=== PATIENT | female | born 1940 | race Caucasian/White ===

== ENCOUNTER 2021-09-12 10:53 | Outpatient (CLI) | payer MEDICARE, SELFPAY ==
[2021-09-12 16:25] LABS: Basophils Absolute Auto 0.01 K/uL (0.00-0.30); Basophils Percent Auto 0.1 % (0.0-3.0); Eosinophils Absolute Auto 0.01 K/uL (0.00-0.50); Eosinophils Percent Auto 0.1 % (0.0-7.0); Hematocrit 37.1 % (33.0-51.0); Hemoglobin* 12.1 gm/dL (12.0-16.0); Immature Granulocytes Abs Auto 0.09 K/uL (0.00-0.30); Lymphocytes Absolute Auto 3.06 K/uL (0.90-2.90); Lymphocytes Percent Auto 29.1 % (20-44); Mean Corpuscular HGB Conc 33 gm/dL (32-36); Mean Corpuscular Hemoglobin 30 pg (26-34); Mean Corpuscular Volume 93 fL (80-100); Monocytes Percent Auto 4.6 % (0.0-11.0); Neutrophils Absolute Auto 6.87 K/uL (1.7-7.0); Neutrophils Percent Auto 65.2 % (42.0-72.0); Platelet Count* 377 K/uL (140-440); Red Blood Count 3.98 m/uL (4.00-5.20); White Blood Count* 10.52 K/uL (4.50-11.00)
[2021-09-12 16:28] LABS: Albumin* 3.9 g/dL (3.3-5.0); Chloride* 103 mmol/L (96-114)
[2021-09-12 16:29] LABS: Potassium* 3.9 mmol/L (3.6-5.1); Sodium* 137 mmol/L (135-149)
[2021-09-12 16:31] LABS: Alkaline Phosphatase* 77 U/L (40-150); Aspartate Amino Transferase* 31 U/L (12-35); Bilirubin Total* 0.6 mg/dL (0.1-1.5); Blood Urea Nitrogen* 13 mg/dL (7-30); Carbon Dioxide* 25 mmol/L (20-32); Cholesterol* 131 mg/dL (90-199); Creatinine* 0.6 mg/dL (0.5-1.5); Estimated Glomerular Filt Rate 90.12; Glucose* 117 mg/dL (60-115); Total Protein* 7.4 g/dL (6.0-8.3); Triglycerides* 76 mg/dL (40-149)
[2021-09-12 16:32] LABS: Alanine Aminotransferase* 39 U/L (4-35); Calcium* 9.7 mg/dL (8.4-10.6); HDL Cholesterol* 47 mg/dL (>=50); LDL Cholesterol Calculated 69 mg/dL (<100)
[2021-09-12 17:02] LABS: TSH With Reflex to FT4* 0.122 uIU/mL (0.270-4.200)
[2021-09-12 21:45] LABS: Free T4 Free Thyroxine* 1.78 ng/dL (0.70-1.85)
[2021-09-16 11:41] LABS: Slide Review Reflex No
== END 2021-09-12 10:54 | disposition home or self-care (01) ==
PROVIDERS: PCP Nurse Practitioner Family; Visit Provider Nurse Practitioner Family
DX: I10 Essential (primary) hypertension (principal); E78.5 Hyperlipidemia, unspecified; E03.9 Hypothyroidism, unspecified; R05.9 Cough, unspecified; Z51.81 Encounter for therapeutic drug level monitoring; Z13.0 Encounter for screening for diseases of the blood and blood-forming organs and certain disorders involving the immune mechanism; Z13.820 Encounter for screening for osteoporosis
CPT/HCPCS: 36415; 80053; 80061; 84439; 84443; 85025

== ENCOUNTER 2021-10-07 14:32 | Outpatient (CLI) | payer MEDICARE, SELFPAY ==
--- NOTE | 2021-10-07 14:40 | MM_ITS ---
Patient: ALYSON GREGORY Facility:?[facility] Patient ID:?[id number] Site Patient ID:?[id number]. Site :?1940 Study:?XRay-Breast Bilateral 2D W/CAD-10/07/2021 11:28:59 PM Ordering Physician:Kathi Galvez Final Report: BILATERAL SCREENING MAMMOGRAM WITH COMPUTER-AIDED DETECTION TECHNIQUE: CC and MLO views were obtained. These mammographic images have been obtained using full-field digital technique. These mammographic images were interpreted with the benefit of computer-aided detection. COMPARISON FILM: 11/10/2019, 11/08/2018, 11/05/2017. FINDINGS: The breasts are heterogeneously dense, which may obscure small masses IMPRESSION: There is no radiographic evidence for malignancy. ASSESSMENT: BI-RADS Category 1: Negative RECOMMENDATION: Routine screening mammogram in 1 year. A lay language report of this examination will be provided to the patient. Andre Galeas M.D. Diagnostic Radiologist [email or web address] BAILEY/elba D& Transcribed: 6:44 p.mAnant arreola/Dictated by: Andre Galeas MD @ 10/08/2021 10:05:00 AM Signed by:?Andre Galeas MD @10/09/2021 8:14:07 AM (Electronic Signature)
--- OUTSIDE RECORDS SUMMARY | 2021-10-14 23:37 | XMS_ITS | Encounter Summary ---
:1940 Author Organization [facility] Address [address] [place] [address] Care Team Providers Name Role Phone Elsewhere, Pcp Primary Care Provider Unavailable Encounter Details Date Type Department Care Team Description 07/08/2021 Orders Only Division of Gastroenterology Tino Peck, in [facility] [address] [facility] [address] [place] [address] [place], [place] [phone] Social History Tobacco Use Types Packs/Day Years Used Date Smoking Tobacco: Never Smokeless Tobacco: Never Alcohol Habits Answer Date Recorded How often do you have a drink containing alcohol? Never 07/05/2021 How many drinks containing alcohol do you have on a typical Not asked day when you are drinking? How often do you have six or more drinks on one occasion? No t asked Comment: Not asked Social Isolation Answer Date Recorded In a typical week, how many times do you More than three paresh es a week 07/05/2021 talk on the phone with family, friends, or neighbors? How often do you get together with friends Three times a wee k 07/05/2021 or relatives? How often do you attend caodaism or Patient refused 2021 hindu services? Do you belong to any clubs or Patient refused 07/05/2021 organizations such as caodaism groups, unions, fraternal or athletic groups, or school groups? How often do you attend meetings of the Patient refused 07/05/2021 clubs or organizations you belong to? Are you now , , , 07/05/2021 , never or living with a partner? Physical Activity Answer Date Recorded On average, how many days per week do you engage in moderate to 1 day 07/05/2021 strenuous exercise (like walking fast, running, jogging, dancing, swimming, biking, or other activities that cause a light or heavy sweat)? On average, how many minutes do you engage in exercise at th is 30 min 07/05/2021 level? Stress Answer Date Recorded Do you feel stress - tense, restless, nervous, or Only a lit tle 07/05/2021 anxious, or unable to sleep at night because your mind is troubled all the time - these days? Financial Resource Strain Answer Date Recorded How hard is it for you to pay for the very basics like Not h shar at all 07/05/2021 food, housing, medical care, and heating? Intimate Partner Violence Answer Date Recorded Within the last year, have you been afraid of your partner o r No 07/05/2021 ex-partner? Within the last year, have you been humiliated or emotionall y No 07/05/2021 abused in other ways by your partner or ex-partner? Within the last year, have you been kicked, hit, slapped, or No 07/05/2021 otherwise physically hurt by your partner or ex-partner? Within the last year, have you been raped or forced to have any No 07/05/2021 kind of sexual activity by your partner or ex-partner? Food Insecurity Answer Date Recorded Within the past 12 months, you worried that your food would Never true 07/05/2021 run out before you got money to buy more. Within the past 12 months, the food you bought just didn't N ever true 07/05/2021 last and you didn't have money to get more. Transportation Needs Answer Date Recorded In the past 12 months, has lack of transportation kept you f rom No 07/05/2021 medical appointments or from getting medications? In the past 12 months, has lack of transportation kept you f rom No 07/05/2021 meetings, work, or getting things needed for daily living? Housing Stability Answer Date Recorded In the last 12 months, was there a time when you were not ab le No 07/05/2021 to pay the mortgage or rent on time? In the last 12 months, how many places have you lived? 1 07/05/2021 In the last 12 months, was there a time when you did not hav e a No 07/05/[address] to sleep or slept in a penitentiary (including now)? Education Answer Date Recorded What is the highest level of school you have completed or 12 th grade 07/05/2021 the highest degree you have received? Sex Assigned at Date Recorded Female 07/05/2021 8:19 AM CDT documented as of this encounter Plan of Treatment Not on filedocumented as of this encounter Visit Diagnoses Not on filedocumented in this encounter Additional Health Concerns Assessment Noted Time PHQ-9 Depression Total Score: 1 10/05/2013 1:43 PM CDT documented as of this encounter Care Teams Animal Surgeon Relationship Specialty Start Date End Date Elsewhere, Pcp PCP - General Internal Medicine 08/24/19 documented as of this encounter
--- OUTSIDE RECORDS SUMMARY | 2021-10-14 23:37 | XMS_ITS | Encounter Summary ---
:1940 Author Organization [facility] Address [address] [place] [address] Care Team Providers Name Role Phone Elsewhere, Pcp Primary Care Provider Unavailable Reason for Referral Outpatient (Routine) - Closed Specialty Diagnoses / Procedures Referred By Contact Refer red To Contact Diagnoses Diarrhea Persistent Unexplained Bo Marie M.D. [facility] Procedures Colonoscopy [address] [place] [address] Referral ID Status Reason Start Date Expiration Date Visits Requ ested Visits Authorized [id number] Closed 07/08/2021 07/08/2022 1 1 Reason for Visit Outpatient (Routine) - Closed Specialty Diagnoses / Procedures Referred By Contact Refer red To Contact Diagnoses Diarrhea Persistent Unexplained Bo Marie M.D. [facility] Procedures Colonoscopy [address] [place] [address] Referral ID Status Reason Start Date Expiration Date Visits Requ ested Visits Authorized [id number] Closed 07/08/2021 07/08/2022 1 1 Encounter Details Date Type Department Care Team Description 07/10/2021 Hospital Division of Bo Marie Diarrhea Encounter Gastroenterology in [place], [place] [address] Unexplained [address] [place] [phone] Social History Tobacco Use Types Packs/Day Years Used Date Smoking Tobacco: Never Smokeless Tobacco: Never Alcohol Use Standard Drinks/Week Comments Not Currently 0 (1 standard drink = 0.6 oz pure alcoho l) Alcohol Habits Answer Date Recorded How often [...] or relatives? How often do you attend confucianist or Patient refused 2021 jainism services? Do you belong to any clubs or Patient refused 07/05/2021 organizations such as confucianist groups, unions, fraternal or athletic groups, or [...] AM CDT documented as of this encounter Last Filed Vital Signs Vital Sign Reading Time Taken Comments Blood Pressure 136/100 07/10/2021 4:17 PM CDT Pulse 69 07/10/2021 4:17 PM CDT Temperature 36.6 ??C (97.9 ??F) 07/10/2021 4:03 PM CDT Respiratory Rate 14 07/10/2021 4:17 PM CDT Oxygen Saturation 97% 07/10/2021 4:17 PM CDT Inhaled Oxygen Concentration - - Weight 74.8 kg (165 lb) 07/10/2021 2:42 PM CDT Height - - Body Mass Index 24.03 10/08/2016 1:07 PM CDT documented in this encounter Medications at Time of Discharge Medication Sig Dispensed Refills Start Date End Date acetaminophen (TYLENOL) 500 Take 1,000 mg by 0 mg tablet mouth 3 (three) times a day. ascorbic acid, vitamin C, Take 1 tablet by 0 01/07 (VITAMIN C) 500 mg tablet mouth daily. aspirin [address] tablet Take 1 tablet by 0 2015 mouth daily. B complex-vitamins Take 1 tablet by 0 09/11/2011 (for_BALANCE B-50) tablet mouth daily. calcium carbonate-vitamin Take 1 tablet by 0 01/07 D3 1,500 mg (600 mg mouth 2 (two) times calcium)-400 unit per a day. tablet fish oil-dha-epa Take 2 capsules by 0 12/15/2010 1,200-144-216 mg capsule mouth 2 (two) times a day. hydroCHLOROthiazide Take 1 tablet by 0 06/10/2016 (for_HYDRODIURIL) 25 mg mouth daily. tablet Hypertension levothyroxine (SYNTHROID, Take 137 mcg by 0 10/29 LEVOTHROID) 137 mcg tablet mouth. losartan (COZAAR) 50 mg Take 75 mg by mouth. 0 tablet multivitamin tablet Take 1 tablet by 0 01/31/2008 mouth daily. omeprazole (PriLOSEC) 20 mg 0 06/07/[address] capsule potassium chloride Take 1 tablet by 0 06/10/2016 (for_KLOR-CON M/KDUR) 20 mouth daily. mEq ER tablet Hypokalemia rOPINIRole (REQUIP) 1 mg Take 1 mg every 6 0 10/06 tablet hours or up to 4 times daily. simvastatin (for_ZOCOR) 20 Take 1 tablet by 0 07/2016 mg tablet mouth at bedtime. Dysplipidemia SYNTHROID 137 mcg tablet TAKE 1 TABLET BY 90 tablet 3 08/30 MOUTH DAILY traMADoL (ULTRAM) 50 mg Take 50 mg by mouth. 0 tablet vancomycin (VANCOCIN) 125 TAKE ONE CAPSULE BY 0 0 06/19/2021 mg capsule MOUTH FOUR TIMES A DAY vitamin E 400 unit capsule Take 1 capsule by 0 mouth daily. documented as of this encounter Plan of Treatment Not on filedocumented as of this encounter Procedures Procedure Name Priority Date/Time Associated Diagnosis Comme nts SURGICAL PATHOLOGY Routine 07/10/2021 3:52 PM Res ults for this CDT procedure are i n the results section. COLONOSCOPY Routine 07/10/2021 3:36 PM Diarrhea Persistent Re sults for this CDT Unexplained procedure are i n the results section. COLONOSCOPY Routine 07/10/2021 3:36 PM Diarrhea Persistent CDT Unexplained documented in this encounter Results Surgical Pathology (07/10/2021 3:52 PM CDT) Component Value Ref Test Analysis Performed Pathologis t Range Method Time At Signature 07/14/2021 DTL 1:19 PM CDT Report Meg Merino M.D. 07/14/2021 DTL electronically 1:19 PM CDT signed by I verify that I have examined all relevant slides/materials for the specimen(s) and rendered or confirmed the diagnosis. Seen in consultation with: ??Shahriar King M.D. Gross Description Received in formalin labeled with the patient's n daniel, 07/14/2021 DTL medical record number, and colon, random sites (colon) 1:19 PM CDT are eight pale yousif-pink irregular soft tissues, admixed with minute tissue fragments that may not survive processing, the tissues ranging from 0.1-0.4 cm in greatest dimension. Specimens are submitted en toto in cassette A1. Grossed by KALPANAW. Interpretation FINAL DIAGNOSIS 07/14/2021 DTL A. ??Colon, random sites, endoscopic biopsy: ??Collagenous 1:19 PM CDT colitis. ??Trichrome stain highlights thickened and irregular subepithelial collagen and supports the diagnosis. Specimen (Source) Anatomical Collection Method Collection Time Re ceived Time Location / / Volume Laterality Biopsy (Colon) 07/10/2021 3:52 PM CDT Narrative This result has an attachment that is no t available. Caroline Wayne LAB SURG PATH ORDERAB LES Performing Organization Address City/State/ZIP Code Phon e Number [facility] - [address] [place], [place] [address] [facility] [place] [address] [facility] [address] Colonoscopy (07/10/2021 3:36 PM CDT) Specimen (Source) Anatomical Collection Method Collection Time Re ceived Time Location / / Volume Laterality 07/10/2021 3:36 PM CDT Impressions [facility] - 07/10/2021 4:00 PM CDT Post-op Diagnoses: ? - Biopsies were obtained in the e ntire colon. Narrative [facility] [place] - 07/10/2021 4:00 PM CDT Gonda 9 GI GI Patient Name: Radha Mcmullen Date of : 1940 Age: 81 Gender: Female Procedure Date: 07/10/2021 Procedure: ? Colonosc opy Providers: ? Mohit Morris MD Referring Provider: ?Bo valenzuela MD Pre-op Diagnoses: ?Clinically significant diarrhea of unexplained origin Recommendation: ? - Return to referring physician shani s previously scheduled. ? - PATHOLOGY/MICROBIOLOGY FOLLOW-U P: The ordering provider is responsible ? for reviewing results from specim ens obtained during this endoscopic ? procedure and communicating the f indings to the patient. If guidance is ? needed for interpreting endoscopi c findings or pathology results, please ? consider a gastroenterology e-con sult. Findings: ? Biopsies were obtained in the ent bharat colon with cold forceps for ? histology. ? Extensive amounts of stool was fo und in the entire colon, precluding ? visualization. Procedural Details: ? The patient was seen, evaluated, history reviewed, airway and heart-lung ? exams were performed by licensed provider and were satisfactory for ? planned level of sedation care. ? The risks, benefits and alternati ves for the procedure and sedation were ? discussed and informed consent wa s obtained. A procedural pause was ? conducted in the presence of assi sting personnel to verify the correct ? patient identity and procedure to be performed. Throughout the ? procedure, the patient's blood pr essure, pulse, and oxygen saturations ? were monitored continuously. The Pediatric Colonoscope was introduced ? under direct vision through the a nus and advanced to the cecum, ? identified by appendiceal orifice and ileocecal valve. The ileocecal ? valve, the appendiceal orifice an d the rectum were photographed. The ? colonoscopy was performed without difficulty. The patient tolerated the ? procedure well. The quality of th e bowel preparation was good. The ? quality of the bowel preparation was evaluated using the BBPS (Floral ? Bowel Preparation Scale) with sco res of: Right Colon = 0 (unprepared, ? mucosa not seen due to solid stoo l that cannot be cleared or unseen ? proximal colon segment in a colon oscopy aborted due to inadequate bowel ? prep), Transverse Colon = 0 (unpr epared, mucosa not seen due to solid ? stool that cannot be cleared or u nseen proximal colon segment in a ? colonoscopy aborted due to inadeq uate bowel prep) and Left Colon = 1 ? (portion of mucosa seen, but othe r areas not well seen due to staining, ? residual stool and/or opaque liqu id). The total BBPS score equals 1. The ? quality of the bowel preparation was inadequate. Estimated Blood Loss: ?Estimated blo od loss: none. Complications: ? No immedia te complications. Sedation: ? Moderate (conscious) sedation was administered by the endoscopy nurse ? and supervised by the endoscopist . The patient's oxygen saturation, ? heart rate, blood pressure and re sponse to care were monitored. Total ? physician intraservice time was 2 7 minutes. Attending Participation: I was present a nd participated during the entire ? pro cedure, including non-elizabeth portions. Caroline Morris MD 07/10/2021 4:00:14 PM This report has been signed electronical ly. Number of Addenda: 0 Bo Marie M.D. GI PROCEDURE ORDERABLES Performing Organization Address City/State/ZIP Code Phon e Number [employer] documented in this encounter Visit Diagnoses Diagnosis Diarrhea Persistent Unexplained documented in this encounter Administered Medications Inactive Administered Medications - up to 3 most recent administrations Medication Order MAR Action Action Date Dose Rate Site fentaNYL injection (SUBLIMAZE) Given 07/10/2021 3:34 PM CDT 50 mcg intravenous, Code/trauma/sedation medication, Starting on Corinne 07/10/21 at 1534 fentaNYL injection (SUBLIMAZE) Given 07/10/2021 3:37 PM CDT 25 mcg intravenous, Code/trauma/sedation medication, Starting on Corinne 07/10/21 at 1537 lactated ringers New Bag 07/10/2021 3:34 PM CDT 20 mL/hr 20 mL/hr intravenous, Code/trauma/sedation continuous med, Starting on Corinne 07/10/21 at 1534 midazolam (PF) injection (VERSED) Given 07/10/2021 3:34 PM CDT 2 mg Code/trauma/sedation medication, Starting on Corinne 07/10/21 at 1534 midazolam (PF) injection (VERSED) Given 07/10/2021 3:37 PM CDT 2 mg Code/trauma/sedation medication, Starting on Corinne 07/10/21 at 1537 sodium chloride 0.9 % injection Given 07/10/2021 3:34 PM CDT 5 mL intravenous, Code/trauma/sedation medication, Starting on Corinne 07/10/21 at 1534 sodium chloride 0.9 % injection Given 07/10/2021 3:37 PM CDT 5 mL intravenous, Code/trauma/sedation medication, Starting on Corinne 07/10/21 at 1537 documented in this encounter Additional Health Concerns Assessment Noted Time PHQ-9 Depression Total Score: 1 10/05/2013 1:43 PM CDT documented as of this encounter Care Teams Carroting Machine Offbearer Relationship Specialty Start Date End Date Elsewhere, Pcp PCP - General Internal Medicine 08/24/19 documented as of this encounter
--- OUTSIDE RECORDS SUMMARY | 2021-10-14 23:37 | XMS_ITS | Encounter Summary ---
:1940 Author Organization [facility] Address [address] [place] [address] Care Team Providers Name Role Phone Elsewhere, Pcp Primary Care Provider Unavailable Encounter Details Date Type Department Care Team Description 07/17/2021 Office Visit Division of Bo Marie Constipation (Primary Dx); Gastroenterology in S, M.D. [place], [place] [address] [facility] [address] [place] [phone] Social History Tobacco Use Types Packs/Day Years [...] or relatives? How often do you attend anabaptism or Patient refused 2021 pentecostalism services? Do you belong to any clubs or Patient refused 07/05/2021 organizations such as anabaptism groups, unions, fraternal or athletic groups, or [...] place to sleep or slept in a halfway (including now)? Education Answer Date Recorded What is the highest level of school you have completed or 12 th grade 07/05/2021 the highest degree you have received? Sex Assigned at Date Recorded Female 07/05/2021 8:19 AM CDT documented as of this encounter Progress Notes Bo Marie M.D. - 07/17/2021 3:00 PM CDT Mrs. Mcmullen returns for a follow-up visit. Assessment/plan: #1 Diarrhea, resolved? #2 Constipation #3 History of C difficile infection #4 Histologic evidence of collagenous colitis without diarrhea currently Colonoscopy was grossly normal but biopsy showed collagenous colitis. Unfortunately, despite another attempt to understand her symptoms, I still do not have a firm grasp of what her complaints are. When asked her what her chief complaint was she said diarrhea but then she said she is taking laxatives for small hard stools that are difficult to pass. As best I can tell, she has longstanding constipation but last summer developed severe diarrhea. In November she was C difficile positive and apparently got better on vancomycin. Now, although as noted above the history is unreliable, it appears that she is back to having primarily issues with constipation that she manages with laxative use as needed. Therefore, despite histologic finding of collagenous colitis, it does not sound as though she is having significant diarrhea currently and I therefore do not think this needs to be treated. I recommended that she continue to use her laxative and prune juice which has been effective. If she develops significant diarrhea she will need to be tested again for C difficile. If that is positive I would treat with either vancomycin or fidaxomicin and I would then like to be contacted to consider fecal transplant. If however she does not have C difficile, then we will need to consider whether collagenous colitis is active and whether she should be treated with bismuth or budesonide. 35 minute spent on today's follow-up visit documented in this encounter Plan of Treatment Not on filedocumented as of this encounter Visit Diagnoses Diagnosis Constipation - Primary Diarrhea documented in this encounter Additional Health Concerns Assessment Noted Time PHQ-9 Depression Total Score: 1 10/05/2013 1:43 PM CDT documented as of this encounter Care Teams Embalmer/Funeral Director Relationship Specialty Start Date End Date Elsewhere, Pcp PCP - General Internal Medicine 08/24/19 documented as of this encounter
--- OUTSIDE RECORDS SUMMARY | 2021-10-14 23:37 | XMS_ITS | Encounter Summary ---
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 [facility] Procedures Enema Prep [address] [place] [phone] Referral ID Status Reason Start Date Expiration Date Visits Requ ested Visits Authorized [id number] Closed 07/10/2021 07/10/2022 1 1 Encounter Details Date Type Department Care Team Description 07/10/2021 Orders Only Division of Bo Marie Enterocolitis Due To Clostridium Difficile Not Specified As Recurrent (Primary Dx); Gastroenterology in [place] Enterocolitis Due To Clostridium Diffici le Recurrent [place], [place] [address] [facility] [address] [place] [phone] Social History Tobacco Use Types Packs/Day Years [...] or relatives? How often do you attend uatsdin or Patient refused 2021 voodoo services? Do you belong to any clubs or Patient refused 07/05/2021 organizations such as uatsdin groups, unions, fraNeocleus or athletic groups, or school groups? How [...] place to sleep or slept in a fpc (including now)? Education Answer Date Recorded What is the highest level of school you have completed or 12 th grade 07/05/2021 the highest degree you have received? Sex Assigned at Date Recorded Female 07/05/2021 8:19 AM CDT documented as of this encounter Plan of Treatment Scheduled Orders Name Type Priority Associated Diagnoses Order S chedule Enema Prep Procedures Routine Enterocolitis Due To Expecte d: 07/10/2021, Clostridium Difficile s: 10/10/2022 Recurrent documented as of this encounter Visit Diagnoses Diagnosis Enterocolitis Due To Clostridium Diffici le Not Specified As Recurrent - Primary Enterocolitis Due To Clostridium Diffici le Recurrent documented in this encounter Additional Health Concerns Assessment Noted Time PHQ-9 Depression Total Score: 1 10/05/2013 1:43 PM CDT documented as of this encounter Care Teams Sheriffs Relationship Specialty Start Date End Date Elsewhere, Pcp PCP - General Internal Medicine 08/24/19 documented as of this encounter
--- OUTSIDE RECORDS SUMMARY | 2021-10-14 23:37 | XMS_ITS | Encounter Summary ---
:1940 Author Organization [facility] Address [address] [place] [id number] Care Team Providers Name Role Phone Elsewhere, Pcp Primary Care Provider Unavailable Reason for Visit Reason Comments Pre-visit Intake Encounter Details Date Type Department Care Team Description 07/04/2021 Clinical Communication Visit Review in Pr e-visit Intake [address] [id number] Social History Tobacco Use Types Packs/Day Years [...] or relatives? How often do you attend scientology or Patient refused 2021 shinto services? Do you belong to any clubs or Patient refused 07/05/2021 organizations such as scientology groups, unions, fraternal or athletic groups, or [...] place to sleep or slept in a retirement (including now)? Sex Assigned at Date Recorded Female 07/05/2021 8:19 AM CDT documented as of this encounter Plan of Treatment Not on filedocumented as of this encounter Visit Diagnoses Not on filedocumented in this encounter Additional Health Concerns Assessment Noted Time PHQ-9 Depression Total Score: 1 10/05/2013 1:43 PM CDT documented as of this encounter Care Teams Military Communications Specialist Relationship Specialty Start Date End Date Elsewhere, Pcp PCP - General Internal Medicine 08/24/19 documented as of this encounter
--- OUTSIDE RECORDS SUMMARY | 2021-10-14 23:37 | XMS_ITS | Encounter Summary ---
:1940 Author Organization [facility] Address [address] [place] [address] Care Team Providers Name Role Phone Elsewhere, Pcp Primary Care Provider Unavailable Reason for Visit Reason Comments Follow-up HTN/Blood pressure Encounter Details Date Type Department Care Team Description 08/24/2019 Clinical Communication Department of Britney Hernandez ow-aman Family Medicine, Garcia Wise R.N. (HTN/Blood [facility] [address] [facility] pressure) jose [place] [facility] [phone] [address] [phone] [place], [place] (Work) [phone] Social History Tobacco Use Types Packs/Day Years [...] or relatives? How often do you attend yazdanism or Patient refused 2021 yarsanism services? Do you belong to any clubs or Patient refused 07/05/2021 organizations such as yazdanism groups, unions, fraternal or athletic groups, or [...] minutes do you engage in exercise at is 30 min 07/05/2021 level? Stress Answer [...] place to sleep or slept in a half-way (including now)? Sex Assigned at Date Recorded Female 07/05/2021 8:19 AM CDT documented as of this encounter Miscellaneous Notes Telephone Encounter - Garcia Hernandez RAnantN. - 08/24/2019 2:38 PM CDT SUBJECTIVE CHIEF COMPLAINT / REASON FOR CALL Follow-up (HTN/Blood pressure) Information Discussed Patient was contacted as they are due for hypertension/blood pressure check. However, after review of chart it appears that the patient has moved their primary care to [facility]. She was contacted to be able to confirm this. She stated that she had to come to [facility] for a back surgery as has since stayedwith [facility] for all of her healthcare. She was asked if she wanted us removed as her primary care provider and she stated that yes we should be removed as her primary care provider. PLAN Disposition/Recommendation: Will send information to the appropriate contact to have [facility] removed as primary care provider. Information/Education: patient/caller able to teach back Caller agreeable to plan of care: yes The following references were used: nursing clinical judgement documented in this encounter Plan of Treatment Not on filedocumented as of this encounter Visit Diagnoses Not on filedocumented in this encounter Additional Health Concerns Assessment Noted Time PHQ-9 Depression Total Score: 1 10/05/2013 1:43 PM CDT documented as of this encounter Care Teams Baseball Sewer Hand Relationship Specialty Start Date End Date Elsewhere, Pcp PCP - General Internal Medicine 08/24/19 documented as of this encounter
--- OUTSIDE RECORDS SUMMARY | 2021-10-14 23:37 | XMS_ITS | Encounter Summary ---
:1940 Author Organization [facility] Address [address] [place] [id number] Care Team Providers Name Role Phone Elsewhere, Pcp Primary Care Provider Unavailable Encounter Details Date Type Department Care Team Description 07/10/2021 Ancillary Procedure Department of Gastroenterology Social History Tobacco Use Types Packs/Day Years [...] or relatives? How often do you attend shinto or Patient refused 2021 presybeterian services? Do you belong to any clubs or Patient refused 07/05/2021 organizations such as shinto groups, unions, fraternal or athletic groups, or [...] place to sleep or slept in a correction (including now)? Education Answer Date Recorded What is the highest level of school you have completed or 12 th grade 07/05/2021 the highest degree you have received? Sex Assigned at Date Recorded Female 07/05/2021 8:19 AM CDT documented as of this encounter Plan of Treatment Not on filedocumented as of this encounter Procedures Procedure Name Priority Date/Time Associated Comments Diagnosis GASTROENTEROLOGY IMAGE Routine 07/10/2021 3:40 Re sults for this EXAM PM CDT procedure are i n the results section. documented in this encounter Results Colonoscopy-Gastroenterology Image Exam (07/10/2021 3:40 PM CDT) Specimen (Source) Anatomical Collection Method Collection Time Re ceived Time Location / / Volume Laterality 07/10/2021 3:36 PM CDT Narrative [facility] - 07/10/2021 4:07 PM CDT This order has been created and auto-finalized to support the import of images acquired without order. The clini lala documentation to support these images can be found on the encounter nadine t produced images. Provider Not In System IMG NON RAD IMAGING PROCEDUR ES Performing Organization Address City/State/ZIP Code Phon e Number [facility] NA documented in this encounter Visit Diagnoses Not on filedocumented in this encounter Additional Health Concerns Assessment Noted Time PHQ-9 Depression Total Score: 1 10/05/2013 1:43 PM CDT documented as of this encounter Care Teams Dyer Helper Relationship Specialty Start Date End Date Elsewhere, Pcp PCP - General Internal Medicine 08/24/19 documented as of this encounter
--- OUTSIDE RECORDS SUMMARY | 2021-10-14 23:37 | XMS_ITS | Encounter Summary ---
:1940 Author Organization [facility] Address [address] [place] [address] Care Team Providers Name Role Phone Elsewhere, Pcp Primary Care Provider Unavailable Reason for Referral Outpatient (Routine) - Authorized Specialty Diagnoses / Procedures Referred By Contact Refer red To Contact Diagnoses Diarrhea Persistent Unexplained Bo Marie M.D. [facility] Procedures Breath test, Hydrogen, Lactulose - Bacterial overgrowth in diabetics [address] [place] [address] Referral ID Status Reason Start Date Expiration Date Visits V isits Requested Authorized [id number] Authorized 07/08/2021 07/08/2022 1 1 Outpatient (Routine) - Closed Specialty Diagnoses / Procedures Referred By Contact Refer red To Contact Diagnoses Diarrhea Persistent Unexplained Bo Marie M.D. 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 [address] [place] [address] Referral ID Status Reason Start Date Expiration Date Visits Requ ested Visits Authorized [id number] Closed 06/11/2021 06/11/2022 1 1 Encounter Details Date Type Department Care Team Description 07/08/2021 Comprehensive Visit Division of [place], Diarrhea Persistent Unexplained (Primary Dx); Gastroenterology in [place], Enteroco litis Due To Clostridium Difficile Not Specified As Recurrent; [place], [place] M.DAnant Malnutrition Moderate Protein-Calorie (H CC) [address] [place] [phone] Social History Tobacco Use Types Packs/Day Years [...] or relatives? How often do you attend voodoo or Patient refused 2021 voodoo services? Do you belong to any clubs or Patient refused 07/05/2021 organizations such as voodoo groups, unions, fraternal or athletic groups, or [...] Sign Reading Time Taken Comments Blood Pressure 154/77 07/08/2021 8:44 AM CDT Pulse 73 07/08/2021 8:44 AM CDT Temperature 36.5 ??C (97.7 ??F) 07/08/2021 8:44 AM CDT Respiratory Rate - - Oxygen Saturation - - Inhaled Oxygen Concentration - - Weight 75.7 kg (166 lb 14.2 oz) 07/08/2021 8:44 AM CDT Height - - Body Mass Index 24.3 10/08/2016 1:07 PM CDT documented in this encounter H&P Notes Bo Marie M.D. - 07/08/2021 9:00 AM CDT SUBJECTIVE REASON FOR VISIT diarrhea HISTORY OF PRESENT ILLNESS Ms. Mcmullen is a 81 y.o. female who presents for evaluation of diarrhea. History is somewhat difficult to obtain, but it sounds as though her baseline bowel function has been constipation requiring intermittent use of laxatives. Apparently beginning last summer she started having trouble with diarrhea. She was tried empirically on several antibiotics and it is difficult for me to tell for sure whether she responded to those antibiotics or did not. In November she was positive for C difficile by GDH toxin and PCR and it looks like she was treated with metronidazole. She again does not recall whether that helped very much or not. Around that time she also had an abdominal CT scan which showed significant amount of fluid in the small bowel and colon with no evidence for inflammation mass or any other significant finding. She then we wintered in [place] and saw PA there who diagnosed irritable bowel syndrome and gave her a trial of Bentyl. She thought that may have made her better. When she came back h ere she was tried empirically on Lomotil without much benefit. In June she had extensive testing including normal or negative CBC, tTG, CRP, ESR, chemistry profile, hemoglobin A1c, stool pathogen panel, ova and parasite, TSH. Repeat C difficile testing was positive for GDH but negative for toxin. Despite this finding she was put on vancomycin and thought that that helped improve her consistency of stool from frequent watery bowel movements 2 formed/soft stool but she still has significant urgency and fecal incontinence. More recently, her symptoms have gone back to alternating diarrhea and constipation. She thinks she has diarrhea more often than constipation but takes prunes once or twice per week. She has no evidence for GI bleeding or greasy/or oily stools. Her LLQ abdominal pain is better after a bowel movement but does not resolve completely. She has lost 35 lb over this time frame but thinks perhaps maybe that is starting to stabilize. Past Medical History: ??? Hypercholesterolemia ??? 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 BACK SURGERY 1989 ??? HYSTERECTOMY ??? SPINAL FUSION 07/2017 ??? TUBAL LIGATION Family History ??? Lung cancer Father ??? Cancer Brother Lymph nodes REVIEW OF SYSTEMS Constitutional: Positive for weight loss of more than 10 pounds. Gastrointestinal: Positive for abdominal (belly) pain or cramping, constipation and diarrhea. Genitourinary: Positive for frequent urination. Musculoskeletal: Positive for arthralgias, back pain and pain or stiffness in the joints. Neurological: Positive for excessive daytime sleepiness and headaches. Psychiatric/Behavioral: Positive for excessive daytime sleepiness/tiredness. The following systems were negative: Skin, Eyes, ENT, CV, Respiratory, Hematologic OBJECTIVE BP 154/77 Pulse 73 Temp 36.5 ??C Wt 75.7 kg BMI 24.30 kg/m?? PHYSICAL EXAMINATION General: Resting comfortably in NAD Eyes: No icterus or inflammation Mouth: Normal oropharynx without aphthous ulcers Neck: No cervical or supraclavicular lymphadenopathy. No thyroid masses or tenderness. Abdomen: Soft nontender nondistended without masses or hepatosplenomegaly Rectal: No masses or blood Extremities: no edema cords or calf tenderness Skin: Anicteric without rash Psych: alert, oriented, appropriate ASSESSMENT / PLAN #1 Diarrhea alternating with constipation Persistent Unexplained #2 Severe weight loss #3 C difficile positivity Unfortunately, it is difficult to get a clear history here. The alternating diarrhea and constipation would suggest the possibility of irritable bowel syndrome, or worsening constipation with overflow diarrhea. However, on examination I did not detect any stool in the rectal vault. I also think her sig nificant weight loss makes irritable bowel syndrome alone unlikely. 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 She recently completed a course of vancomycin and severe diarrhea has not recurred but if it does we will repeata GI pathogen panel. As noted in my HPI above, she has had extensive testing for routine blood work and celiac serologies so I am not repeating those now.I am going to perform a colonoscopy including random mucosal biopsies for microscopic colitis. Given previous response to non C difficile antibiotics I am also going to perform a hydrogen breath test for bacterial overgrowth. If those tests are negative we will consider repeating a CT but this time with enterography protocol, primarily because of her severe weight loss. If diarrhea persists without an answer we will perform 48 hour stool study forfat and bile acid malabsorption. We may also need to consider an EGD with small- bowel biopsies although her tTG was negative. She is on some medications that have been associated with diarrhea, but based on her recollection ofwhen these medicines started in relation to in her diarrhea started, we could not identify an obvious culprit. To help us determine exactly what her bowel habit is, I am going to ask her to keep a stool diary and bring that back with her when I see her for follow-up. 60 minutes spent on today's consultation Bo Marie M.D. documented in this encounter Plan of Treatment Scheduled Orders Name Type Priority Associated Diagnoses Order S chedule Breath test, Hydrogen, GI Routine Diarrhea Persisten t Expected: Lactulose - Bacterial Unexplained 2021 overgrowth in (Approximate), diabetics Expires: 2022 GI Pathogen Panel, Microbiology Routine Diarrhea Persistent Ex pected: PCR, Feces Unexplained 07/08/2021 (Approximate), Expires: 2022 documented as of this encounter Results Zinc (07/08/2021 10:57 AM CDT) athologist Signature Zinc, S 0.80 0.66 - 1.10 07/09/2021 9:53 SDSC mcg/mL AM CDT Comment: ----ADDITIONAL INFORMATION---- This test was developed and its performa nce characteristics determined by [facility] in a manner consistent with CLIA requirements. This test has not been cleared or approved by the U.S. Rula d and Drug Administration. Specimen Anatomical Collection Method Collection Time Receive d Time (Source) Location / / Volume Laterality Blood (Blood, 07/08/2021 10:57 07/08/2021 3:28 Venous) AM CDT PM CDT Bo Marie M.D. LAB BLOOD NON ADD-ON Performing Organization Address [facility] Phon e Number [facility] [address] [place] [address] Dr [place] [address] [address] [facility] [place] [address] Laboratory Medicine and Pathology [address] [place] [address] Dr. FORBES Vitamin E Level (07/08/2021 10:57 AM CDT) athologist Signature A-Tocopherol, 15.1 5.5 - 17.0 07/09/2021 [facility] Vitamin E mg/L 11:42 AM CDT Comment: ----ADDITIONAL INFORMATION---- This test was developed and its performa nce characteristics determined by [facility] in a manner consistent with CLIA requirements. This test has not been cleared or approved by the U.S. Rula d and Drug Administration. Specimen Anatomical Collection Method Collection Time Receive d Time (Source) Location / / Volume Laterality Blood (Blood, 07/08/2021 10:57 07/08/2021 3:27 Venous) AM CDT PM CDT Bo Marie M.D. LAB BLOOD NON ADD-ON Performing Organization Address [facility] Phon e Number [address] [place] [address] [address] [facility] [place] [address] Laboratory Medicine and Pathology [address] [place] [address] Dr. FORBES Vitamin B12 Assay (07/08/2021 10:57 AM CDT) athologist Signature Vitamin B12 [phone] 07/08/2021 DTL Assay, S ng/L 2:23 PM CDT Comment: ----ADDITIONAL INFORMATION---- In patients being evaluated for vitamin B12 deficiency who have intrinsic factor blocking antibodie s (IFBA), false elevations of B12 may occur due to IFBA interference thus potentially obscuring a physiological de ficiency of B12. If observed B12 concentrations are disco rdant with clinical presentation, measurement of methylmalon ic acid (MMA) should be considered. Specimen Anatomical Collection Method Collection Time Receive d Time (Source) Location / / Volume Laterality Blood (Blood, 07/08/2021 10:57 07/08/2021 Venous) AM CDT 12:38 PM CDT Bo Marie M.D. LAB BLOOD ADD-ON Performing Organization Address [place]/[facility] Phon e Number [facility] - [address] [place], [place] [address] [place] [address] [facility] [address] [facility] Vitamin A Level (07/08/2021 10:57 AM CDT) athologist Signature Vitamin A 39.5 32.5 - 78.0 07/10/2021 9:12 SDSC mcg/dL AM CDT Comment: ----ADDITIONAL INFORMATION---- This test was developed and its performa nce characteristics determined by [facility] in a manner consistent with CLIA requirements. This test has not been cleared or approved by the U.S. Rula d and Drug Administration. Specimen Anatomical Collection Method Collection Time Receive d Time (Source) Location / / Volume Laterality Blood (Blood, 07/08/2021 10:57 07/08/2021 3:27 Venous) AM CDT PM CDT Bo Marie M.D. LAB BLOOD NON ADD-ON Performing Organization Address City/[facility] Phon e Number [facility] [address] [place], [place] [address] [facility] [place] [address] Laboratory Medicine and Pathology [address] FORBES Copper (07/08/2021 10:57 AM CDT) athologist Signature Copper, S 1.40 0.75 - 1.45 07/09/2021 9:53 SDSC mcg/mL AM CDT Comment: ----ADDITIONAL INFORMATION---- This test was developed and its performa nce characteristics determined by [facility] in a manner consistent with CLIA requirements. This test has not been cleared or approved by the U.S. Rula d and Drug Administration. Specimen Anatomical Collection Method Collection Time Receive d Time (Source) Location / / Volume Laterality Blood (Blood, 07/08/2021 10:57 07/08/2021 3:28 Venous) AM CDT PM CDT Bo Marie M.D. LAB BLOOD NON ADD-ON Performing Organization Address [facility] Phon e Number [address] [place] [phone] [facility] [place] [address] Laboratory Medicine and Pathology [address] [place] [address] Dr. FORBES Selenium (07/08/2021 10:57 AM CDT) P athologist Signature Selenium, S 118 70 - 150 07/09/2021 [facility] ng/mL 9:53 AM CDT Comment: ----ADDITIONAL INFORMATION---- This test was developed and its performa nce characteristics determined by [facility] in a manner consistent with CLIA requirements. This test has not been cleared or approved by the U.S. Rula d and Drug Administration. Specimen Anatomical Collection Method Collection Time Receive d Time (Source) Location / / Volume Laterality Blood (Blood, 07/08/2021 10:57 07/08/2021 3:28 Venous) AM CDT PM CDT Bo Marie M.D. LAB BLOOD NON ADD-ON Performing Organization Address [facility] Phon e Number [address] [place] [phone] [facility] [place] [address] Laboratory Medicine and Pathology [address] [place] [address] Dr. FORBES Prothrombin Time (PT) (07/08/2021 10:57 AM CDT) P athologist Signature Prothrombin 10.5 9.4 - 12.5 07/08/2021 DTL Time, P sec 11:55 AM CDT INR 1.0 0.9 - 1.1 07/08/2021 DTL 11:55 AM CDT Comment: ----ADDITIONAL INFORMATION---- Standard intensity warfarin therapeutic range: 2.0 to 3.0 ?? High intensity warfarin therapeutic rang e: 2.5 to 3.5 Specimen Anatomical Collection Method Collection Time Receive d Time (Source) Location / / Volume Laterality Blood (Blood, 07/08/2021 10:57 07/08/2021 Venous) AM CDT 11:26 AM CDT Bo Marie M.D. LAB BLOOD ADD-ON Performing Organization Address City/State/ZIP Code Phon e Number [facility] - [address] [place], [place] [address] [place] [address] [facility] [address] [facility] Folate (07/08/2021 10:57 AM CDT) athologist Signature Folate, S >20.0 >=4.0 mcg/L 07/08/2021 2:20 DTL PM CDT Specimen Anatomical Collection Method Collection Time Receive d Time (Source) Location / / Volume Laterality Blood (Blood, 07/08/2021 10:57 07/08/2021 Venous) AM CDT 12:38 PM CDT Bo Marie M.D. LAB BLOOD ADD-ON Performing Organization Address City/[facility]/ZIP Code Phon e Number [facility] - [address] [place], [place] [address] [place] [address] [facility] [address] [facility] Ferritin (07/08/2021 10:57 AM CDT) athologist Signature Ferritin, S 103 11 - 307 07/08/2021 DTL mcg/L 2:15 PM CDT Specimen Anatomical Collection Method Collection Time Receive d Time (Source) Location / / Volume Laterality Blood (Blood, 07/08/2021 10:57 07/08/2021 Venous) AM CDT 12:38 PM CDT Bo Marie M.D. LAB BLOOD ADD-ON Performing Organization Address City/State/ZIP Code Phon e Number [facility] - [address] [place], [place] [address] [place] [address] 25-Hydroxyvitamin D2 and D3 (07/08/2021 10:57 AM CDT) athologist Signature 25-Hydroxy D2 <4.0 ng/mL 07/09/2021 SDSC 10:54 PM CDT 25-Hydroxy D3 46 ng/mL 07/09/2021 SDSC 10:54 PM CDT 25-Hydroxy D 46 ng/mL 07/09/2021 [facility] Total 10:54 PM CDT Comment: ----REFERENCE VALUE---- 25-HYDROXY D TOTAL (D2+D3) Optimum level s in the healthy population are 20-50, patients with bone disease may benefit from higher levels within this r ihsan. ----ADDITIONAL INFORMATION---- This test was developed and its performa nce characteristics determined by [facility] in a manner consistent with CLIA requirements. This test has not been cleared or approved by the U.S. Rula d and Drug Administration. Specimen Anatomical Collection Method Collection Time Receive d Time (Source) Location / / Volume Laterality Blood (Blood, 07/08/2021 10:57 07/09/2021 7:54 Venous) AM CDT AM CDT Bo Marie M.D. LAB BLOOD ADD-ON Performing Organization Address City/State/ZIP Code Phon e Number [facility] [address] [place] [address] [facility] [place] [address] Laboratory Medicine and Pathology [address] FORBES documented in this encounter Visit Diagnoses Diagnosis Diarrhea Persistent Unexplained - Primar y Enterocolitis Due To Clostridium Diffici le Not Specified As Recurrent Malnutrition Moderate Protein-Calorie (H CC) documented in this encounter Additional Health Concerns Assessment Noted Time PHQ-9 Depression Total Score: 1 10/05/2013 1:43 PM CDT documented as of this encounter Care Teams Stage Electrician Helper Relationship Specialty Start Date End Date Elsewhere, Pcp PCP - General Internal Medicine 08/24/19 documented as of this encounter
--- OUTSIDE RECORDS SUMMARY | 2021-10-14 23:37 | XMS_ITS | Encounter Summary ---
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 [facility] Procedures Enema Prep [address] [place] [address] Referral ID Status Reason Start Date Expiration Date Visits Requ ested Visits Authorized [id number] Closed 07/10/2021 07/10/2022 1 1 Encounter Details Date Type Department Care Team Description 07/10/2021 Clinical Support Enema Prep Facility Abram Marie M.D. [address] [place] [phone] Enterocolitis Due To in [place], Teodora Mallory, R.N. Clostridium Difficile [place] Recurrent [address] [place] [phone] Social History Tobacco Use Types Packs/Day Years [...] or relatives? How often do you attend restorationist or Patient refused 2021 judaism services? Do you belong to any clubs or Patient refused 07/05/2021 organizations such as restorationist groups, [employer], [employer] or athletic groups, or school groups? How [...] Diagnosis Enterocolitis Due To Clostridium Diffici le Recurrent documented in this encounter Additional Health Concerns Assessment Noted Time PHQ-9 Depression Total Score: 1 10/05/2013 1:43 PM CDT documented as of this encounter Care Teams Poultry Husbandry Worker Relationship Specialty Start Date End Date Elsewhere, Pcp PCP - General Internal Medicine 08/24/19 documented as of this encounter
--- OUTSIDE RECORDS SUMMARY | 2021-10-14 23:37 | XMS_ITS | Encounter Summary ---
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 [address] Not Specified As [place], [place] Recurrent (Primary [id number] Dx) [phone] Social History Tobacco Use Types Packs/Day Years [...] or relatives? How often do you attend mosque or Patient refused 2021 alevism services? Do you belong to any clubs or Patient refused 07/05/2021 organizations such as mosque groups, unions, [employer] or athletic groups, or school groups? How [...] place to sleep or slept in a residential (including now)? Sex Assigned at Date Recorded Female 07/05/2021 8:19 AM CDT documented as of this encounter Plan of Treatment Scheduled Referrals Name Type Priority Associated Diagnoses Order S chedule Gastroenterology & Outpatient Routine Enterocolitis Due To E xpected: Hepatology Referral Referral Clostridium 06/12/19 22 Difficile Not (Approximate), Specified As Expires: Recurrent 09/10/2022 documented as of this encounter Visit Diagnoses Diagnosis Enterocolitis Due To Clostridium Diffici le Not Specified As Recurrent - Primary documented in this encounter Additional Health Concerns Assessment Noted Time PHQ-9 Depression Total Score: 1 10/05/2013 1:43 PM CDT documented as of this encounter Care Teams Psychiatrist Relationship Specialty Start Date End Date Elsewhere, Pcp PCP - General Internal Medicine 08/24/19 documented as of this encounter
--- OUTSIDE RECORDS SUMMARY | 2021-10-14 23:37 | XMS_ITS | Encounter Summary ---
:1940 Author Organization [facility] Address [address] [place] [address] Care Team Providers Name Role Phone Elsewhere, Pcp Primary Care Provider Unavailable Encounter Details Date Type Department Care Team Description 07/08/2021 Orders Only Division of Coretta Peck Encounter F or Gastroenterology in P, CCRP Preprocedural [place], [place] [address] [facility] Laboratory [address] [place], [place] [phone] (COVID-19) (Primary [phone] Dx) (Work) Social History Tobacco Use Types Packs/Day Years [...] or relatives? How often do you attend yazidi or Patient refused 2021 episcopal services? Do you belong to any clubs or Patient refused 07/05/2021 organizations such as yazidi groups, unions, fraternal or athletic groups, or [...] place to sleep or slept in a mcc (including now)? Education Answer Date Recorded What is the highest level of school you have completed or 12 th grade 07/05/2021 the highest degree you have received? Sex Assigned at Date Recorded Female 07/05/2021 8:19 AM CDT documented as of this encounter Plan of Treatment Scheduled Orders Name Type Priority Associated Diagnoses Order S chedule SARS CoV-2 RNA, PCR, Microbiology Routine Encounter For Expect ed: Varies Asymptomatic Preprocedural 022 Laboratory Examination (Appr oximate), (COVID-19) Expires: 10/08/2022 documented as of this encounter Visit Diagnoses Diagnosis Encounter For Preprocedural Laboratory E xamination (COVID-19) - Primary documented in this encounter Additional Health Concerns Assessment Noted Time PHQ-9 Depression Total Score: 1 10/05/2013 1:43 PM CDT documented as of this encounter Care Teams Automotive Glazier Relationship Specialty Start Date End Date Elsewhere, Pcp PCP - General Internal Medicine 08/24/19 documented as of this encounter
--- OUTSIDE RECORDS SUMMARY | 2021-10-14 23:37 | XMS_ITS | Encounter Summary ---
:1940 Author Organization [facility] Address [address] [place] [address] Care Team Providers Name Role Phone Elsewhere, Pcp Primary Care Provider Unavailable Encounter Details Date Type Department Care Team Description 04/30/2020 Orders Only RST PCP [facility] KARENT Lemuel Bennett Jr., M.D. [address] [facility] [place] [place] [phone] (Wo rk) Social History Tobacco Use Types Packs/Day Years [...] you attend yazdanism or Patient refused 2021 anglican services? Do you belong to any clubs [...] place to sleep or slept in a chcf (including now)? Sex Assigned at Date Recorded Female 07/05/2021 8:19 AM CDT documented as of this encounter Plan of Treatment Not on filedocumented as of this encounter Visit Diagnoses Not on filedocumented in this encounter Additional Health Concerns Assessment Noted Time PHQ-9 Depression Total Score: 1 10/05/2013 1:43 PM CDT documented as of this encounter Care Teams Gluing Machine Operator Relationship Specialty Start Date End Date Elsewhere, Pcp PCP - General Internal Medicine 08/24/19 documented as of this encounter
--- OUTSIDE RECORDS SUMMARY | 2021-10-14 23:37 | XMS_ITS | Clinical Summary ---
:[address] [facility] Address [address] [place] [address] Care Team Providers Name Role Phone Elsewhere, Pcp Primary Care Provider Unavailable Source Comments Patient records contain information from all sites at [facility]. For routine questions regarding patient records, call [phone] during business hours, M-F 8:00 AM - 5:00 PM Central Time. Record requests for emergency care only can be directed to [phone] at any time.[facility] Allergies Active Allergy Reactions Severity Noted Date Comments Lisinopril Cough 06/26/2014 Metoprolol Other (see comments) 10/28/2011 Insomni a Olmesartan Other (see comments) 11/30/2006 Other r eaction(s): Dizziness Medications Medication Sig Dispensed Refills Start Date End Date Status aspirin [address] tablet Take 1 tablet by 0 6 Active mouth daily. B complex-vitamins Take 1 tablet by 0 09/11/2011 Active (for_BALANCE B-50) mouth daily. tablet calcium Take 1 tablet by 0 01/30/2008 Ac tive carbonate-vitamin D3 mouth 2 (two) 1,500 mg (600 mg times a day. calcium)-400 unit per tablet fish oil-dha-epa Take 2 capsules by 0 12/15/2010 Active 1,200-144-216 mg capsule mouth 2 (two) times a day. hydroCHLOROthiazide Take 1 tablet by 0 06/10/2016 Active (for_HYDRODIURIL) 25 mg mouth daily. tablet Hypertension multivitamin tablet Take 1 tablet by 0 01/31/2008 Active mouth daily. potassium chloride Take 1 tablet by 0 06/10/2016 Active (for_KLOR-CON M/KDUR) 20 mouth daily. mEq ER tablet Hypokalemia simvastatin (for_ZOCOR) Take 1 tablet by 0 7 Active 20 mg tablet mouth at bedtime. Dysplipidemia ascorbic acid, vitamin Take 1 tablet by 0 01/31/2008 Active C, (VITAMIN C) 500 mg mouth daily. tablet vitamin E 400 unit Take 1 capsule by 0 01/31/2008 Active capsule mouth daily. SYNTHROID 137 mcg tablet TAKE 1 TABLET BY 90 tablet 3 08/31/19 18 Active MOUTH DAILY Additional Information Patient not taking. Reported on 07/10/2021 traMADoL (ULTRAM) 50 mg tablet Take 50 mg by mouth. 0 06/06/2021 Active acetaminophen (TYLENOL) 500 mg Take 1,000 mg by mouth 3 0 Active tablet (three) times a day. losartan (COZAAR) 50 mg tablet Take 75 mg by mouth. 0 06/06/2021 Active omeprazole (PriLOSEC) [address] 0 2 Active capsule rOPINIRole (REQUIP) 1 mg tablet Take 1 mg every 6 hours or 0 10/20/2017 Active up to 4 times daily. vancomycin (VANCOCIN) 125 mg TAKE ONE CAPSULE BY MOUTH 0 06/19/2021 Active capsule FOUR TIMES A DAY levothyroxine (SYNTHROID, Take 137 mcg by mouth. 0 0 10/29/2017 Active LEVOTHROID) 137 mcg tablet Active Problems Problem Noted Date Age Related Nuclear Cataract Bilateral 09/12/2018 Hypertension 12/07/2002 Encounters Date Type Specialty Care Team Description 10/03/2021 Clinical Gastroenterology and Liv, Communication Hepatology SHARATH Ram 07/17/2021 Office Visit Gastroenterology and Bo Marie Const ipation (Primary Dx); Hepatology S, M.D. Diarrhea from Last 3 Months Immunizations Name Administration Dates Next Due HZV (ZOSTAVAX) 09/24/2008 Influenza Split 01/07/2016 PCV13 11/06/2014 PPSV23 12/24/2005 Td, (Adult) Unspecified 09/24/2008, 03/08/1999 Tdap 10/06/2011 influenza high dose (65 years or older) (PF) 12/19/2014, Family History Medical History Relation Name Comments Glaucoma Neg Hx Macular degeneration Neg Hx Social History Tobacco Use Types Packs/Day Years [...] or relatives? How often do you attend zoroastrian or Patient refused 2021 jew services? Do you belong to any clubs or Patient refused 07/05/2021 organizations such as zoroastrian groups, unions, fraternal or athletic groups, or [...] place to sleep or slept in a intermediate (including now)? Education Answer Date Recorded What is the highest level of school you have completed or 12 th grade 07/05/2021 the highest degree you have received? Sex Assigned at Date Recorded Female 07/05/2021 8:19 AM CDT Last Filed Vital Signs Vital Sign Reading Time Taken Comments Blood Pressure 136/100 07/10/2021 4:17 PM CDT Pulse 69 07/10/2021 4:17 PM CDT Temperature 36.6 ??C (97.9 ??F) 07/10/2021 4:03 PM CDT Respiratory Rate 14 07/10/2021 4:17 PM CDT Oxygen Saturation 97% 07/10/2021 4:17 PM CDT Inhaled Oxygen Concentration - - Weight 74.8 kg (165 lb) 07/10/2021 2:42 PM CDT Height 176.5 cm (5' 9.49) 10/08/2016 1:07 PM CDT Body Mass Index 24.03 10/08/2016 1:07 PM CDT Plan of Treatment Health Maintenance Due Date Last Done Comments Depression Screening (Annual 03/08/2021 PHQ-2) COVID-19 Vaccine (4 - Booster for 05/01/2021 12/29/2020, , Pfizer series) 06/06/2020 DTaP,Tdap,and Td Vaccines (2 - Td 10/05/2021 10/06/2011, , or Tdap) 09/24/2008, Additional history exists Office Visit for Blood Pressure 10/08/2021 07/08/2021 Check / Re-check Creatinine Level 11/07/2021 11/07/2020, 09/24/2020, 06/27/2020, Additional history exists Potassium Level 11/07/2021 11/07/2020, 09/24/2020, 06/27/2020, Additional history exists Sodium Level 11/07/2021 11/07/2020, 09/24/2020, 06/27/2020, Additional history exists Influenza Vaccine (#1) 2022 11/12/2020, 10/26/2019, 12/21/2018, Additional history exists Thyroid Stimulating Hormone (TSH) 06/06/2022 06/06/2021, , test for thyroid function 09/25/2019, Additional history exists Pneumococcal vaccine (65+ years) Completed 11/06/2014, Zoster Vaccines Completed 03/27/2019, 01/03/2019, 09/24/2008 Fall Risk Screen (Annual) Completed 07/10/2021 Medical Devices Implanted Type Area Program Development Manager Device Shelf Model / Identifier Expiration Serial / Date Lot Conversions - Default Historical Implant Device Hardware Back Implanted: 06/10/2016 (Quantity not on file) e.g. pins/screws/ rods Description: Body Location - Back. wires from back surgery. Device Status Text - Hardware. Insurance Payer Benefit Plan / Subscriber ID Effective Dates Phone Addre ss Type Group AARP AARP MEDICARE [id number] 2020-Present [phone] [address] [address] [place] [address] Advance Directives For more information, please contact: [phone] Documents on File Type Date Recorded Patient Administrative Assistant Data Entry Explanati on Advance Directives 10/25/2015 12:00 AM Legacy doc ument. See document viewer. Care Teams Research Management Associate Relationship Specialty Start Date End Date Elsewhere, Pcp PCP - General Internal Medicine 08/24/19
--- OUTSIDE RECORDS SUMMARY | 2021-10-14 23:37 | XMS_ITS | Encounter Summary ---
:1940 Author Organization [facility] Address [address] [place] [address] Care Team Providers Name Role Phone Elsewhere, Pcp Primary Care Provider Unavailable Encounter Details Date Type Department Care Team Description 07/08/2021 Hospital Encounter Department of Bo Marie [facility] Laboratory Medicine S, MAnantDAnant Protein-Calorie (HCC) and Pathology, [address] [place], [place] [address] [place] [phone] [place] [address] (Work) [place], [place] [phone] (Fax) [phone] Social History Tobacco Use Types Packs/Day Years [...] or relatives? How often do you attend yarsanism or Patient refused 2021 judaism services? Do you belong to any clubs or Patient refused 07/05/2021 organizations such as yarsanism groups, unions, fraternal or athletic groups, or [...] place to sleep or slept in a long-term (including now)? Education Answer Date Recorded What is the highest level of school you have completed or 12 th grade 07/05/2021 the highest degree you have received? Sex Assigned at Date Recorded Female 07/05/2021 8:19 AM CDT documented as of this encounter Medications at Time of Discharge [...] Name Priority Date/Time Associated Diagnosis Comme nts COPPER, S Routine 07/08/2021 10:57 Malnutrition Moderate Re sults for this AM CDT Protein-Calorie (HCC) proced ure are in the results section. ZINC, S Routine 07/08/2021 10:57 Malnutrition Moderate Re sults for this AM CDT Protein-Calorie (HCC) proced ure are in the results section. VITAMIN A, S Routine 07/08/2021 10:57 Malnutrition Moderate Re sults for this AM CDT Protein-Calorie (HCC) proced ure are in the results section. SELENIUM, S Routine 07/08/2021 10:57 Malnutrition Moderate Re sults for this AM CDT Protein-Calorie (HCC) proced ure are in the results section. 25-HYDROXYVITAMIN D2 Routine 07/08/2021 10:57 Malnutrition Mod erate Results for this AND D3, S AM CDT Protein-Calorie (HCC) proced ure are in the results section. PROTHROMBIN TIME Routine 07/08/2021 10:57 Malnutrition Moderat e Results for this (PT), P AM CDT Protein-Calorie (HCC) proced ure are in the results section. VITAMIN E, S Routine 07/08/2021 10:57 Malnutrition Moderate Re sults for this AM CDT Protein-Calorie (HCC) proced ure are in the results section. FOLATE, S Routine 07/08/2021 10:57 Malnutrition Moderate Re sults for this AM CDT Protein-Calorie (HCC) proced ure are in the results section. FERRITIN, S Routine 07/08/2021 10:57 Malnutrition Moderate Re sults for this AM CDT Protein-Calorie (HCC) proced ure are in the results section. VITAMIN B12 ASSAY, S Routine 07/08/2021 10:57 Malnutrition Mod erate Results for this AM CDT Protein-Calorie (HCC) proced ure are in the results section. documented in this encounter Results Zinc (07/08/2021 10:57 AM CDT) athologist Signature Zinc, S 0.80 0.66 - 1.10 07/09/2021 9:53 SDSC mcg/mL AM CDT Comment: ----ADDITIONAL INFORMATION---- This test was developed and its performa nce characteristics determined by [facility] in a manner consistent with CLIA requirements. This test has not been cleared or approved by the U.S. Rula d and Drug Administration. Specimen Anatomical Collection Method Collection Time Receive d Time (Source) Location / / Volume Laterality Blood (Blood, 07/08/2021 10:57 07/08/2021 3:28 Venous) AM CDT PM CDT Bo Marie M.D. LAB BLOOD NON ADD-ON Performing Organization Address City/[facility] Phon e Number [facility] [address] [place] [address] [address] [facility] [facility] [place] [address] Laboratory Medicine and Pathology [address] [place] [address] Dr. FORBES Vitamin E Level (07/08/2021 10:57 AM CDT) athologist [facility] A-Tocopherol, 15.1 5.5 - 17.0 07/09/2021 [facility] Vitamin E mg/L 11:42 AM CDT Comment: ----ADDITIONAL INFORMATION---- This test was developed and its performa nce characteristics determined by [facility] in a manner consistent with CLIA requirements. This test has not been cleared or approved by the U.S. Rula d and Drug Administration. Specimen Anatomical Collection Method Collection Time Receive d Time (Source) Location / / Volume Laterality Blood (Blood, 07/08/2021 10:57 07/08/2021 3:27 Venous) AM CDT PM CDT Bo Marie M.D. LAB BLOOD NON ADD-ON Performing Organization Address City/[facility] Phon e Number [facility] [address] [place], [place] [address] [facility] [place] [address] Laboratory Medicine and Pathology [address] [place] Vitamin B12 Assay (07/08/2021 10:57 AM CDT) athologist Signature Vitamin B12 794 180 - 914 07/08/2021 [facility] Assay, S ng/L 2:23 PM CDT Comment: [...] M.D. LAB BLOOD ADD-ON Performing Organization Address City/[facility]/ZIP Code Phon e Number [facility] - [address] [place], [place] [address] [place] [address] [facility] [address] Vitamin A Level (07/08/2021 10:57 AM CDT) [facility] Vitamin A 39.5 32.5 - 78.0 07/10/2021 9:12 [facility] mcg/dL AM CDT Comment: ----ADDITIONAL INFORMATION---- This test was developed and its performa nce characteristics determined by [facility] in a manner consistent with CLIA requirements. This test has not been cleared or approved by the U.S. Rula d and Drug Administration. Specimen Anatomical Collection Method Collection Time Receive d Time (Source) Location / / Volume Laterality Blood (Blood, 07/08/2021 10:57 07/08/2021 3:27 Venous) AM CDT PM CDT Bo Marie M.D. LAB BLOOD NON ADD-ON Performing Organization Address City/[facility]/ZIP [facility] Phon e Number [facility] [address] [place] [address] [facility] [place] [address] Laboratory Medicine and Pathology [address] [place] Copper (07/08/2021 10:57 AM CDT) P athologist Signature Copper, S 1.40 0.75 - 1.45 07/09/2021 9:53 SDSC mcg/mL AM CDT Comment: ----ADDITIONAL INFORMATION---- This test was developed and its performa nce characteristics determined by [facility] in a manner consistent with CLIA requirements. This test has not been cleared or approved by the U.S. Rula d and Drug Administration. Specimen Anatomical Collection Method Collection Time Receive d Time (Source) Location / / Volume Laterality Blood (Blood, 07/08/2021 10:57 07/08/2021 3:28 Venous) AM CDT PM CDT Bo Marie M.D. LAB BLOOD NON ADD-ON Performing Organization Address [facility] Phon e Number [address] [place] [address] [address] [facility] [place] [address] Laboratory Medicine and Pathology [address] [place] [address] Dr. FORBES Selenium (07/08/2021 10:57 AM CDT) athologist Signature Selenium, S 118 70 - 150 07/09/2021 SDSC ng/mL 9:53 AM CDT Comment: ----ADDITIONAL INFORMATION---- This test was developed and its performa nce characteristics determined by [facility] in a manner consistent with CLIA requirements. This test has not been cleared or approved by the U.S. Rula d and Drug Administration. Specimen Anatomical Collection Method Collection Time Receive d Time (Source) Location / / Volume Laterality Blood (Blood, 07/08/2021 10:57 07/08/2021 3:28 Venous) AM CDT PM CDT Bo Marie M.D. LAB BLOOD NON ADD-ON Performing Organization Address City/[facility] Phon e Number [address] [place] [address] [address] [facility] [place] [address] Laboratory Medicine and Pathology [address] [place] [address] Dr. FORB[place] Prothrombin Time (PT) (07/08/2021 10:57 AM CDT) athologist Signature Prothrombin 10.5 9.4 - 12.5 [...] M.D. LAB BLOOD ADD-ON Performing Organization Address City/[facility] Phon e Number [facility] - 200 [place], [place] [address] [place] [address] Folate (07/08/2021 10:57 AM CDT) athologist Signature Folate, S >20.0 >=4.0 mcg/L 07/08/2021 2:20 DTL PM CDT Specimen Anatomical Collection Method Collection Time Receive d Time (Source) Location / / Volume Laterality Blood (Blood, 07/08/2021 10:57 07/08/2021 Venous) AM CDT 12:38 PM CDT Bo Marie M.D. LAB BLOOD ADD-ON Performing Organization Address City/[facility] Phon e Number [facility] - 200 [place], [place] [address] [place] [address] Ferritin (07/08/2021 10:57 AM CDT) athologist Signature Ferritin, S 103 11 - 307 07/08/2021 DTL mcg/L 2:15 PM CDT Specimen Anatomical Collection Method Collection Time Receive d Time (Source) Location / / Volume Laterality Blood (Blood, 07/08/2021 10:57 07/08/2021 Venous) AM CDT 12:38 PM CDT Bo Marie M.D. LAB BLOOD ADD-ON Performing Organization Address City/[facility]/ZIP Code Phon e Number [facility] - [address] [place], [place] [address] [facility] [place] [address] [facility] [address] [facility] 25-Hydroxyvitamin D2 and D3 (07/08/2021 10:57 AM CDT) P athologist Signature 25-Hydroxy D2 <4.0 ng/mL 07/09/2021 SDSC 10:54 PM CDT 25-Hydroxy D3 46 ng/mL 07/09/2021 SDSC 10:54 PM CDT 25-Hydroxy D 46 ng/mL 07/09/2021 SDSC Total 10:54 PM CDT Comment: ----REFERENCE VALUE---- 25-HYDROXY D TOTAL (D2+D3) Optimum level s in the healthy population are 20-50, patients with bone disease may benefit from higher levels within this r ihsan. ----ADDITIONAL INFORMATION---- This test was developed and its performa nce characteristics determined by [facility] in a manner consistent with CLIA requirements. This test has not been cleared or approved by the U.S. Rula d and Drug Administration. Specimen Anatomical Collection Method Collection Time Receive d Time (Source) Location / / Volume Laterality Blood (Blood, 07/08/2021 10:57 07/09/2021 7:54 Venous) AM CDT AM CDT Bo Marie M.D. LAB BLOOD ADD-ON Performing Organization Address City/[facility] Phon e Number [facility] [address] [place], [place] [address] [facility] [address] Laboratory Medicine and Pathology [address] [place] documented in this encounter Visit Diagnoses Diagnosis Malnutrition Moderate Protein-Calorie (H CC) documented in this encounter Additional Health Concerns Assessment Noted Time PHQ-9 Depression Total Score: 1 10/05/2013 1:43 PM CDT documented as of this encounter Care Teams Nurse Practitioner Physician Assistant Relationship Specialty Start Date End Date Elsewhere, Pcp PCP - General Internal Medicine 08/24/19 documented as of this encounter
--- OUTSIDE RECORDS SUMMARY | 2021-10-14 23:37 | XMS_ITS | Encounter Summary ---
:1940 Author Organization [facility] Address [address] [place] [address] Care Team Providers Name Role Phone Elsewhere, Pcp Primary Care Provider Unavailable Encounter Details Date Type Department Care Team Description 06/17/2021 Clinical Communication Division of Bo Marie Gastroenterology in S, M.D. [place], [place] [address] [facility] [address] [place] [phone] Social History Tobacco Use Types Packs/Day Years [...] or relatives? How often do you attend mu-ism or Patient refused 2021 synagogue services? Do you belong to any clubs or Patient refused 07/05/2021 organizations such as mu-ism groups, unions, fraternal or athletic groups, or [...] or slept in a correction (including now)? Sex Assigned at Date Recorded Female 07/05/2021 8:19 AM CDT documented as of this encounter Plan of Treatment Not on filedocumented as of this encounter Visit Diagnoses Not on filedocumented in this encounter Additional Health Concerns Assessment Noted Time PHQ-9 Depression Total Score: 1 10/05/2013 1:43 PM CDT documented as of this encounter Care Teams Patent Law Specialist Relationship Specialty Start Date End Date Elsewhere, Pcp PCP - General Internal Medicine 08/24/19 documented as of this encounter
--- OUTSIDE RECORDS SUMMARY | 2021-10-14 23:37 | XMS_ITS | Encounter Summary ---
:1940 Author Organization [facility] Address [address] [place] [address] Care Team Providers Name Role Phone Elsewhere, Pcp Primary Care Provider Unavailable Encounter Details Date Type Department Care Team Description 10/03/2021 Clinical Communication Division of Coretta Peck Gastroenterology in , [place], [place] [address] [facility] [address] [place] [phone] Social History Tobacco Use Types Packs/Day Years [...] or relatives? How often do you attend episcopalian or Patient refused 2021 sikh services? Do you belong to any clubs or Patient refused 07/05/2021 organizations such as episcopalian groups, unions, fraternal or athletic groups, or [...] this encounter Miscellaneous Notes Telephone Encounter - Coretta Peck CCRP - 10/03/2021 1:18 PM CDT Patient called to report she is having loose stool again and wondered what to do. I recommend that she contact her primary physician with a report of ther symptoms. Has Dr. Marie saw her for a consultrealted to C difficile.. With a report of diarrhea we would recommend a stool test for C.difficile and treatment as needed. If it is positive we can see the patient back to discuss a FMT or study options. Please see Dr. Marie note from Jul 17 2021 for his recommendations documented in this encounter Plan of Treatment Not on filedocumented as of this encounter Visit Diagnoses Not on filedocumented in this encounter Additional Health Concerns Assessment Noted Time PHQ-9 Depression Total Score: 1 10/05/2013 1:43 PM CDT documented as of this encounter Care Teams Local Intermodal Truck Driver Relationship Specialty Start Date End Date Elsewhere, Pcp PCP - General Internal Medicine 08/24/19 documented as of this encounter
--- OUTSIDE RECORDS SUMMARY | 2021-10-14 23:37 | XMS_ITS | Encounter Summary ---
:1940 Author Organization [facility] Address [address] [place] [address] Care Team Providers Name Role Phone Elsewhere, Pcp Primary Care Provider Unavailable Encounter Details Date Type Department Care Team Description 05/01/2020 Orders Only [facility] - Donald powell Elsewhere, Pcp [address] , [facility] [address] [place] [address] Social History Tobacco Use Types Packs/Day Years [...] or relatives? How often do you attend restorationism or Patient refused 2021 anabaptist services? Do you belong to any clubs or Patient refused 07/05/2021 organizations such as restorationism groups, unions, fraternal or athletic groups, or [...] place to sleep or slept in a fdc (including now)? Sex Assigned at Date Recorded Female 07/05/2021 8:19 AM CDT documented as of this encounter Plan of Treatment Not on filedocumented as of this encounter Visit Diagnoses Not on filedocumented in this encounter Additional Health Concerns Assessment Noted Time PHQ-9 Depression Total Score: 1 10/05/2013 1:43 PM CDT documented as of this encounter Care Teams Category Manager Relationship Specialty Start Date End Date Elsewhere, Pcp PCP - General Internal Medicine 08/24/19 documented as of this encounter
--- OUTSIDE RECORDS SUMMARY | 2021-10-14 23:37 | XMS_ITS | Encounter Summary ---
:1940 Author Organization [facility] Address [address] [place] [address] Care Team Providers Name Role Phone Eduardo Muse D.O. Primary Care Provider [phone] Reason for Visit Reason Comments Eye Exam Appointment Request (Routine) - Closed Specialty Diagnoses / Procedures Referred By Contact Refer red To Contact Ophthalmology Referral ID Status Reason Start Date Expiration Date Visits Requ ested Visits Authorized [id number] Closed 05/09/2018 05/09/2019 1 1 Encounter Details Date Type Department Care Team Description 09/12/2018 Comprehensive Visit Department of Tabitha Lloyd Nuclear Ophthalmology in Torsten Ponce O.D. Cataract Bilateral [place], [place] [address] [facility] (Primary Dx) [address] [place] [phone] Social History Tobacco Use Types Packs/Day Years [...] or relatives? How often do you attend sikhism or Patient refused 2021 taoist services? Do you belong to any clubs or Patient refused 07/05/2021 organizations such as sikhism groups, unions, fraternal or athletic groups, or [...] place to sleep or slept in a detention (including now)? Sex Assigned at Date Recorded Female 07/05/2021 8:19 AM CDT documented as of this encounter Progress Notes Torsten Lloyd O.D. 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 Plan: monitor periodically, spectacle prescription (Refraction 1) given. 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 PCP - General Family Medicine 09/04/17 08/23/19 [address] [place] [address] documented as of this encounter
--- OUTSIDE RECORDS SUMMARY | 2021-10-14 23:38 | XMS_ITS | Encounter Summary ---
:1940 Author Organization [facility] Address [address] [place] [address] Care Team Providers Name Role Phone Unavailable Primary Care Provider Unavailable Encounter Details Date Type Department Care Team Description 09/05/2012 Hospital Encounter HX NO MAPPING Social History Tobacco Use Types Packs/Day Years Used Date Smoking Tobacco: Never Assessed Alcohol Habits Answer Date Recorded How often [...] or relatives? How often do you attend anglican or Patient refused 2021 mosque services? Do you belong to any clubs or Patient refused 07/05/2021 organizations such as anglican groups, unions, fraternal or athletic groups, or [...] place to sleep or slept in a usp (including now)? Sex Assigned at Date Recorded Female 07/05/2021 8:19 AM CDT documented as of this encounter Medications at Time of Discharge Medication Sig Dispensed Refills Start Date End Date ascorbic acid, vitamin C, Take 1 tablet by 0 01/07 (VITAMIN C) 500 mg tablet mouth daily. B complex-vitamins Take 1 tablet by 0 09/11/2011 (for_BALANCE B-50) tablet mouth daily. calcium carbonate-vitamin Take 1 tablet by 0 01/07 D3 1,500 mg (600 mg mouth 2 (two) times a calcium)-400 unit per day. tablet fish oil-dha-epa Take 2 capsules by 0 12/15/2010 1,200-144-216 mg capsule mouth 2 (two) times a day. multivitamin tablet Take 1 tablet by 0 01/31/2008 mouth daily. vitamin E 400 unit capsule Take 1 capsule by 0 mouth daily. documented as of this encounter Plan of Treatment Not on filedocumented as of this encounter Visit Diagnoses Not on filedocumented in this encounter Additional Health Concerns Assessment Noted Time PHQ-9 Depression Total Score: 8 10/06/2011 9:02 AM CDT documented as of this encounter
--- OUTSIDE RECORDS SUMMARY | 2021-10-14 23:38 | XMS_ITS | Encounter Summary ---
:1940 Author Organization [facility] Address [address] [place] [address] Care Team Providers Name Role Phone Amrik Calix Primary Care Provider Unavailable Encounter Details Date Type Department Care Team Description 05/24/2017 Abstract DATA ABSTRACTION Provider, Historical Social History Tobacco Use Types Packs/Day Years Used Date Smoking Tobacco: Never Alcohol Habits Answer Date Recorded [...] or relatives? How often do you attend rastafari or Patient refused 2021 baptism services? Do you belong to any clubs or Patient refused 07/05/2021 organizations such as rastafari groups, unions, fraternal or athletic groups, or [...] documented as of this encounter Care Teams Heating And Air Conditioning Mechanic Relationship Specialty Start Date End Date Amrik Calix B.M.B.S. PCP - General Family Medicine 09/10/14 09/03/17 documented as of this encounter
--- OUTSIDE RECORDS SUMMARY | 2021-10-14 23:38 | XMS_ITS | Encounter Summary ---
:1940 Author Organization [facility] Address [address] [place] [address] Care Team Providers Name Role Phone Amrik Calix Primary Care Provider Unavailable Encounter Details Date Type Department Care Team Description 05/24/2017 Abstract [facility] Leeanna Roy [facility] [address] [place] [phone] Social History Tobacco Use Types Packs/Day Years [...] or relatives? How often do you attend christianity or Patient refused 2021 rastafarian services? Do you belong to any clubs or Patient refused 07/05/2021 organizations such as christianity groups, unions, fraternal or athletic groups, or [...] documented as of this encounter Care Teams Manager Of Medical Relationship Specialty Start Date End Date Amrik Calix B.M.BAnantS. PCP - General Family Medicine 09/10/14 09/03/17 documented as of this encounter
--- OUTSIDE RECORDS SUMMARY | 2021-10-14 23:38 | XMS_ITS | Encounter Summary ---
:1940 Author Organization [facility] Address [address] [place] [address] Care Team Providers Name Role Phone Unavailable Primary Care Provider Unavailable Encounter Details Date Type Department Care Team Description 12/31/2010 Hospital Encounter HX NO MAPPING Social History [...] or relatives? How often do you attend hinduism or Patient refused 2021 taoist services? Do you belong to any clubs or Patient refused 07/05/2021 organizations such as hinduism groups, unions, fraternal or athletic groups, or [...] place to sleep or slept in a prison (including now)? Sex Assigned at Date Recorded Female 07/05/2021 8:19 AM CDT documented as of this encounter Medications at Time of Discharge Medication Sig Dispensed Refills Start Date End Date ascorbic acid, vitamin C, Take 1 tablet by 0 01/07 (VITAMIN C) 500 mg tablet mouth daily. calcium carbonate-vitamin Take 1 [...] Assessment Noted Time PHQ-9 Depression Total Score: 5 09/26/2009 8:27 AM CDT documented as of this encounter
--- OUTSIDE RECORDS SUMMARY | 2021-10-14 23:38 | XMS_ITS | Encounter Summary ---
:1940 Author Organization [facility] Address [address] [place] [address] Care Team Providers Name Role Phone Elsewhere, Pcp Primary Care Provider Unavailable Encounter Details Date Type Department Care Team Description 09/04/2015 Historical Ophthalmology [facility] Tobin Bartlett O.D. [address] [place], [place] [address] (Wo rk) Social History Tobacco Use Types [...] or relatives? How often do you attend yarsani or Patient refused 2021 shinto services? Do you belong to any clubs or Patient refused 07/05/2021 organizations such as yarsani groups, unions, fraternal or athletic groups, or [...] documented as of this encounter Progress Notes Tobin Bartlett O.D. - 09/04/2015 8:07 AM CDT Eye General CHIEF COMPLAINT general eye exam HISTORY OF PRESENT ILLNESS Patient reports vision is good at distance and near. Denies pain, flashes, floaters and diplopia. IMPRESSION / REPORT / PLAN #1 Cataract, both eyes, not visually significant. Plan: monitor periodically, spectacle prescription (Refraction 1) given. RTC 2 years or PRN. DIAGNOSIS #1 Cataract, both eyes, not visually significant. CDM Reports - EYEGEN Id: [id number] Status: Fnl documented in this encounter Plan of Treatment Not on filedocumented as of this encounter Visit Diagnoses Not on filedocumented in this encounter Additional Health Concerns Assessment Noted Time PHQ-9 Depression Total Score: 1 10/05/2013 1:43 PM CDT documented as of this encounter Care Teams Move Coordinator Relationship Specialty Start Date End Date Elsewhere, Pcp PCP - General Internal Medicine 08/24/19 documented as of this encounter
--- OUTSIDE RECORDS SUMMARY | 2021-10-14 23:38 | XMS_ITS | Encounter Summary ---
:1940 Author Organization [facility] Address [address] [place] [address] Care Team Providers Name Role Phone Elsewhere, Pcp Primary Care Provider Unavailable Encounter Details Date Type Department Care Team Description 07/24/2009 Historical Ophthalmology RST [facility] Torsten Lloyd ORobert [address] [place], [place] [phone] (Wo rk) Social History Tobacco Use Types [...] you attend caodaism or Patient refused 2021 caodaism services? Do you belong to any clubs [...] place to sleep or slept in a senior living (including now)? Sex Assigned at Date Recorded Female 07/05/2021 8:19 AM CDT documented as of this encounter Progress Notes Torsten Lloyd O.D. - 07/24/2009 12:33 PM CDT Eye General CHIEF COMPLAINT eye exam HISTORY OF PRESENT ILLNESS 69 year old patient presents for eye exam. she reports no changes in vision. No trouble seeing road signs, or reading books. Patient denies ocular pain. Occasional floaters. Right eye montiel. No doublevision IMPRESSION / REPORT / PLAN #1 Cataract, both eyes, not visually significant, incipient. Plan: monitor periodically. #2 Refractive error (hyperopia, presbyopia). Plan: spectacle prescription (Refraction 1) given. #3 Meibomian gland dysfunction both eyes. Plan: use artificial tears , hot compresses. 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 DIAGNOSIS #1 Cataract, both eyes, not visually significant, incipient. 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
--- OUTSIDE RECORDS SUMMARY | 2021-10-14 23:38 | XMS_ITS | Encounter Summary ---
:1940 Author Organization [facility] Address [address] [place] [address] Care Team Providers Name Role Phone Unavailable Primary Care Provider Unavailable Encounter Details Date Type Department Care Team Description 11/23/2012 Hospital Encounter HX NO MAPPING Social History [...] you attend zoroastrian or Patient refused 2021 orthodox services? Do you belong to any clubs [...]
--- OUTSIDE RECORDS SUMMARY | 2021-10-14 23:38 | XMS_ITS | Encounter Summary ---
:1940 Author Organization [facility] Address [address] [place] [address] Care Team Providers Name Role Phone Unavailable Primary Care Provider Unavailable Encounter Details Date Type Department Care Team Description 11/24/2013 Hospital Encounter HX NO MAPPING Social History [...] or relatives? How often do you attend sabianism or Patient refused 2021 nondenominational services? Do you belong to any clubs or Patient refused 07/05/2021 organizations such as sabianism groups, unions, fraternal or athletic groups, or [...] place to sleep or slept in a alf (including now)? Sex Assigned at Date Recorded [...]
--- OUTSIDE RECORDS SUMMARY | 2021-10-14 23:38 | XMS_ITS | Encounter Summary ---
:1940 Author Organization [facility] Address [address] [place] [address] Care Team Providers Name Role Phone Elsewhere, Pcp Primary Care Provider Unavailable Encounter Details Date Type Department Care Team Description 01/19/2007 Historical Ophthalmology RST O[facility] Tobin Bartlett O.D. [address] [place], [place] [address] (Wo rk) Social History [...] or relatives? How often do you attend orthodox or Patient refused 2021 alevism services? Do you belong to any clubs or Patient refused 07/05/2021 organizations such as orthodox groups, unions, fraternal or athletic groups, or [...] place to sleep or slept in a assisted (including now)? Sex Assigned at Date Recorded Female 07/05/2021 8:19 AM CDT documented as of this encounter Progress Notes Tobin Bartlett O.D. - 01/19/2007 10:32 AM CST Eye General CHIEF COMPLAINT routine eye exam HISTORY OF PRESENT ILLNESS This is a 66 year old female here for routine eye exam. Patient states that she has the starting of cataracts but states that she has not experienced any change of vision but does have some dust specs that she has seen for many years. Denies pain, flashes or double vision. IMPRESSION / REPORT / PLAN #1 Cataract, both eyes, not visually significant, incipient. Plan: monitor periodically. #2 Refractive error (hyperopia, presbyopia). Plan: spectacle prescription (Refraction 1) given. #3 Meibomian gland dysfunction both eyes. Plan: use artificial tears , hot compresses. Return every 1-2 years for vision, tonometry, and dilation. DIAGNOSIS #1 Cataract, both eyes, not visually significant, incipient. 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 CDM Reports - EYEVanu Id: [id number] Status: Fnl documented in this encounter Plan of Treatment Not on filedocumented as of this encounter Visit Diagnoses Not on filedocumented in this encounter Care Teams Cartography Teacher Relationship Specialty Start Date End Date Elsewhere, Pcp PCP - General Internal Medicine 08/24/19 documented as of this encounter
--- OUTSIDE RECORDS SUMMARY | 2021-10-14 23:38 | XMS_ITS | Encounter Summary ---
:1940 Author Organization [facility] Address [address] [place] [address] Care Team Providers Name Role Phone Unavailable Primary Care Provider Unavailable Encounter Details Date Type Department Care Team Description 12/06/2012 Hospital Encounter HX NO MAPPING Social History [...] or relatives? How often do you attend jain or Patient refused 2021 judaism services? Do you belong to any clubs or Patient refused 07/05/2021 organizations such as jain groups, unions, fraternal or athletic groups, or [...] place to sleep or slept in a longterm (including now)? Sex Assigned at Date Recorded [...]
--- OUTSIDE RECORDS SUMMARY | 2021-10-14 23:38 | XMS_ITS | Encounter Summary ---
:1940 Author Organization [facility] Address [address] [place] [address] Care Team Providers Name Role Phone Elsewhere, Pcp Primary Care Provider Unavailable Encounter Details Date Type Department Care Team Description 10/09/2016 Historical Ophthalmology RST OPH Cris Gonzalez O.D. [address] [place], [place] [phone] (Wo rk) Social History [...] you attend scientology or Patient refused 2021 rastafarian services? Do [...] documented as of this encounter Progress Notes Cris Gonzalez O.D. - 10/09/2016 12:33 PM CDT Eye General CHIEF COMPLAINT General eye exam HISTORY OF PRESENT ILLNESS Patient here for general exam Patient feels that she has something in or behind her right eye, off and on for about a year, nothing makes it better or worse. She does use Systane eye drops ([employer] version) on occasion. Floaters alone; probably in both eyes although patient is uncertain; started 10 years ago, but feelsthey are gone now. IMPRESSION / REPORT / PLAN #1 Cataract, both eyes, not visually significant. Plan: monitor periodically, spectacle prescription (Refraction 1) given. #2 dry eyes rec refresh plus prn discussed DIAGNOSIS #1 Cataract, both eyes, not visually significant. #2 dry eyes CDM Reports - EYEGEN Id: [id number] Status: Fnl documented in this encounter Plan of Treatment Not on filedocumented as of this encounter Visit Diagnoses Not on filedocumented in this encounter Additional Health Concerns Assessment Noted Time PHQ-9 Depression Total Score: 1 10/05/2013 1:43 PM CDT documented as of this encounter Care Teams Percussion Teacher Relationship Specialty Start Date End Date Elsewhere, Pcp PCP - General Internal Medicine 08/24/19 documented as of this encounter
--- OUTSIDE RECORDS SUMMARY | 2021-10-14 23:38 | XMS_ITS | Encounter Summary ---
:1940 Author Organization [facility] Address [address] [place] [address] Care Team Providers Name Role Phone Elsewhere, Pcp Primary Care Provider Unavailable Encounter Details Date Type Department Care Team Description 10/14/2010 Historical Ophthalmology RST O[facility] Cris Gonzalez O.D. [address] [place], [place] [phone] (Wo rk) Social History [...] or relatives? How often do you attend quaker or Patient refused 2021 oriental orthodox services? Do you belong to any clubs or Patient refused 07/05/2021 organizations such as quaker groups, unions, fraternal or athletic groups, or [...] place to sleep or slept in a group home (including now)? Sex Assigned at Date Recorded Female 07/05/2021 8:19 AM CDT documented as of this encounter Progress Notes Cris Gonzalez O.D. - 10/14/2010 2:54 PM CDT Eye General CHIEF COMPLAINT Gritty sensation left eye HISTORY OF PRESENT ILLNESS Patient comes for an evaluation on the left eye. Patient reports having a gritty sensation in the temporal corner of the left eye; off and on; for the past 3 months. Patient reports her vision has been stable and denies blurred vision; flashes, floaters, diplopia. IMPRESSION / REPORT / PLAN #1 Cataract, both eyes, not visually significant, incipient. Plan: monitor periodically. #2 Refractive error (hyperopia, presbyopia). Plan: spectacle prescription (Refraction 1) given. 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 DIAGNOSIS #1 Cataract, both eyes, not visually significant, incipient. #2 Refractive error (hyperopia, presbyopia). 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
--- OUTSIDE RECORDS SUMMARY | 2021-10-14 23:38 | XMS_ITS | Encounter Summary ---
:1940 Author Organization [facility] Address [address] [place] [address] Care Team Providers Name Role Phone Amrik Calix B.M.B.S. Primary Care Provider Unavailable Reason for Visit Reason Comments Med Refill Encounter Details Date Type Department Care Team Description 08/28/2017 Refill Department of Family Medicine, Stacy Calix, B.M.B.S. Med Refill [place], [place] [address] [place] [address] Social History Tobacco Use Types Packs/Day Years [...] or relatives? How often do you attend worship or Patient refused 2021 pentecostal services? Do you belong to any clubs or Patient refused 07/05/2021 organizations such as worship groups, unions, fraternal or athletic groups, or [...] documented as of this encounter Care Teams Financial Services Agent Relationship Specialty Start Date End Date Amrik Calix B.M.BAnantS. PCP - General Family Medicine 09/10/14 09/03/17 documented as of this encounter
--- OUTSIDE RECORDS SUMMARY | 2021-10-14 23:38 | XMS_ITS | Encounter Summary ---
:1940 Author Organization [facility] Address [address] [place] [address] Care Team Providers Name Role Phone Unavailable Primary Care Provider Unavailable Encounter Details Date Type Department Care Team Description 12/13/2002 Hospital Encounter HX NO MAPPING Social History [...] or relatives? How often do you attend latter-day or Patient refused 2021 uatsdin services? Do you belong to any clubs or Patient refused 07/05/2021 organizations such as latter-day groups, unions, fraternal or athletic groups, or [...] Name Priority Date/Time Associated Diagnosis Comme nts ECHOCARDIOGRAM Routine 12/13/2002 12:52 PM CDT documented in this encounter Results Echocardiogram (12/13/2002 12:52 PM CDT) Anatomical Region Laterality Modality Echocardiography Specimen (Source) Anatomical Collection Method Collection Time Re ceived Time Location / / Volume Laterality 12/13/2002 12:52 PM CDT Historical Provider CV ECHO PROCEDURES documented in this encounter Visit Diagnoses Not on filedocumented in this encounter
--- OUTSIDE RECORDS SUMMARY | 2021-10-14 23:38 | XMS_ITS | Encounter Summary ---
:1940 Author Organization [facility] Address [address] [place] [address] Care Team Providers Name Role Phone Elsewhere, Pcp Primary Care Provider Unavailable Encounter Details Date Type Department Care Team Description 12/13/2002 Historical Ophthalmology RST OPH Hammad Lo M.D. [address] [place], [place] [address] (Wo rk) Social History Tobacco Use Types [...] or relatives? How often do you attend hoahaoism or Patient refused 2021 church services? Do you belong to any clubs or Patient refused 07/05/2021 organizations such as hoahaoism groups, unions, fraternal or athletic groups, or [...] documented as of this encounter Progress Notes Hammad العراقي M.D. - 12/13/2002 12:00 AM CDT Eye General CHIEF COMPLAINT Lump or growth on right eyelid HISTORY OF PRESENT ILLNESS Patient reports growth in RUL for past ~ 2 years with some increase in size. Reports Va stable. Denies pain, flashes, and diplopia. No bleeding or erythema. Occasional floaters OD. IMPRESSION / REPORT / PLAN #1 RUL lesion -Discussed possibilities of DDX indcluding: probable cyst vs malignancy. Discussed management including observation vs excision. Discussed R/B/A to excision. Pt wishes to proceed. Examined with RAYRAY CDM Reports - EYEGEN Id: [id number] Status: Fnl documented in this encounter Plan of Treatment Not on filedocumented as of this encounter Visit Diagnoses Not on filedocumented in this encounter Care Teams Gas Substation Operator Relationship Specialty Start Date End Date Elsewhere, Pcp PCP - General Internal Medicine 08/24/19 documented as of this encounter
--- OUTSIDE RECORDS SUMMARY | 2021-10-14 23:38 | XMS_ITS | Encounter Summary ---
:1940 Author Organization [facility] Address [address] [place] [address] Care Team Providers Name Role Phone Elsewhere, Pcp Primary Care Provider Unavailable Encounter Details Date Type Department Care Team Description 01/05/2008 Historical Ophthalmology RST OPH Travis Ibrahim O.D., Ph.D. Social History Tobacco Use Types Packs/Day Years [...] or relatives? How often do you attend taoism or Patient refused 2021 restorationist services? Do you belong to any clubs or Patient refused 07/05/2021 organizations such as taoism groups, unions, fraternal or athletic groups, or [...] or slept in a penitentiary (including now)? Sex Assigned at Date Recorded Female 07/05/2021 8:19 AM CDT documented as of this encounter Progress Notes Travis Ibrahim O.D., Ph.D. - 01/05/2008 7:28 AM CDT Eye General CHIEF COMPLAINT routine check up HISTORY OF PRESENT ILLNESS The patient describes floaters in both eyes for the past several years, which is occasional, mild. Doesn't seem to notice them anymore. Current prescription is about 2 years old and she feels they are working fine for her. Denies blurred vision and double vision. Denies any eye irritations, ocular pressure and or pain. No flashes of light. IMPRESSION / REPORT / PLAN #1 Cataract, [...] pigment epithelium CDM Reports - EYEGEN Id: [id number] Status: Fnl documented in this encounter Plan of Treatment Not on filedocumented as of this encounter Visit Diagnoses Not on filedocumented in this encounter Care Teams Groover Runner Relationship Specialty Start Date End Date Elsewhere, Pcp PCP - General Internal Medicine 08/24/19 documented as of this encounter
--- OUTSIDE RECORDS SUMMARY | 2021-10-14 23:38 | XMS_ITS | Encounter Summary ---
:1940 Author Organization [facility] Address [address] [place] [address] Care Team Providers Name Role Phone Elsewhere, Pcp Primary Care Provider Unavailable Encounter Details Date Type Department Care Team Description 09/26/2012 Historical Ophthalmology RST OPH Torsten Lloyd ORobert [address] [place], [place] [phone] (Wo rk) Social History [...] you attend voodoo or Patient refused 2021 pentecostalism services? Do [...] place to sleep or slept in a care home (including now)? Sex Assigned at Date Recorded Female 07/05/2021 8:19 AM CDT documented as of this encounter Progress Notes Torsten Lloyd O.D. - 09/26/2012 12:24 PM CDT Eye General CHIEF COMPLAINT General eye exam HISTORY OF PRESENT ILLNESS Patient is here today for an updated eye exam. Patient reports visual acuity stable in both eyes. 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 Denies flashes, new floaters, and diplopia. Denies ocular pain. IMPRESSION / REPORT / PLAN #1 Cataract, both eyes, not visually significant. Plan: monitor periodically, spectacle prescription (Refraction 1) given. DIAGNOSIS #1 Cataract, both eyes, not visually significant. CD Reports - EYEGEN Id: [id number] Status: Fnl documented in this encounter Plan of Treatment Not on filedocumented as of this encounter Visit Diagnoses Not on filedocumented in this encounter Additional Health Concerns Assessment Noted Time PHQ-9 Depression Total Score: 8 10/06/2011 9:02 AM CDT documented as of this encounter Care Teams Associate Account Manager Relationship Specialty Start Date End Date Elsewhere, Pcp PCP - General Internal Medicine 08/24/19 documented as of this encounter
--- OUTSIDE RECORDS SUMMARY | 2021-10-14 23:38 | XMS_ITS | Encounter Summary ---
:1940 Author Organization [facility] Address [address] [place] [address] Care Team Providers Name Role Phone Unavailable Primary Care Provider Unavailable Encounter Details Date Type Department Care Team Description 01/11/2013 Hospital Encounter HX NO MAPPING Social History [...] or relatives? How often do you attend gnosticist or Patient refused 2021 restorationism services? Do you belong to any clubs or Patient refused 07/05/2021 organizations such as gnosticist groups, unions, fraternal or athletic groups, or [...] or slept in a intermediate (including now)? Sex Assigned at Date Recorded [...]
--- OUTSIDE RECORDS SUMMARY | 2021-10-14 23:38 | XMS_ITS | Encounter Summary ---
:1940 Author Organization [facility] Address [address] [place] [address] Care Team Providers Name Role Phone Amrik Calix Primary Care Provider Unavailable Encounter Details Date Type Department Care Team Description 10/03/2015 Hospital Encounter HX NO MAPPING Provider, Historical Social History Tobacco Use Types [...] or relatives? How often do you attend mormon or Patient refused 2021 sikh services? Do you belong to any clubs or Patient refused 07/05/2021 organizations such as mormon groups, unions, fraternal or athletic groups, or [...] place to sleep or slept in a jail (including now)? Sex Assigned at Date Recorded [...] 01/31/2008 mouth daily. vitamin E 400 unit Take 1 capsule by 0 01/31/2008 capsule mouth daily. docusate sodium (COLACE) Take 1 capsule by 0 09/0507/04/2021 100 mg capsule mouth daily. ibuprofen Take 1 tablet by 0 06/26/2014 07/05/19 22 (for_ADVIL,MOTRIN) 600 mg mouth 2 (two) times tablet a day as needed. pain documented as of this encounter Plan of Treatment Not on filedocumented as of this encounter Visit Diagnoses Not on filedocumented in this encounter Additional Health Concerns Assessment Noted Time PHQ-9 Depression Total Score: 1 10/05/2013 1:43 PM CDT documented as of this encounter Care Teams Newspaper Editor Managing Relationship Specialty Start Date End Date Amrik Calix B.M.B.S. PCP - General Family Medicine 09/10/14 09/03/17 documented as of this encounter
--- OUTSIDE RECORDS SUMMARY | 2021-10-14 23:38 | XMS_ITS | Encounter Summary ---
:1940 Author Organization [facility] Address [address] [place] [address] Care Team Providers Name Role Phone Unavailable Primary Care Provider Unavailable Encounter Details Date Type Department Care Team Description 10/02/2005 Hospital Encounter HX NO MAPPING Social History [...] you attend hoahaoism or Patient refused 2021 amish services? Do you belong to any clubs [...]
--- OUTSIDE RECORDS SUMMARY | 2021-10-14 23:38 | XMS_ITS | Encounter Summary ---
:1940 Author Organization [facility] Address [address] [place] [address] Care Team Providers Name Role Phone Elsewhere, Pcp Primary Care Provider Unavailable Encounter Details Date Type Department Care Team Description 12/21/2005 Historical Ophthalmology RST OPH Alison Costello M.D. [address], [place] [address] (Wo rk) Social History Tobacco Use Types [...] or relatives? How often do you attend temple or Patient refused 2021 jainism services? Do you belong to any clubs or Patient refused 07/05/2021 organizations such as temple groups, unions, fraternal or athletic groups, or [...] place to sleep or slept in a [facility] (including now)? Sex Assigned at Date Recorded Female 07/05/2021 8:19 AM CDT documented as of this encounter Progress Notes Alison Mae M.D. - 12/21/2005 12:00 AM CDT Eye General HISTORY OF PRESENT ILLNESS Uses Visine as needed with relief from dryness. States growth R.L.L. fell off prior to last eye examw/ Dr. Nagel. Denies flashes (both eyes); occasional madhuri sensation in vision (right eye). Has glasses tinted due to long standing slight photophobia indoors/ outdoors. ASK: Here for a routine exam. Wanted to have glasses checked as she thought her distance vision was slightly blurry. Growth on right inner eye corner has resolved. Denies any return of that lesion. Uses Visine eye drops about 1 x per month. IMPRESSION / REPORT / PLAN #1 Cataracts, both eyes Mild. Observe. #2 Hyperopia and presbyopia Gave patient Rx#1. #3 Dry eye syndrome Recommended artifical tears prn and gave patient handout on dry eyes. Recommended an annual dilated eye exam. DIAGNOSIS #1 Cataracts, both eyes #2 Hyperopia and presbyopia #3 Dry eye syndrome CD Reports - EYEGEN Id: [id number] Status: Fnl documented in this encounter Plan of Treatment Not on filedocumented as of this encounter Visit Diagnoses Not on filedocumented in this encounter Care Teams Pre Press Proofer Relationship Specialty Start Date End Date Elsewhere, Pcp PCP - General Internal Medicine 08/24/19 documented as of this encounter
--- OUTSIDE RECORDS SUMMARY | 2021-10-14 23:38 | XMS_ITS | Encounter Summary ---
:1940 Author Organization [facility] Address [address] [place] [address] Care Team Providers Name Role Phone Elsewhere, Pcp Primary Care Provider Unavailable Encounter Details Date Type Department Care Team Description 11/09/2013 Historical Ophthalmology RST OPH Heather ck, Celia Hathaway, O.D. [address] [place], [place] [phone] (Wo rk) Social History Tobacco Use Types [...] you attend christianity or Patient refused 2021 protestant services? Do you belong to any clubs [...] documented as of this encounter Progress Notes Celia Grace O.D. - 11/09/2013 12:31 PM CDT Eye General CHIEF COMPLAINT Light sensitive HISTORY OF PRESENT ILLNESS Patient reports vision has been stable. She did note that she is very light sensitive. Denies flashes of lights, floaters, double vision or ocular pain. IMPRESSION / REPORT / PLAN #1 Cataract, both eyes, not visually significant. Plan: monitor periodically, surgical intervention not indicated at this time. #2 Refractive error (hyperopic astigmatism, presbyopia). Plan: no change in spectacle prescription recommended, spectacle prescription (Refraction 2) given. Recommended examination q 2-3 years or PRN. DIAGNOSIS #1 Cataract, both eyes, not visually significant. #2 Refractive error (hyperopic astigmatism, presbyopia). CDM Reports - EYEGEN Id: [id number] Status: Fnl documented in this encounter Plan of Treatment Not on filedocumented as of this encounter Visit Diagnoses Not on filedocumented in this encounter Additional Health Concerns Assessment Noted Time PHQ-9 Depression Total Score: 1 10/05/2013 1:43 PM CDT documented as of this encounter Care Teams Buckle Frame Shaper Relationship Specialty Start Date End Date Elsewhere, Pcp PCP - General Internal Medicine 08/24/19 documented as of this encounter
== END 2021-10-07 14:33 | disposition home or self-care (01) ==
LOC: MAMMO 14:33
PROVIDERS: PCP Nurse Practitioner Family; Visit Provider Nurse Practitioner Family
DX: Z12.31 Encounter for screening mammogram for malignant neoplasm of breast (principal)
CPT/HCPCS: 77063; 77067

== ENCOUNTER 2021-10-14 13:33 | Outpatient (CLI) | payer MEDICARE, SELFPAY ==
[2021-10-14 13:44] LABS: Albumin* 3.9 g/dL (3.3-5.0)
[2021-10-14 13:47] LABS: Alanine Aminotransferase* 37 U/L (4-35); Alkaline Phosphatase* 57 U/L (40-150); Aspartate Amino Transferase* 46 U/L (12-35); Bilirubin Direct* 0.2 mg/dL (0.0-0.5); Bilirubin Total* 0.8 mg/dL (0.1-1.5); Total Protein* 7.5 g/dL (6.0-8.3)
--- OUTSIDE RECORDS SUMMARY | 2021-10-15 05:24 | XMS_ITS | Encounter Summary ---
:1940 Author Organization [facility] Address [address] [place] [address] Care Team Providers Name Role Phone Elsewhere, Pcp Primary Care Provider Unavailable Encounter Details Date Type Department Care Team Description 06/17/2021 Clinical Communication Division of [facility] in S, M.D. [place], [place] [address] [facility] [address] [place] [phone] Social History Tobacco Use Types Packs/Day Years [...] you attend shinto or Patient refused 2021 islam services? Do you belong to any clubs [...] place to sleep or slept in a long term (including now)? Sex Assigned at Date Recorded Female 07/05/2021 8:19 AM CDT documented as of this encounter Plan of Treatment Not on filedocumented as of this encounter Visit Diagnoses Not on filedocumented in this encounter Additional Health Concerns Assessment Noted Time PHQ-9 Depression Total Score: 1 10/05/2013 1:43 PM CDT documented as of this encounter Care Teams Radiologic Technologist Relationship Specialty Start Date End Date Elsewhere, Pcp PCP - General Internal Medicine 08/24/19 documented as of this encounter
--- OUTSIDE RECORDS SUMMARY | 2021-10-15 05:24 | XMS_ITS | Encounter Summary ---
:1940 Author Organization [facility] Address [address] [place] [address] Care Team Providers Name Role Phone Elsewhere, Pcp Primary Care Provider Unavailable Reason for Referral Outpatient (Routine) - Authorized Specialty Diagnoses / Procedures Referred By Contact Refer red To Contact Diagnoses Diarrhea Persistent Unexplained Bo Marie M.D. 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 [address] [place] [address] Referral ID Status Reason Start Date Expiration Date Visits Requ ested Visits Authorized [id number] Closed 06/11/2021 06/11/2022 1 1 Encounter Details Date Type Department Care Team Description 07/08/2021 Comprehensive Visit Division of [place], Diarrhea Persistent Unexplained (Primary Dx); Gastroenterology in [place], Enteroco litis Due To Clostridium Difficile Not Specified As Recurrent; [place], [place] M.DAnant Malnutrition Moderate Protein-Calorie (H CC) [address] [place] [phone] Social History Tobacco Use Types Packs/Day Years [...] or relatives? How often do you attend sikh or Patient refused 2021 uatsdin services? Do you belong to any clubs or Patient refused 07/05/2021 organizations such as sikh groups, unions, fraternal or athletic groups, or [...] or slept in a fdc (including now)? Education Answer Date Recorded What [...] significant finding. She then we wintered in [place] and saw PA there who diagnosed irritable [...] and its performa nce characteristics determined by [facility] in a manner consistent with CLIA requirements. This test has not been cleared or approved by the U.S. Rula d and Drug Administration. Specimen Anatomical Collection Method Collection Time Receive d Time (Source) Location / / Volume Laterality Blood (Blood, 07/08/2021 10:57 07/08/2021 3:28 Venous) AM CDT PM CDT Bo Marie M.D. LAB BLOOD NON ADD-ON Performing Organization Address [facility] Phon e Number [facility] [address] [place] [address] Dr [place] [address] [address] [facility] [place] [address] Laboratory Medicine and Pathology [address] [place] [address] Dr. FORBES Vitamin E Level (07/08/2021 10:57 AM CDT) athologist Signature A-Tocopherol, 15.1 5.5 - 17.0 07/09/2021 [facility] Vitamin E mg/L 11:42 AM CDT Comment: ----ADDITIONAL INFORMATION---- This test was developed and its performa nce characteristics determined by [facility] in a manner consistent with CLIA requirements. This test has not been cleared or approved by the U.S. Rula d and Drug Administration. Specimen Anatomical Collection Method Collection Time Receive d Time (Source) Location / / Volume Laterality Blood (Blood, 07/08/2021 10:57 07/08/2021 3:27 Venous) AM CDT PM CDT Bo Marie M.D. LAB BLOOD NON ADD-ON Performing Organization Address [facility] Phon e Number [address] [place] [address] [address] [facility] [place] [place] [address] Laboratory Medicine and Pathology [address] [place] [address] Dr. FORBES Vitamin B12 Assay (07/08/2021 10:57 [...] M.D. LAB BLOOD ADD-ON Performing Organization Address City/[facility] Phon e Number [facility] - [address] [place], [place] [address] [facility] [place] [address] [facility] 200 [facility] Vitamin A Level (07/08/2021 10:57 AM CDT) athologist Signature Vitamin A 39.5 32.5 - 78.0 07/10/2021 9:12 [facility] mcg/dL AM CDT Comment: ----ADDITIONAL INFORMATION---- This test was developed and its performa nce characteristics determined by [facility] in a manner consistent with CLIA requirements. This test has not been cleared or approved by the U.S. Rula d and Drug Administration. Specimen Anatomical Collection Method Collection Time Receive d Time (Source) Location / / Volume Laterality Blood (Blood, 07/08/2021 10:57 07/08/2021 3:27 Venous) AM CDT PM CDT Bo Marie M.D. LAB BLOOD NON ADD-ON Performing Organization Address City/[facility] Phon e Number [facility] [address] [place], [place] [address] [facility] [place] [address] Laboratory Medicine and Pathology [address] FORBES Copper (07/08/2021 10:57 AM CDT) athologist Signature Copper, S 1.40 0.75 - 1.45 07/09/2021 9:53 [facility] mcg/mL AM CDT Comment: ----ADDITIONAL INFORMATION---- This test was developed and its performa nce characteristics determined by [facility] in a manner consistent with CLIA requirements. This test has not been cleared or approved by the U.S. Rula d and Drug Administration. Specimen Anatomical Collection Method Collection Time Receive d Time (Source) Location / / Volume Laterality Blood (Blood, 07/08/2021 10:57 07/08/2021 3:28 Venous) AM CDT PM CDT Bo Marie M.D. LAB BLOOD NON ADD-ON Performing Organization Address [facility] Phon e Number [address] [place] [address] [facility] [address] Laboratory Medicine and Pathology [address] [place] [address] Dr. FORBES Selenium (07/08/2021 10:57 AM CDT) P athologist Signature Selenium, S 118 70 - 150 07/09/2021 [facility] ng/mL 9:53 AM CDT Comment: ----ADDITIONAL INFORMATION---- This test was developed and its performa nce characteristics determined by [facility] in a manner consistent with CLIA requirements. This test has not been cleared or approved by the U.S. Rula d and Drug Administration. Specimen Anatomical Collection Method Collection Time Receive d Time (Source) Location / / Volume Laterality Blood (Blood, 07/08/2021 10:57 07/08/2021 3:28 Venous) AM CDT PM CDT Bo Marie M.D. LAB BLOOD NON ADD-ON Performing Organization Address City/[facility] Phon e Number [address] [place] [address] [facility] [address] Laboratory Medicine and Pathology [address] [place] [address] Dr. FORBES Prothrombin Time (PT) (07/08/2021 10:57 [...] Organization Address City/State/ZIP Code Phon e Number [facility] - [address] [place], [place] [address] [facility] [place] [address] [facility] [address] [facility] Folate (07/08/2021 10:57 AM CDT) athologist Signature Folate, S >20.0 >=4.0 mcg/L 07/08/2021 2:20 DTL PM CDT Specimen Anatomical Collection Method Collection Time Receive d Time (Source) Location / / Volume Laterality Blood (Blood, 07/08/2021 10:57 07/08/2021 Venous) AM CDT 12:38 PM CDT Bo Marie M.D. LAB BLOOD ADD-ON Performing Organization Address City/[facility]/ZIP Code Phon e Number [facility] - [address] [place], [place] [address] [facility] [place] [address] [facility] [address] [facility] Ferritin (07/08/2021 10:57 AM CDT) athologist Signature Ferritin, S 103 11 - 307 07/08/2021 DTL mcg/L 2:15 PM CDT Specimen Anatomical Collection Method Collection Time Receive d Time (Source) Location / / Volume Laterality Blood (Blood, 07/08/2021 10:57 07/08/2021 Venous) AM CDT 12:38 PM CDT Bo Marie M.D. LAB BLOOD ADD-ON Performing Organization Address City/State/ZIP Code Phon e Number [facility] - [address] [place], [place] [address] [facility] [place] [address] 25-Hydroxyvitamin D2 and D3 (07/08/2021 10:57 AM CDT) athologist Signature 25-Hydroxy D2 <4.0 ng/mL 07/09/2021 [facility] 10:54 PM CDT 25-Hydroxy D3 46 ng/mL 07/09/2021 [facility] 10:54 PM CDT 25-Hydroxy D 46 ng/mL 07/09/2021 [facility] Total 10:54 PM CDT Comment: ----REFERENCE VALUE---- 25-HYDROXY D TOTAL (D2+D3) Optimum level s in the healthy population are 20-50, patients with bone disease may benefit from higher levels within this r ihsan. ----ADDITIONAL INFORMATION---- This test was developed and its performa nce characteristics determined by [facility] in a manner consistent with CLIA requirements. This test has not been cleared or approved by the U.S. Rula d and Drug Administration. Specimen Anatomical Collection Method Collection Time Receive d Time (Source) Location / / Volume Laterality Blood (Blood, 07/08/2021 10:57 07/09/2021 7:54 Venous) AM CDT AM CDT Bo Marie M.D. LAB BLOOD ADD-ON Performing Organization Address City/State/ZIP Code Phon e Number [facility] [address] [place] [address] [facility] [place] [address] Laboratory Medicine and Pathology [address] FORBES documented in this encounter Visit Diagnoses Diagnosis Diarrhea Persistent Unexplained - Primar y Enterocolitis Due To Clostridium Diffici le Not Specified As Recurrent Malnutrition Moderate Protein-Calorie (H CC) documented in this encounter Additional Health Concerns Assessment Noted Time PHQ-9 Depression Total Score: 1 10/05/2013 1:43 PM CDT documented as of this encounter Care Teams Molder Wax Ball Relationship Specialty Start Date End Date Elsewhere, Pcp PCP - General Internal Medicine 08/24/19 documented as of this encounter
--- OUTSIDE RECORDS SUMMARY | 2021-10-15 05:24 | XMS_ITS | Encounter Summary ---
:1940 Author Organization [facility] Address [address] [place] [address] Care Team Providers Name Role Phone Elsewhere, Pcp Primary Care Provider Unavailable Encounter Details Date Type Department Care Team Description 05/01/2020 Orders Only [facility] - Donald powell Elsewhere, Pcp [address] , [facility] [address] [place] [address] Social History Tobacco Use [...] you attend mosque or Patient refused 2021 mu-ism services? Do you belong to any clubs or Patient refused 07/05/2021 organizations such as mosque groups, unions, fraternal or athletic groups, or [...] place to sleep or slept in a skilled nursing (including now)? Sex Assigned at Date Recorded Female 07/05/2021 8:19 AM CDT documented as of this encounter Plan of Treatment Not on filedocumented as of this encounter Visit Diagnoses Not on filedocumented in this encounter Additional Health Concerns Assessment Noted Time PHQ-9 Depression Total Score: 1 10/05/2013 1:43 PM CDT documented as of this encounter Care Teams Climbing Guide Relationship Specialty Start Date End Date Elsewhere, Pcp PCP - General Internal Medicine 08/24/19 documented as of this encounter
--- OUTSIDE RECORDS SUMMARY | 2021-10-15 05:24 | XMS_ITS | Encounter Summary ---
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 [facility] Procedures Enema Prep [address] [place] [id number] Referral ID Status Reason Start Date Expiration Date Visits Requ ested Visits Authorized [id number] Closed 07/10/2021 07/10/2022 1 1 Encounter Details Date Type Department Care Team Description 07/10/2021 Orders Only Division of Bo Marie Enterocolitis Due To Clostridium Difficile Not Specified As Recurrent (Primary Dx); Gastroenterology in [place] Enterocolitis Due To Clostridium Diffici le Recurrent [place], [place] [address] [facility] [address] [place] [phone] Social History Tobacco Use Types Packs/Day Years [...] or relatives? How often do you attend moravian or Patient refused 2021 taoist services? Do you belong to any clubs or Patient refused 07/05/2021 organizations such as moravian groups, unions, fraKoinify or athletic groups, or school groups? How [...] for the very basics like Not h shra at all 07/05/2021 food, housing, medical care, [...] documented as of this encounter Care Teams Cloud Security Architect Relationship Specialty Start Date End Date Elsewhere, Pcp PCP - General Internal Medicine 08/24/19 documented as of this encounter
--- OUTSIDE RECORDS SUMMARY | 2021-10-15 05:24 | XMS_ITS | Encounter Summary ---
:1940 Author Organization [facility] Address [address] [place] [address] Care Team Providers Name Role Phone Elsewhere, Pcp Primary Care Provider Unavailable Encounter Details Date Type Department Care Team Description 07/08/2021 Orders Only Division of Coretta Peck Encounter F or Gastroenterology in P, CCRP Preprocedural [place], [place] [address] [facility] [address] [place], [place] [phone] (COVID-19) (Primary [phone] Dx) (Work) Social History Tobacco Use Types [...] you attend taoism or Patient refused 2021 orthodox services? Do [...] place to sleep or slept in a nursing home (including now)? Education Answer Date Recorded What [...] documented as of this encounter Care Teams Crown Ceramist Relationship Specialty Start Date End Date Elsewhere, Pcp PCP - General Internal Medicine 08/24/19 documented as of this encounter
--- OUTSIDE RECORDS SUMMARY | 2021-10-15 05:24 | XMS_ITS | Encounter Summary ---
:1940 Author Organization 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 [facility] Procedures Enema Prep [address] [place] [address] Referral ID Status Reason Start Date Expiration Date Visits Requ ested Visits Authorized [id number] Closed 07/10/2021 07/10/2022 1 1 Encounter Details Date Type Department Care Team Description 07/10/2021 Clinical Support Enema Prep Facility Abram Marie M.D. [address] [place] [phone] Enterocolitis Due To in [place], Teodora Mallory, R.N. Clostridium Difficile [place] Recurrent [address] [place] [phone] Social History Tobacco Use Types Packs/Day Years [...] or relatives? How often do you attend methodist or Patient refused 2021 zoroastrianism services? Do you belong to any clubs or Patient refused 07/05/2021 organizations such as methodist groups, [employer], [employer] or athletic groups, or school groups? How [...] or slept in a assisted (including now)? Education Answer Date Recorded What [...] documented as of this encounter Care Teams Cardio Clinician Relationship Specialty Start Date End Date Elsewhere, Pcp PCP - General Internal Medicine 08/24/19 documented as of this encounter
--- OUTSIDE RECORDS SUMMARY | 2021-10-15 05:24 | XMS_ITS | Encounter Summary ---
:1940 Author Organization [facility] Address [address] [place] [address] Care Team Providers Name Role Phone Elsewhere, Pcp Primary Care Provider Unavailable Encounter Details Date Type Department Care Team Description 07/17/2021 Office Visit Division of Bo Marie Constipation (Primary Dx); Gastroenterology in S, M.D. [place], [place] [address] [facility] [address] [place] [phone] Social History Tobacco Use Types Packs/Day Years [...] you attend temple or Patient refused 2021 orthodox services? Do [...] place to sleep or slept in a snf (including now)? Education Answer Date Recorded What [...] documented as of this encounter Care Teams Vp Software Engineering Relationship Specialty Start Date End Date Elsewhere, Pcp PCP - General Internal Medicine 08/24/19 documented as of this encounter
--- OUTSIDE RECORDS SUMMARY | 2021-10-15 05:24 | XMS_ITS | Encounter Summary ---
:1940 Author Organization [facility] Address [address] [place] [address] Care Team Providers Name Role Phone Amrik Calix Primary Care Provider Unavailable Encounter Details Date Type Department Care Team Description 05/24/2017 Abstract [facility] MPUS [address] [place] [phone] Social History Tobacco Use Types Packs/Day [...] or relatives? How often do you attend amish or Patient refused 2021 samaritan services? Do you belong to any clubs or Patient refused 07/05/2021 organizations such as amish groups, unions, fraternal or athletic groups, or [...] place to sleep or slept in a [place] health [place] facility (including now)? Sex Assigned at Date Recorded Female 07/05/2021 8:19 AM CDT documented as of this encounter Plan of Treatment Not on filedocumented as of this encounter Visit Diagnoses Not on filedocumented in this encounter Additional Health Concerns Assessment Noted Time PHQ-9 Depression Total Score: 1 10/05/2013 1:43 PM CDT documented as of this encounter Care Teams Technical Producer Relationship Specialty Start Date End Date Amrik Calix B.M.BAnantS. PCP - General Family Medicine 09/10/14 09/03/17 documented as of this encounter
--- OUTSIDE RECORDS SUMMARY | 2021-10-15 05:24 | XMS_ITS | Encounter Summary ---
:1940 Author Organization [facility] Address [address] [place] [address] Care Team Providers Name Role Phone Elsewhere, Pcp Primary Care Provider Unavailable Encounter Details Date Type Department Care Team Description 07/08/2021 Orders Only Division of Gastroenterology Tino Peck, in [facility] CCRP [address] [facility] [address] [place] [address] [place], [place] [phone] Social History Tobacco Use Types Packs/Day Years [...] you attend yazdanism or Patient refused 2021 hoahaoism services? Do you belong to any clubs [...] documented as of this encounter Care Teams Dialysis Nurse Relationship Specialty Start Date End Date Elsewhere, Pcp PCP - General Internal Medicine 08/24/19 documented as of this encounter
--- OUTSIDE RECORDS SUMMARY | 2021-10-15 05:24 | XMS_ITS | Encounter Summary ---
:1940 Author Organization [facility] Address [address] [place] [address] Care Team Providers Name Role Phone Elsewhere, Pcp Primary Care Provider Unavailable Encounter Details Date Type Department Care Team Description 07/08/2021 Hospital Encounter Department of Bo Marie [facility] Laboratory Medicine S, MAnantDAnant Protein-Calorie (HCC) and Pathology, [address] [place], [place] [phone] [place] [phone] [place] [address] (Work) [place], [place] [phone] (Fax) [phone] Social History Tobacco Use Types Packs/Day Years [...] or relatives? How often do you attend baptist or Patient refused 2021 sabianism services? Do you belong to any clubs or Patient refused 07/05/2021 organizations such as baptist groups, unions, fraternal or athletic groups, or [...] performa nce characteristics determined by [facility] in a manner consistent with CLIA requirements. This test has not been cleared or approved by the U.S. Rula d and Drug Administration. Specimen Anatomical Collection Method Collection Time Receive d Time (Source) Location / / Volume Laterality Blood (Blood, 07/08/2021 10:57 07/08/2021 3:28 Venous) AM CDT PM CDT Bo Marie M.D. LAB BLOOD NON ADD-ON Performing Organization Address City/[facility] Phon e Number [facility] [address] [place] [phone] 05 [facility] [place] [address] Laboratory Medicine and Pathology [address] [place] [address] Dr. [place] Vitamin E Level (07/08/2021 10:57 AM CDT) athologist [facility] A-Tocopherol, 15.1 5.5 - 17.0 07/09/2021 [facility] Vitamin E mg/L 11:42 AM CDT Comment: ----ADDITIONAL INFORMATION---- This test was developed and its performa nce characteristics determined by [facility] in a manner consistent with CLIA requirements. This test has not been cleared or approved by the U.S. Rula d and Drug Administration. Specimen Anatomical Collection Method Collection Time Receive d Time (Source) Location / / Volume Laterality Blood (Blood, 07/08/2021 10:57 07/08/2021 3:27 Venous) AM CDT PM CDT Bo Marie M.D. LAB BLOOD NON ADD-ON Performing Organization Address City/[facility] Phon e Number [facility] [address] [place], [place] [address] SU[facility] CENTER [facility] [place] [address] Laboratory Medicine and Pathology [address] [place] Vitamin B12 Assay (07/08/2021 10:57 AM CDT) athologist Signature Vitamin B12 794 180 - 914 07/08/2021 [facility] Assay, S ng/L 2:23 PM CDT Comment: [...] M.D. LAB BLOOD ADD-ON Performing Organization Address City/[facility]/ZIP Code Phon e Number [facility] - [address] [place], [place] [address] [place] [address] Laboratories-[facility] [address] Vitamin A Level (07/08/2021 10:57 AM CDT) [facility] Vitamin A 39.5 32.5 - 78.0 07/10/2021 9:12 [facility] mcg/dL AM CDT Comment: ----ADDITIONAL INFORMATION---- This test was developed and its performa nce characteristics determined by [facility] in a manner consistent with CLIA requirements. This test has not been cleared or approved by the U.S. Rula d and Drug Administration. Specimen Anatomical Collection Method Collection Time Receive d Time (Source) Location / / Volume Laterality Blood (Blood, 07/08/2021 10:57 07/08/2021 3:27 Venous) AM CDT PM CDT Bo Marie M.D. LAB BLOOD NON ADD-ON Performing Organization Address City/[facility]/ZIP [facility] Phon e Number [facility] [address] [place] [address] [facility] [place] [address] Laboratory Medicine and Pathology [address] [place] Copper (07/08/2021 10:57 AM CDT) P athologist Signature Copper, S 1.40 0.75 - 1.45 07/09/2021 9:53 [facility] mcg/mL AM CDT Comment: ----ADDITIONAL INFORMATION---- This test was developed and its performa nce characteristics determined by [facility] in a manner consistent with CLIA requirements. This test has not been cleared or approved by the U.S. Rula d and Drug Administration. Specimen Anatomical Collection Method Collection Time Receive d Time (Source) Location / / Volume Laterality Blood (Blood, 07/08/2021 10:57 07/08/2021 3:28 Venous) AM CDT PM CDT Bo Marie M.D. LAB BLOOD NON ADD-ON Performing Organization Address [facility] Phon e Number [address] [place] [address] 05 SU[facility] CENTER [facility] [place] [address] Laboratory Medicine and Pathology [address] [place] [address] Dr. FORB[place] Selenium (07/08/2021 10:57 AM CDT) athologist Signature Selenium, S 118 70 - 150 07/09/2021 [facility] ng/mL 9:53 AM CDT Comment: ----ADDITIONAL INFORMATION---- This test was developed and its performa nce characteristics determined by [facility] in a manner consistent with CLIA requirements. This test has not been cleared or approved by the U.S. Rula d and Drug Administration. Specimen Anatomical Collection Method Collection Time Receive d Time (Source) Location / / Volume Laterality Blood (Blood, 07/08/2021 10:57 07/08/2021 3:28 Venous) AM CDT PM CDT Bo Marie M.D. LAB BLOOD NON ADD-ON Performing Organization Address City/[facility] Phon e Number [address] [place] [phone] 05 SU[facility]ENTER [facility] [place] [address] Laboratory Medicine and Pathology [address] [place] [address] Dr. [place] Prothrombin Time (PT) (07/08/2021 10:57 [...] M.D. LAB BLOOD ADD-ON Performing Organization Address City/[facility] Phon e Number [facility] - 200 [place], [place] [address] [place] [address] Folate (07/08/2021 10:57 AM CDT) athologist Signature Folate, S >20.0 >=4.0 mcg/L 07/08/2021 2:20 DTL PM CDT Specimen Anatomical Collection Method Collection Time Receive d Time (Source) Location / / Volume Laterality Blood (Blood, 07/08/2021 10:57 07/08/2021 Venous) AM CDT 12:38 PM CDT Bo Marie M.D. LAB BLOOD ADD-ON Performing Organization Address City/[facility] Phon e Number [facility] - 200 [place], [place] [address] [place] [address] Ferritin (07/08/2021 10:57 AM CDT) athologist Signature Ferritin, S 103 11 - 307 07/08/2021 DTL mcg/L 2:15 PM CDT Specimen Anatomical Collection Method Collection Time Receive d Time (Source) Location / / Volume Laterality Blood (Blood, 07/08/2021 10:57 07/08/2021 Venous) AM CDT 12:38 PM CDT Bo Marie M.D. LAB BLOOD ADD-ON Performing Organization Address City/[facility]/ZIP Code Phon e Number [facility] - [address] [place], [place] [address] [facility] [place] [address] Laboratories-[facility] [address] [facility] 25-Hydroxyvitamin D2 and D3 (07/08/2021 10:57 AM [...] performa nce characteristics determined by [facility] in a manner consistent with CLIA requirements. This test has not been cleared or approved by the U.S. Rula d and Drug Administration. Specimen Anatomical Collection Method Collection Time Receive d Time (Source) Location / / Volume Laterality Blood (Blood, 07/08/2021 10:57 07/09/2021 7:54 Venous) AM CDT AM CDT Bo Marie M.D. LAB BLOOD ADD-ON Performing Organization Address City/[facility] Phon e Number [facility] [address] [place], [place] [address] [facility] [place] [address] Laboratory Medicine and Pathology [address] [place] documented in this encounter Visit Diagnoses Diagnosis Malnutrition Moderate Protein-Calorie (H CC) documented in this encounter Additional Health Concerns Assessment Noted Time PHQ-9 Depression Total Score: 1 10/05/2013 1:43 PM CDT documented as of this encounter Care Teams Library Clerical Assistant Relationship Specialty Start Date End Date Elsewhere, Pcp PCP - General Internal Medicine 08/24/19 documented as of this encounter
--- OUTSIDE RECORDS SUMMARY | 2021-10-15 05:24 | XMS_ITS | Encounter Summary ---
:1940 Author Organization [facility] Address [address] [place] [address] Care Team Providers Name Role Phone Elsewhere, Pcp Primary Care Provider Unavailable Reason for Referral Outpatient (Routine) - Closed Specialty Diagnoses / Procedures Referred By Contact Refer red To Contact Diagnoses Diarrhea Persistent Unexplained Bo Marie M.D. [facility] Procedures Colonoscopy [address] [place] [address] Referral ID Status Reason Start Date Expiration Date Visits Requ ested Visits Authorized [id number] Closed 07/08/2021 07/08/2022 1 1 Reason for Visit Outpatient (Routine) - Closed Specialty Diagnoses / Procedures Referred By Contact Refer red To Contact Diagnoses Diarrhea Persistent Unexplained Bo Marie M.D. [facility] Procedures Colonoscopy [address] [place] [address] Referral ID Status Reason Start Date Expiration Date Visits Requ ested Visits Authorized [id number] Closed 07/08/2021 07/08/2022 1 1 Encounter Details Date Type Department Care Team Description 07/10/2021 Hospital Division of Bo Marie Diarrhea Encounter Gastroenterology in [place], [place] [address] Unexplained [address] [place] [phone] Social History Tobacco Use Types Packs/Day Years [...] or relatives? How often do you attend synagogue or Patient refused 2021 congregation services? Do you belong to any clubs or Patient refused 07/05/2021 organizations such as synagogue groups, unions, fraternal or athletic groups, or [...] City/State/ZIP Code Phon e Number [facility] - [address] [place], [place] [address] [facility] [place] [address] Laboratories-[facility] [address] Colonoscopy (07/10/2021 3:36 PM CDT) Specimen (Source) Anatomical Collection Method Collection Time Re ceived Time Location / / Volume Laterality 07/10/2021 3:[address] [facility] 07/10/20[facility] 4:00 PM CDT Post-op Diagnoses: ? - Biopsies were obtained in the e ntire colon. Narrative [facility] - 07/10/2021 4:00 PM CDT Gonda 9 [...] bowel preparation was evaluated using the BBPS ([place] ? Bowel Preparation Scale) with sco res [...] documented as of this encounter Care Teams Operations Representative Relationship Specialty Start Date End Date Elsewhere, Pcp PCP - General Internal Medicine 08/24/19 documented as of this encounter
--- OUTSIDE RECORDS SUMMARY | 2021-10-15 05:24 | XMS_ITS | Encounter Summary ---
:1940 Author Organization [facility] Address [address] [place] [address] Care Team Providers Name Role Phone Elsewhere, Pcp Primary Care Provider Unavailable Encounter Details Date Type Department Care Team Description 10/03/2021 Clinical Communication Division of Coretta Peck Gastroenterology in , [place], [place] [address] [facility] [address] [place] [phone] Social History Tobacco Use Types Packs/Day Years [...] or relatives? How often do you attend mandaeism or Patient refused 2021 mandaeism services? Do you belong to any clubs or Patient refused 07/05/2021 organizations such as mandaeism groups, unions, fraternal or athletic groups, or [...] place to sleep or slept in a fci (including now)? Education Answer Date Recorded What [...] documented as of this encounter Care Teams Industrial Analyst Relationship Specialty Start Date End Date Elsewhere, Pcp PCP - General Internal Medicine 08/24/19 documented as of this encounter
--- OUTSIDE RECORDS SUMMARY | 2021-10-15 05:24 | XMS_ITS | Encounter Summary ---
:1940 Author Organization [facility] Address [address] [place] [address] Care Team Providers Name Role Phone Elsewhere, Pcp Primary Care Provider Unavailable Reason for Referral Outpatient (Routine) - Closed Specialty Diagnoses / Referred By Contact Referred To Contact Procedures Gastroenterology and Diagnoses Enterocolitis Due To Clostridium Difficile Not Specified As Recurrent Barbara Vincent [facility] Hepatology Mag C.N.PAnant [address] [place] [address] Referral ID Status Reason Start Date Expiration Date Visits Requ ested Visits Authorized [id number] Closed 06/11/2021 06/11/2022 1 1 Encounter Details Date Type Department Care Team Description 06/11/2021 [facility] Barbara Vincent Enterocolitis Due To AND CLINICS Mag, C.N.PAnant Clostridium Difficile 1999 [facility] [address] Not Specified As [place], [place] Recurrent (Primary [id number] Dx) [phone] Social History Tobacco Use Types Packs/Day Years [...] you attend gnosticist or Patient refused 2021 nondenominational services? Do you belong to any clubs or Patient refused 07/05/2021 organizations such as gnosticist groups, unions, fraIdentec Solutions or athletic groups, or school groups? How [...] documented as of this encounter Care Teams Handyperson Relationship Specialty Start Date End Date Elsewhere, Pcp PCP - General Internal Medicine 08/24/19 documented as of this encounter
--- OUTSIDE RECORDS SUMMARY | 2021-10-15 05:24 | XMS_ITS | Clinical Summary ---
:1940 Author Organization [facility] Address [address] [place] [address] Care Team Providers Name Role Phone Elsewhere, Pcp Primary Care Provider Unavailable Source Comments Patient records contain information from all sites at [facility]. For routine questions regarding patient records, call [phone] during business hours, M-F 8:00 AM - 5:00 PM Central Time. Record requests for emergency care only can be directed to [phone] at any time.[facility] Allergies Active Allergy Reactions Severity Noted Date [...] you attend mu-ism or Patient refused 2021 druze services? Do you belong to any clubs [...] Completed 07/10/2021 Medical Devices Implanted Type Area Coating Engineer Device Shelf Model / Identifier Expiration Serial / Date Lot Conversions - Default Historical Implant Device Hardware Back Implanted: 06/10/2016 (Quantity not on file) e.g. pins/screws/ rods Description: Body Location - Back. wires from back surgery. Device Status Text - Hardware. Insurance Payer Benefit Plan / Subscriber ID Effective Dates Phone Addre ss Type Group AARP AARP MEDICARE [id number] 2020-Present [phone] [address] [address] [place] [address] Advance Directives For more information, please contact: [phone] Documents on File Type Date Recorded Patient Rivet Catcher Explanati on Advance Directives 10/25/2015 12:00 AM Legacy doc ument. See document viewer. Care Teams Store Clerk Checker Relationship Specialty Start Date End Date Elsewhere, Pcp PCP - General Internal Medicine 08/24/19
--- OUTSIDE RECORDS SUMMARY | 2021-10-15 05:24 | XMS_ITS | Encounter Summary ---
:1940 Author Organization [facility] Address [address] [place] [address] Care Team Providers Name Role Phone Elsewhere, [...] you attend rastafari or Patient refused 2021 quaker services? Do you belong to any clubs [...] documented as of this encounter Care Teams Shroud Line Tier Relationship Specialty Start Date End Date Elsewhere, Pcp PCP - General Internal Medicine 08/24/19 documented as of this encounter
--- OUTSIDE RECORDS SUMMARY | 2021-10-15 05:24 | XMS_ITS | Encounter Summary ---
:1940 Author Organization [facility] Address [address] [place] [address] Care Team Providers Name Role Phone Elsewhere, Pcp Primary Care Provider Unavailable Encounter Details Date Type Department Care Team Description 04/30/2020 Orders Only RST PCP [facility] KARENT Lemuel Bennett Jr., M.D. [address] [facility] [place] [phone] (Wo rk) Social History [...] you attend scientology or Patient refused 2021 samaritan services? Do [...] documented as of this encounter Care Teams Fireboat Operator Relationship Specialty Start Date End Date Elsewhere, Pcp PCP - General Internal Medicine 08/24/19 documented as of this encounter
--- OUTSIDE RECORDS SUMMARY | 2021-10-15 05:24 | XMS_ITS | Encounter Summary ---
:1940 Author Organization [facility] Address [address] [place] [address] Care Team Providers Name Role Phone Amrik [...] or relatives? How often do you attend islam or Patient refused 2021 jain services? Do you belong to any clubs or Patient refused 07/05/2021 organizations such as islam groups, unions, fraternal or athletic groups, or [...] documented as of this encounter Care Teams Blade Groover Relationship Specialty Start Date End Date Amrik Calix B.M.B.S. PCP - General Family Medicine 09/10/14 09/03/17 documented as of this encounter
--- OUTSIDE RECORDS SUMMARY | 2021-10-15 05:24 | XMS_ITS | Encounter Summary ---
:1940 Author Organization [facility] Address [address] [place] [address] Care Team Providers Name Role Phone Eduardo Muse D.O. Primary Care Provider [phone] Reason for Visit Reason Comments Eye Exam Appointment Request (Routine) - Closed Specialty Diagnoses / Procedures Referred By Contact Refer red To Contact Ophthalmology Referral ID Status Reason Start Date Expiration Date Visits Requ ested Visits Authorized [id number] Closed 05/09/2018 05/09/2019 1 1 Encounter Details Date Type Department Care Team Description 09/12/2018 Comprehensive Visit Department of Tabitha Lloyd Nuclear Ophthalmology in Torsten Ponce O.D. Cataract Bilateral [place], [place] [address] [facility] (Primary Dx) [address] [place] [phone] Social History Tobacco Use Types Packs/Day Years [...] or relatives? How often do you attend restoration or Patient refused 2021 restorationist services? Do you belong to any clubs or Patient refused 07/05/2021 organizations such as restoration groups, unions, fraternal or athletic groups, or [...] documented as of this encounter Care Teams Bead Picker Relationship Specialty Start Date End Date Eduardo Muse D.O. PCP - General Family Medicine 09/04/17 08/23/19 [address] [place] [address] documented as of this encounter
--- OUTSIDE RECORDS SUMMARY | 2021-10-15 05:24 | XMS_ITS | Encounter Summary ---
:1940 Author Organization [facility] Address [address] [place] [address] Care Team Providers Name Role Phone Elsewhere, Pcp Primary Care Provider Unavailable Reason for Visit Reason Comments Follow-up HTN/Blood pressure Encounter Details Date Type Department Care Team Description 08/24/2019 Clinical Communication Department of Britney Hernandez ow-aman Family Medicine, Garcia Wise R.N. (HTN/Blood [facility] [address] [facility] pressure) jose [place] [facility] [phone] [address] [facility] [phone] [place], [place] (Work) [phone] Social History Tobacco Use Types Packs/Day Years [...] or relatives? How often do you attend congregational or Patient refused 2021 orthodoxy services? Do you belong to any clubs or Patient refused 07/05/2021 organizations such as congregational groups, unions, fraternal or athletic groups, or [...] to sleep or slept in a senior care (including now)? Sex Assigned at Date Recorded [...] patient has moved their primary care to [facility]. She was contacted to be able to confirm this. She stated that she had to come to [facility] for a back surgery as [facility]. She was asked if she wanted us removed as her primary care provider and she stated that yes we should be removed as her primary care provider. PLAN Disposition/Recommendation: Will send information to the appropriate contact to have [facility] removed as primary care provider. [...] documented as of this encounter Care Teams Alarm Signaler Relationship Specialty Start Date End Date Elsewhere, Pcp PCP - General Internal Medicine 08/24/19 documented as of this encounter
--- OUTSIDE RECORDS SUMMARY | 2021-10-15 05:24 | XMS_ITS | Encounter Summary ---
:1940 Author Organization [facility] Address [address] [place] [address] Care Team Providers Name Role Phone Elsewhere, Pcp Primary Care Provider Unavailable Encounter Details Date Type Department Care Team Description 10/09/2016 Historical Ophthalmology RST OPH Cris Gonzalez O.D. [address] [place], [place] [phone] (Wo rk) Social History [...] or relatives? How often do you attend rastafarian or Patient refused 2021 scientology services? Do you belong to any clubs or Patient refused 07/05/2021 organizations such as rastafarian groups, unions, fraternal or athletic groups, or [...] dry eyes CDM Reports - EYEGEN Id: [id number] Status: Fnl documented in this encounter Plan of Treatment Not on filedocumented as of this encounter Visit Diagnoses Not on filedocumented in this encounter Additional Health Concerns Assessment Noted Time PHQ-9 Depression Total Score: 1 10/05/2013 1:43 PM CDT documented as of this encounter Care Teams Simulation Technician Relationship Specialty Start Date End Date Elsewhere, Pcp PCP - General Internal Medicine 08/24/19 documented as of this encounter
--- OUTSIDE RECORDS SUMMARY | 2021-10-15 05:24 | XMS_ITS | Encounter Summary ---
:1940 Author Organization [facility] Address [address] [place] [address] Care Team Providers Name Role Phone Elsewhere, Pcp Primary Care Provider Unavailable Reason for Visit Reason Comments Pre-visit Intake Encounter Details Date Type Department Care Team Description 07/04/2021 Clinical Communication Visit Review in Pr e-visit Intake [address] [phone] Social History Tobacco Use Types Packs/Day Years [...] you attend christianity or Patient refused 2021 nondenominational services? Do [...] documented as of this encounter Care Teams Instructional Design Technologist Relationship Specialty Start Date End Date Elsewhere, Pcp PCP - General Internal Medicine 08/24/19 documented as of this encounter
--- OUTSIDE RECORDS SUMMARY | 2021-10-15 05:25 | XMS_ITS | Encounter Summary ---
:1940 Author Organization [facility] Address [address] [place] [address] Care Team Providers Name Role Phone Elsewhere, Pcp Primary Care Provider Unavailable Encounter Details Date Type Department Care Team Description 09/26/2012 Historical Ophthalmology RST OPH Torsten Lloyd ORobert [address] [place], [place] [phone] (Wo rk) Social History [...] you attend voodoo or Patient refused 2021 judaism services? Do [...] typically wears progressive lenses in her glasses lifeline representatives. Denies flashes, new floaters, and diplopia. Denies ocular pain. IMPRESSION / REPORT / PLAN #1 Cataract, both eyes, not visually significant. Plan: monitor periodically, spectacle prescription (Refraction 1) given. DIAGNOSIS #1 Cataract, both eyes, not visually significant. CD Reports - EYEGEN Id: [id number] Status: Fnl documented in this encounter Plan of Treatment Not on filedocumented as of this encounter Visit Diagnoses Not on filedocumented in this encounter Additional Health Concerns Assessment Noted Time PHQ-9 Depression Total Score: 8 10/06/2011 9:02 AM CDT documented as of this encounter Care Teams Dry Cell Assembly Machine Tender Relationship Specialty Start Date End Date Elsewhere, Pcp PCP - General Internal Medicine 08/24/19 documented as of this encounter
--- OUTSIDE RECORDS SUMMARY | 2021-10-15 05:25 | XMS_ITS | Encounter Summary ---
:1940 Author Organization [facility] Address [address] [place] [address] Care Team Providers Name Role Phone Elsewhere, Pcp Primary Care Provider Unavailable Encounter Details Date Type Department Care Team Description 10/14/2010 Historical Ophthalmology RST OPH Cris Gonzalez O.D. [address] [place], [place] [phone] (Wo rk) Social History [...] you attend rastafarian or Patient refused 2021 jew services? Do [...] pigment epithelium CDM Reports - EYEGEN Id: [id number] Status: Fnl documented in this encounter Plan of Treatment Not on filedocumented as of this encounter Visit Diagnoses Not on filedocumented in this encounter Additional Health Concerns Assessment Noted Time PHQ-9 Depression Total Score: 5 09/26/2009 8:27 AM CDT documented as of this encounter Care Teams Rotary Driller Relationship Specialty Start Date End Date Elsewhere, Pcp PCP - General Internal Medicine 08/24/19 documented as of this encounter
--- OUTSIDE RECORDS SUMMARY | 2021-10-15 05:25 | XMS_ITS | Encounter Summary ---
:1940 Author Organization [facility] Address [address] [place] [address] Care Team Providers Name Role Phone Unavailable [...] or relatives? How often do you attend hindu or Patient refused 2021 sabianist services? Do you belong to any clubs or Patient refused 07/05/2021 organizations such as hindu groups, unions, fraternal or athletic groups, or [...]
--- OUTSIDE RECORDS SUMMARY | 2021-10-15 05:25 | XMS_ITS | Encounter Summary ---
:[address] [facility] Address [address] [place] [address] Care Team Providers Name Role Phone Unavailable [...] you attend yazdanism or Patient refused 2021 nondenominational services? Do [...]
--- OUTSIDE RECORDS SUMMARY | 2021-10-15 05:25 | XMS_ITS | Encounter Summary ---
:1940 Author Organization [facility] Address [address] [place] [address] Care Team Providers Name Role Phone Unavailable [...] you attend restorationist or Patient refused 2021 latter-day services? Do you belong to any clubs or Patient refused 07/05/2021 organizations such as restorationist groups, unions, fraternal or athletic groups, or [...]
--- OUTSIDE RECORDS SUMMARY | 2021-10-15 05:25 | XMS_ITS | Encounter Summary ---
:1940 Author Organization [facility] Address [address] [place] [address] Care Team Providers Name Role Phone Elsewhere, Pcp Primary Care Provider Unavailable Encounter Details Date Type Department Care Team Description 09/04/2015 Historical Ophthalmology RST OPH Tobin Bartlett O.D. [address] [place], [place] [address] (Wo rk) Social History [...] you attend christianity or Patient refused 2021 islam services? Do [...] visually significant. CDM Reports - EYEGEN Id: [id number] Status: Fnl documented in this encounter Plan of Treatment Not on filedocumented as of this encounter Visit Diagnoses Not on filedocumented in this encounter Additional Health Concerns Assessment Noted Time PHQ-9 Depression Total Score: 1 10/05/2013 1:43 PM CDT documented as of this encounter Care Teams Car Shunter Relationship Specialty Start Date End Date Elsewhere, Pcp PCP - General Internal Medicine 08/24/19 documented as of this encounter
--- OUTSIDE RECORDS SUMMARY | 2021-10-15 05:25 | XMS_ITS | Encounter Summary ---
:1940 Author Organization [facility] Address [address] [place] [address] Care Team Providers Name Role Phone Unavailable [...] you attend quaker or Patient refused 2021 restoration services? Do you belong to any clubs [...]
--- OUTSIDE RECORDS SUMMARY | 2021-10-15 05:25 | XMS_ITS | Encounter Summary ---
:1940 Author Organization [facility] Address [address] [place] [address] Care Team Providers Name Role Phone Unavailable [...] you attend jain or Patient refused 2021 spiritism services? Do you belong to any clubs [...]
--- OUTSIDE RECORDS SUMMARY | 2021-10-15 05:25 | XMS_ITS | Encounter Summary ---
:1940 Author Organization [facility] Address [address] [place] [address] Care Team Providers Name Role Phone Unavailable [...] or relatives? How often do you attend jehovah's witness or Patient refused 2021 church services? Do you belong to any clubs or Patient refused 07/05/2021 organizations such as jehovah's witness groups, unions, fraternal or athletic groups, or [...]
--- OUTSIDE RECORDS SUMMARY | 2021-10-15 05:25 | XMS_ITS | Encounter Summary ---
:1940 Author Organization [facility] Address [address] [place] [address] Care Team Providers Name Role Phone Elsewhere, Pcp Primary Care Provider Unavailable Encounter Details Date Type Department Care Team Description 12/21/2005 Historical Ophthalmology RST OPH Alison Costello M.D. [address], [place] [address] (Wo rk) Social History Tobacco Use Types [...] or relatives? How often do you attend episcopal or Patient refused 2021 christian services? Do you belong to any clubs or Patient refused 07/05/2021 organizations such as episcopal groups, unions, fraternal or athletic groups, or [...] or slept in a fpc (including now)? Sex Assigned at Date Recorded [...] eye syndrome CD Reports - EYEGEN Id: [id number] Status: Fnl documented in this encounter Plan of Treatment Not on filedocumented as of this encounter Visit Diagnoses Not on filedocumented in this encounter Care Teams Clearance Center Manager Relationship Specialty Start Date End Date Elsewhere, Pcp PCP - General Internal Medicine 08/24/19 documented as of this encounter
--- OUTSIDE RECORDS SUMMARY | 2021-10-15 05:25 | XMS_ITS | Encounter Summary ---
:1940 Author Organization [facility] Address [address] [place] [address] Care Team Providers Name Role Phone Unavailable [...] or relatives? How often do you attend yazidism or Patient refused 2021 pentecostal services? Do you belong to any clubs or Patient refused 07/05/2021 organizations such as yazidism groups, unions, fraternal or athletic groups, or [...]
--- OUTSIDE RECORDS SUMMARY | 2021-10-15 05:25 | XMS_ITS | Encounter Summary ---
:1940 Author Organization [facility] Address [address] [place] [address] Care Team Providers Name Role Phone Amrik [...] you attend yarsani or Patient refused 2021 restorationist services? Do [...] documented as of this encounter Care Teams Motor And Generator Assembler Relationship Specialty Start Date End Date Amrki Calix B.M.B.S. PCP - General Family Medicine 09/10/14 09/03/17 documented as of this encounter
--- OUTSIDE RECORDS SUMMARY | 2021-10-15 05:25 | XMS_ITS | Encounter Summary ---
:1940 Author Organization [facility] Address [address] [place] [address] Care Team Providers Name Role Phone Unavailable [...] you attend latter-day or Patient refused 2021 islam services? Do [...]
--- OUTSIDE RECORDS SUMMARY | 2021-10-15 05:25 | XMS_ITS | Encounter Summary ---
:1940 Author Organization [facility] Address [address] [place] [address] Care Team Providers Name Role Phone Elsewhere, Pcp Primary Care Provider Unavailable Encounter Details Date Type Department Care Team Description 01/19/2007 Historical Ophthalmology RST OPH Tobin Bartlett O.D. [address] [place], [place] [address] (Wo rk) Social History [...] or relatives? How often do you attend lutheran or Patient refused 2021 buddhist services? Do you belong to any clubs or Patient refused 07/05/2021 organizations such as lutheran groups, unions, fraternal or athletic groups, or [...] gland dysfunction both eyes. CDM Reports - EYENextInput Id: [id number] Status: Fnl documented in this encounter Plan of Treatment Not on filedocumented as of this encounter Visit Diagnoses Not on filedocumented in this encounter Care Teams Behavioral Health Specialist Relationship Specialty Start Date End Date Elsewhere, Pcp PCP - General Internal Medicine 08/24/19 documented as of this encounter
--- OUTSIDE RECORDS SUMMARY | 2021-10-15 05:25 | XMS_ITS | Encounter Summary ---
:1940 Author Organization [facility] Address [address] [place] [address] Care Team Providers Name Role Phone Elsewhere, Pcp Primary Care Provider Unavailable Encounter Details Date Type Department Care Team Description 07/24/2009 Historical Ophthalmology RST OPH Torsten Lloyd ORobert [address] [place], [place] [phone] (Wo rk) Social History [...] or relatives? How often do you attend holiness or Patient refused 2021 judaism services? Do you belong to any clubs or Patient refused 07/05/2021 organizations such as holiness groups, unions, fraternal or athletic groups, or [...] slept in a nursing home (including now)? Sex Assigned at Date [...] pigment epithelium CDM Reports - EYEGEN Id: [id number] Status: Fnl documented in this encounter Plan of Treatment Not on filedocumented as of this encounter Visit Diagnoses Not on filedocumented in this encounter Care Teams Vp Security Relationship Specialty Start Date End Date Elsewhere, Pcp PCP - General Internal Medicine 08/24/19 documented as of this encounter
--- OUTSIDE RECORDS SUMMARY | 2021-10-15 05:25 | XMS_ITS | Encounter Summary ---
:1940 Author Organization [facility] Address [address] [place] [address] Care Team Providers Name Role Phone Elsewhere, Pcp Primary Care Provider Unavailable Encounter Details Date Type Department Care Team Description 11/09/2013 Historical Ophthalmology RST OPH Heather ck, Celia Hathaway, O.D. [address] [place], [place] [phone] (Wo rk) Social History Tobacco Use Types [...] you attend yazidism or Patient refused 2021 mandaen services? Do you belong to any clubs [...] or slept in a fci (including now)? Sex Assigned at Date Recorded [...] astigmatism, presbyopia). CDM Reports - EYEGEN Id: [id number] Status: Fnl documented in this encounter Plan of Treatment Not on filedocumented as of this encounter Visit Diagnoses Not on filedocumented in this encounter Additional Health Concerns Assessment Noted Time PHQ-9 Depression Total Score: 1 10/05/2013 1:43 PM CDT documented as of this encounter Care Teams Presto Log Operator Relationship Specialty Start Date End Date Elsewhere, Pcp PCP - General Internal Medicine 08/24/19 documented as of this encounter
--- OUTSIDE RECORDS SUMMARY | 2021-10-15 05:25 | XMS_ITS | Encounter Summary ---
:1940 Author Organization [facility] Address [address] [place] [address] Care Team Providers Name Role Phone Elsewhere, [...] you attend restorationism or Patient refused 2021 restorationist services? Do [...] pigment epithelium CDM Reports - EYEGEN Id: [id number] Status: Fnl documented in this encounter Plan of Treatment Not on filedocumented as of this encounter Visit Diagnoses Not on filedocumented in this encounter Care Teams Corporate Recruiter Relationship Specialty Start Date End Date Elsewhere, Pcp PCP - General Internal Medicine 08/24/19 documented as of this encounter
== END 2021-10-14 13:34 | disposition home or self-care (01) ==
PROVIDERS: PCP Nurse Practitioner Family; Visit Provider Nurse Practitioner Family
DX: E03.9 Hypothyroidism, unspecified (principal); Z51.81 Encounter for therapeutic drug level monitoring; Z79.899 Other long term (current) drug therapy
CPT/HCPCS: 36415; 80076; 84443

== ENCOUNTER 2021-10-15 13:47 | Outpatient (CLI) | payer MEDICARE, SELFPAY ==
--- OUTSIDE RECORDS SUMMARY | 2021-10-15 13:50 | XMS_ITS | Encounter Summary ---
:1940 Author Organization [facility] Address [address] [place] [address] Care Team Providers Name Role Phone Elsewhere, [...] you attend rastafarian or Patient refused 2021 cheondoism services? Do you belong to any clubs [...] documented as of this encounter Care Teams Advanced Practice Nurse Relationship Specialty Start Date End Date Elsewhere, Pcp PCP - General Internal Medicine 08/24/19 documented as of this encounter
--- OUTSIDE RECORDS SUMMARY | 2021-10-15 13:50 | XMS_ITS | Encounter Summary ---
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 [facility] Procedures Enema Prep [address] [place] [phone] Referral ID Status Reason Start Date Expiration Date Visits Requ ested Visits Authorized [id number] Closed 07/10/2021 07/10/2022 1 1 Encounter Details Date Type Department Care Team Description 07/10/2021 Orders Only Division of Bo Marie Enterocolitis Due To Clostridium Difficile Not Specified As Recurrent (Primary Dx); Gastroenterology in [place] Enterocolitis Due To Clostridium Diffici le Recurrent [place], [place] [address] [facility] [address] [place] [phone] Social History Tobacco Use Types Packs/Day Years [...] or relatives? How often do you attend cheondoism or Patient refused 2021 gnosticism services? Do you belong to any clubs or Patient refused 07/05/2021 organizations such as cheondoism groups, unions, fraINCHRON or athletic groups, or school groups? How [...] slept in a care home (including now)? Education Answer Date Recorded [...] documented as of this encounter Care Teams Applied Technologist Relationship Specialty Start Date End Date Elsewhere, Pcp PCP - General Internal Medicine 08/24/19 documented as of this encounter
--- OUTSIDE RECORDS SUMMARY | 2021-10-15 13:50 | XMS_ITS | Encounter Summary ---
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 [facility] Procedures Enema Prep [address] [place] [address] Referral ID Status Reason Start Date Expiration Date Visits Requ ested Visits Authorized [id number] Closed 07/10/2021 07/10/2022 1 1 Encounter Details Date Type Department Care Team Description 07/10/2021 Clinical Support Enema Prep Facility Abram Marie M.D. [address] [place] [phone] Enterocolitis Due To in [place], Teodora Mallory, R.N. Clostridium Difficile [place] Recurrent [address] [place] [phone] Social History Tobacco Use Types Packs/Day Years [...] you attend yazidism or Patient refused 2021 zoroastrian services? Do you belong to any clubs or Patient refused 07/05/2021 organizations such as yazidism groups, [employer], [employer] or athletic groups, or school groups? How [...] documented as of this encounter Care Teams Tire Debeader Relationship Specialty Start Date End Date Elsewhere, Pcp PCP - General Internal Medicine 08/24/19 documented as of this encounter
--- OUTSIDE RECORDS SUMMARY | 2021-10-15 13:50 | XMS_ITS | Clinical Summary ---
:1940 Author Organization [facility] Address [address] [place] [address] Care Team Providers Name Role Phone Elsewhere, Pcp Primary Care Provider Unavailable Source Comments Patient records contain information from all sites at [facility]. For routine questions regarding patient records, call [phone] during business hours, M-F 8:00 AM - 5:00 PM Central Time. Record requests for emergency care only can be directed to [phone] at any time.[facility] Allergies Active Allergy Reactions Severity Noted Date [...] you attend cheondoism or Patient refused 2021 oriental orthodox services? Do you belong to any clubs or Patient refused 07/05/2021 organizations such as cheondoism groups, unions, fraternal or athletic groups, or [...] Completed 07/10/2021 Medical Devices Implanted Type Area Surgical Processor Device Shelf Model / Identifier Expiration Serial / Date Lot Conversions - Default Historical Implant Device Hardware Back Implanted: 06/10/2016 (Quantity not on file) e.g. pins/screws/ rods Description: Body Location - Back. wires from back surgery. Device Status Text - Hardware. Insurance Payer Benefit Plan / Subscriber ID Effective Dates Phone Addre ss Type Group AARP AARP MEDICARE [id number] 2020-Present [phone] [address] [address] [place] [address] Advance Directives For more information, please contact: [phone] Documents on File Type Date Recorded Patient Steel Pan Form Placing Supervisor Explanati on Advance Directives 10/25/2015 12:00 AM Legacy doc ument. See document viewer. Care Teams Mechanic Driver Relationship Specialty Start Date End Date Elsewhere, Pcp PCP - General Internal Medicine 08/24/19
--- OUTSIDE RECORDS SUMMARY | 2021-10-15 13:50 | XMS_ITS | Encounter Summary ---
:1940 Author Organization [facility] Address [address] [place] [address] Care Team Providers Name Role Phone Elsewhere, Pcp Primary Care Provider Unavailable Reason for Referral Outpatient (Routine) - Closed Specialty Diagnoses / Procedures Referred By Contact Refer red To Contact Diagnoses Diarrhea Persistent Unexplained Bo Marie M.D. [facility] Procedures Colonoscopy [address] [place] [address] Referral ID Status Reason Start Date Expiration Date Visits Requ ested Visits Authorized [id number] Closed 07/08/2021 07/08/2022 1 1 Reason for Visit Outpatient (Routine) - Closed Specialty Diagnoses / Procedures Referred By Contact Refer red To Contact Diagnoses Diarrhea Persistent Unexplained Bo Marie M.D. [facility] Procedures Colonoscopy [address] [place] [address] Referral ID Status Reason Start Date Expiration Date Visits Requ ested Visits Authorized [id number] Closed 07/08/2021 07/08/2022 1 1 Encounter Details Date Type Department Care Team Description 07/10/2021 Hospital Division of Bo Marie Diarrhea Encounter Gastroenterology in [place], [place] [address] Unexplained [address] [place] [phone] Social History Tobacco Use Types Packs/Day Years [...] you attend yazidi or Patient refused 2021 yarsanism services? Do [...] Organization Address City/State/ZIP Code Phon e Number [facility] - [address] [place], [place] [address] [facility] [place] [address] Laboratories-[facility] [address] Colonoscopy (07/10/2021 3:36 PM CDT) Specimen (Source) Anatomical Collection Method Collection Time Re ceived Time Location / / Volume Laterality 07/10/2021 3:[address] [facility] 07/10/20[facility] 4:00 PM CDT Post-op Diagnoses: ? - Biopsies were obtained in the e ntire colon. Narrative [facility] - 07/10/2021 4:00 PM CDT Gonda 9 [...] bowel preparation was evaluated using the BBPS ([place] ? Bowel Preparation Scale) with sco res [...] City/State/ZIP Code Phon e Number [employer] NA documented in this encounter Visit [...] as of this encounter Care Teams Automotive Machinist Relationship Specialty Start Date End Date Elsewhere, Pcp PCP - General Internal Medicine 08/24/19 documented as of this encounter
--- OUTSIDE RECORDS SUMMARY | 2021-10-15 13:50 | XMS_ITS | Encounter Summary ---
:1940 Author Organization [facility] Address [address] [place] [address] Care Team Providers Name Role Phone Elsewhere, Pcp Primary Care Provider Unavailable Encounter Details Date Type Department Care Team Description 07/17/2021 Office Visit Division of Bo Marie Constipation (Primary Dx); Gastroenterology in S, M.D. [place], [place] [address] [facility] [address] [place] [phone] [phone] Social History Tobacco Use Types Packs/Day Years [...] you attend sikhism or Patient refused 2021 rastafarian services? Do [...] or slept in a residential (including now)? Education Answer Date Recorded What [...] documented as of this encounter Care Teams Sorority Mother Relationship Specialty Start Date End Date Elsewhere, Pcp PCP - General Internal Medicine 08/24/19 documented as of this encounter
--- OUTSIDE RECORDS SUMMARY | 2021-10-15 13:50 | XMS_ITS | Encounter Summary ---
:1940 Author Organization [facility] Address [address] [place] [address] Care Team Providers Name Role Phone Elsewhere, Pcp Primary Care Provider Unavailable Encounter Details Date Type Department Care Team Description 10/03/2021 Clinical Communication Division of Coretta Peck Gastroenterology in , [place], [place] [address] [facility] [address] [place] [phone] Social History Tobacco Use Types Packs/Day Years [...] you attend sikh or Patient refused 2021 orthodox services? Do [...] or slept in a detention (including now)? Education Answer Date Recorded What [...] documented as of this encounter Care Teams Waste Management Recycling Technician Relationship Specialty Start Date End Date Elsewhere, Pcp PCP - General Internal Medicine 08/24/19 documented as of this encounter
--- OUTSIDE RECORDS SUMMARY | 2021-10-15 13:50 | XMS_ITS | Encounter Summary ---
:1940 Author Organization [facility] Address [address] [place] [address] Care Team Providers Name Role Phone Elsewhere, Pcp Primary Care Provider Unavailable Encounter Details Date Type Department Care Team Description 07/08/2021 Hospital Encounter Department of Bo Marie [facility] Laboratory Medicine S, MAnantDAnant Protein-Calorie (HCC) and Pathology, [address] [place], [place] [phone] [place] [phone] [place] [address] (Work) [place], [place] [phone] (Fax) [phone] Social History Tobacco Use Types Packs/Day Years [...] or relatives? How often do you attend presybeterian or Patient refused 2021 catholic services? Do you belong to any clubs or Patient refused 07/05/2021 organizations such as presybeterian groups, unions, fraternal or athletic groups, or [...] performa nce characteristics determined by [facility] in a manner consistent with CLIA requirements. This test has not been cleared or approved by the U.S. Rula d and Drug Administration. Specimen Anatomical Collection Method Collection Time Receive d Time (Source) Location / / Volume Laterality Blood (Blood, 07/08/2021 10:57 07/08/2021 3:28 Venous) AM CDT PM CDT Bo Marie M.D. LAB BLOOD NON ADD-ON Performing Organization Address City/[facility] Phon e Number [facility] [address] [place] [address] [address] [facility] [place] [address] Laboratory Medicine and Pathology [address] [place] [address] Dr. [place] Vitamin E Level (07/08/2021 10:57 AM CDT) athologist [facility] A-Tocopherol, 15.1 5.5 - 17.0 07/09/2021 [facility] Vitamin E mg/L 11:42 AM CDT Comment: ----ADDITIONAL INFORMATION---- This test was developed and its performa nce characteristics determined by [facility] in a manner consistent with CLIA requirements. This test has not been cleared or approved by the U.S. Rula d and Drug Administration. Specimen Anatomical Collection Method Collection Time Receive d Time (Source) Location / / Volume Laterality Blood (Blood, 07/08/2021 10:57 07/08/2021 3:27 Venous) AM CDT PM CDT Bo Marie M.D. LAB BLOOD NON ADD-ON Performing Organization Address City/[facility] Phon e Number [facility] [address] [place], [place] [address] [facility] [place] [address] Laboratory Medicine and Pathology [address] [place] Vitamin B12 Assay (07/08/2021 10:57 AM CDT) athologist Signature Vitamin B12 794 180 - 914 07/08/2021 [facility] Assay, S ng/L 2:23 PM CDT [...] BLOOD ADD-ON Performing Organization Address City/[facility]/ZIP Code Phon e Number [facility] - [address] [place], [place] [address] [place] [address] Laboratories-[facility] [address] Vitamin A Level (07/08/2021 10:57 AM CDT) [facility] Vitamin A 39.5 32.5 - 78.0 07/10/2021 9:12 [facility] mcg/dL AM CDT Comment: ----ADDITIONAL INFORMATION---- This test was developed and its performa nce characteristics determined by [facility] in a manner consistent with CLIA requirements. This test has not been cleared or approved by the U.S. Rula d and Drug Administration. Specimen Anatomical Collection Method Collection Time Receive d Time (Source) Location / / Volume Laterality Blood (Blood, 07/08/2021 10:57 07/08/2021 3:27 Venous) AM CDT PM CDT Bo Marie M.D. LAB BLOOD NON ADD-ON Performing Organization Address City/[facility]/ZIP [facility] Phon e Number [facility] [address] [place] [address] [facility] [address] [facility] [place] [address] Laboratory Medicine and Pathology [address] [place] Copper (07/08/2021 10:57 AM CDT) P athologist Signature Copper, S 1.40 0.75 - 1.45 07/09/2021 9:53 [facility] mcg/mL AM CDT Comment: ----ADDITIONAL INFORMATION---- This test was developed and its performa nce characteristics determined by [facility] in a manner consistent with CLIA requirements. This test has not been cleared or approved by the U.S. Rula d and Drug Administration. Specimen Anatomical Collection Method Collection Time Receive d Time (Source) Location / / Volume Laterality Blood (Blood, 07/08/2021 10:57 07/08/2021 3:28 Venous) AM CDT PM CDT Bo Marie M.D. LAB BLOOD NON ADD-ON Performing Organization Address [facility] Phon e Number [address] [place] [address] [facility] [facility] [place] [address] Laboratory Medicine and Pathology [address] [place] [address] Dr. FORBES Selenium (07/08/2021 10:57 AM CDT) athologist Signature Selenium, S 118 70 - 150 07/09/2021 [facility] ng/mL 9:53 AM CDT Comment: ----ADDITIONAL INFORMATION---- This test was developed and its performa nce characteristics determined by [facility] in a manner consistent with CLIA requirements. This test has not been cleared or approved by the U.S. Rula d and Drug Administration. Specimen Anatomical Collection Method Collection Time Receive d Time (Source) Location / / Volume Laterality Blood (Blood, 07/08/2021 10:57 07/08/2021 3:28 Venous) AM CDT PM CDT Bo Marie M.D. LAB BLOOD NON ADD-ON Performing Organization Address City/[facility] Phon e Number [address] [place] [address] [facility] [facility] [place] [address] Laboratory Medicine and Pathology [address] [place] [address] Dr. [place] Prothrombin Time (PT) (07/08/2021 10:57 [...] BLOOD ADD-ON Performing Organization Address City/[facility] Phon e Number [facility] - 200 [place], [place] [address] [place] [address] Folate (07/08/2021 10:57 AM CDT) athologist Signature Folate, S >20.0 >=4.0 mcg/L 07/08/2021 2:20 DTL PM CDT Specimen Anatomical Collection Method Collection Time Receive d Time (Source) Location / / Volume Laterality Blood (Blood, 07/08/2021 10:57 07/08/2021 Venous) AM CDT 12:38 PM CDT Bo Marie M.D. LAB BLOOD ADD-ON Performing Organization Address City/[facility] Phon e Number [facility] - 200 [place], [place] [address] [place] [address] Ferritin (07/08/2021 10:57 AM CDT) athologist Signature Ferritin, S 103 11 - 307 07/08/2021 DTL mcg/L 2:15 PM CDT Specimen Anatomical Collection Method Collection Time Receive d Time (Source) Location / / Volume Laterality Blood (Blood, 07/08/2021 10:57 07/08/2021 Venous) AM CDT 12:38 PM CDT Bo Marie M.D. LAB BLOOD ADD-ON Performing Organization Address City/[facility]/ZIP Code Phon e Number [facility] - [address] [place], [place] [address] [facility] [place] [address] Laboratories-[facility] [address] [facility] 25-Hydroxyvitamin D2 and D3 (07/08/2021 10:57 [...] performa nce characteristics determined by [facility] in a manner consistent with CLIA requirements. This test has not been cleared or approved by the U.S. Rula d and Drug Administration. Specimen Anatomical Collection Method Collection Time Receive d Time (Source) Location / / Volume Laterality Blood (Blood, 07/08/2021 10:57 07/09/2021 7:54 Venous) AM CDT AM CDT Bo Marie M.D. LAB BLOOD ADD-ON Performing Organization Address City/[facility] Phon e Number [facility] [address] [place], [place] [address] [facility] [place] [address] Laboratory Medicine and Pathology [address] [place] documented in this encounter Visit Diagnoses Diagnosis Malnutrition Moderate Protein-Calorie (H CC) documented in this encounter Additional Health Concerns Assessment Noted Time PHQ-9 Depression Total Score: 1 10/05/2013 1:43 PM CDT documented as of this encounter Care Teams Computer Peripheral Equipment Operator Relationship Specialty Start Date End Date Elsewhere, Pcp PCP - General Internal Medicine 08/24/19 documented as of this encounter
--- OUTSIDE RECORDS SUMMARY | 2021-10-15 13:51 | XMS_ITS | Encounter Summary ---
:1940 Author Organization [facility] Address [address] [place] [address] Care Team Providers Name Role Phone Elsewhere, Pcp Primary Care Provider Unavailable Encounter Details Date Type Department Care Team Description 09/04/2015 Historical Ophthalmology RST OPH Tobin Bartlett O.D. [address] [place], [place] [address] (Wo rk) Social History [...] you attend yarsanism or Patient refused 2021 cheondoism services? Do [...] visually significant. CDM Reports - EYEGEN Id: [id number] Status: Fnl documented in this encounter Plan of Treatment Not on filedocumented as of this encounter Visit Diagnoses Not on filedocumented in this encounter Additional Health Concerns Assessment Noted Time PHQ-9 Depression Total Score: 1 10/05/2013 1:43 PM CDT documented as of this encounter Care Teams High School Art Teacher Relationship Specialty Start Date End Date Elsewhere, Pcp PCP - General Internal Medicine 08/24/19 documented as of this encounter
--- OUTSIDE RECORDS SUMMARY | 2021-10-15 13:51 | XMS_ITS | Encounter Summary ---
:1940 Author Organization [facility] Address [address] [place] [address] Care Team Providers Name Role Phone Elsewhere, Pcp Primary Care Provider Unavailable Encounter Details Date Type Department Care Team Description 07/08/2021 Orders Only Division of Gastroenterology Tino Peck, in [facility] [address] [facility] [address] [place] [address] [place], [place] [phone] Social History Tobacco Use Types Packs/Day Years [...] or slept in a alf (including now)? Education Answer Date Recorded What [...] documented as of this encounter Care Teams Bucket Hooker Relationship Specialty Start Date End Date Elsewhere, Pcp PCP - General Internal Medicine 08/24/19 documented as of this encounter
--- OUTSIDE RECORDS SUMMARY | 2021-10-15 13:51 | XMS_ITS | Encounter Summary ---
:1940 Author Organization [facility] Address [address] [place] [address] Care Team Providers Name Role Phone Elsewhere, Pcp Primary Care Provider Unavailable Encounter Details Date Type Department Care Team Description 06/17/2021 Clinical Communication Division of Bo Marie Gastroenterology in S, M.D. [place], [place] [address] [facility] [address] [place] [phone] Social History Tobacco Use Types Packs/Day Years [...] or relatives? How often do you attend denominational or Patient refused 2021 protestant services? Do you belong to any clubs or Patient refused 07/05/2021 organizations such as denominational groups, unions, fraternal or athletic groups, or [...] documented as of this encounter Care Teams Distillery Miller Relationship Specialty Start Date End Date Elsewhere, Pcp PCP - General Internal Medicine 08/24/19 documented as of this encounter
--- OUTSIDE RECORDS SUMMARY | 2021-10-15 13:51 | XMS_ITS | Encounter Summary ---
:1940 Author Organization [facility] Address [address] [place] [address] Care Team Providers Name Role Phone Elsewhere, Pcp Primary Care Provider Unavailable Encounter Details Date Type Department Care Team Description 10/09/2016 Historical Ophthalmology RST OPH Cris Goznalez O.D. [address] [place], [place] [phone] (Wo rk) Social History [...] or relatives? How often do you attend pentecostal or Patient refused 2021 jain services? Do you belong to any clubs or Patient refused 07/05/2021 organizations such as pentecostal groups, unions, fraternal or athletic groups, or [...] dry eyes CDM Reports - EYEGEN Id: [id number] Status: Fnl documented in this encounter Plan of Treatment Not on filedocumented as of this encounter Visit Diagnoses Not on filedocumented in this encounter Additional Health Concerns Assessment Noted Time PHQ-9 Depression Total Score: 1 10/05/2013 1:43 PM CDT documented as of this encounter Care Teams Caramel Candy Maker Relationship Specialty Start Date End Date Elsewhere, Pcp PCP - General Internal Medicine 08/24/19 documented as of this encounter
--- OUTSIDE RECORDS SUMMARY | 2021-10-15 13:51 | XMS_ITS | Encounter Summary ---
:1940 Author Organization [facility] Address [address] [place] [address] Care Team Providers Name Role Phone Amrik [...] or relatives? How often do you attend jainism or Patient refused 2021 restorationist services? Do you belong to any clubs or Patient refused 07/05/2021 organizations such as jainism groups, unions, fraternal or athletic groups, or [...] documented as of this encounter Care Teams Station Worker Relationship Specialty Start Date End Date Amrik Calix B.M.B.S. PCP - General Family Medicine 09/10/14 09/03/17 documented as of this encounter
--- OUTSIDE RECORDS SUMMARY | 2021-10-15 13:51 | XMS_ITS | Encounter Summary ---
:1940 Author Organization [facility] Address [address] [place] [address] Care Team Providers Name Role Phone Elsewhere, Pcp Primary Care Provider Unavailable Encounter Details Date Type Department Care Team Description 05/01/2020 Orders Only [facility] - Donald powell Elsewhere, Pcp [address] , [facility] [address] [place] [address] Social History Tobacco Use [...] or relatives? How often do you attend adventist or Patient refused 2021 holiness services? Do you belong to any clubs or Patient refused 07/05/2021 organizations such as adventist groups, unions, fraternal or athletic groups, or [...] documented as of this encounter Care Teams Lawn Maintenance Worker Relationship Specialty Start Date End Date Elsewhere, Pcp PCP - General Internal Medicine 08/24/19 documented as of this encounter
--- OUTSIDE RECORDS SUMMARY | 2021-10-15 13:51 | XMS_ITS | Encounter Summary ---
:1940 Author Organization [facility] Address [address] [place] [address] Care Team Providers Name Role Phone Amrik [...] you attend amish or Patient refused 2021 anabaptism services? Do you belong to any clubs [...] place to sleep or slept in a custodial (including now)? Sex Assigned at Date Recorded Female 07/05/2021 8:19 AM CDT documented as of this encounter Plan of Treatment Not on filedocumented as of this encounter Visit Diagnoses Not on filedocumented in this encounter Additional Health Concerns Assessment Noted Time PHQ-9 Depression Total Score: 1 10/05/2013 1:43 PM CDT documented as of this encounter Care Teams Steel Box Toe Inserter Relationship Specialty Start Date End Date Amrik Calix B.M.B.S. PCP - General Family Medicine 09/10/14 09/03/17 documented as of this encounter
--- OUTSIDE RECORDS SUMMARY | 2021-10-15 13:51 | XMS_ITS | Encounter Summary ---
:1940 Author Organization [facility] Address [address] [place] [address] Care Team Providers Name Role Phone Elsewhere, Pcp Primary Care Provider Unavailable Reason for Visit Reason Comments Follow-up HTN/Blood pressure Encounter Details Date Type Department Care Team Description 08/24/2019 Clinical Communication Department of Britney Hernandez ow-aman Family Medicine, Garcia Wise R.N. (HTN/Blood [facility] [address] [facility] pressure) jose [facility] [phone] [address] [facility] [phone] [place], [place] (Work) [phone] Social History Tobacco Use Types Packs/Day Years [...] or relatives? How often do you attend adventism or Patient refused 2021 pentecostalism services? Do you belong to any clubs or Patient refused 07/05/2021 organizations such as adventism groups, unions, fraternal or athletic groups, or [...] patient has moved their primary care to [facility]. She was contacted to be able to confirm this. She stated that she had to come to [facility] for a back surgery as has since [facility] all [facility]. She was asked if she wanted us removed as her primary care provider and she stated that yes we should be removed as her primary care provider. PLAN Disposition/Recommendation: Will send information to the appropriate contact to have [facility] removed as primary care provider. Information/Education: patient/caller [...] documented as of this encounter Care Teams Senior Peoplesoft Developer Relationship Specialty Start Date End Date Elsewhere, Pcp PCP - General Internal Medicine 08/24/19 documented as of this encounter
--- OUTSIDE RECORDS SUMMARY | 2021-10-15 13:51 | XMS_ITS | Encounter Summary ---
:1940 Author Organization [facility] Address [address] [place] [address] Care Team Providers Name Role Phone Amrik Calix Primary Care Provider Unavailable Encounter Details Date Type Department Care Team Description 05/24/2017 Abstract [facility] Leeanna Roy [facility] MPUS [address] [place] [phone] Social History Tobacco Use Types Packs/Day [...] you attend hoahaoism or Patient refused 2021 yazidism services? Do you belong to any clubs [...] documented as of this encounter Care Teams Executive Candidate Developer Relationship Specialty Start Date End Date Amrik Calix B.M.BAnantS. PCP - General Family Medicine 09/10/14 09/03/17 documented as of this encounter
--- OUTSIDE RECORDS SUMMARY | 2021-10-15 13:51 | XMS_ITS | Encounter Summary ---
:1940 Author Organization [facility] Address [address] [place] [address] Care Team Providers Name Role Phone Elsewhere, Pcp Primary Care Provider Unavailable Encounter Details Date Type Department Care Team Description 04/30/2020 Orders Only RST PCP HLTH KARENT Lemuel Bennett Jr., M.D. [address] [facility] [place] [place] [phone] (Wo rk) Social History [...] you attend jain or Patient refused 2021 yarsani services? Do you belong to any clubs [...] documented as of this encounter Care Teams Color Straining Bag Washer Relationship Specialty Start Date End Date Elsewhere, Pcp PCP - General Internal Medicine 08/24/19 documented as of this encounter
--- OUTSIDE RECORDS SUMMARY | 2021-10-15 13:51 | XMS_ITS | Encounter Summary ---
:1940 Author Organization [facility] Address [address] [place] [address] Care Team Providers Name Role Phone Elsewhere, Pcp Primary Care Provider Unavailable Encounter Details Date Type Department Care Team Description 07/08/2021 Orders Only Division of Coretta Peck Encounter F or Gastroenterology in P, CCRP Preprocedural [place], [place] [address] [facility] [address] [place], [place] [phone] (COVID-19) (Primary [phone] Dx) (Work) Social History Tobacco Use Types [...] you attend anabaptism or Patient refused 2021 zoroastrianism services? Do [...] slept in a senior living (including now)? Education Answer Date Recorded What [...] documented as of this encounter Care Teams Cnmt Relationship Specialty Start Date End Date Elsewhere, Pcp PCP - General Internal Medicine 08/24/19 documented as of this encounter
--- OUTSIDE RECORDS SUMMARY | 2021-10-15 13:51 | XMS_ITS | Encounter Summary ---
:1940 Author Organization [facility] Address [address] [place] [address] Care Team Providers Name Role Phone Eduardo Muse D.O. Primary Care Provider [phone] Reason for Visit Reason Comments Eye Exam Appointment Request (Routine) - Closed Specialty Diagnoses / Procedures Referred By Contact Refer red To Contact Ophthalmology Referral ID Status Reason Start Date Expiration Date Visits Requ ested Visits Authorized [id number] Closed 05/09/2018 05/09/2019 1 1 Encounter Details Date Type Department Care Team Description 09/12/2018 Comprehensive Visit Department of Tabitha Lloyd Nuclear Ophthalmology in Torsten Ponce O.D. Cataract Bilateral [place], [place] [address] [facility] (Primary Dx) [address] [place] [phone] Social History Tobacco Use Types Packs/Day Years [...] you attend yazidism or Patient refused 2021 mosque services? Do [...] documented as of this encounter Care Teams Transplanter Relationship Specialty Start Date End Date Eduardo Muse D.O. PCP - General Family Medicine 09/04/17 08/23/19 [address] [place] [address] documented as of this encounter
--- OUTSIDE RECORDS SUMMARY | 2021-10-15 13:51 | XMS_ITS | Encounter Summary ---
:1940 Author Organization [facility] Address [address] [place] [address] Care Team Providers Name Role Phone Elsewhere, Pcp Primary Care Provider Unavailable Reason for Visit Reason Comments Pre-visit Intake Encounter Details Date Type Department Care Team Description 07/04/2021 Clinical Communication Visit Review in Pr e-visit Intake [address] [phone] Social History Tobacco Use Types Packs/Day Years [...] you attend scientology or Patient refused 2021 quaker services? Do [...] documented as of this encounter Care Teams Concert Manager Relationship Specialty Start Date End Date Elsewhere, Pcp PCP - General Internal Medicine 08/24/19 documented as of this encounter
--- OUTSIDE RECORDS SUMMARY | 2021-10-15 13:51 | XMS_ITS | Encounter Summary ---
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 Hepatology Mag C.N.PAnant [address] [place] [address] Referral ID Status Reason Start Date Expiration Date Visits Requ ested Visits Authorized [id number] Closed 06/11/2021 06/11/2022 1 1 Encounter Details Date Type Department Care Team Description 06/11/2021 [facility] Barbara Vincent Enterocolitis Due To AND CLINICS Mag, C.N.PAnant Clostridium Difficile 1999 [facility] [address] Not Specified As [place], [place] Recurrent (Primary [id number] Dx) [phone] Social History Tobacco Use Types Packs/Day Years [...] or relatives? How often do you attend gnosticism or Patient refused 2021 synagogue services? Do you belong to any clubs or Patient refused 07/05/2021 organizations such as gnosticism groups, unions, fraAcesis or athletic groups, or school groups? How [...] documented as of this encounter Care Teams Mechanist Relationship Specialty Start Date End Date Elsewhere, Pcp PCP - General Internal Medicine 08/24/19 documented as of this encounter
--- OUTSIDE RECORDS SUMMARY | 2021-10-15 13:51 | XMS_ITS | Encounter Summary ---
:[address] [facility] Address [address] [place] [address] Care Team Providers Name Role Phone Elsewhere, Pcp Primary Care Provider Unavailable Reason for Referral Outpatient (Routine) - Authorized Specialty Diagnoses / Procedures Referred By Contact Refer red To Contact Diagnoses Diarrhea Persistent Unexplained Bo Marie M.D. 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 [address] [place] [address] Referral ID Status Reason Start Date Expiration Date Visits Requ ested Visits Authorized [id number] Closed 06/11/2021 06/11/2022 1 1 Encounter Details Date Type Department Care Team Description 07/08/2021 Comprehensive Visit Division of [place], Diarrhea Persistent Unexplained (Primary Dx); Gastroenterology in [place], Enteroco litis Due To Clostridium Difficile Not Specified As Recurrent; [place], [place] M.DAnant Malnutrition Moderate Protein-Calorie (H CC) [address] [place] [phone] Social History Tobacco Use Types Packs/Day Years [...] or relatives? How often do you attend congregation or Patient refused 2021 sikhism services? Do you belong to any clubs or Patient refused 07/05/2021 organizations such as congregation groups, unions, fraternal or athletic groups, or [...] significant finding. She then we wintered in [place] and saw PA there who diagnosed irritable [...] and its performa nce characteristics determined by [facility] in a manner consistent with CLIA requirements. This test has not been cleared or approved by the U.S. Rula d and Drug Administration. Specimen Anatomical Collection Method Collection Time Receive d Time (Source) Location / / Volume Laterality Blood (Blood, 07/08/2021 10:57 07/08/2021 3:28 Venous) AM CDT PM CDT Bo Marie M.D. LAB BLOOD NON ADD-ON Performing Organization Address [facility] Phon e Number [facility] [address] [place] [address] Dr [place] [address] 05 [facility] [place] [address] Laboratory Medicine and Pathology [address] [place] [address] Dr. FORBES Vitamin E Level (07/08/2021 10:57 AM CDT) athologist Signature A-Tocopherol, 15.1 5.5 - 17.0 07/09/2021 [facility] Vitamin E mg/L 11:42 AM CDT Comment: ----ADDITIONAL INFORMATION---- This test was developed and its performa nce characteristics determined by [facility] in a manner consistent with CLIA requirements. This test has not been cleared or approved by the U.S. Rula d and Drug Administration. Specimen Anatomical Collection Method Collection Time Receive d Time (Source) Location / / Volume Laterality Blood (Blood, 07/08/2021 10:57 07/08/2021 3:27 Venous) AM CDT PM CDT Bo Marie M.D. LAB BLOOD NON ADD-ON Performing Organization Address [facility] Phon e Number [address] [place] [address] 05 [facility] [place] [address] Laboratory Medicine and Pathology [address] [place] [address] Dr. FORBES Vitamin B12 Assay (07/08/2021 10:57 [...] M.D. LAB BLOOD ADD-ON Performing Organization Address City/[facility] Phon e Number [facility] - 200 [place], [place] [address] [place] [address] [facility] 200 [facility] Vitamin A Level (07/08/2021 10:57 AM CDT) athologist Signature Vitamin A 39.5 32.5 - 78.0 07/10/2021 9:12 [facility]SC mcg/dL AM CDT Comment: ----ADDITIONAL INFORMATION---- This test was developed and its performa nce characteristics determined by [facility] in a manner consistent with CLIA requirements. This test has not been cleared or approved by the U.S. Rula d and Drug Administration. Specimen Anatomical Collection Method Collection Time Receive d Time (Source) Location / / Volume Laterality Blood (Blood, 07/08/2021 10:57 07/08/2021 3:27 Venous) AM CDT PM CDT Bo Marie M.D. LAB BLOOD NON ADD-ON Performing Organization Address City/[facility] Phon e Number [facility] [address] [place], [place] [address] [facility] [place] [address] Laboratory Medicine and Pathology [address] FORBES Copper (07/08/2021 10:57 AM CDT) athologist Signature Copper, S 1.40 0.75 - 1.45 07/09/2021 9:53 [facility]SC mcg/mL AM CDT Comment: ----ADDITIONAL INFORMATION---- This test was developed and its performa nce characteristics determined by [facility] in a manner consistent with CLIA requirements. This test has not been cleared or approved by the U.S. Rula d and Drug Administration. Specimen Anatomical Collection Method Collection Time Receive d Time (Source) Location / / Volume Laterality Blood (Blood, 07/08/2021 10:57 07/08/2021 3:28 Venous) AM CDT PM CDT Bo Marie M.D. LAB BLOOD NON ADD-ON Performing Organization Address [facility] Phon e Number [address] [place] [address] [facility] [place] [address] Laboratory Medicine and Pathology [address] [place] [address] Dr. FORBES Selenium (07/08/2021 10:57 AM CDT) P athologist Signature Selenium, S 118 70 - 150 07/09/2021 [facility] ng/mL 9:53 AM CDT Comment: ----ADDITIONAL INFORMATION---- This test was developed and its performa nce characteristics determined by [facility] in a manner consistent with CLIA requirements. This test has not been cleared or approved by the U.S. Rula d and Drug Administration. Specimen Anatomical Collection Method Collection Time Receive d Time (Source) Location / / Volume Laterality Blood (Blood, 07/08/2021 10:57 07/08/2021 3:28 Venous) AM CDT PM CDT Bo Marie M.D. LAB BLOOD NON ADD-ON Performing Organization Address City/[facility] Phon e Number [address] [place] [address] 05 [facility] [place] [address] Laboratory Medicine and Pathology [address] [place] [address] Dr. FORBES Prothrombin Time (PT) (07/08/2021 10:57 [...] Organization Address City/State/ZIP Code Phon e Number [facility] - [address] [place], [place] [address] [place] [address] [facility] [address] [facility] Folate (07/08/2021 10:57 AM CDT) athologist Signature Folate, S >20.0 >=4.0 mcg/L 07/08/2021 2:20 DTL PM CDT Specimen Anatomical Collection Method Collection Time Receive d Time (Source) Location / / Volume Laterality Blood (Blood, 07/08/2021 10:57 07/08/2021 Venous) AM CDT 12:38 PM CDT Bo Marie M.D. LAB BLOOD ADD-ON Performing Organization Address City/[facility]/ZIP Code Phon e Number [facility] - [address] [place], [place] [address] [place] [address] [facility] [address] [facility] Ferritin (07/08/2021 10:57 AM CDT) athologist Signature Ferritin, S 103 11 - 307 07/08/2021 DTL mcg/L 2:15 PM CDT Specimen Anatomical Collection Method Collection Time Receive d Time (Source) Location / / Volume Laterality Blood (Blood, 07/08/2021 10:57 07/08/2021 Venous) AM CDT 12:38 PM CDT Bo Marie M.D. LAB BLOOD ADD-ON Performing Organization Address City/State/ZIP Code Phon e Number [facility] - [address] [place], [place] [address] [place] [address] 25-Hydroxyvitamin D2 and D3 (07/08/2021 10:57 AM CDT) athologist Signature 25-Hydroxy D2 <4.0 ng/mL 07/09/2021 [facility] 10:54 PM CDT 25-Hydroxy D3 46 ng/mL 07/09/2021 [facility] 10:54 PM CDT 25-Hydroxy D 46 ng/mL 07/09/2021 [facility] Total 10:54 PM CDT Comment: ----REFERENCE VALUE---- 25-HYDROXY D TOTAL (D2+D3) Optimum level s in the healthy population are 20-50, patients with bone disease may benefit from higher levels within this r ihsan. ----ADDITIONAL INFORMATION---- This test was developed and its performa nce characteristics determined by [facility] in a manner consistent with CLIA requirements. This test has not been cleared or approved by the U.S. Rula d and Drug Administration. Specimen Anatomical Collection Method Collection Time Receive d Time (Source) Location / / Volume Laterality Blood (Blood, 07/08/2021 10:57 07/09/2021 7:54 Venous) AM CDT AM CDT Bo Marie M.D. LAB BLOOD ADD-ON Performing Organization Address City/State/ZIP Code Phon e Number [facility] [address] [place] [address] SUPPORT [facility] [place] [address] Laboratory Medicine and Pathology [address] FORBES documented in this encounter Visit Diagnoses Diagnosis Diarrhea Persistent Unexplained - Primar y Enterocolitis Due To Clostridium Diffici le Not Specified As Recurrent Malnutrition Moderate Protein-Calorie (H CC) documented in this encounter Additional Health Concerns Assessment Noted Time PHQ-9 Depression Total Score: 1 10/05/2013 1:43 PM CDT documented as of this encounter Care Teams Order Processing Clerk Relationship Specialty Start Date End Date Elsewhere, Pcp PCP - General Internal Medicine 08/24/19 documented as of this encounter
--- OUTSIDE RECORDS SUMMARY | 2021-10-15 13:52 | XMS_ITS | Encounter Summary ---
:1940 Author Organization [facility] Address [address] [place] [address] Care Team Providers Name Role Phone Unavailable [...] you attend lutheran or Patient refused 2021 jainism services? Do [...]
--- OUTSIDE RECORDS SUMMARY | 2021-10-15 13:52 | XMS_ITS | Encounter Summary ---
:1940 Author Organization [facility] Address [address] [place] [address] Care Team Providers Name Role Phone Unavailable [...] or relatives? How often do you attend jewish or Patient refused 2021 muslim services? Do you belong to any clubs or Patient refused 07/05/2021 organizations such as jewish groups, unions, fraternal or athletic groups, or [...]
--- OUTSIDE RECORDS SUMMARY | 2021-10-15 13:52 | XMS_ITS | Encounter Summary ---
:1940 Author Organization [facility] Address [address] [place] [address] Care Team Providers Name Role Phone Elsewhere, Pcp Primary Care Provider Unavailable Encounter Details Date Type Department Care Team Description 12/13/2002 Historical Ophthalmology RST OPH Hammad Lo M.D. [address] [place], [place] [address] (Wo rk) Social History Tobacco [...] or relatives? How often do you attend roman catholic or Patient refused 2021 church services? Do you belong to any clubs or Patient refused 07/05/2021 organizations such as roman catholic groups, unions, fraternal or athletic groups, or [...] with RAYRAY CDM Reports - EYEGEN Id: [id number] Status: Fnl documented in this encounter Plan of Treatment Not on filedocumented as of this encounter Visit Diagnoses Not on filedocumented in this encounter Care Teams Plant Security Guard Relationship Specialty Start Date End Date Elsewhere, Pcp PCP - General Internal Medicine 08/24/19 documented as of this encounter
--- OUTSIDE RECORDS SUMMARY | 2021-10-15 13:52 | XMS_ITS | Encounter Summary ---
:1940 Author Organization [facility] Address [address] [place] [address] Care Team Providers Name Role Phone Unavailable [...] or relatives? How often do you attend pentecostalism or Patient refused 2021 shinto services? Do you belong to any clubs or Patient refused 07/05/2021 organizations such as pentecostalism groups, unions, fraternal or athletic groups, or [...]
--- OUTSIDE RECORDS SUMMARY | 2021-10-15 13:52 | XMS_ITS | Encounter Summary ---
:1940 Author Organization [facility] Address [address] [place] [address] Care Team Providers Name Role Phone Elsewhere, Pcp Primary Care Provider Unavailable Encounter Details Date Type Department Care Team Description 07/24/2009 Historical Ophthalmology RST OPH Torsten Lloyd ORobert [address] [place], [place] [phone] (Wo rk) Social History [...] or relatives? How often do you attend zoroastrianism or Patient refused 2021 samaritan services? Do you belong to any clubs or Patient refused 07/05/2021 organizations such as zoroastrianism groups, unions, fraternal or athletic groups, or [...] pigment epithelium CDM Reports - EYEGEN Id: [id number] Status: Fnl documented in this encounter Plan of Treatment Not on filedocumented as of this encounter Visit Diagnoses Not on filedocumented in this encounter Care Teams Clinical Dental Technician Relationship Specialty Start Date End Date Elsewhere, Pcp PCP - General Internal Medicine 08/24/19 documented as of this encounter
--- OUTSIDE RECORDS SUMMARY | 2021-10-15 13:52 | XMS_ITS | Encounter Summary ---
:1940 Author Organization [facility] Address [address] [place] [address] Care Team Providers Name Role Phone Unavailable [...] you attend pentecostalism or Patient refused 2021 taoist services? Do [...]
--- OUTSIDE RECORDS SUMMARY | 2021-10-15 13:52 | XMS_ITS | Encounter Summary ---
:1940 Author Organization [facility] Address [address] [place] [address] Care Team Providers Name Role Phone Elsewhere, [...] you attend hindu or Patient refused 2021 presybeterian services? Do [...] or slept in a long-term (including now)? Sex Assigned at Date Recorded [...] pigment epithelium CDM Reports - EYEGEN Id: [id number] Status: Fnl documented in this encounter Plan of Treatment Not on filedocumented as of this encounter Visit Diagnoses Not on filedocumented in this encounter Care Teams Waste Disposal Leakage Tester Relationship Specialty Start Date End Date Elsewhere, Pcp PCP - General Internal Medicine 08/24/19 documented as of this encounter
--- OUTSIDE RECORDS SUMMARY | 2021-10-15 13:52 | XMS_ITS | Encounter Summary ---
:1940 Author Organization [facility] Address [address] [place] [address] Care Team Providers Name Role Phone Unavailable [...] you attend jewish or Patient refused 2021 hinduism services? Do you belong to any clubs [...]
--- OUTSIDE RECORDS SUMMARY | 2021-10-15 13:52 | XMS_ITS | Encounter Summary ---
:1940 Author Organization [facility] Address [address] [place] [address] Care Team Providers Name Role Phone Elsewhere, Pcp Primary Care Provider Unavailable Encounter Details Date Type Department Care Team Description 12/21/2005 Historical Ophthalmology RST OPH Alison Costello M.D. [address], [place] [address] (Wo rk) Social History Tobacco Use Types [...] you attend yazidi or Patient refused 2021 congregation services? Do [...] eye syndrome CD Reports - EYEGEN Id: [id number] Status: Fnl documented in this encounter Plan of Treatment Not on filedocumented as of this encounter Visit Diagnoses Not on filedocumented in this encounter Care Teams Tile Edger Relationship Specialty Start Date End Date Elsewhere, Pcp PCP - General Internal Medicine 08/24/19 documented as of this encounter
--- OUTSIDE RECORDS SUMMARY | 2021-10-15 13:52 | XMS_ITS | Encounter Summary ---
:1940 Author Organization [facility] Address [address] [place] [address] Care Team Providers Name Role Phone Elsewhere, Pcp Primary Care Provider Unavailable Encounter Details Date Type Department Care Team Description 11/09/2013 Historical Ophthalmology RST OPH Heather ck, Celia Hathaway, O.D. [address] [place], [place] [phone] (Wo rk) Social History Tobacco Use Types [...] or relatives? How often do you attend faith or Patient refused 2021 episcopal services? Do you belong to any clubs or Patient refused 07/05/2021 organizations such as faith groups, unions, fraternal or athletic groups, or [...] astigmatism, presbyopia). CDM Reports - EYEGEN Id: [id number] Status: Fnl documented in this encounter Plan of Treatment Not on filedocumented as of this encounter Visit Diagnoses Not on filedocumented in this encounter Additional Health Concerns Assessment Noted Time PHQ-9 Depression Total Score: 1 10/05/2013 1:43 PM CDT documented as of this encounter Care Teams Vp Respiratory Relationship Specialty Start Date End Date Elsewhere, Pcp PCP - General Internal Medicine 08/24/19 documented as of this encounter
--- OUTSIDE RECORDS SUMMARY | 2021-10-15 13:52 | XMS_ITS | Encounter Summary ---
:1940 Author Organization [facility] Address [address] [place] [address] Care Team Providers Name Role Phone Elsewhere, Pcp Primary Care Provider Unavailable Encounter Details Date Type Department Care Team Description 10/14/2010 Historical Ophthalmology RST OPH Cris Gonzalez O.D. [address] [place], [place] [phone] (Wo rk) Social History [...] you attend baptist or Patient refused 2021 jew services? Do [...] pigment epithelium CDM Reports - EYEGEN Id: [id number] Status: Fnl documented in this encounter Plan of Treatment Not on filedocumented as of this encounter Visit Diagnoses Not on filedocumented in this encounter Additional Health Concerns Assessment Noted Time PHQ-9 Depression Total Score: 5 09/26/2009 8:27 AM CDT documented as of this encounter Care Teams Galvanizer Zinc Relationship Specialty Start Date End Date Elsewhere, Pcp PCP - General Internal Medicine 08/24/19 documented as of this encounter
--- OUTSIDE RECORDS SUMMARY | 2021-10-15 13:52 | XMS_ITS | Encounter Summary ---
:1940 Author Organization [facility] Address [address] [place] [address] Care Team Providers Name Role Phone Unavailable [...] you attend zoroastrianism or Patient refused 2021 zoroastrian services? Do [...]
--- OUTSIDE RECORDS SUMMARY | 2021-10-15 13:52 | XMS_ITS | Encounter Summary ---
:1940 Author Organization [facility] Address [address] [place] [address] Care Team Providers Name Role Phone Elsewhere, Pcp Primary Care Provider Unavailable Encounter Details Date Type Department Care Team Description 09/26/2012 Historical Ophthalmology RST OPH Torsten Lloyd ORobert [address] [place], [place] [phone] (Wo rk) Social History [...] you attend adventism or Patient refused 2021 druze services? 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 Denies flashes, new floaters, and diplopia. Denies ocular pain. IMPRESSION / REPORT / PLAN #1 Cataract, both eyes, not visually significant. Plan: monitor periodically, spectacle prescription (Refraction 1) given. DIAGNOSIS #1 Cataract, both eyes, not visually significant. CD Reports - EYEGEN Id: [id number] Status: Fnl documented in this encounter Plan of Treatment Not on filedocumented as of this encounter Visit Diagnoses Not on filedocumented in this encounter Additional Health Concerns Assessment Noted Time PHQ-9 Depression Total Score: 8 10/06/2011 9:02 AM CDT documented as of this encounter Care Teams Coppersmith Apprentice Relationship Specialty Start Date End Date Elsewhere, Pcp PCP - General Internal Medicine 08/24/19 documented as of this encounter
--- OUTSIDE RECORDS SUMMARY | 2021-10-15 13:52 | XMS_ITS | Encounter Summary ---
:1940 Author Organization [facility] Address [address] [place] [address] Care Team Providers Name Role Phone Unavailable [...] you attend yarsani or Patient refused 2021 presybeterian services? Do [...]
--- NOTE | 2021-10-15 14:00 | CRLHL7_ITS ---
For Patients: As a result of the Century Cures Act, medical imaging exams and procedure reports are released immediately into your electronic medical record. You may view this report before your referring provider. If you have questions, please contact your health care provider. DXA BONE MINERAL DENSITY STUDY Current height (in): 70.0. Weight (lb): 163.0. Menopause age: 43. Ethnicity: White. 1. Have you had a previous hip or vertebral fracture? No. 2. Have you had any fractures during your adult life which did not result from significant trauma (e.g., auto accident)? No. 3. Did either of your parents have a hip fracture? No. 4. Do you smoke? No. 5. Have you ever taken Glucocorticoids? No. 6. Do you have rheumatoid arthritis? No. 7. Do you have secondary osteoporosis? No. 8. Do you drink 3 or more alcoholic drinks per day? No. 9. Are you being treated for osteoporosis? No. 10. Have you ever taken any of the following medications: Actonel, Evista, Fosamax, Miacalcin, Reclast, Boniva, Forteo, HRT (i.e. estrogen/hormone therapy), Protelos, Prolia, Vitamin D, Calcium, other ??? please specify. ANSWER: Yes, HRT, vitamin D, calcium. 11. Do you have any of the following medical conditions: Anorexia or bulimia, asthma or emphysema, end stage renal disease, hyperparathyroidism, any seizure disorders, cancer, inflammatory bowel diseases, hysterectomy, other ??? please specify. ANSWER: Yes, hysterectomy. 12. What was your maximum height (inches)? 71. 13. Do you perform weight bearing exercise regularly? No. 14. Do you regularly consume dairy products? Yes. 15. Do you drink caffeinated beverages? Yes. If female: 16. At what age did your period start? 13. 17. Are you premenopausal? No. 18. How many full term pregnancies have you had? 3. 19. Have you ever missed your period for more than 6 months in a row (not including or menopause)? No. TECHNIQUE: Bone mineral density study was performed using the [employer]. FINDINGS: The results of the study expressed as bone mineral density (BMD) are as follows: Neck Left: BMD: 0.829 g/cm2. T-score: -0.2. Z-score: 2.2. Right: BMD: 0.846 g/cm2. T-score: -0.0. Z-score: 2.3. Total Left: BMD: 0.904 g/cm2. T-score: -0.3. Z-score: 1.8. Right: BMD: 0.992 g/cm2. T-score: 0.4. Z-score: 2.5. Left Radius Left 33%: BMD: 0.729 g/cm2. T-score: 0.6. Z-score: 3.9. IMPRESSION: Normal bone density. Andre Galeas M.D. Diagnostic Radiologist [email or web address] Transcribed: 11:02 am DW/Dictated by: Andre Galeas MD @ 10/16/2021 9:16:00 AM (Electronically Signed)
== END 2021-10-15 13:48 | disposition home or self-care (01) ==
LOC: RAD 13:48
PROVIDERS: PCP Nurse Practitioner Family; Visit Provider Nurse Practitioner Family
DX: Z78.0 Asymptomatic menopausal state (principal); Z90.79 Acquired absence of other genital organ(s); Z13.820 Encounter for screening for osteoporosis; Z92.23 Personal history of estrogen therapy
CPT/HCPCS: 77080

== ENCOUNTER 2021-11-13 08:37 | Outpatient (CLI) | payer MEDICARE, SELFPAY ==
--- OUTSIDE RECORDS SUMMARY | 2021-11-13 08:53 | XMS_ITS | Encounter Summary ---
:1940 Author Organization [facility] Address [address] [place] [address] Care Team Providers Name Role Phone Elsewhere, [...] or relatives? How often do you attend catholic or Patient refused 2021 moravian services? Do you belong to any clubs or Patient refused 07/05/2021 organizations such as catholic groups, unions, fraternal or athletic groups, [...] documented as of this encounter Care Teams Plastic Cablemaking Machine Operator Relationship Specialty Start Date End Date Elsewhere, Pcp PCP - General Internal Medicine 08/24/19 documented as of this encounter
--- OUTSIDE RECORDS SUMMARY | 2021-11-13 08:53 | XMS_ITS | Encounter Summary ---
:1940 Author Organization [facility] Address [address] [place] [address] Care Team Providers Name Role Phone Elsewhere, Pcp Primary Care Provider Unavailable Encounter Details Date Type Department Care Team Description 10/03/2021 Clinical Communication Division of [facility] in , [place], [place] [address] [facility] [address] [place] [phone] Social History Tobacco Use Types Packs/Day Years [...] you attend yarsani or Patient refused 2021 denominational services? Do you belong to any clubs [...] documented as of this encounter Care Teams Bobbin Cleaner Relationship Specialty Start Date End Date Elsewhere, Pcp PCP - General Internal Medicine 08/24/19 documented as of this encounter
--- OUTSIDE RECORDS SUMMARY | 2021-11-13 08:53 | XMS_ITS | Clinical Summary ---
:1940 Author Organization [facility] Address [address] [place] [address] Care Team Providers Name Role Phone Elsewhere, Pcp Primary Care Provider Unavailable Source Comments Patient records contain information from all sites at [facility]. For routine questions regarding patient records, call [phone] during business hours, M-F 8:00 AM - 5:00 PM Central Time. Record requests for emergency care only can be directed to [phone] at any time.[facility] Allergies Active Allergy Reactions Severity Noted Date [...] Type Specialty Care Team Description 10/03/2021 Clinical Communication Gastroenterology and [facility] P, CCR[facility] from Last 3 Months Immunizations Name Administration [...] you attend anabaptism or Patient refused 2021 advent services? Do you belong to any clubs or Patient refused 07/05/2021 organizations such as anabaptism groups, unions, fraRentJiffy or athletic groups, or school groups? How [...] Completed 07/10/2021 Medical Devices Implanted Type Area Stud Driver Device Shelf Model / Identifier Expiration Serial / Date Lot Conversions - Default Historical Implant Device Hardware Back Implanted: 06/10/2016 (Quantity not on file) e.g. pins/screws/ rods Description: Body Location - Back. wires from back surgery. Device Status Text - Hardware. Insurance Payer Benefit Plan / Subscriber ID Effective Dates Phone Addre ss Type Group AARP AAR MEDICARE [id number] 2020-Present [phone] [address] [address] [place] [address] Advance Directives For more information, please contact: [phone] Documents on File Type Date Recorded Patient Hands Parter Explanati on Advance Directives 10/25/2015 12:00 AM Legacy doc ument. See document viewer. Care Teams Video Rental Clerk Relationship Specialty Start Date End Date Elsewhere, Pcp PCP - General Internal Medicine 08/24/19
--- OUTSIDE RECORDS SUMMARY | 2021-11-13 08:53 | XMS_ITS | Encounter Summary ---
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 [facility] Procedures Enema Prep [address] [place] [address] Referral ID Status Reason Start Date Expiration Date Visits Requ ested Visits Authorized [id number] Closed 07/10/2021 07/10/2022 1 1 Encounter Details Date Type Department Care Team Description 07/10/2021 Clinical Support Enema Prep Facility Abram Marie M.D. [address] [place] [phone] Enterocolitis Due To in [place], Teodora Mallory, R.N. Clostridium Difficile [place] Recurrent [address] [place] [phone] Social History Tobacco Use Types Packs/Day Years [...] you attend worship or Patient refused 2021 advent services? Do you belong to any clubs or Patient refused 07/05/2021 organizations such as worship groups, [employer], [employer] or athletic groups, or school groups? How [...] or slept in a retirement (including now)? Education Answer Date Recorded What [...] documented as of this encounter Care Teams Dietetic Technician Registered Relationship Specialty Start Date End Date Elsewhere, Pcp PCP - General Internal Medicine 08/24/19 documented as of this encounter
--- OUTSIDE RECORDS SUMMARY | 2021-11-13 08:53 | XMS_ITS | Clinical Summary ---
:1940 Author Organization [facility] [place] [address] Care Team Providers Name Role Phone Paula Carrillo Primary Care Provider Allergies Active Allergy Reactions Severity Noted Date Comments Olmesartan Dizziness 11/30/2006 Lisinopril Cough 10/11/2006 Metoprolol Sleep Disturbances 06/28/2017 Medications Medication Sig Dispensed Refills Start End Date Status Date Fish Oil-DHA-EPA Take 2 capsules by 0 Active 1,200-144-216 mg cap mouth 2 times 8 daily. hcmfawqlwqzvt-zysqmngx-c Take 1 tablet by 0 06/29/19 1 Active utein (MULTIVITAMIN 50 mouth once daily. 8 PLUS) tab tablet b complex vitamins Take 1 capsule by 0 Active (VITAMIN B COMPLEX) mouth once daily. 8 capsule aspirin (ECOTRIN LOW Take 81 mg by 0 Active STRENGTH) 81 mg enteric mouth once daily 8 coated tablet with a meal. ascorbic acid, vitamin Take 1 tablet by 0 Active C, (VITAMIN C) 500 mg mouth once daily. 8 tablet vitamin e 400 unit Take 1 capsule by 0 Active capsule mouth once daily. 8 calcium Take 1 tablet by 0 Act cathleen carbonate-vitamin D3, mouth 2 times 600 mg-400 unit, daily with meals. (CALCIUM WITH VITAMIN D) 600 mg(1,500mg) -400 unit tablet acetaminophen (TYLENOL Take 1,000 mg by 0 Active EXTRA STRGTH) 500 mg mouth every 6 tablet hours if needed. Max acetaminophen dose: 4000mg in 24 hrs. medical supply, For personal use. 2 Packet 0 Active miscellaneous (GRADUATED Length: calf 8 COMPRESSION Strength: 20-30 STOCKINGS)Indications: mmHg Thrombophlebitis of superficial veins of left lower extremity losartan (COZAAR) 50 mg Take 1.5 Tablets 135 Tablet 3 06/07/19 2 Active tabletIndications: HTN (75 mg) by mouth 2 (hypertension) once daily. Klor-Con M20 20 mEq Take 1 Tablet (20 90 tablet. 3 Active Extended-Release mEq) by mouth once 2 tabletIndications: daily with a meal. Hypertension, unspecified type simvastatin (ZOCOR) 20 Take 1 Tablet (20 90 tablet. 3 06/07/19 2 Active mg tabletIndications: mg) by mouth at 2 Mixed hyperlipidemia bedtime. rOPINIRole (REQUIP) 1 mg Take 1 mg every 6 360 Tablet 1 Active tabletIndications: RLS hours or up to 4 2 (restless legs syndrome) times daily. levothyroxine Take 1 Tablet (137 90 Tablet 3 Active (SYNTHROID) 137 mcg mcg) by mouth 2 tabletIndications: before breakfast. 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 3 Active (HCTZ) 25 mg mg) by mouth once 2 tabletIndications: daily. Hypertension, unspecified type omeprazole (PRILOSEC) 20 Take 1 Capsule (20 90 Capsule 3 06/06 Active mg Delayed-Release mg) by mouth once 2 capsuleIndications: GERD daily before a without esophagitis meal. traMADoL (ULTRAM) 50 mg Take 1 Tablet (50 270 Tablet 1 02 Active tabletIndications: mg) by mouth 3 2 Spinal stenosis of times daily. thoracolumbar region, S/P lumbar spinal fusion Sodium,Potassium,&Mag Take as per the 1 Kit 0 Active Sulfates (Suprep Bowel instructions 2 Prep Kit) 17.5-3.13-1.6 included in the gramIndications: Colon kit. cancer screening Active Problems Problem Noted Date C. difficile diarrhea 06/10/2021 Medical cannabis use 09/28/2020 Dysuria 09/24/2020 Osteoarthritis of spine with radiculopathy, cervical r egion 11/02/2018 Mitral valve prolapse 11/01/2017 Restless leg syndrome 11/01/2017 S/P lumbar spinal fusion 08/04/2017 Herpes zoster without complication 08/04/2017 Postoperative delirium 07/21/2017 Degenerative scoliosis 07/18/2017 Spinal stenosis T10-L5 07/18/2017 Symptomatic menopausal or female climacteric states Overview: She takes premarin 0.3 mg ( 1/2 tablets) - hot flashes. Hyperlipidemia Hypothyroidism Essential hypertension Toxic metabolic encephalopathy Resolved Problems Problem Noted Date Resolved Date Acute non-recurrent maxillary sinusitis 09/24/2020 06/06/2021 Immunizations Name Administration Dates Next Due COVID-19 vaccine (BeneChill 06/27/2020, 06/06/2020 30mcg/0.3mL) PF, MDV Influenza, High-dose Inactivated 12/14/2016, 01/07/2016, 09/2015, 12/19/2014, 12/18/2013 Influenza, IIV3 (Age 6-35 mos) 01/08/2012 Influenza, IIV3 (Age >=3 years) 01/14/2011 Pneumococcal Poly,23-Valent 12/24/2005 (Pneumovax) Pneumococcal conj 13-Valent (Prevnar 11/06/2014 13) Td (Age >=7 Years) 03/08/1999 Td, Preservative Free (age >= 7 09/24/2008 Years) Tdap 10/06/2011 Zoster (Shingrix-RZV, recombinant) 03/27/2019, 01/03/2019 Zoster (Zostavax-ZVL, live) 09/24/2008 Family History Medical History Relation Name Comments Heart Disease Brother 1 Wing Heart Disease Brother 2 [place] Lung cancer Father Heart attack Mother Cancer-breast No Family History Relation Name Status Comments Brother 1 Wing Brother 2 [place] Father of lung can cer Mother Alzheimers Social History Tobacco Use Types Packs/Day Years Used Date Never Smoker Smokeless Tobacco: Never Used Comments: never Alcohol Use Standard Drinks/Week Comments Yes 0 (1 standard drink = 0.6 oz pure alcoho l) rarely Alcohol Habits Answer Date Recorded How often do you have a drink containing alcohol? Not asked How many drinks containing alcohol do you have on a typical Not asked day when you are drinking? How often do you have six or more drinks on one occasion? No t asked Comment: rarely 06/28/2017 Sex Assigned at Date Recorded Not on file Obstetrics History Para Term AB IAB SAB Ectopic Multiple Living Live Births 3 3 3 Date Outcome GA Total Labor/2nd/3rd Weight Sex Delivery Anes PTL Simin A 1 A5 Name Clin Labor Para Para Para Last Filed Vital Signs Vital Sign Reading Time Taken Comments Blood Pressure 122/60 06/06/2021 8:11 AM CDT Pulse 72 06/06/2021 8:11 AM CDT Temperature 36.4 ??C (97.6 ??F) 11/02/2020 10:18 AM CDT Respiratory Rate 16 11/02/2020 10:18 AM CDT Oxygen Saturation 96% 11/02/2020 10:18 AM CDT Inhaled Oxygen Concentration - - Weight 75.3 kg (165 lb 14.4 oz) 06/06/2021 8:11 AM CDT Height 177.8 cm (5' 10) 06/06/2021 8:11 AM CDT Body Mass Index 23.8 06/06/2021 8:11 AM CDT Plan of Treatment Health Maintenance Due Date Last Done Comments COVID-19 vaccine series (4 - 05/01/2021 12/29/2020, 021, Booster for Pfizer series) 06/06/2020 Tetanus booster 10/05/2021 10/06/2011, 09/24/2008, 03/08/1999 Influenza for age 65+ 11/06/2021 12/14/2016, 01/07/2016, 12/13/2015, Additional history exists BMI (ht and wt on same day) for 06/06/2022 06/06/2021, 09/0 03/2019, age 18+ 10/31/2018, Additional history exists Medicare Wellness for age 65+ 06/06/2022 06/06/2021, 2019, 10/31/2018, Additional history exists Depression screening for age 12+ 06/09/2022 06/09/2021, 06/2021, 06/07/2021, Additional history exists Tdap Completed 10/06/2011 Pneumococcal series for age 65+ Completed 11/06/2014, 12/06 DEXA/DXA scan for age 65+ Completed 11/01/2018 Zoster (shingles) series for age Completed 03/27/2019, , 50+ 09/24/2008 Medical Devices Implanted Type Area Psych Nurse Device Shelf Model / Identifier Expiration Serial / Date Lot Screw 40x5.5 N/A: Spine 01/08/2025 [id number] / Implanted: Qty: 1 on 07/19/2017 by Tobin Vo MD at [facility] / [id number] Description: SCREW 40X5.5 Results Not on filefrom Last 3 Months Additional Health Concerns Infection Onset Date Last Indicated CLOSTRIDIUM DIFFICILE 11/20/2020 11/20/2020 Insurance Payer Benefit Plan / Subscriber ID Effective Dates Phone Addre ss Type Group MEDICARE PART B - MEDICARE PART B [id number] 2005-Presen ATTN: CLAIMS HB USE ONLY HB ONLY t [id number] MEDICARE PART A - MEDICARE PART A [id number] 2005-Presen ATTN: CLAIMS HB USE ONLY HB ONLY t [id number] [place] [address] MR [id number] 2021-Presen [address] [address] [place] [address] Advance Directives Documents on File Type Date Recorded Patient Plastic Manager Explanati on Healthcare Directive 06/28/2017 4:21 PM [facility]ALTH [facility] RE POWER OF DIRECTOR OF DEVELOPMENT AND MARKETING, 2003 Latest Code Status on File Code Status Date Activated Date Inactivated Comments Full Code 07/19/2017 5:26 AM 07/26/2017 1:20 PM Care Teams Food Editor Relationship Specialty Start Date End Date Paula Carrillo PA PCP - General Physician Tank Truck Milk Receiver 09/10/20 100 [facility] [place] [id number]
--- OUTSIDE RECORDS SUMMARY | 2021-11-13 08:53 | XMS_ITS | Encounter Summary ---
:1940 Author Organization [facility] Address [address] [place] [address] Care Team Providers Name Role Phone Elsewhere, Pcp Primary Care Provider Unavailable Encounter Details Date Type Department Care Team Description 07/17/2021 Office Visit Division of Bo Marie Constipation (Primary Dx); Gastroenterology in S, M.D. [place], [place] [address] [facility] [address] [place] [phone] Social History Tobacco Use Types Packs/Day Years [...] you attend restorationist or Patient refused 2021 cheondoism services? Do [...] a [place] [facility] [place] (including now)? Education Answer Date Recorded What [...] documented as of this encounter Care Teams Textile Stylist Relationship Specialty Start Date End Date Elsewhere, Pcp PCP - General Internal Medicine 08/24/19 documented as of this encounter
--- OUTSIDE RECORDS SUMMARY | 2021-11-13 08:53 | XMS_ITS | Encounter Summary ---
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 [facility] Procedures Enema Prep [address] [place] [phone] Referral ID Status Reason Start Date Expiration Date Visits Requ ested Visits Authorized [id number] Closed 07/10/2021 07/10/2022 1 1 Encounter Details Date Type Department Care Team Description 07/10/2021 Orders Only Division of Bo Marie Enterocolitis Due To Clostridium Difficile Not Specified As Recurrent (Primary Dx); Gastroenterology in [place] Enterocolitis Due To Clostridium Diffici le Recurrent [place], [place] [address] [facility] [address] [place] [phone] Social History Tobacco Use Types Packs/Day Years [...] you attend hoahaoism or Patient refused 2021 sikh services? Do you belong to any clubs or Patient refused 07/05/2021 organizations such as hoahaoism groups, unions, fraGreenlight Planet or athletic groups, or school groups? How [...] documented as of this encounter Care Teams Neck Pinner Relationship Specialty Start Date End Date Elsewhere, Pcp PCP - General Internal Medicine 08/24/19 documented as of this encounter
--- OUTSIDE RECORDS SUMMARY | 2021-11-13 08:54 | XMS_ITS | Encounter Summary ---
:[address] [facility] Address [address] [place] [address] Care Team Providers Name Role Phone Elsewhere, Pcp Primary Care Provider Unavailable Reason for Visit Reason Comments Follow-up HTN/Blood pressure Encounter Details Date Type Department Care Team Description 08/24/2019 Clinical Communication Department of Britney Hernandez ow-aman Family Medicine, Garcia Wise R.N. (HTN/Blood [facility] [address] [facility] pressure) jose [place] [facility] [phone] [address] [facility] [phone] [place], [place] (Work) [phone] Social History Tobacco Use Types Packs/Day Years [...] you attend jewish or Patient refused 2021 adventism services? Do you belong to any clubs [...] patient has moved their primary care to [facility]. She was contacted to be able to confirm this. She stated that she had to come to [facility] for a back surgery as [facility]. She was asked if she wanted us removed as her primary care provider and she stated that yes we should be removed as her primary care provider. PLAN Disposition/Recommendation: Will send information to the appropriate contact to have [facility] removed as primary care provider. Information/Education: patient/caller [...] documented as of this encounter Care Teams Public Housing Interviewer Relationship Specialty Start Date End Date Elsewhere, Pcp PCP - General Internal Medicine 08/24/19 documented as of this encounter
--- OUTSIDE RECORDS SUMMARY | 2021-11-13 08:54 | XMS_ITS | Encounter Summary ---
:1940 Author Organization [facility] Address [address] [place] [address] Care Team Providers Name Role Phone Eduardo Muse D.O. Primary Care Provider [phone] Reason for Visit Reason Comments Eye Exam Appointment Request (Routine) - Closed Specialty Diagnoses / Procedures Referred By Contact Refer red To Contact Ophthalmology Referral ID Status Reason Start Date Expiration Date Visits Requ ested Visits Authorized [id number] Closed 05/09/2018 05/09/2019 1 1 Encounter Details Date Type Department Care Team Description 09/12/2018 Comprehensive Visit Department of Tabitha Lloyd Nuclear Ophthalmology in [place] Ponce O.D. Cataract Bilateral [place], [place] [address] [facility] (Primary Dx) [address] [place] [phone] Social History Tobacco Use Types Packs/Day Years [...] or relatives? How often do you attend spiritism or Patient refused 2021 judaism services? Do you belong to any clubs or Patient refused 07/05/2021 organizations such as spiritism groups, unions, fraternal or athletic groups, or [...] documented as of this encounter Care Teams Network Operations Center Engineer Relationship Specialty Start Date End Date Eduardo Muse D.O. PCP - General Family Medicine 09/04/17 08/23/19 [address] [place] [address] documented as of this encounter
--- OUTSIDE RECORDS SUMMARY | 2021-11-13 08:54 | XMS_ITS | Encounter Summary ---
:1940 Author Organization [facility] Address [address] [place] [address] Care Team Providers Name Role Phone Unavailable [...] you attend taoism or Patient refused 2021 gnosticist services? Do you belong to any clubs [...]
--- OUTSIDE RECORDS SUMMARY | 2021-11-13 08:54 | XMS_ITS | Encounter Summary ---
:1940 Author Organization [facility] Address [address] [place] [address] Care Team Providers Name Role Phone Elsewhere, Pcp Primary Care Provider Unavailable Reason for Referral Outpatient (Routine) - Authorized Specialty Diagnoses / Procedures Referred By Contact Refer red To Contact Diagnoses Diarrhea Persistent Unexplained Bo Marie M.D. 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 [address] [place] [address] Referral ID Status Reason Start Date Expiration Date Visits Requ ested Visits Authorized [id number] Closed 06/11/2021 06/11/2022 1 1 Encounter Details Date Type Department Care Team Description 07/08/2021 Comprehensive Visit Division of [place], Diarrhea Persistent Unexplained (Primary Dx); Gastroenterology in [place], Enteroco litis Due To Clostridium Difficile Not Specified As Recurrent; [place], [place] M.DAnant Malnutrition Moderate Protein-Calorie (H CC) [address] [place] [phone] Social History Tobacco Use Types Packs/Day Years [...] or relatives? How often do you attend religious or Patient refused 2021 religion services? Do you belong to any clubs or Patient refused 07/05/2021 organizations such as religious groups, unions, fraternal or athletic groups, or [...] significant finding. She then we wintered in [place] and saw PA there who diagnosed irritable [...] and its performa nce characteristics determined by [facility] in a manner consistent with CLIA requirements. This test has not been cleared or approved by the U.S. Rula d and Drug Administration. Specimen Anatomical Collection Method Collection Time Receive d Time (Source) Location / / Volume Laterality Blood (Blood, 07/08/2021 10:57 07/08/2021 3:28 Venous) AM CDT PM CDT Bo Marie M.D. LAB BLOOD NON ADD-ON Performing Organization Address [facility] Phon e Number [facility] [address] [place] [address] Dr [place] [phone] [address] [place] [address] Laboratory Medicine and Pathology [address] [place] [address] Dr. FORBES Vitamin E Level (07/08/2021 10:57 AM CDT) athologist Signature A-Tocopherol, 15.1 5.5 - 17.0 07/09/2021 [place] Vitamin E mg/L 11:42 AM CDT Comment: ----ADDITIONAL INFORMATION---- This test was developed and its performa nce characteristics determined by [facility] in a manner consistent with CLIA requirements. This test has not been cleared or approved by the U.S. Rula d and Drug Administration. Specimen Anatomical Collection Method Collection Time Receive d Time (Source) Location / / Volume Laterality Blood (Blood, 07/08/2021 10:57 07/08/2021 3:27 Venous) AM CDT PM CDT Bo Marie M.D. LAB BLOOD NON ADD-ON Performing Organization Address [facility] Phon e Number [address] [place]I [place] [address] [address] [place] [address] Laboratory Medicine and Pathology [address] [place] [address] Dr. FORBES Vitamin B12 Assay (07/08/2021 10:57 [...] M.D. LAB BLOOD ADD-ON Performing Organization Address City/[facility] Phon e Number [facility] - [address] [place], [place] [address] [facility] [place] [address] Laboratories-[facility] 200 [facility] Vitamin A Level (07/08/2021 10:57 AM CDT) athologist Signature Vitamin A 39.5 32.5 - 78.0 07/10/2021 9:12 [facility] mcg/dL AM CDT Comment: ----ADDITIONAL INFORMATION---- This test was developed and its performa nce characteristics determined by [facility] in a manner consistent with CLIA requirements. This test has not been cleared or approved by the U.S. Rula d and Drug Administration. Specimen Anatomical Collection Method Collection Time Receive d Time (Source) Location / / Volume Laterality Blood (Blood, 07/08/2021 10:57 07/08/2021 3:27 Venous) AM CDT PM CDT Bo Marie M.D. LAB BLOOD NON ADD-ON Performing Organization Address City/[facility] Phon e Number [facility] [address] [place], [place] [address] [facility] [place] [address] Laboratory Medicine and Pathology [address] FORBES Copper (07/08/2021 10:57 AM CDT) athologist Signature Copper, S 1.40 0.75 - 1.45 07/09/2021 9:53 [facility] mcg/mL AM CDT Comment: ----ADDITIONAL INFORMATION---- This test was developed and its performa nce characteristics determined by [facility] in a manner consistent with CLIA requirements. This test has not been cleared or approved by the U.S. Rula d and Drug Administration. Specimen Anatomical Collection Method Collection Time Receive d Time (Source) Location / / Volume Laterality Blood (Blood, 07/08/2021 10:57 07/08/2021 3:28 Venous) AM CDT PM CDT Bo Marie M.D. LAB BLOOD NON ADD-ON Performing Organization Address [facility] Phon e Number [address] [place] [phone] [address] [place] [address] Laboratory Medicine and Pathology [address] [place] [address] Dr. FORBES Selenium (07/08/2021 10:57 AM CDT) P athologist Signature Selenium, S 118 70 - 150 07/09/2021 [place] ng/mL 9:53 AM CDT Comment: ----ADDITIONAL INFORMATION---- This test was developed and its performa nce characteristics determined by [facility] in a manner consistent with CLIA requirements. This test has not been cleared or approved by the U.S. Rula d and Drug Administration. Specimen Anatomical Collection Method Collection Time Receive d Time (Source) Location / / Volume Laterality Blood (Blood, 07/08/2021 10:57 07/08/2021 3:28 Venous) AM CDT PM CDT Bo Marie M.D. LAB BLOOD NON ADD-ON Performing Organization Address City/[facility] Phon e Number [address] [place] [phone] [address] [place] [address] Laboratory Medicine and Pathology [address] [place] [address] Dr. FORBES Prothrombin Time (PT) (07/08/2021 10:57 [...] Organization Address City/State/ZIP Code Phon e Number [facility] - [address] [place], [place] [address] [facility] [place] [address] [facility] [address] [facility] Folate (07/08/2021 10:57 AM CDT) athologist Signature Folate, S >20.0 >=4.0 mcg/L 07/08/2021 2:20 [facility] PM CDT Specimen Anatomical Collection Method Collection Time Receive d Time (Source) Location / / Volume Laterality Blood (Blood, 07/08/2021 10:57 07/08/2021 Venous) AM CDT 12:38 PM CDT Bo Marie M.D. LAB BLOOD ADD-ON Performing Organization Address City/[facility]/ZIP Code Phon e Number [facility] - [address] [place], [place] [address] [facility] [place] [address] [facility] [address] [facility] Ferritin (07/08/2021 10:57 AM CDT) athologist Signature Ferritin, S 103 11 - 307 07/08/2021 [facility] mcg/L 2:15 PM CDT Specimen Anatomical Collection Method Collection Time Receive d Time (Source) Location / / Volume Laterality Blood (Blood, 07/08/2021 10:57 07/08/2021 Venous) AM CDT 12:38 PM CDT Bo Marie M.D. LAB BLOOD ADD-ON Performing Organization Address City/State/ZIP Code Phon e Number [facility] - [address] [place], [place] [address] [facility] [place] [address] 25-Hydroxyvitamin D2 and D3 (07/08/2021 10:57 AM CDT) athologist Signature 25-Hydroxy D2 <4.0 ng/mL 07/09/2021 [facility] 10:54 PM CDT 25-Hydroxy D3 46 ng/mL 07/09/2021 [facility] 10:54 PM CDT 25-Hydroxy D 46 ng/mL 07/09/2021 [place] Total 10:54 PM CDT Comment: ----REFERENCE VALUE---- 25-HYDROXY D TOTAL (D2+D3) Optimum level s in the healthy population are 20-50, patients with bone disease may benefit from higher levels within this r ihsan. ----ADDITIONAL INFORMATION---- This test was developed and its performa nce characteristics determined by [facility] in a manner consistent with CLIA requirements. This test has not been cleared or approved by the U.S. Rula d and Drug Administration. Specimen Anatomical Collection Method Collection Time Receive d Time (Source) Location / / Volume Laterality Blood (Blood, 07/08/2021 10:57 07/09/2021 7:54 Venous) AM CDT AM CDT Bo Marie M.D. LAB BLOOD ADD-ON Performing Organization Address City/State/ZIP Code Phon e Number [facility] [address] [place] [address] [facility] [facility] [place] [address] Laboratory Medicine and Pathology [address] 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
--- OUTSIDE RECORDS SUMMARY | 2021-11-13 08:54 | XMS_ITS | Encounter Summary ---
:1940 Author Organization [facility] Address [address] [place] [address] Care Team Providers Name Role Phone Amrik [...] many times do you More than three parehs es a week 07/05/2021 talk on the phone with family, friends, or neighbors? How often do you get together with friends Three times a wee k 07/05/2021 or relatives? How often do you attend yazidism or Patient refused 2021 orthodoxy services? Do [...] documented as of this encounter Care Teams Sales And Marketing Engineer Relationship Specialty Start Date End Date Amrik Calix B.M.B.S. PCP - General Family Medicine 09/10/14 09/03/17 documented as of this encounter
--- OUTSIDE RECORDS SUMMARY | 2021-11-13 08:54 | XMS_ITS | Encounter Summary ---
:1940 Author Organization [facility] Address [address] [place] [address] Care Team Providers Name Role Phone Elsewhere, Pcp Primary Care Provider Unavailable Encounter Details Date Type Department Care Team Description 09/26/2012 Historical Ophthalmology [facility] Torsten Lloyd ORobert [address] [place], [place] [phone] (Wo rk) Social History [...] you attend yazidism or Patient refused 2021 moravian services? 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 Denies flashes, new floaters, and diplopia. Denies ocular pain. IMPRESSION / REPORT / PLAN #1 Cataract, both eyes, not visually significant. Plan: monitor periodically, spectacle prescription (Refraction 1) given. DIAGNOSIS #1 Cataract, both eyes, not visually significant. CD Reports - EYEGEN Id: [id number] Status: Fnl documented in this encounter Plan of Treatment Not on filedocumented as of this encounter Visit Diagnoses Not on filedocumented in this encounter Additional Health Concerns Assessment Noted Time PHQ-9 Depression Total Score: 8 10/06/2011 9:02 AM CDT documented as of this encounter Care Teams Director Of Kids Relationship Specialty Start Date End Date Elsewhere, Pcp PCP - General Internal Medicine 08/24/19 documented as of this encounter
--- OUTSIDE RECORDS SUMMARY | 2021-11-13 08:54 | XMS_ITS | Encounter Summary ---
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 Barbara Vincent [facility] Hepatology Mag C.N.PAnant [address] [place] [address] Referral ID Status Reason Start Date Expiration Date Visits Requ ested Visits Authorized [id number] Closed 06/11/2021 06/11/2022 1 1 Encounter Details Date Type Department Care Team Description 06/11/2021 [facility] Barbara Vincent Enterocolitis Due To AND CLINICS Mag, C.N.PAnant Clostridium Difficile 1999 [facility] [address] Not Specified As [place], [place] Recurrent (Primary [id number] Dx) [phone] Social History Tobacco Use Types Packs/Day Years [...] you attend hinduism or Patient refused 2021 yarsani services? Do you belong to any clubs or Patient refused 07/05/2021 organizations such as hinduism groups, unions, fraCD Diagnostics or athletic groups, or school groups? How [...] documented as of this encounter Care Teams Marketer Relationship Specialty Start Date End Date Elsewhere, Pcp PCP - General Internal Medicine 08/24/19 documented as of this encounter
--- OUTSIDE RECORDS SUMMARY | 2021-11-13 08:54 | XMS_ITS | Encounter Summary ---
:1940 Author Organization [facility] Address [address] [place] [address] Care Team Providers Name Role Phone Amrik [...] you attend adventist or Patient refused 2021 jewish services? Do you belong to any clubs [...] documented as of this encounter Care Teams Veterinary Radiologist Relationship Specialty Start Date End Date Amrik Calix B.M.B.S. PCP - General Family Medicine 09/10/14 09/03/17 documented as of this encounter
--- OUTSIDE RECORDS SUMMARY | 2021-11-13 08:54 | XMS_ITS | Encounter Summary ---
:1940 Author Organization [facility] Address [address] [place] [address] Care Team Providers Name Role Phone Elsewhere, Pcp Primary Care Provider Unavailable Encounter Details Date Type Department Care Team Description 07/08/2021 Hospital Encounter Department of [facility] Laboratory Medicine S, MAnantDAnant Protein-Calorie (HCC) and Pathology, [address] [place], [place] [address] [place] [phone] [place] [address] (Work) [place], [place] [phone] (Fax) [phone] Social History Tobacco Use Types Packs/Day Years [...] you attend religious or Patient refused 2021 restorationist services? Do [...] and its performa nce characteristics determined by [facility] in a manner consistent with CLIA requirements. This test has not been cleared or approved by the U.S. Rula d and Drug Administration. Specimen Anatomical Collection Method Collection Time Receive d Time (Source) Location / / Volume Laterality Blood (Blood, 07/08/2021 10:57 07/08/2021 3:28 Venous) AM CDT PM CDT Bo Marie M.D. LAB BLOOD NON ADD-ON Performing Organization Address City/[facility] Phon e Number [facility] [address] [place] [address] 05 [facility] [place] [address] Laboratory Medicine and Pathology [address] [place] [address] Dr. FORBES Vitamin E Level (07/08/2021 10:57 AM CDT) athologist [facility] A-Tocopherol, 15.1 5.5 - 17.0 07/09/2021 [facility] Vitamin E mg/L 11:42 AM CDT Comment: ----ADDITIONAL INFORMATION---- This test was developed and its performa nce characteristics determined by [facility] in a manner consistent with CLIA requirements. This test has not been cleared or approved by the U.S. Rula d and Drug Administration. Specimen Anatomical Collection Method Collection Time Receive d Time (Source) Location / / Volume Laterality Blood (Blood, 07/08/2021 10:57 07/08/2021 3:27 Venous) AM CDT PM CDT Bo Marie M.D. LAB BLOOD NON ADD-ON Performing Organization Address City/[facility] Phon e Number [facility] [address] [place] [address] [facility] [place] [address] Laboratory Medicine and Pathology [address] [place] Vitamin B12 Assay (07/08/2021 10:57 AM CDT) athologist Signature Vitamin B12 794 180 - 914 07/08/2021 [facility] Assay, S ng/L 2:23 PM CDT Comment: [...] M.D. LAB BLOOD ADD-ON Performing Organization Address City/[facility]/ZIP Code Phon e Number [facility] - [address] [place], [place] [address] [place] [address] Laboratories-[facility] [address] Vitamin A Level (07/08/2021 10:57 AM CDT) [facility] Vitamin A 39.5 32.5 - 78.0 07/10/2021 9:12 [facility] mcg/dL AM CDT Comment: ----ADDITIONAL INFORMATION---- This test was developed and its performa nce characteristics determined by [facility] in a manner consistent with CLIA requirements. This test has not been cleared or approved by the U.S. Rula d and Drug Administration. Specimen Anatomical Collection Method Collection Time Receive d Time (Source) Location / / Volume Laterality Blood (Blood, 07/08/2021 10:57 07/08/2021 3:27 Venous) AM CDT PM CDT Bo Marie M.D. LAB BLOOD NON ADD-ON Performing Organization Address City/[facility]/ZIP [facility] Phon e Number [facility] [address] [place] [address] [facility] [place] [address] Laboratory Medicine and Pathology [address] [place] Copper (07/08/2021 10:57 AM CDT) P athologist Signature Copper, S 1.40 0.75 - 1.45 07/09/2021 9:53 [facility] mcg/mL AM CDT Comment: ----ADDITIONAL INFORMATION---- This test was developed and its performa nce characteristics determined by [facility] in a manner consistent with CLIA requirements. This test has not been cleared or approved by the U.S. Rula d and Drug Administration. Specimen Anatomical Collection Method Collection Time Receive d Time (Source) Location / / Volume Laterality Blood (Blood, 07/08/2021 10:57 07/08/2021 3:28 Venous) AM CDT PM CDT Bo Marie M.D. LAB BLOOD NON ADD-ON Performing Organization Address [facility] Phon e Number [address] [place] [address] 05 [facility] [facility] [place] [address] Laboratory Medicine and Pathology [address] [place] [address] Dr. FORBES Selenium (07/08/2021 10:57 AM CDT) athologist Signature Selenium, S 118 70 - 150 07/09/2021 [facility] ng/mL 9:53 AM CDT Comment: ----ADDITIONAL INFORMATION---- This test was developed and its performa nce characteristics determined by [facility] in a manner consistent with CLIA requirements. This test has not been cleared or approved by the U.S. Rula d and Drug Administration. Specimen Anatomical Collection Method Collection Time Receive d Time (Source) Location / / Volume Laterality Blood (Blood, 07/08/2021 10:57 07/08/2021 3:28 Venous) AM CDT PM CDT Bo Marie M.D. LAB BLOOD NON ADD-ON Performing Organization Address City/[facility] Phon e Number [address] [place] [address] 05 [facility] [place] [address] Laboratory Medicine and Pathology [address] [place] [address] Dr. FORB[place] Prothrombin Time (PT) (07/08/2021 10:57 [...] M.D. LAB BLOOD ADD-ON Performing Organization Address City/[facility] Phon e Number [facility] - 200 [place], [place] [address] [place] [address] Folate (07/08/2021 10:57 AM CDT) athologist Signature Folate, S >20.0 >=4.0 mcg/L 07/08/2021 2:20 DTL PM CDT Specimen Anatomical Collection Method Collection Time Receive d Time (Source) Location / / Volume Laterality Blood (Blood, 07/08/2021 10:57 07/08/2021 Venous) AM CDT 12:38 PM CDT Bo Marie M.D. LAB BLOOD ADD-ON Performing Organization Address City/[facility] Phon e Number [facility] - 200 [place], [place] [address] [place] [address] Ferritin (07/08/2021 10:57 AM CDT) athologist Signature Ferritin, S 103 11 - 307 07/08/2021 DTL mcg/L 2:15 PM CDT Specimen Anatomical Collection Method Collection Time Receive d Time (Source) Location / / Volume Laterality Blood (Blood, 07/08/2021 10:57 07/08/2021 Venous) AM CDT 12:38 PM CDT Bo Marie M.D. LAB BLOOD ADD-ON Performing Organization Address City/[facility]/ZIP Code Phon e Number [facility] - [address] [place], [place] [address] [facility] [place] [address] [facility] [address] [facility] 25-Hydroxyvitamin D2 and D3 (07/08/2021 [...] and its performa nce characteristics determined by [facility] in a manner consistent with CLIA requirements. This test has not been cleared or approved by the U.S. Rula d and Drug Administration. Specimen Anatomical Collection Method Collection Time Receive d Time (Source) Location / / Volume Laterality Blood (Blood, 07/08/2021 10:57 07/09/2021 7:54 Venous) AM CDT AM CDT Bo Marie M.D. LAB BLOOD ADD-ON Performing Organization Address City/[facility] Phon e Number [facility] [address] [place], [place] [address] [facility] [place] [address] Laboratory Medicine and Pathology [address] [place] documented in this encounter Visit Diagnoses Diagnosis Malnutrition Moderate Protein-Calorie (H CC) documented in this encounter Additional Health Concerns Assessment Noted Time PHQ-9 Depression Total Score: 1 10/05/2013 1:43 PM CDT documented as of this encounter Care Teams Stacker And Sorter Operator Relationship Specialty Start Date End Date Elsewhere, Pcp PCP - General Internal Medicine 08/24/19 documented as of this encounter
--- OUTSIDE RECORDS SUMMARY | 2021-11-13 08:54 | XMS_ITS | Encounter Summary ---
:1940 Author Organization [facility] Address [address] [place] [address] Care Team Providers Name Role Phone Amrik Calix B.M.B.S. Primary Care Provider Unavailable Reason for Visit Reason Comments Med Refill Encounter Details Date Type Department Care Team Description 08/28/2017 Refill Department of Family Medicine, Stacy Calix, B.M.B.S. Med Refill [place], [place] [address] [place] [address] Social History Tobacco Use Types Packs/Day Years [...] you attend uatsdin or Patient refused 2021 faith services? Do you belong to any clubs or Patient refused 07/05/2021 organizations such as uatsdin groups, unions, fraternal or athletic groups, or [...] documented as of this encounter Care Teams Political Director Relationship Specialty Start Date End Date Amrik Calix B.M.BAnantS. PCP - General Family Medicine 09/10/14 09/03/17 documented as of this encounter
--- OUTSIDE RECORDS SUMMARY | 2021-11-13 08:54 | XMS_ITS | Encounter Summary ---
:1940 Author Organization [facility] Address [address] [place] [address] Care Team Providers Name Role Phone Elsewhere, Pcp Primary Care Provider Unavailable Encounter Details Date Type Department Care Team Description 06/17/2021 Clinical Communication Division of [facility] G[facility]enterology in S, M.D. [place], [place] [address] [facility] [address] [place] [phone] Social History Tobacco Use Types Packs/Day Years [...] or relatives? How often do you attend evangelical or Patient refused 2021 worship services? Do you belong to any clubs or Patient refused 07/05/2021 organizations such as evangelical groups, unions, fraternal or athletic groups, or [...] documented as of this encounter Care Teams Respite Care Provider Relationship Specialty Start Date End Date Elsewhere, Pcp PCP - General Internal Medicine 08/24/19 documented as of this encounter
--- OUTSIDE RECORDS SUMMARY | 2021-11-13 08:54 | XMS_ITS | Encounter Summary ---
:1940 Author Organization [facility] Address [address] [place] [address] Care Team Providers Name Role Phone Elsewhere, Pcp Primary Care Provider Unavailable Encounter Details Date Type Department Care Team Description 09/04/2015 Historical Ophthalmology RST OPH Tobin Bartlett O.D. [address] [place], [place] [address] (Wo rk) Social History [...] or relatives? How often do you attend alevism or Patient refused 2021 yazidi services? Do you belong to any clubs or Patient refused 07/05/2021 organizations such as alevism groups, unions, fraternal or athletic groups, or [...] visually significant. CDM Reports - EYEGEN Id: [id number] Status: Fnl documented in this encounter Plan of Treatment Not on filedocumented as of this encounter Visit Diagnoses Not on filedocumented in this encounter Additional Health Concerns Assessment Noted Time PHQ-9 Depression Total Score: 1 10/05/2013 1:43 PM CDT documented as of this encounter Care Teams Cost Manager Relationship Specialty Start Date End Date Elsewhere, Pcp PCP - General Internal Medicine 08/24/19 documented as of this encounter
--- OUTSIDE RECORDS SUMMARY | 2021-11-13 08:54 | XMS_ITS | Encounter Summary ---
:1940 Author Organization [facility] Address [address] [place] [address] Care Team Providers Name Role Phone Elsewhere, Pcp Primary Care Provider Unavailable Encounter Details Date Type Department Care Team Description 07/08/2021 Orders Only Division of Gastroenterology Tino Peck, in [facility] [address] [facility] [address] [place] [address] [place], [place] [phone] Social History Tobacco Use Types Packs/Day Years [...] you attend sikh or Patient refused 2021 religion services? Do [...] documented as of this encounter Care Teams Fermentation Engineer Relationship Specialty Start Date End Date Elsewhere, Pcp PCP - General Internal Medicine 08/24/19 documented as of this encounter
--- OUTSIDE RECORDS SUMMARY | 2021-11-13 08:54 | XMS_ITS | Encounter Summary ---
:1940 Author Organization [facility] Address [address] [place] [address] Care Team Providers Name Role Phone Amrik Calix Primary Care Provider Unavailable Encounter Details Date Type Department Care Team Description 05/24/2017 Abstract [facility] Leeanna Roy [facility] MPUS [address] [place] [phone] Social History Tobacco Use Types Packs/Day [...] you attend temple or Patient refused 2021 adventist services? Do you belong to any clubs [...] documented as of this encounter Care Teams Track And Field Coach Relationship Specialty Start Date End Date Amrik Calix B.M.BAnantS. PCP - General Family Medicine 09/10/14 09/03/17 documented as of this encounter
--- OUTSIDE RECORDS SUMMARY | 2021-11-13 08:54 | XMS_ITS | Encounter Summary ---
:1940 Author Organization [facility] Address [address] [place] [address] Care Team Providers Name Role Phone Elsewhere, Pcp Primary Care Provider Unavailable Reason for Referral Outpatient (Routine) - Closed Specialty Diagnoses / Procedures Referred By Contact Refer red To Contact Diagnoses Diarrhea Persistent Unexplained Bo Marie M.D. [facility] Procedures Colonoscopy [address] [place] [address] Referral ID Status Reason Start Date Expiration Date Visits Requ ested Visits Authorized [id number] Closed 07/08/2021 07/08/2022 1 1 Reason for Visit Outpatient (Routine) - Closed Specialty Diagnoses / Procedures Referred By Contact Refer red To Contact Diagnoses Diarrhea Persistent Unexplained Bo Mraie M.D. [facility] Procedures Colonoscopy [address] [place] [address] Referral ID Status Reason Start Date Expiration Date Visits Requ ested Visits Authorized [id number] Closed 07/08/2021 07/08/2022 1 1 Encounter Details Date Type Department Care Team Description 07/10/2021 Hospital Division of Bo Marie Diarrhea Encounter Gastroenterology in [place], [place] [address] Unexplained [address] [place] [address] [phone] Social History Tobacco Use Types Packs/Day Years [...] you attend restorationist or Patient refused 2021 presybeterian services? Do [...] City/State/ZIP Code Phon e Number [facility] - [address] [place], [place] [address] [facility] [place] [address] Laboratories-[facility] [address] Colonoscopy (07/10/2021 3:36 PM CDT) Specimen (Source) Anatomical Collection Method Collection Time Re ceived Time Location / / Volume Laterality 07/10/2021 3:36 PM CDT [facility] 07/10/2021 4:00 PM CDT Post-op Diagnoses: ? - Biopsies were obtained in the e ntire colon. Narrative [facility] - 07/10/2021 4:00 PM CDT Gonda 9 [...] bowel preparation was evaluated using the BBPS (Tebbetts ? Bowel Preparation Scale) with sco res [...] during the entire ? pro cedure, including non-elizabeht portions. Caroline Morris MD 07/10/2021 4:00:14 PM [...] documented as of this encounter Care Teams Clerical Transcriber Relationship Specialty Start Date End Date Elsewhere, Pcp PCP - General Internal Medicine 08/24/19 documented as of this encounter
--- OUTSIDE RECORDS SUMMARY | 2021-11-13 08:54 | XMS_ITS | Encounter Summary ---
:1940 Author Organization [facility] Address [address] [place] [address] Care Team Providers Name Role Phone Elsewhere, Pcp Primary Care Provider Unavailable Encounter Details Date Type Department Care Team Description 10/14/2010 Historical Ophthalmology RST OPH Cris Gonzalez O.D. [address] [place], [place] [phone] (Wo rk) Social History [...] you attend anglican or Patient refused 2021 rastafari services? Do you belong to any clubs [...] pigment epithelium CDM Reports - EYEGEN Id: [id number] Status: Fnl documented in this encounter Plan of Treatment Not on filedocumented as of this encounter Visit Diagnoses Not on filedocumented in this encounter Additional Health Concerns Assessment Noted Time PHQ-9 Depression Total Score: 5 09/26/2009 8:27 AM CDT documented as of this encounter Care Teams Private Investigator Relationship Specialty Start Date End Date Elsewhere, Pcp PCP - General Internal Medicine 08/24/19 documented as of this encounter
--- OUTSIDE RECORDS SUMMARY | 2021-11-13 08:54 | XMS_ITS | Encounter Summary ---
:[address] [facility] Address [address] [place] [address] Care Team Providers Name Role Phone Elsewhere, Pcp Primary Care Provider Unavailable Encounter Details Date Type Department Care Team Description 10/09/2016 Historical Ophthalmology RST OPH Cris Gonzalez O.D. [address] [place], [place] [phone] (Wo rk) Social History [...] or relatives? How often do you attend oriental orthodox or Patient refused 2021 protestant services? Do you belong to any clubs or Patient refused 07/05/2021 organizations such as oriental orthodox groups, unions, fraternal or athletic groups, [...] or slept in a halfway (including now)? Sex Assigned at Date Recorded [...] dry eyes CDM Reports - EYEGEN Id: [id number] Status: Fnl documented in this encounter Plan of Treatment Not on filedocumented as of this encounter Visit Diagnoses Not on filedocumented in this encounter Additional Health Concerns Assessment Noted Time PHQ-9 Depression Total Score: 1 10/05/2013 1:43 PM CDT documented as of this encounter Care Teams Metal Furniture Assembler Relationship Specialty Start Date End Date Elsewhere, Pcp PCP - General Internal Medicine 08/24/19 documented as of this encounter
--- OUTSIDE RECORDS SUMMARY | 2021-11-13 08:54 | XMS_ITS | Encounter Summary ---
:1940 Author Organization [facility] Address [address] [place] [address] Care Team Providers Name Role Phone Unavailable [...] you attend anabaptism or Patient refused 2021 yarsani services? Do [...]
--- OUTSIDE RECORDS SUMMARY | 2021-11-13 08:54 | XMS_ITS | Encounter Summary ---
:1940 Author Organization [facility] Address [address] [place] [address] Care Team Providers Name Role Phone Elsewhere, Pcp Primary Care Provider Unavailable Encounter Details Date Type Department Care Team Description 04/30/2020 Orders Only RST PCP [facility]ENT Lemuel Bennett Jr., M.D. [address] [facility] [place] [phone] (Wo rk) Social History [...] or relatives? How often do you attend nondenominational or Patient refused 2021 church services? Do you belong to any clubs or Patient refused 07/05/2021 organizations such as nondenominational groups, unions, fraternal or athletic groups, or [...] as of this encounter Care Teams Private Duty Aide Relationship Specialty Start Date End Date Elsewhere, Pcp PCP - General Internal Medicine 08/24/19 documented as of this encounter
--- OUTSIDE RECORDS SUMMARY | 2021-11-13 08:54 | XMS_ITS | Encounter Summary ---
:1940 Author Organization [facility] Address [address] [place] [address] Care Team Providers Name Role Phone Elsewhere, Pcp Primary Care Provider Unavailable Encounter Details Date Type Department Care Team Description 07/08/2021 Orders Only Division of Coretta Peck Encounter F or Gastroenterology in P, CCRP Preprocedural [place], [place] [address] [facility] [address] [place], [place] [phone] (COVID-19) (Primary [phone] Dx) (Work) Social History Tobacco Use Types [...] you attend episcopal or Patient refused 2021 sabianist services? Do [...] documented as of this encounter Care Teams Claims Assistant Relationship Specialty Start Date End Date Elsewhere, Pcp PCP - General Internal Medicine 08/24/19 documented as of this encounter
--- OUTSIDE RECORDS SUMMARY | 2021-11-13 08:54 | XMS_ITS | Encounter Summary ---
:1940 Author Organization [facility] Address [address] [place] [address] Care Team Providers Name Role Phone Unavailable [...] or relatives? How often do you attend taoist or Patient refused 2021 judaism services? Do you belong to any clubs or Patient refused 07/05/2021 organizations such as taoist groups, unions, fraternal or athletic groups, or [...]
--- OUTSIDE RECORDS SUMMARY | 2021-11-13 08:54 | XMS_ITS | Encounter Summary ---
:1940 Author Organization [facility] Address [address] [place] [address] Care Team Providers Name Role Phone Elsewhere, Pcp Primary Care Provider Unavailable Encounter Details Date Type Department Care Team Description 11/09/2013 Historical Ophthalmology RST OPH Heather ck, Celia Hathaway, O.D. [address] [place], [place] [phone] (Wo rk) Social History Tobacco Use Types [...] you attend yazidism or Patient refused 2021 hindu services? Do [...] astigmatism, presbyopia). CDM Reports - EYEGEN Id: [id number] Status: Fnl documented in this encounter Plan of Treatment Not on filedocumented as of this encounter Visit Diagnoses Not on filedocumented in this encounter Additional Health Concerns Assessment Noted Time PHQ-9 Depression Total Score: 1 10/05/2013 1:43 PM CDT documented as of this encounter Care Teams Cloth Bale Header Relationship Specialty Start Date End Date Elsewhere, Pcp PCP - General Internal Medicine 08/24/19 documented as of this encounter
--- OUTSIDE RECORDS SUMMARY | 2021-11-13 08:54 | XMS_ITS | Encounter Summary ---
:1940 Author Organization [facility] Address [address] [place] [address] Care Team Providers Name Role Phone Unavailable [...] you attend uatsdin or Patient refused 2021 caodaism services? Do [...]
--- OUTSIDE RECORDS SUMMARY | 2021-11-13 08:54 | XMS_ITS | Encounter Summary ---
:1940 Author Organization [facility] Address [address] [place] [address] Care Team Providers Name Role Phone Elsewhere, Pcp Primary Care Provider Unavailable Reason for Visit Reason Comments Pre-visit Intake Encounter Details Date Type Department Care Team Description 07/04/2021 Clinical Communication Visit Review in Pr e-visit Intake [address] [phone] Social History Tobacco Use Types Packs/Day Years [...] you attend rastafarian or Patient refused 2021 jehovah's witness services? Do you belong to any clubs [...] documented as of this encounter Care Teams Slot Floor Supervisor Relationship Specialty Start Date End Date Elsewhere, Pcp PCP - General Internal Medicine 08/24/19 documented as of this encounter
--- OUTSIDE RECORDS SUMMARY | 2021-11-13 08:55 | XMS_ITS | Encounter Summary ---
:1940 Author Organization [facility] Address [address] [place] [address] Care Team Providers Name Role Phone Elsewhere, Pcp Primary Care Provider Unavailable Encounter Details Date Type Department Care Team Description 07/24/2009 Historical Ophthalmology RST OPH Torsten Lloyd ORboert [address] [place], [place] [phone] (Wo rk) Social History [...] you attend religious or Patient refused 2021 advent services? Do [...] pigment epithelium CDM Reports - EYEGEN Id: [id number] Status: Fnl documented in this encounter Plan of Treatment Not on filedocumented as of this encounter Visit Diagnoses Not on filedocumented in this encounter Care Teams Ciaio Lumite Injector Relationship Specialty Start Date End Date Elsewhere, Pcp PCP - General Internal Medicine 08/24/19 documented as of this encounter
--- OUTSIDE RECORDS SUMMARY | 2021-11-13 08:55 | XMS_ITS | Encounter Summary ---
:1940 Author Organization [facility] Address [address] [place] [address] Care Team Providers Name Role Phone Elsewhere, Pcp Primary Care Provider Unavailable Encounter Details Date Type Department Care Team Description 01/19/2007 Historical Ophthalmology RST OPH Tobin Bartlett O.D. [address] [place], [place] [address] (Wo rk) Social History [...] attend roman catholic or Patient refused 2021 voodoo services? Do [...] gland dysfunction both eyes. CDM Reports - [employer] Id: [id number] Status: Fnl documented in this encounter Plan of Treatment Not on filedocumented as of this encounter Visit Diagnoses Not on filedocumented in this encounter Care Teams Sound Engineer Relationship Specialty Start Date End Date Elsewhere, Pcp PCP - General Internal Medicine 08/24/19 documented as of this encounter
--- OUTSIDE RECORDS SUMMARY | 2021-11-13 08:55 | XMS_ITS | Encounter Summary ---
:1940 Author Organization [facility] Address [address] [place] [address] Care Team Providers Name Role Phone Elsewhere, Pcp Primary Care Provider Unavailable Encounter Details Date Type Department Care Team Description 12/21/2005 Historical Ophthalmology RST OPH Alison Costello M.D. [address], [place] [address] (Wo rk) Social History Tobacco Use Types [...] you attend confucianist or Patient refused 2021 congregational services? Do you belong to any clubs [...] or slept in a mcc (including now)? Sex Assigned at Date Recorded [...] eye syndrome CD Reports - EYEGEN Id: [id number] Status: Fnl documented in this encounter Plan of Treatment Not on filedocumented as of this encounter Visit Diagnoses Not on filedocumented in this encounter Care Teams Geological Manager Relationship Specialty Start Date End Date Elsewhere, Pcp PCP - General Internal Medicine 08/24/19 documented as of this encounter
--- OUTSIDE RECORDS SUMMARY | 2021-11-13 08:55 | XMS_ITS | Encounter Summary ---
:1940 Author Organization [facility] Address [address] [place] [address] Care Team Providers Name Role Phone Elsewhere, Pcp Primary Care Provider Unavailable Encounter Details Date Type Department Care Team Description 12/13/2002 Historical Ophthalmology RST OPH Hammad Lo M.D. [address] [place], [place] [address] (Wo rk) Social History Tobacco [...] you attend quaker or Patient refused 2021 baptism services? Do [...] with RAYRAY CDM Reports - EYEGEN Id: [id number] Status: Fnl documented in this encounter Plan of Treatment Not on filedocumented as of this encounter Visit Diagnoses Not on filedocumented in this encounter Care Teams Judo Teacher Relationship Specialty Start Date End Date Elsewhere, Pcp PCP - General Internal Medicine 08/24/19 documented as of this encounter
--- OUTSIDE RECORDS SUMMARY | 2021-11-13 08:55 | XMS_ITS | Encounter Summary ---
:1940 Author Organization [facility] Address [address] [place] [address] Care Team Providers Name Role Phone Unavailable [...] you attend zoroastrian or Patient refused 2021 congregation services? Do [...]
--- OUTSIDE RECORDS SUMMARY | 2021-11-13 08:55 | XMS_ITS | Encounter Summary ---
:1940 Author Organization [facility] Address [address] [place] [address] Care Team Providers Name Role Phone Elsewhere, [...] you attend adventism or Patient refused 2021 sabianist services? Do [...] pigment epithelium CDM Reports - EYEGEN Id: [id number] Status: Fnl documented in this encounter Plan of Treatment Not on filedocumented as of this encounter Visit Diagnoses Not on filedocumented in this encounter Care Teams Ranch Hand Supervisor Relationship Specialty Start Date End Date Elsewhere, Pcp PCP - General Internal Medicine 08/24/19 documented as of this encounter
--- OUTSIDE RECORDS SUMMARY | 2021-11-13 08:55 | XMS_ITS | Encounter Summary ---
:1940 Author Organization [facility] Address [address] [place] [address] Care Team Providers Name Role Phone Unavailable [...] or relatives? How often do you attend buddhist or Patient refused 2021 oriental orthodox services? Do you belong to any clubs or Patient refused 07/05/2021 organizations such as buddhist groups, unions, fraternal or athletic groups, or [...]
[2021-11-13 14:21] LABS: SARS PCR* POSITIVE SARS-CoV-2 (Negative)
== END 2021-11-13 08:38 | disposition home or self-care (01) ==
LOC: KYNREF 08:38
PROVIDERS: PCP Nurse Practitioner Family; Visit Provider Nurse Practitioner Family
DX: Z20.822 Contact with and (suspected) exposure to COVID-19 (principal)
CPT/HCPCS: 87635

== ENCOUNTER 2021-11-27 09:51 | Outpatient (CLI) | payer MEDICARE, SELFPAY ==
--- OUTSIDE RECORDS SUMMARY | 2021-11-27 09:56 | XMS_ITS | Encounter Summary ---
:1940 Author Organization [facility] Address [address] [place] [address] Care Team Providers Name Role Phone Elsewhere, Pcp Primary Care Provider Unavailable Encounter Details Date Type Department Care Team Description 07/08/2021 Orders Only Division of Gastroenterology Tino Peck, in [facility] [address] [facility] [address] [place] [address] [place], [place] [phone] [address] Social History Tobacco Use Types Packs/Day Years [...] you attend scientology or Patient refused 2021 sikhism services? Do [...] documented as of this encounter Care Teams Energy Director Relationship Specialty Start Date End Date Elsewhere, Pcp PCP - General Internal Medicine 08/24/19 documented as of this encounter
--- OUTSIDE RECORDS SUMMARY | 2021-11-27 09:56 | XMS_ITS | Encounter Summary ---
:1940 Author Organization [facility] Address [address] [place] [address] Care Team Providers Name Role Phone Elsewhere, Pcp Primary Care Provider Unavailable Encounter Details Date Type Department Care Team Description 06/17/2021 Clinical Communication Division of Bo Marie Gastroenterology in S, M.D. [place], [place] [address] [facility] [address] [place] [phone] Social History Tobacco Use Types Packs/Day Years [...] attend oriental orthodox or Patient refused 2021 latter-day services? Do [...] documented as of this encounter Care Teams Manufacturing Lead Relationship Specialty Start Date End Date Elsewhere, Pcp PCP - General Internal Medicine 08/24/19 documented as of this encounter
--- OUTSIDE RECORDS SUMMARY | 2021-11-27 09:56 | XMS_ITS | Encounter Summary ---
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 [facility] Procedures Enema Prep [address] [place] [phone] Referral ID Status Reason Start Date Expiration Date Visits Requ ested Visits Authorized [id number] Closed 07/10/2021 07/10/2022 1 1 Encounter Details Date Type Department Care Team Description 07/10/2021 Orders Only Division of Bo Marie Enterocolitis Due To Clostridium Difficile Not Specified As Recurrent (Primary Dx); Gastroenterology in [place] Enterocolitis Due To Clostridium Diffici le Recurrent [place], [place] [address] [facility] [address] [place] [phone] Social History Tobacco Use Types Packs/Day Years [...] you attend voodoo or Patient refused 2021 scientology services? Do you belong to any clubs or Patient refused 07/05/2021 organizations such as voodoo groups, unions, fraMachinima or athletic groups, or school groups? How [...] documented as of this encounter Care Teams Fur Pointer Relationship Specialty Start Date End Date Elsewhere, Pcp PCP - General Internal Medicine 08/24/19 documented as of this encounter
--- OUTSIDE RECORDS SUMMARY | 2021-11-27 09:56 | XMS_ITS | Encounter Summary ---
:1940 Author Organization [facility] Address [address] [place] [address] Care Team Providers Name Role Phone Elsewhere, Pcp Primary Care Provider Unavailable Reason for Visit Reason Comments Pre-visit Intake Encounter Details Date Type Department Care Team Description 07/04/2021 Clinical Communication Visit Review in Pr e-visit Intake [address] [phone] Social History Tobacco Use Types Packs/Day Years [...] you attend anabaptism or Patient refused 2021 confucianist services? Do you belong to any clubs [...] documented as of this encounter Care Teams Profiling Machine Setup Operator Relationship Specialty Start Date End Date Elsewhere, Pcp PCP - General Internal Medicine 08/24/19 documented as of this encounter
--- OUTSIDE RECORDS SUMMARY | 2021-11-27 09:56 | XMS_ITS | Encounter Summary ---
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 [facility] Procedures Enema Prep [address] [place] [address] Referral ID Status Reason Start Date Expiration Date Visits Requ ested Visits Authorized [id number] Closed 07/10/2021 07/10/2022 1 1 Encounter Details Date Type Department Care Team Description 07/10/2021 Clinical Support Enema Prep Facility Abram Marie M.D. [address] [place] [phone] Enterocolitis Due To in [place], Teodora Mallory, R.N. Clostridium Difficile [place] Recurrent [address] [place] [phone] Social History Tobacco Use Types Packs/Day Years [...] or relatives? How often do you attend mandaen or Patient refused 2021 muslim services? Do you belong to any clubs or Patient refused 07/05/2021 organizations such as mandaen groups, [employer], [employer] or athletic groups, or school groups? How [...] or slept in a custodial (including now)? Education Answer Date Recorded What [...] documented as of this encounter Care Teams Controls Project Engineer Relationship Specialty Start Date End Date Elsewhere, Pcp PCP - General Internal Medicine 08/24/19 documented as of this encounter
--- OUTSIDE RECORDS SUMMARY | 2021-11-27 09:56 | XMS_ITS | Clinical Summary ---
:1940 Author Organization [facility] [place] [address] Care Team Providers Name Role Phone Paula Carrillo Primary Care Provider Allergies Active Allergy Reactions Severity Noted Date Comments Olmesartan Dizziness 11/30/2006 Lisinopril Cough 10/11/2006 Metoprolol Sleep Disturbances 06/28/2017 Medications Medication Sig Dispensed Refills Start End Date Status Date Fish Oil-DHA-EPA Take 2 capsules by 0 Active 1,200-144-216 mg cap mouth 2 times 8 daily. mxvlpiqvvliht-jaokerbh-g Take 1 tablet by 0 06/29/19 1 [...] Name Administration Dates Next Due COVID-19 vaccine ([employer] 06/27/2020, 06/06/2020 30mcg/0.3mL) PF, MDV Influenza, High-dose [...] 50+ 09/24/2008 Medical Devices Implanted Type Area Automatic Edger Device Shelf Model / Identifier Expiration Serial / Date Lot Screw 40x5.5 N/A: Spine 01/08/2025 [id number] / Implanted: Qty: 1 on 07/19/2017 by Tobin Vo MD at [facility] / [id number] Description: SCREW 40X5.5 Results Not on filefrom Last 3 Months Additional Health Concerns Infection Onset Date Last Indicated CLOSTRIDIUM DIFFICILE 11/20/2020 11/20/2020 Insurance Payer Benefit Plan / Subscriber ID Effective Dates Phone Addre ss Type Group MEDICARE PART B - MEDICARE PART B [id number] 2005-Presen ATTN: CLAIMS HB USE ONLY HB ONLY t [address] MEDICARE PART A - MEDICARE PART A [id number] 2005-Presen ATTN: CLAIMS HB USE ONLY HB ONLY t [address] [place] [address] MR [id number] 2021-Presen [address] [address] [place] [address] Advance Directives Documents on File Type Date Recorded Patient Game Attendant Explanati on Healthcare Directive 06/28/2017 4:21 PM [facility]ALTH [place] RE POWER OF CHEMIST STEROIDS, 2003 Latest Code Status on File Code Status Date Activated Date Inactivated Comments Full Code 07/19/2017 5:26 AM 07/26/2017 1:20 PM Care Teams Fleet Service Clerk Relationship Specialty Start Date End Date Paula Carrillo PA PCP - General Physician Child Care Nurse 09/10/20 100 [facility] [place] [id number]
--- OUTSIDE RECORDS SUMMARY | 2021-11-27 09:56 | XMS_ITS | Encounter Summary ---
:1940 Author Organization [facility] Address [address] [place] [address] Care Team Providers Name Role Phone Elsewhere, Pcp Primary Care Provider Unavailable Reason for Referral Outpatient (Routine) - Authorized Specialty Diagnoses / Procedures Referred By Contact Refer red To Contact Diagnoses Diarrhea Persistent Unexplained Bo Marie M.D. 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 [address] [place] [address] Referral ID Status Reason Start Date Expiration Date Visits Requ ested Visits Authorized [id number] Closed 06/11/2021 06/11/2022 1 1 Encounter Details Date Type Department Care Team Description 07/08/2021 Comprehensive Visit Division of [place], Diarrhea Persistent Unexplained (Primary Dx); Gastroenterology in [place], Enteroco litis Due To Clostridium Difficile Not Specified As Recurrent; [place], [place] M.DAnant Malnutrition Moderate Protein-Calorie (H CC) [address] [place] [phone] [phone] Social History Tobacco Use Types Packs/Day Years [...] you attend sikh or Patient refused 2021 episcopal services? Do [...] or slept in a half-way (including now)? Education Answer Date Recorded What [...] significant finding. She then we wintered in [place] and saw PA there who diagnosed irritable [...] and its performa nce characteristics determined by [facility] in a manner consistent with CLIA requirements. This test has not been cleared or approved by the U.S. Rula d and Drug Administration. Specimen Anatomical Collection Method Collection Time Receive d Time (Source) Location / / Volume Laterality Blood (Blood, 07/08/2021 10:57 07/08/2021 3:28 Venous) AM CDT PM CDT Bo Marie M.D. LAB BLOOD NON ADD-ON Performing Organization Address [facility] Phon e Number [facility] [address] [place] [address] Dr FORBES [place] [address] [address] [facility] [place] [address] Laboratory Medicine and Pathology [address] [place] [address] Dr. FORBES Vitamin E Level (07/08/2021 10:57 AM CDT) athologist Signature A-Tocopherol, 15.1 5.5 - 17.0 07/09/2021 [facility] Vitamin E mg/L 11:42 AM CDT Comment: ----ADDITIONAL INFORMATION---- This test was developed and its performa nce characteristics determined by [facility] in a manner consistent with CLIA requirements. This test has not been cleared or approved by the U.S. Rula d and Drug Administration. Specimen Anatomical Collection Method Collection Time Receive d Time (Source) Location / / Volume Laterality Blood (Blood, 07/08/2021 10:57 07/08/2021 3:27 Venous) AM CDT PM CDT Bo Marie M.D. LAB BLOOD NON ADD-ON Performing Organization Address [facility] Phon e Number [address] [place]I [place] [address] 05 [facility] [place] [address] Laboratory Medicine and Pathology [address] [place] [address] Dr. FORBES Vitamin B12 Assay (07/08/2021 10:57 [...] LAB BLOOD ADD-ON Performing Organization Address City/[facility] Phon e Number [facility] - [address] [place], [place] [address] [facility] [place] [address] Laboratories-[facility] 200 [facility] Vitamin A Level (07/08/2021 10:57 AM CDT) athologist Signature Vitamin A 39.5 32.5 - 78.0 07/10/2021 9:12 [facility] mcg/dL AM CDT Comment: ----ADDITIONAL INFORMATION---- This test was developed and its performa nce characteristics determined by [facility] in a manner consistent with CLIA requirements. This test has not been cleared or approved by the U.S. Rula d and Drug Administration. Specimen Anatomical Collection Method Collection Time Receive d Time (Source) Location / / Volume Laterality Blood (Blood, 07/08/2021 10:57 07/08/2021 3:27 Venous) AM CDT PM CDT Bo Marie M.D. LAB BLOOD NON ADD-ON Performing Organization Address City/[facility] Phon e Number [facility] [address] FORB[place], [place] [address] [facility] [place] [address] Laboratory Medicine and Pathology [address] FORBES Copper (07/08/2021 10:57 AM CDT) athologist Signature Copper, S 1.40 0.75 - 1.45 07/09/2021 9:53 [facility] mcg/mL AM CDT Comment: ----ADDITIONAL INFORMATION---- This test was developed and its performa nce characteristics determined by [facility] in a manner consistent with CLIA requirements. This test has not been cleared or approved by the U.S. Rula d and Drug Administration. Specimen Anatomical Collection Method Collection Time Receive d Time (Source) Location / / Volume Laterality Blood (Blood, 07/08/2021 10:57 07/08/2021 3:28 Venous) AM CDT PM CDT Bo Marie M.D. LAB BLOOD NON ADD-ON Performing Organization Address [facility] Phon e Number [address] [place] [address] [facility] [place] [address] Laboratory Medicine and Pathology [address] [place] [address] Dr. FORBES Selenium (07/08/2021 10:57 AM CDT) P athologist Signature Selenium, S 118 70 - 150 07/09/2021 [facility] ng/mL 9:53 AM CDT Comment: ----ADDITIONAL INFORMATION---- This test was developed and its performa nce characteristics determined by [facility] in a manner consistent with CLIA requirements. This test has not been cleared or approved by the U.S. Rula d and Drug Administration. Specimen Anatomical Collection Method Collection Time Receive d Time (Source) Location / / Volume Laterality Blood (Blood, 07/08/2021 10:57 07/08/2021 3:28 Venous) AM CDT PM CDT Bo Marie M.D. LAB BLOOD NON ADD-ON Performing Organization Address City/[facility] Phon e Number [address] [place] [address] [facility] [place] [address] Laboratory Medicine and Pathology [address] [place] [address] Dr. FORBES Prothrombin Time (PT) (07/08/2021 10:57 [...] Organization Address City/State/ZIP Code Phon e Number [facility] - [address] [place], [place] [address] [facility] [place] [address] [facility] [address] [facility] Folate (07/08/2021 10:57 AM CDT) athologist Signature Folate, S >20.0 >=4.0 mcg/L 07/08/2021 2:20 DTL PM CDT Specimen Anatomical Collection Method Collection Time Receive d Time (Source) Location / / Volume Laterality Blood (Blood, 07/08/2021 10:57 07/08/2021 Venous) AM CDT 12:38 PM CDT Bo Marie M.D. LAB BLOOD ADD-ON Performing Organization Address City/[facility]/ZIP Code Phon e Number [facility] - [address] [place], [place] [address] [facility] [place] [address] [facility] [address] [facility] Ferritin (07/08/2021 10:57 AM CDT) athologist Signature Ferritin, S 103 11 - 307 07/08/2021 DTL mcg/L 2:15 PM CDT Specimen Anatomical Collection Method Collection Time Receive d Time (Source) Location / / Volume Laterality Blood (Blood, 07/08/2021 10:57 07/08/2021 Venous) AM CDT 12:38 PM CDT Bo Marie M.D. LAB BLOOD ADD-ON Performing Organization Address City/State/ZIP Code Phon e Number [facility] - [address] [place], [place] [address] [facility] [place] [address] 25-Hydroxyvitamin D2 and D3 (07/08/2021 10:57 AM CDT) athologist Signature 25-Hydroxy D2 <4.0 ng/mL 07/09/2021 [facility] 10:54 PM CDT 25-Hydroxy D3 46 ng/mL 07/09/2021 [facility] 10:54 PM CDT 25-Hydroxy D 46 ng/mL 07/09/2021 [facility] Total 10:54 PM CDT Comment: ----REFERENCE VALUE---- 25-HYDROXY D TOTAL (D2+D3) Optimum level s in the healthy population are 20-50, patients with bone disease may benefit from higher levels within this r ihsan. ----ADDITIONAL INFORMATION---- This test was developed and its performa nce characteristics determined by [facility] in a manner consistent with CLIA [...] Organization Address City/State/ZIP Code Phon e Number [facility] [address] [place] [address] [facility] [place] [address] Laboratory Medicine and Pathology [address] FORBES documented in this encounter Visit Diagnoses Diagnosis Diarrhea Persistent Unexplained - Primar y Enterocolitis Due To Clostridium Diffici le Not Specified As Recurrent Malnutrition Moderate Protein-Calorie (H CC) documented in this encounter Additional Health Concerns Assessment Noted Time PHQ-9 Depression Total Score: 1 10/05/2013 1:43 PM CDT documented as of this encounter Care Teams Aurist Relationship Specialty Start Date End Date Elsewhere, Pcp PCP - General Internal Medicine 08/24/19 documented as of this encounter
--- OUTSIDE RECORDS SUMMARY | 2021-11-27 09:56 | XMS_ITS | Encounter Summary ---
:1940 Author Organization [facility] Address [address] [place] [address] Care Team Providers Name Role Phone Elsewhere, Pcp Primary Care Provider Unavailable Encounter Details Date Type Department Care Team Description 07/08/2021 Orders Only Division of Coretta Peck Encounter F or Gastroenterology in P, CCRP Preprocedural [place], [place] [address] [facility] Laboratory [address] [place], [place] [phone] (COVID-19) (Primary [phone] Dx) (Work) Social History Tobacco Use Types [...] or relatives? How often do you attend judaism or Patient refused 2021 orthodox services? Do you belong to any clubs or Patient refused 07/05/2021 organizations such as judaism groups, unions, fraternal or athletic groups, or [...] documented as of this encounter Care Teams Willower Relationship Specialty Start Date End Date Elsewhere, Pcp PCP - General Internal Medicine 08/24/19 documented as of this encounter
--- OUTSIDE RECORDS SUMMARY | 2021-11-27 09:56 | XMS_ITS | Encounter Summary ---
:1940 Author Organization [facility] Address [address] [place] [address] Care Team Providers Name Role Phone Elsewhere, Pcp Primary Care Provider Unavailable Reason for Referral Outpatient (Routine) - Closed Specialty Diagnoses / Procedures Referred By Contact Refer red To Contact Diagnoses Diarrhea Persistent Unexplained Bo Marie M.D. [facility] Procedures Colonoscopy [address] [place] [address] Referral ID Status Reason Start Date Expiration Date Visits Requ ested Visits Authorized [id number] Closed 07/08/2021 07/08/2022 1 1 Reason for Visit Outpatient (Routine) - Closed Specialty Diagnoses / Procedures Referred By Contact Refer red To Contact Diagnoses Diarrhea Persistent Unexplained Bo Marie M.D. [facility] Procedures Colonoscopy [address] [place] [address] Referral ID Status Reason Start Date Expiration Date Visits Requ ested Visits Authorized [id number] Closed 07/08/2021 07/08/2022 1 1 Encounter Details Date Type Department Care Team Description 07/10/2021 Hospital Division of Bo Marie Diarrhea Encounter Gastroenterology in [place], [place] [address] Unexplained [address] [place] [phone] Social History Tobacco Use Types Packs/Day Years [...] or relatives? How often do you attend druze or Patient refused 2021 adventism services? Do you belong to any clubs or Patient refused 07/05/2021 organizations such as druze groups, unions, fraternal or athletic groups, or [...] City/State/ZIP Code Phon e Number [facility] - [address] [place], [place] [address] [facility] [place] [address] Laboratories-[facility] [address] Colonoscopy (07/10/2021 3:36 PM CDT) Specimen (Source) Anatomical Collection Method Collection Time Re ceived Time Location / / Volume Laterality 07/10/2021 3:36 PM CDT [facility] 07/10/[facility]21 4:00 PM CDT Post-op Diagnoses: ? - Biopsies were obtained in the e ntire colon. Narrative [facility] - 07/10/2021 4:00 PM CDT Gonda 9 [...] bowel preparation was evaluated using the BBPS ([place] ? Bowel Preparation Scale) with sco res [...] documented as of this encounter Care Teams Scrap Bunch Maker Relationship Specialty Start Date End Date Elsewhere, Pcp PCP - General Internal Medicine 08/24/19 documented as of this encounter
--- OUTSIDE RECORDS SUMMARY | 2021-11-27 09:56 | XMS_ITS | Encounter Summary ---
:1940 Author Organization [facility] Address [address] [place] [address] Care Team Providers Name Role Phone Elsewhere, Pcp Primary Care Provider Unavailable Encounter Details Date Type Department Care Team Description 10/03/2021 Clinical Communication Division of Coretta Peck Gastroenterology in , [place], [place] [address] [facility] [address] [place] [phone] Social History Tobacco Use Types Packs/Day Years [...] you attend judaism or Patient refused 2021 restorationist services? Do [...] documented as of this encounter Care Teams Programmer Developer Relationship Specialty Start Date End Date Elsewhere, Pcp PCP - General Internal Medicine 08/24/19 documented as of this encounter
--- OUTSIDE RECORDS SUMMARY | 2021-11-27 09:56 | XMS_ITS | Encounter Summary ---
:1940 Author Organization [facility] Address [address] [place] [address] Care Team Providers Name Role Phone Elsewhere, [...] you attend baptist or Patient refused 2021 yarsani services? Do [...] documented as of this encounter Care Teams Pipeline Gang Supervisor Relationship Specialty Start Date End Date Elsewhere, Pcp PCP - General Internal Medicine 08/24/19 documented as of this encounter
--- OUTSIDE RECORDS SUMMARY | 2021-11-27 09:56 | XMS_ITS | Clinical Summary ---
:1940 Author Organization [facility] Address [address] [place] [address] Care Team Providers Name Role Phone Elsewhere, Pcp Primary Care Provider Unavailable Source Comments Patient records contain information from all sites at [facility]. For routine questions regarding patient records, call [phone] during business hours, M-F 8:00 AM - 5:00 PM Central Time. Record requests for emergency care only can be directed to [phone] at any time.[facility] Allergies Active Allergy Reactions Severity Noted [...] or relatives? How often do you attend christian or Patient refused 2021 yazidi services? Do you belong to any clubs or Patient refused 07/05/2021 organizations such as christian groups, unions, fraWesthouse or athletic groups, or school groups? How [...] Maintenance Due Date Last Done Comments COVID-19 Vaccine (4 - Booster for 02/23/2021 12/29/2020, , Pfizer series) 06/06/2020 Depression Screening (Annual 03/08/2021 PHQ-2) DTaP,Tdap,and Td Vaccines (2 - Td 10/05/2021 10/06/2011, , or Tdap) 09/24/2008, Additional history exists Office Visit for Blood Pressure 10/08/2021 07/08/2021 Check / Re-check Creatinine Level 11/07/2021 11/07/2020, 09/24/2020, 06/27/2020, Additional history exists Potassium Level 11/07/2021 11/07/2020, 09/24/2020, 06/27/2020, Additional history exists Sodium Level 11/07/2021 11/07/2020, 09/24/2020, 06/27/2020, Additional history exists Influenza Vaccine (#1) 2021 11/12/2020, 10/26/2019, 12/21/2018, Additional history exists Thyroid Stimulating Hormone (TSH) 06/06/2022 06/06/2021, , test for thyroid function 09/25/2019, Additional history exists Pneumococcal vaccine (65+ years) Completed 11/06/2014, Zoster Vaccines Completed 03/27/2019, 01/03/2019, 09/24/2008 Fall Risk Screen (Annual) Completed 07/10/2021 Medical Devices Implanted Type Area Counter Supply Worker Device Shelf Model / Identifier Expiration Serial / Date Lot Conversions - Default Historical Implant Device Hardware Back Implanted: 06/10/2016 (Quantity not on file) e.g. pins/screws/ rods Description: Body Location - Back. wires from back surgery. Device Status Text - Hardware. Insurance Payer Benefit Plan / Subscriber ID Effective Dates Phone Addre ss Type Group AARP AAR MEDICARE [id number] 2020-Present [phone] [address] [address] [place] [address] Advance Directives For more information, please contact: [phone] Documents on File Type Date Recorded Patient Plastic Mixer Explanati on Advance Directives 10/25/2015 12:00 AM Legacy doc ument. See document viewer. Care Teams Ribbon Cleaner Relationship Specialty Start Date End Date Elsewhere, Pcp PCP - General Internal Medicine 08/24/19
--- OUTSIDE RECORDS SUMMARY | 2021-11-27 09:56 | XMS_ITS | Encounter Summary ---
:1940 Author Organization [facility] Address [address] [place] [address] Care Team Providers Name Role Phone Elsewhere, Pcp Primary Care Provider Unavailable Encounter Details Date Type Department Care Team Description 07/08/2021 Hospital Encounter Department of Bo Marie [facility] Laboratory Medicine S, MAnantDAnant Protein-Calorie (HCC) and Pathology, [address] [place], [place] [phone] [place] [phone] [place] [address] (Work) [place], [place] [phone] (Fax) [phone] Social History Tobacco Use Types Packs/Day Years [...] you attend taoist or Patient refused 2021 jainism services? Do [...] NON ADD-ON Performing Organization Address City/[facility] Phon e Number [facility] [address] [place] [address] SUPPORT CENTER [facility] [place] [address] Laboratory Medicine and Pathology [address] [place] [address] Dr. [place] Vitamin E Level (07/08/2021 10:57 AM CDT) athologist [facility] A-Tocopherol, 15.1 5.5 - 17.0 07/09/2021 [facility] Vitamin E mg/L 11:42 AM [...] NON ADD-ON Performing Organization Address City/[facility] Phon e Number [facility] [address] [place], [place] [address] SUPPORT CENTER [facility] [place] [address] Laboratory Medicine and Pathology [address] [place] Vitamin B12 Assay (07/08/2021 10:57 AM CDT) athologist Signature Vitamin B12 794 180 - 914 07/08/2021 [facility] Assay, S ng/L 2:23 PM CDT [...] City/[facility]/ZIP Code Phon e Number [facility] - [address] [place], [place] [address] [place] [address] Laboratories-[facility] [address] Vitamin A Level (07/08/2021 10:57 AM CDT) [facility] Vitamin A 39.5 32.5 - 78.0 07/10/2021 9:12 [facility] mcg/dL AM CDT Comment: ----ADDITIONAL [...] NON ADD-ON Performing Organization Address City/[facility]/ZIP [facility] Phon e Number [facility] [address] [place] [address] [facility] CENTER [facility] [place] [address] Laboratory Medicine and Pathology [address] [place] Copper (07/08/2021 10:57 AM CDT) [...] LAB BLOOD NON ADD-ON Performing Organization Address [facility] [place]/[facility] Phon e Number [address] [place] [address] SUPPORT CENTER [facility] [place] [address] Laboratory Medicine and Pathology [address] [place] [address] Dr. [place] Selenium (07/08/2021 10:57 AM CDT) [...] NON ADD-ON Performing Organization Address City/[facility] Phon e Number [address] [place] [address] SUPPORT CENTER [facility] [place] [address] Laboratory Medicine and Pathology [address] [place] [address] Dr. FORBES Prothrombin Time (PT) (07/08/2021 10:57 [...] BLOOD ADD-ON Performing Organization Address City/[facility] Phon e Number [facility] - 200 [place], [place] [address] [place] [address] Folate (07/08/2021 10:57 AM CDT) athologist Signature Folate, S >20.0 >=4.0 mcg/L 07/08/2021 2:20 DTL PM CDT Specimen Anatomical Collection Method Collection Time Receive d Time (Source) Location / / Volume Laterality Blood (Blood, 07/08/2021 10:57 07/08/2021 Venous) AM CDT 12:38 PM CDT Bo Marie M.D. LAB BLOOD ADD-ON Performing Organization Address City/[facility] Phon e Number [facility] - 200 [place], [place] [address] [place] [address] Ferritin (07/08/2021 10:57 AM CDT) athologist Signature Ferritin, S 103 11 - 307 07/08/2021 DTL mcg/L 2:15 PM CDT Specimen Anatomical Collection Method Collection Time Receive d Time (Source) Location / / Volume Laterality Blood (Blood, 07/08/2021 10:57 07/08/2021 Venous) AM CDT 12:38 PM CDT Bo Marie M.D. LAB BLOOD ADD-ON Performing Organization Address City/[facility]/ZIP Code Phon e Number [facility] - [address] [place], [place] [address] [facility] [place] [address] Laboratories-[facility] [address] [facility] 25-Hydroxyvitamin D2 and D3 (07/08/2021 10:57 [...] BLOOD ADD-ON Performing Organization Address City/[facility] Phon e Number [facility] [address] [place], [place] [address] [facility] [place] [address] Laboratory Medicine and Pathology [address] [place] documented in this encounter Visit Diagnoses Diagnosis Malnutrition Moderate Protein-Calorie (H CC) documented in this encounter Additional Health Concerns Assessment Noted Time PHQ-9 Depression Total Score: 1 10/05/2013 1:43 PM CDT documented as of this encounter Care Teams Waterworks Employee Relationship Specialty Start Date End Date Elsewhere, Pcp PCP - General Internal Medicine 08/24/19 documented as of this encounter
--- OUTSIDE RECORDS SUMMARY | 2021-11-27 09:56 | XMS_ITS | Encounter Summary ---
:1940 Author Organization [facility] Address [address] [place] [address] Care Team Providers Name Role Phone Elsewhere, Pcp Primary Care Provider Unavailable Encounter Details Date Type Department Care Team Description 07/17/2021 Office Visit Division of Bo Marie Constipation (Primary Dx); Gastroenterology in S, M.D. [place], [place] [address] [facility] [address] [place] [phone] Social History Tobacco Use Types Packs/Day Years [...] you attend evangelical or Patient refused 2021 moravian services? Do [...] documented as of this encounter Care Teams Recorder Gravity Prospecting Relationship Specialty Start Date End Date Elsewhere, Pcp PCP - General Internal Medicine 08/24/19 documented as of this encounter
--- OUTSIDE RECORDS SUMMARY | 2021-11-27 09:56 | XMS_ITS | Encounter Summary ---
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 Barbara Vincent [facility] Hepatology Mag C.N.PAnant [address] [place] [address] Referral ID Status Reason Start Date Expiration Date Visits Requ ested Visits Authorized [id number] Closed 06/11/2021 06/11/2022 1 1 Encounter Details Date Type Department Care Team Description 06/11/2021 [facility] Barbara Vincent Enterocolitis Due To AND CLINICS Mag, C.N.PAnant Clostridium Difficile 1999 [facility] [address] Not Specified As [place], [place] Recurrent (Primary [id number] Dx) [phone] Social History Tobacco Use Types Packs/Day Years [...] or relatives? How often do you attend baptism or Patient refused 2021 presybeterian services? Do you belong to any clubs or Patient refused 07/05/2021 organizations such as baptism groups, unions, fraMixCommerce or athletic groups, or school groups? How [...] documented as of this encounter Care Teams Camera Maker Relationship Specialty Start Date End Date Elsewhere, Pcp PCP - General Internal Medicine 08/24/19 documented as of this encounter
--- OUTSIDE RECORDS SUMMARY | 2021-11-27 09:57 | XMS_ITS | Encounter Summary ---
:1940 Author Organization [facility] Address [address] [place] [address] Care Team Providers Name Role Phone Unavailable [...] you attend anglican or Patient refused 2021 caodaism services? Do [...]
--- OUTSIDE RECORDS SUMMARY | 2021-11-27 09:57 | XMS_ITS | Encounter Summary ---
:[address] [facility] Address [address] [place] [address] Care Team Providers Name Role Phone Elsewhere, Pcp Primary Care Provider Unavailable Encounter Details Date Type Department Care Team Description 10/14/2010 Historical Ophthalmology RST OPH Cris Gonzalez O.D. [address] [place], [place] [phone] (Wo rk) Social History [...] or relatives? How often do you attend protestant or Patient refused 2021 temple services? Do you belong to any clubs or Patient refused 07/05/2021 organizations such as protestant groups, unions, fraternal or athletic groups, or [...] pigment epithelium CDM Reports - EYEGEN Id: [id number] Status: Fnl documented in this encounter Plan of Treatment Not on filedocumented as of this encounter Visit Diagnoses Not on filedocumented in this encounter Additional Health Concerns Assessment Noted Time PHQ-9 Depression Total Score: 5 09/26/2009 8:27 AM CDT documented as of this encounter Care Teams Pelletising Extruder Operator Relationship Specialty Start Date End Date Elsewhere, Pcp PCP - General Internal Medicine 08/24/19 documented as of this encounter
--- OUTSIDE RECORDS SUMMARY | 2021-11-27 09:57 | XMS_ITS | Encounter Summary ---
:1940 Author Organization [facility] Address [address] [place] [address] Care Team Providers Name Role Phone Elsewhere, Pcp Primary Care Provider Unavailable Encounter Details Date Type Department Care Team Description 12/21/2005 Historical Ophthalmology RST OPH Alison Costello M.D. [address], [place] [address] (Wo rk) Social History Tobacco Use Types [...] you attend baptism or Patient refused 2021 shinto services? Do you belong to any clubs or Patient refused 07/05/2021 organizations such as baptism groups, unions, fraternal or athletic groups, or [...] eye syndrome CD Reports - EYEGEN Id: [id number] Status: Fnl documented in this encounter Plan of Treatment Not on filedocumented as of this encounter Visit Diagnoses Not on filedocumented in this encounter Care Teams Travel Physical Therapist Relationship Specialty Start Date End Date Elsewhere, Pcp PCP - General Internal Medicine 08/24/19 documented as of this encounter
--- OUTSIDE RECORDS SUMMARY | 2021-11-27 09:57 | XMS_ITS | Encounter Summary ---
:1940 Author Organization [facility] Address [address] [place] [address] Care Team Providers Name Role Phone Unavailable [...] you attend mu-ism or Patient refused 2021 shinto services? Do [...]
--- OUTSIDE RECORDS SUMMARY | 2021-11-27 09:57 | XMS_ITS | Encounter Summary ---
:1940 Author Organization [facility] Address [address] [place] [address] Care Team Providers Name Role Phone Amrik [...] you attend yazidi or Patient refused 2021 anglican services? Do [...] documented as of this encounter Care Teams Medical Clinic Manager Relationship Specialty Start Date End Date Amrik Calix B.M.B.S. PCP - General Family Medicine 09/10/14 09/03/17 documented as of this encounter
--- OUTSIDE RECORDS SUMMARY | 2021-11-27 09:57 | XMS_ITS | Encounter Summary ---
:1940 Author Organization [facility] Address [address] [place] [address] Care Team Providers Name Role Phone Unavailable [...] or relatives? How often do you attend advent or Patient refused 2021 confucianism services? Do you belong to any clubs or Patient refused 07/05/2021 organizations such as advent groups, unions, fraternal or athletic groups, or [...]
--- OUTSIDE RECORDS SUMMARY | 2021-11-27 09:57 | XMS_ITS | Encounter Summary ---
:1940 Author Organization [facility] Address [address] [place] [address] Care Team Providers Name Role Phone Unavailable [...] you attend yazidi or Patient refused 2021 bahai services? Do you belong to any clubs [...]
--- OUTSIDE RECORDS SUMMARY | 2021-11-27 09:57 | XMS_ITS | Encounter Summary ---
:1940 Author Organization [facility] Address [address] [place] [address] Care Team Providers Name Role Phone Elsewhere, Pcp Primary Care Provider Unavailable Reason for Visit Reason Comments Follow-up HTN/Blood pressure Encounter Details Date Type Department Care Team Description 08/24/2019 Clinical Communication Department of Britney Hernandez ow-aman Family Medicine, Garcia Wise R.N. (HTN/Blood [facility] [address] [facility] pressure) jose [place] [facility] [phone] [facility] [phone] [place], [place] (Work) [phone] Social History Tobacco Use Types Packs/Day Years [...] you attend episcopal or Patient refused 2021 anabaptist services? Do [...] patient has moved their primary care to [facility]. She was contacted to be able to confirm this. She stated that she had to come to [facility] for a back surgery as has since [facility] all of her [facility]. She was asked if she wanted us removed as her primary care provider and she stated that yes we should be removed as her primary care provider. PLAN Disposition/Recommendation: Will send information to the appropriate contact to have [facility] removed as primary care provider. Information/Education: [...] documented as of this encounter Care Teams Inspector Floor Sub Assembly Relationship Specialty Start Date End Date Elsewhere, Pcp PCP - General Internal Medicine 08/24/19 documented as of this encounter
--- OUTSIDE RECORDS SUMMARY | 2021-11-27 09:57 | XMS_ITS | Encounter Summary ---
:1940 Author Organization [facility] Address [address] [place] [address] Care Team Providers Name Role Phone Elsewhere, Pcp Primary Care Provider Unavailable Encounter Details Date Type Department Care Team Description 11/09/2013 Historical Ophthalmology RST OPH Heather ck, Celia Hathaway, O.D. [address] [place], [place] [phone] (Wo rk) Social History Tobacco Use Types [...] you attend yazidism or Patient refused 2021 caodaism services? Do [...] astigmatism, presbyopia). CDM Reports - EYEGEN Id: [id number] Status: Fnl documented in this encounter Plan of Treatment Not on filedocumented as of this encounter Visit Diagnoses Not on filedocumented in this encounter Additional Health Concerns Assessment Noted Time PHQ-9 Depression Total Score: 1 10/05/2013 1:43 PM CDT documented as of this encounter Care Teams Set Off Press Operator Relationship Specialty Start Date End Date Elsewhere, Pcp PCP - General Internal Medicine 08/24/19 documented as of this encounter
--- OUTSIDE RECORDS SUMMARY | 2021-11-27 09:57 | XMS_ITS | Encounter Summary ---
:1940 Author Organization [facility] Address [address] [place] [address] Care Team Providers Name Role Phone Elsewhere, Pcp Primary Care Provider Unavailable Encounter Details Date Type Department Care Team Description 01/19/2007 Historical Ophthalmology RST OPH Tobin Bartlett O.D. [address] [place], [place] [address] (Wo rk) Social History [...] or relatives? How often do you attend religion or Patient refused 2021 oriental orthodox services? Do you belong to any clubs or Patient refused 07/05/2021 organizations such as religion groups, unions, fraternal or athletic groups, or [...] gland dysfunction both eyes. CDM Reports - EYERace Nation Id: [id number] Status: Fnl documented in this encounter Plan of Treatment Not on filedocumented as of this encounter Visit Diagnoses Not on filedocumented in this encounter Care Teams Ceramic Sprayer Relationship Specialty Start Date End Date Elsewhere, Pcp PCP - General Internal Medicine 08/24/19 documented as of this encounter
--- OUTSIDE RECORDS SUMMARY | 2021-11-27 09:57 | XMS_ITS | Encounter Summary ---
:1940 Author Organization [facility] Address [address] [place] [address] Care Team Providers Name Role Phone Amrik Calix Primary Care Provider Unavailable Encounter Details Date Type Department Care Team Description 05/24/2017 Abstract [facility] Leeanna Roy [facility] MPUS [address] [place] [phone] Social History Tobacco Use Types Packs/Day [...] you attend taoist or Patient refused 2021 religion services? Do [...] documented as of this encounter Care Teams Central Sterilization Technician Relationship Specialty Start Date End Date Amrik Calix B.M.BAnantS. PCP - General Family Medicine 09/10/14 09/03/17 documented as of this encounter
--- OUTSIDE RECORDS SUMMARY | 2021-11-27 09:57 | XMS_ITS | Encounter Summary ---
:1940 Author Organization [facility] Address [address] [place] [address] Care Team Providers Name Role Phone Elsewhere, Pcp Primary Care Provider Unavailable Encounter Details Date Type Department Care Team Description 05/01/2020 Orders Only [facility] - Donald powell Elsewhere, Pcp [address] , [facility] [address] [place] [address] Social History Tobacco Use [...] attend oriental orthodox or Patient refused 2021 catholic services? Do [...] documented as of this encounter Care Teams Logistics Intern Relationship Specialty Start Date End Date Elsewhere, Pcp PCP - General Internal Medicine 08/24/19 documented as of this encounter
--- OUTSIDE RECORDS SUMMARY | 2021-11-27 09:57 | XMS_ITS | Encounter Summary ---
:1940 Author Organization [facility] Address [address] [place] [address] Care Team Providers Name Role Phone Elsewhere, Pcp Primary Care Provider Unavailable Encounter Details Date Type Department Care Team Description 04/30/2020 Orders Only [facility] Lemuel Bennett Jr., M.D. [address] [facility] [place] [place] [phone] (Wo rk) Social History [...] you attend gnosticist or Patient refused 2021 muslim services? Do [...] documented as of this encounter Care Teams Fuels Engineer Relationship Specialty Start Date End Date Elsewhere, Pcp PCP - General Internal Medicine 08/24/19 documented as of this encounter
--- OUTSIDE RECORDS SUMMARY | 2021-11-27 09:57 | XMS_ITS | Encounter Summary ---
:1940 Author Organization [facility] Address [address] [place] [address] Care Team Providers Name Role Phone Elsewhere, Pcp Primary Care Provider Unavailable Encounter Details Date Type Department Care Team Description 10/09/2016 Historical Ophthalmology [facility] Cris Gonzalez O.D. [address] [place], [place] [phone] (Wo rk) Social History [...] you attend episcopal or Patient refused 2021 pentecostal services? Do [...] dry eyes CDM Reports - EYEGEN Id: [id number] Status: Fnl documented in this encounter Plan of Treatment Not on filedocumented as of this encounter Visit Diagnoses Not on filedocumented in this encounter Additional Health Concerns Assessment Noted Time PHQ-9 Depression Total Score: 1 10/05/2013 1:43 PM CDT documented as of this encounter Care Teams Ophthalmic Nurse Relationship Specialty Start Date End Date Elsewhere, Pcp PCP - General Internal Medicine 08/24/19 documented as of this encounter
--- OUTSIDE RECORDS SUMMARY | 2021-11-27 09:57 | XMS_ITS | Encounter Summary ---
:1940 Author Organization [facility] Address [address] [place] [address] Care Team Providers Name Role Phone Amrik [...] or relatives? How often do you attend tenriism or Patient refused 2021 jew services? Do you belong to any clubs or Patient refused 07/05/2021 organizations such as tenriism groups, unions, fraternal or athletic groups, or [...] documented as of this encounter Care Teams Brim Stretching Machine Operator Relationship Specialty Start Date End Date Amrik Calix B.M.B.S. PCP - General Family Medicine 09/10/14 09/03/17 documented as of this encounter
--- OUTSIDE RECORDS SUMMARY | 2021-11-27 09:57 | XMS_ITS | Encounter Summary ---
:1940 Author Organization [facility] Address [address] [place] [address] Care Team Providers Name Role Phone Elsewhere, Pcp Primary Care Provider Unavailable Encounter Details Date Type Department Care Team Description 09/04/2015 Historical Ophthalmology [facility] Tobin Bartlett O.D. [address] [place], [place] [address] (Wo rk) Social History [...] you attend orthodox or Patient refused 2021 advent services? Do [...] visually significant. CDM Reports - EYEGEN Id: [id number] Status: Fnl documented in this encounter Plan of Treatment Not on filedocumented as of this encounter Visit Diagnoses Not on filedocumented in this encounter Additional Health Concerns Assessment Noted Time PHQ-9 Depression Total Score: 1 10/05/2013 1:43 PM CDT documented as of this encounter Care Teams Soaking Room Operator Relationship Specialty Start Date End Date Elsewhere, Pcp PCP - General Internal Medicine 08/24/19 documented as of this encounter
--- OUTSIDE RECORDS SUMMARY | 2021-11-27 09:57 | XMS_ITS | Encounter Summary ---
:1940 Author Organization [facility] Address [address] [place] [address] Care Team Providers Name Role Phone Unavailable [...] you attend evangelical or Patient refused 2021 mormon services? Do you belong to any clubs [...]
--- OUTSIDE RECORDS SUMMARY | 2021-11-27 09:57 | XMS_ITS | Encounter Summary ---
:1940 Author Organization [facility] Address [address] [place] [address] Care Team Providers Name Role Phone Amrik Calix B.M.B.S. Primary Care Provider Unavailable Reason for Visit Reason Comments Med Refill Encounter Details Date Type Department Care Team Description 08/28/2017 Refill Department of Family Medicine, Stacy Calix, B.M.B.S. Med Refill [place], [place] [address] [place] [address] Social History Tobacco Use Types Packs/Day Years [...] you attend adventist or Patient refused 2021 lutheran services? Do you belong to any clubs [...] documented as of this encounter Care Teams Computed Tomography Technologist Relationship Specialty Start Date End Date Amrik Calix B.M.BAnantS. PCP - General Family Medicine 09/10/14 09/03/17 documented as of this encounter
--- OUTSIDE RECORDS SUMMARY | 2021-11-27 09:57 | XMS_ITS | Encounter Summary ---
:1940 Author Organization [facility] Address [address] [place] [address] Care Team Providers Name Role Phone Unavailable [...] you attend denominational or Patient refused 2021 hoahaoism services? Do [...]
--- OUTSIDE RECORDS SUMMARY | 2021-11-27 09:57 | XMS_ITS | Encounter Summary ---
:1940 Author Organization [facility] Address [address] [place] [address] Care Team Providers Name Role Phone Eduardo Muse D.O. Primary Care Provider [phone] Reason for Visit Reason Comments Eye Exam Appointment Request (Routine) - Closed Specialty Diagnoses / Procedures Referred By Contact Refer red To Contact Ophthalmology Referral ID Status Reason Start Date Expiration Date Visits Requ ested Visits Authorized [id number] Closed 05/09/2018 05/09/2019 1 1 Encounter Details Date Type Department Care Team Description 09/12/2018 Comprehensive Visit Department of Tabitha Lloyd Nuclear Ophthalmology in Torsten Ponce O.D. Cataract Bilateral [place], [place] [address] [place] (Primary Dx) [address] [place] [phone] Social History Tobacco Use Types Packs/Day Years [...] you attend baptist or Patient refused 2021 advent services? Do [...] documented as of this encounter Care Teams Cobol Mainframe Developer Relationship Specialty Start Date End Date Eduardo Muse D.O. PCP - General Family Medicine 09/04/17 08/23/19 [address] [place] [address] documented as of this encounter
--- OUTSIDE RECORDS SUMMARY | 2021-11-27 09:57 | XMS_ITS | Encounter Summary ---
:1940 Author Organization [facility] Address [address] [place] [address] Care Team Providers Name Role Phone Elsewhere, Pcp Primary Care Provider Unavailable Encounter Details Date Type Department Care Team Description 12/13/2002 Historical Ophthalmology [facility]ST O[facility] Hammad Lo M.D. [address] [place], [place] [address] (Wo rk) Social History Tobacco [...] or relatives? How often do you attend scientologist or Patient refused 2021 mormon services? Do you belong to any clubs or Patient refused 07/05/2021 organizations such as scientologist groups, unions, fraternal or athletic groups, or [...] with RAYRAY CDM Reports - EYEGEN Id: [id number] Status: Fnl documented in this encounter Plan of Treatment Not on filedocumented as of this encounter Visit Diagnoses Not on filedocumented in this encounter Care Teams Manager Regional Relationship Specialty Start Date End Date Elsewhere, Pcp PCP - General Internal Medicine 08/24/19 documented as of this encounter
--- OUTSIDE RECORDS SUMMARY | 2021-11-27 09:57 | XMS_ITS | Encounter Summary ---
:1940 Author Organization [facility] Address [address] [place] [address] Care Team Providers Name Role Phone Elsewhere, Pcp Primary Care Provider Unavailable Encounter Details Date Type Department Care Team Description 07/24/2009 Historical Ophthalmology RST OPH Torsten Lloyd ORobert [address] [place], [place] [phone] (Wo rk) Social History [...] you attend anglican or Patient refused 2021 mandaen services? Do [...] pigment epithelium CDM Reports - EYEGEN Id: [id number] Status: Fnl documented in this encounter Plan of Treatment Not on filedocumented as of this encounter Visit Diagnoses Not on filedocumented in this encounter Care Teams Photo Tech Relationship Specialty Start Date End Date Elsewhere, Pcp PCP - General Internal Medicine 08/24/19 documented as of this encounter
--- OUTSIDE RECORDS SUMMARY | 2021-11-27 09:57 | XMS_ITS | Encounter Summary ---
:1940 Author Organization [facility] Address [address] [place] [address] Care Team Providers Name Role Phone Elsewhere, [...] you attend nondenominational or Patient refused 2021 synagogue services? Do [...] pigment epithelium CDM Reports - EYEGEN Id: [id number] Status: Fnl documented in this encounter Plan of Treatment Not on filedocumented as of this encounter Visit Diagnoses Not on filedocumented in this encounter Care Teams Directory Compiler Relationship Specialty Start Date End Date Elsewhere, Pcp PCP - General Internal Medicine 08/24/19 documented as of this encounter
--- OUTSIDE RECORDS SUMMARY | 2021-11-27 09:57 | XMS_ITS | Encounter Summary ---
:1940 Author Organization [facility] Address [address] [place] [address] Care Team Providers Name Role Phone Unavailable [...] you attend tenriism or Patient refused 2021 jain services? Do [...]
--- OUTSIDE RECORDS SUMMARY | 2021-11-27 09:57 | XMS_ITS | Encounter Summary ---
:1940 Author Organization [facility] Address [address] [place] [address] Care Team Providers Name Role Phone Unavailable [...] you attend gnosticism or Patient refused 2021 anabaptist services? Do you belong to any clubs or Patient refused 07/05/2021 organizations such as gnosticism groups, unions, fraternal or athletic groups, or [...]
--- OUTSIDE RECORDS SUMMARY | 2021-11-27 09:57 | XMS_ITS | Encounter Summary ---
:1940 Author Organization [facility] Address [address] [place] [address] Care Team Providers Name Role Phone Elsewhere, Pcp Primary Care Provider Unavailable Encounter Details Date Type Department Care Team Description 09/26/2012 Historical Ophthalmology RST OPH Torsten Lloyd ORobert [address] [place], [place] [phone] (Wo rk) Social History [...] you attend mosque or Patient refused 2021 jew services? Do [...] typically wears progressive lenses in her glasses underwriting specialist. Denies flashes, new floaters, and diplopia. Denies ocular pain. IMPRESSION / REPORT / PLAN #1 Cataract, both eyes, not visually significant. Plan: monitor periodically, spectacle prescription (Refraction 1) given. DIAGNOSIS #1 Cataract, both eyes, not visually significant. CD Reports - EYEGEN Id: [id number] Status: Fnl documented in this encounter Plan of Treatment Not on filedocumented as of this encounter Visit Diagnoses Not on filedocumented in this encounter Additional Health Concerns Assessment Noted Time PHQ-9 Depression Total Score: 8 10/06/2011 9:02 AM CDT documented as of this encounter Care Teams Lock Maintenance Supervisor Relationship Specialty Start Date End Date Elsewhere, Pcp PCP - General Internal Medicine 08/24/19 documented as of this encounter
[2021-11-27 14:23] LABS: Vitamin B12* 864 pg/mL (243-894)
== END 2021-11-27 09:52 | disposition home or self-care (01) ==
PROVIDERS: PCP Nurse Practitioner Family; Visit Provider Nurse Practitioner Family
DX: R20.0 Anesthesia of skin (principal); R20.2 Paresthesia of skin; G62.9 Polyneuropathy, unspecified
CPT/HCPCS: 36415; 82607

== ENCOUNTER 2022-01-07 08:19 | Emergency (ER) | payer MEDICARE, SELFPAY ==
[2022-01-07 08:30] VITALS: BP 169/81; PULSE 68; RESP 14; TEMP 36.6; O2SAT 97; BMI 23.2
--- NOTE | 2022-01-07 08:53 | ED.UPPEXIN ---
HPI - Extremity Injury (Upper) General Time Seen by Provider: 08:54 Date Seen: 01/07/22 Chief Complaint: Shoulder Injury/Pain Stated Complaint: Right shoulder pain Time Seen by Provider: 01/07/22 08:53 Source: patient, RN notes reviewed and old records reviewed Mode of arrival: ambulatory Limitations: no limitations History of Present Illness HPI narrative: Radha is a very pleasant 81-year-old female with a history of hyperlipidemia, hypothyroidism who comes to the emergency room for evaluation regarding shoulder pain. Patient had the onset of right shoulder pain yesterday while she was in her sewing room [place] She was not lifting any heavy items she was not vacuuming yesterday. She is unsure why this would have happened to her. She has not had problems with her rotator cuff in the past. She describes the pain in the anterior shoulder but does radiate down into the deltoid and to the biceps. She notes that she keeps her arm by her side she has minimal discomfort and is able to move at the elbow and wrist. She states that it is hard to lift her arm. She has not taken anything for pain at this time. She has no history of rheumatoid arthritis or any other autoimmune disorder. Movement definitely increases her discomfort. Related Data Home Medications Medication Instructions Recorded Confirmed Medical Cannabis .Route 09/05/21 12/23/21 ascorbic acid (vitamin C) 500 mg 500 mg PO DAILY 09/05/21 12/23/21 tablet aspirin 81 mg chewable tablet 81 mg PO DAILY 09/05/21 12/23/21 calcium carbonate 600 mg-vitamin 1 tab PO DAILY 09/05/21 12/23/21 D3 10 mcg (400 unit) tablet multivitamin (Daily Multi-Vitamin 1 tab PO QAM 09/05/21 12/23/21 tablet) omega 4-gqh-wkq-fish oil 1,000 mg 2 cap PO BID 09/05/21 12/23/21 (120 mg-180 mg) capsule (Fish Oil) tramadol 50 mg tablet 150 mg PO .as needed PRN 09/05/21 12/23/21 vit B complex 100 combo no.2 100 tab PO 09/05/21 12/23/21 mg tablet,extended release (B-100 Complex ER) vitamin E 200 unit capsule 200 unit PO QDAY 09/05/21 12/23/21 acetaminophen 500 mg capsule 1,000 mg PO TID 11/27/21 12/23/21 Previous Rx's Medication Instructions Recorded hydrochlorothiazide 25 mg tablet 25 mg PO DAILY 90 days #90 tabs 12/15/21 levothyroxine 137 mcg tablet 137 mcg PO DAILY 90 days #90 tabs 12/15/21 losartan 50 mg tablet 75 mg PO DAILY 90 days #135 tabs 12/15/21 potassium chloride 20 mEq 20 meq PO QDAY 90 days #90 tabs 12/15/21 tablet,extended release(part/cryst) ropinirole 1 mg tablet See Rx Instructions PO DAILY 90 12/15/21 days #360 tabs simvastatin 20 mg tablet 20 mg PO .Bedtime 90 days #90 tabs 12/15/21 docusate sodium 100 mg capsule 100 mg PO QDAY 30 days #30 caps 12/23/21 (Colace) Allergies Allergy/AdvReac Type Severity Reaction Status Date / Time lisinopril AdvReac Cough Verified 01/07/22 08:30 Review of Systems Narrative: Patient denies fever, chills. She has not had a recent fall or trauma. No numbness or tingling of the extremity. [facility] Medical History COVID-19 Degeneration of intervertebral disc Diarrhea Encounter for follow-up Gastroesophageal reflux disease Hyperlipidemia Hypertension Hypothyroidism Medication monitoring encounter Prophylactic antibiotic Restless legs syndrome Screening for osteoporosis Spinal stenosis Surgical History History of appendectomy History of hysterectomy History of spinal surgery History of tubal ligation Family History Other Cancer Heart disease Stroke Social History Narrative: . 3 children. Smoking Status: Never smoker How often do you have a drink containing alcohol: never AUDIT-C Alcohol total score: 0 Non-prescribed substance use details: medical marijuana Exam Narrative: Exam Narrative: Patient is alert and oriented. No acute distress. Appropriate speech and mentation. Heart with regular rate and rhythm and lungs are clear in all lung calderon. Examination of the shoulder shows slight soft tissue swelling on the anterior shoulder. This is also where most of the tenderness is located. This is near the biceps insertion. Biceps appears to be intact. Patient is able to lift arm to approximately 45? in abduction. Distally motor and station is fully intact. Const: Vital Signs, click to edit/add: Vital Signs - 24 hr 01/07/22 08:30 Temperature 97.9 F Pulse Rate [Left P ulse Oximeter] 68 Respiratory Rate 14 Blood Pressure [Ri ght Upper Arm] 169/81 H Pulse Oximetry 97 Oxygen Delivery Me thod Room Air Course Course Hospital Course: Suspect rotator cuff tendinitis. Will send patient for x-ray of the right shoulder. Vital Signs Vital signs: Initial Vital Signs Temperature 97.9 F 01/07/22 08:30 Temperature Source Temporal Artery Scan 01/07/22 08:30 Pulse Rate 68 01/07/22 08:30 Respiratory Rate 14 01/07/22 08:30 Blood Pressure 169/81 H 01/07/22 08:30 Blood Pressure Mean 110 01/07/22 08:30 Blood Pressure Position Sitting 01/07/22 08:30 Pulse Oximetry 97 01/07/22 08:30 Oxygen Delivery Method 01/07/22 08:30 Vital Signs Temperature 97.9 F 01/07/22 08:30 Pulse Rate 68 01/07/22 08:30 Respiratory Rate 14 01/07/22 08:30 Blood Pressure 169/81 H 01/07/22 08:30 Pulse Oximetry 97 01/07/22 08:30 Oxygen Delivery Method 01/07/22 08:30 Temperature 97.9 F 01/07/22 08:30 Pulse Rate 68 01/07/22 08:30 Respiratory Rate 14 01/07/22 08:30 Blood Pressure 169/81 H 01/07/22 08:30 Pulse Oximetry 97 01/07/22 08:30 Oxygen Delivery Method 01/07/22 08:30 MDM - Extremity Injury (Upper) MDM Narrative Medical decision making narrative: 1. Right shoulder pain-suggests right rotator cuff tendinitis. X-ray by my read shows no acute findings. Recommend sling at this time. Demonstrated poefk-ks-imwqqd exercises that I would like patient to do every 4 hours while awake to avoid risk of frozen shoulder. Patient has no history of renal disease and therefore will use low-dose ibuprofen 400 mg twice a day as needed for discomfort. Would like her to follow up with Orthopedics or her primary MD to get started on physical therapy. Ice may also be helpful. 2. Disposition-home with her . Note hand written discharge struck shins for this patient as our system was down and we were unable to access the computer. Medical Records Attestation: I reviewed the patient's medical records. Imaging Data Right shoulder x-ray: Attestation: I have reviewed the pertinent imaging results. My impression: Age related changes noted but no acute fracture or other findings. Radiologist's impression: Bones: Alignment is normal. No fractures or bone lesions. Joint spaces: Mild glenohumeral osteoarthritis seen on the Grashey view. The acromioclavicular joint appears normal Soft tissues: Soft tissue calcification in the course of the coracoclavicular ligament indicating remote injury Impression: Glenohumeral osteoarthritis. Evidence of remote coracoclavicular ligament injury Discharge Plan Discharge Prescriptions: No Action calcium carbonate-vitamin D3 600 mg-10 mcg (400 unit) tablet 1 tab PO DAILY aspirin 81 mg tablet,chewable 81 mg PO DAILY ascorbic acid (vitamin C) 500 mg tablet 500 mg PO DAILY tramadol 50 mg tablet 150 mg PO .as needed PRN multivitamin [Daily Multi-Vitamin] Tablet 1 tab PO QAM omega 3-tcu-zkc-fish oil [Fish Oil] 1,000 mg (120 mg-180 mg) capsule 2 cap PO BID B-100 Complex 100 mg tablet extended release PO vitamin E 200 unit capsule 200 unit PO QDAY Medical Cannabis .Route Rx Instructions: Drop under tongue acetaminophen 500 mg capsule 1,000 mg PO TID docusate sodium [Colace] 100 mg capsule 100 mg PO QDAY 30 Days Qty: 30 0RF losartan 50 mg tablet 75 mg PO DAILY 90 Days Qty: 135 3RF simvastatin 20 mg tablet 20 mg PO .Bedtime 90 Days Qty: 90 3RF levothyroxine 137 mcg tablet 137 mcg PO DAILY 90 Days Qty: 90 3RF potassium chloride 20 mEq tablet,ER particles/crystals 20 meq PO QDAY 90 Days Qty: 90 3RF hydrochlorothiazide 25 mg tablet 25 mg PO DAILY 90 Days Qty: 90 3RF ropinirole 1 mg tablet See Rx Instructions PO DAILY 90 Days Qty: 360 3RF Rx Instructions: 1-4mg PO daily; Follow Up/Referrals: Barbara Vincent, ART HISTORY PROFESSOR, PRISON OFFICER [Primary Care Provider] -
--- NOTE | 2022-01-07 09:05 | CRLHL7_ITS ---
For Patients: As a result of the Century Cures Act, medical imaging exams and procedure reports are released immediately into your electronic medical record. You may view this report before your referring provider. If you have questions, please contact your health care provider. Indication: Right shoulder pain Technique: A total of three views of the right shoulder were acquired. Comparison: None Findings: Bones: Alignment is normal. No fractures or bone lesions. Joint spaces: Mild glenohumeral osteoarthritis seen on the Grashey view. The acromioclavicular joint appears normal Soft tissues: Soft tissue calcification in the course of the coracoclavicular ligament indicating remote injury Impression: Glenohumeral osteoarthritis. Evidence of remote coracoclavicular ligament injury Dictated by Hammad Her MD @ 01/07/2022 10:25:27 AM (Electronically Signed)
--- OUTSIDE RECORDS SUMMARY | 2022-01-07 09:16 | XMS_ITS | Encounter Summary ---
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 [facility] Procedures Enema Prep [address] [place] [address] Referral ID Status Reason Start Date Expiration Date Visits Requ ested Visits Authorized [id number] Closed 07/10/2021 07/10/2022 1 1 Encounter Details Date Type Department Care Team Description 07/10/2021 Clinical Support Enema Prep Facility Abram Marie M.D. [address] [place] [phone] Enterocolitis Due To in [place], Teodora Mallory, R.NAnant Clostridium Difficile [place] Recurrent [address] [place] [phone] Social History Tobacco Use Types Packs/Day Years [...] drinks on one occasion? No t asked Social Isolation Answer Date Recorded In a typical week, how many times do you More than three paresh es a week 07/05/2021 talk on the phone with family, friends, or neighbors? How often do you get together with friends Three times a wee k 07/05/2021 or relatives? How often do you attend jewish or Patient refused 2021 bahai services? Do you belong to any clubs or Patient refused 07/05/2021 organizations such as jewish groups, unions, [employer] or athletic groups, or school groups? How [...] documented as of this encounter Care Teams Administrative Officer Relationship Specialty Start Date End Date Elsewhere, Pcp PCP - General Internal Medicine 08/24/19 documented as of this encounter
--- OUTSIDE RECORDS SUMMARY | 2022-01-07 09:16 | XMS_ITS | Clinical Summary ---
:1940 Author Organization [facility] Address [address] [place] [address] Care Team Providers Name Role Phone Elsewhere, Pcp Primary Care Provider Unavailable Source Comments Patient records contain information from all sites at [facility]. For routine questions regarding patient records, call [phone] during business hours, M-F 8:00 AM - 5:00 PM Central Time. Record requests for emergency care only can be directed to [phone] at any time.[facility] Allergies Active Allergy Reactions Severity Noted [...] Related Nuclear Cataract Bilateral 09/12/2018 Hypertension 12/07/2002 Immunizations Name Administration Dates Next Due HZV [...] you attend druze or Patient refused 2021 voodoo services? Do [...] or slept in a [facility]p (including now)? Education Answer Date Recorded What [...] Done Comments Depression Screening (Annual 03/08/2021 PHQ-2) DTaP,Tdap,and Td Vaccines (2 - Td 10/05/2021 10/06/2011, , or Tdap) 09/24/2008, Additional history exists Office Visit for Blood Pressure 10/08/2021 07/08/2021 Check / Re-check Creatinine Level 11/07/2021 11/07/2020, 09/24/2020, 06/27/2020, Additional history exists Potassium Level 11/07/2021 11/07/2020, 09/24/2020, 06/27/2020, Additional history exists Sodium Level 11/07/2021 11/07/2020, 09/24/2020, 06/27/2020, Additional history exists Thyroid Stimulating Hormone (TSH) 06/06/2022 06/06/2021, , test for thyroid function 09/25/2019, Additional history exists Pneumococcal vaccine (65+ years) Completed 11/06/2014, Zoster Vaccines Completed 03/27/2019, 01/03/2019, 09/24/2008 Fall Risk Screen (Annual) Completed 07/10/2021 COVID-19 Vaccine Completed 11/27/2021, 12/29/2020, 06/27/2020, Additional history exists Influenza Vaccine Completed 11/27/2021, 11/12/2020, 10/26/2019, Additional history exists Medical Devices Implanted Type Area Medical Records Secretary Device Shelf Model / Identifier Expiration Serial / Date Lot Conversions - Default Historical Implant Device Hardware Back Implanted: 06/10/2016 (Quantity not on file) e.g. pins/screws/ rods Description: Body Location - Back. wires from back surgery. Device Status Text - Hardware. Insurance Payer Benefit Plan / Subscriber ID Effective Dates Phone Addre ss Type Group AARP AARP MEDICARE [id number] 2020-Present [phone] [address] [address] [place] [address] Advance Directives For more information, please contact: [phone] Documents on File Type Date Recorded Patient Municipal Clerk Explanati on Advance Directives 10/25/2015 12:00 AM Legacy doc ument. See document viewer. Care Teams Neuropsychiatrist Relationship Specialty Start Date End Date Elsewhere, Pcp PCP - General Internal Medicine 08/24/19
--- OUTSIDE RECORDS SUMMARY | 2022-01-07 09:16 | XMS_ITS | Clinical Summary ---
:1940 Author Organization [facility] [place] [address] Care Team Providers Name Role Phone Paula Carrillo Primary Care Provider Allergies Active Allergy Reactions Severity Noted Date Comments Olmesartan Dizziness 11/30/2006 Lisinopril Cough 10/11/2006 Metoprolol Sleep Disturbances 06/28/2017 Medications Medication Sig Dispensed Refills Start End Date Status Date Fish Oil-DHA-EPA Take 2 capsules by 0 Active 1,200-144-216 mg cap mouth 2 times 8 daily. siknafgwarjim-nkwounkb-m Take 1 tablet by 0 06/29/19 1 [...] Name Administration Dates Next Due COVID-19 vaccine ([employer] 06/27/2020, 06/06/2020 30mcg/0.3mL) PF, MDV Influenza, High-dose [...] Done Comments COVID-19 vaccine series (4 - 02/23/2021 12/29/2020, 021, Booster for Pfizer series) 06/06/2020 [...] 50+ 09/24/2008 Medical Devices Implanted Type Area Psychology Clinician Device Shelf Model / Identifier Expiration Serial / Date Lot Screw 40x5.5 N/A: Spine 01/08/2025 [id number] / Implanted: Qty: 1 on 07/19/2017 by Tobin Vo MD at [facility] / [id number] Description: SCREW 40X5.5 Results Not on filefrom Last 3 Months Additional Health Concerns Infection Onset Date Last Indicated CLOSTRIDIUM DIFFICILE 11/20/2020 11/20/2020 Insurance Payer Benefit Plan / Subscriber ID Effective Dates Phone Addre ss Type Group MEDICARE PART B - MEDICARE PART B [id number] 2005-Presen ATTN: CLAIMS HB USE ONLY HB ONLY t [address] MEDICARE PART A - MEDICARE PART A [id number] 2005-Presen ATTN: CLAIMS HB USE ONLY HB ONLY t [address] [place] [address] MR [id number] 2021-Presen [address] [address] [place] [address] Advance Directives Documents on File Type Date Recorded Patient Hospitality Team Member Explanati on Healthcare Directive 06/28/2017 4:21 PM HEALTH CA RE POWER OF BLURB WRITER, 2003 Latest Code Status on File Code Status Date Activated Date Inactivated Comments Full Code 07/19/2017 5:26 AM 07/26/2017 1:20 PM Care Teams Cleaner And Dyer Relationship Specialty Start Date End Date Paula Carrillo PA PCP - General Physician Thiokol Operator 09/10/[address] [facility] [place] [address]
--- OUTSIDE RECORDS SUMMARY | 2022-01-07 09:16 | XMS_ITS | Encounter Summary ---
:1940 Author Organization [facility] Address [address] [place] [address] Care Team Providers Name Role Phone Elsewhere, Pcp Primary Care Provider Unavailable Encounter Details Date Type Department Care Team Description 10/03/2021 Clinical Communication Division of Coretta Peck Gastroenterology in , [place], [place] [address] [facility] [address] [place] [phone] Social History Tobacco Use Types Packs/Day Years [...] or relatives? How often do you attend jew or Patient refused 2021 voodoo services? Do you belong to any clubs or Patient refused 07/05/2021 organizations such as jew groups, unions, fraternal or athletic groups, or [...] documented as of this encounter Care Teams Lacquer Mixer Relationship Specialty Start Date End Date Elsewhere, Pcp PCP - General Internal Medicine 08/24/19 documented as of this encounter
--- OUTSIDE RECORDS SUMMARY | 2022-01-07 09:16 | XMS_ITS | Encounter Summary ---
:1940 Author Organization [facility] Address [address] [place] [address] Care Team Providers Name Role Phone Elsewhere, Pcp Primary Care Provider Unavailable Encounter Details Date Type Department Care Team Description 07/17/2021 Office Visit Division of Bo Marie Constipation (Primary Dx); Gastroenterology in S, M.D. [place], [place] [address] [facility] [address] [place] [phone] Social History Tobacco Use Types Packs/Day Years [...] you attend zoroastrian or Patient refused 2021 episcopal services? Do [...] documented as of this encounter Care Teams Sewing Machine Repairer Relationship Specialty Start Date End Date Elsewhere, Pcp PCP - General Internal Medicine 08/24/19 documented as of this encounter
--- OUTSIDE RECORDS SUMMARY | 2022-01-07 09:16 | XMS_ITS | Encounter Summary ---
:1940 Author Organization [facility] Address [address] [place] [address] Care Team Providers Name Role Phone Elsewhere, [...] you attend episcopal or Patient refused 2021 buddhist services? Do [...] documented as of this encounter Care Teams Surface Lay Out Technician Relationship Specialty Start Date End Date Elsewhere, Pcp PCP - General Internal Medicine 08/24/19 documented as of this encounter
--- OUTSIDE RECORDS SUMMARY | 2022-01-07 09:16 | XMS_ITS | Encounter Summary ---
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 [facility] Procedures Enema Prep [address] [place] [phone] Referral ID Status Reason Start Date Expiration Date Visits Requ ested Visits Authorized [id number] Closed 07/10/2021 07/10/2022 1 1 Encounter Details Date Type Department Care Team Description 07/10/2021 Orders Only Division of Bo Marie Enterocolitis Due To Clostridium Difficile Not Specified As Recurrent (Primary Dx); Gastroenterology in [place] Enterocolitis Due To Clostridium Diffici le Recurrent [place], [place] [address] [facility] [address] [place] [phone] Social History Tobacco Use Types Packs/Day Years [...] you attend mormon or Patient refused 2021 church services? Do [...] documented as of this encounter Care Teams Java Mobile Developer Relationship Specialty Start Date End Date Elsewhere, Pcp PCP - General Internal Medicine 08/24/19 documented as of this encounter
--- OUTSIDE RECORDS SUMMARY | 2022-01-07 09:17 | XMS_ITS | Encounter Summary ---
:1940 Author Organization [facility] Address [address] [place] [address] Care Team Providers Name Role Phone Elsewhere, Pcp Primary Care Provider Unavailable Reason for Visit Reason Comments Pre-visit Intake Encounter Details Date Type Department Care Team Description 07/04/2021 Clinical Communication Visit Review in Pr e-visit Intake [address] [address] Social History Tobacco Use Types Packs/Day Years [...] you attend yarsani or Patient refused 2021 islam services? Do [...] documented as of this encounter Care Teams Ruffler Relationship Specialty Start Date End Date Elsewhere, Pcp PCP - General Internal Medicine 08/24/19 documented as of this encounter
--- OUTSIDE RECORDS SUMMARY | 2022-01-07 09:17 | XMS_ITS | Encounter Summary ---
:1940 Author Organization [facility] Address [address] [place] [address] Care Team Providers Name Role Phone Elsewhere, Pcp Primary Care Provider Unavailable Reason for Referral Outpatient (Routine) - Closed Specialty Diagnoses / Procedures Referred By Contact Refer red To Contact Diagnoses Diarrhea Persistent Unexplained Bo Marie M.D. [facility] Procedures Colonoscopy [address] [place] [address] Referral ID Status Reason Start Date Expiration Date Visits Requ ested Visits Authorized [id number] Closed 07/08/2021 07/08/2022 1 1 Reason for Visit Outpatient (Routine) - Closed Specialty Diagnoses / Procedures Referred By Contact Refer red To Contact Diagnoses Diarrhea Persistent Unexplained Bo Marie M.D. [facility] Procedures Colonoscopy [address] [place] [address] Referral ID Status Reason Start Date Expiration Date Visits Requ ested Visits Authorized [id number] Closed 07/08/2021 07/08/2022 1 1 Encounter Details Date Type Department Care Team Description 07/10/2021 Hospital Division of Bo Marie Diarrhea Encounter Gastroenterology in [place], [place] [address] [facility] Unexplained [address] [place] [phone] Social History Tobacco Use Types Packs/Day Years [...] you attend protestant or Patient refused 2021 confucianism services? Do [...] Organization Address City/State/ZIP Code Phon e Number [facility] - [address] [place], [place] [address] [facility] [place] [address] [facility] [address] Colonoscopy (07/10/2021 3:36 PM CDT) Specimen (Source) Anatomical Collection Method Collection Time Re ceived Time Location / / Volume Laterality 07/10/2021 3:36 PM CDT Impressions [facility] - 07/10/2021 4:00 PM CDT Post-op Diagnoses: ? - Biopsies were obtained in the e ntire colon. Narrative [facility] - 07/10/2021 4:00 PM CDT Gonda [...] bowel preparation was evaluated using the BBPS (Stella ? Bowel Preparation Scale) with sco res [...] documented as of this encounter Care Teams Psychiatric Mental Health Nurse Relationship Specialty Start Date End Date Elsewhere, Pcp PCP - General Internal Medicine 08/24/19 documented as of this encounter
--- OUTSIDE RECORDS SUMMARY | 2022-01-07 09:17 | XMS_ITS | Encounter Summary ---
:[address] [facility] Address [address] [place] [address] Care Team Providers Name Role Phone Elsewhere, Pcp Primary Care Provider Unavailable Encounter Details Date Type Department Care Team Description 10/14/2010 Historical Ophthalmology [facility] Cris Gonzalez O.D. [address] [place], [place] [phone] (Wo rk) Social History Tobacco Use Types [...] you attend alevism or Patient refused 2021 confucianist services? Do [...] pigment epithelium CDM Reports - EYEGEN Id: [id number] Status: Fnl documented in this encounter Plan of Treatment Not on filedocumented as of this encounter Visit Diagnoses Not on filedocumented in this encounter Additional Health Concerns Assessment Noted Time PHQ-9 Depression Total Score: 5 09/26/2009 8:27 AM CDT documented as of this encounter Care Teams Automobile Salesman Relationship Specialty Start Date End Date Elsewhere, Pcp PCP - General Internal Medicine 08/24/19 documented as of this encounter
--- OUTSIDE RECORDS SUMMARY | 2022-01-07 09:17 | XMS_ITS | Encounter Summary ---
:1940 Author Organization [facility] Address [address] [place] [address] Care Team Providers Name Role Phone Elsewhere, Pcp Primary Care Provider Unavailable Encounter Details Date Type Department Care Team Description 07/08/2021 Orders Only Division of Gastroenterology Tino Peck, in [facility] [address] [facility] [address] [place] [address] [place], [place] [phone] Social History Tobacco Use Types Packs/Day Years [...] you attend mu-ism or Patient refused 2021 taoist services? Do [...] documented as of this encounter Care Teams Recruitment Officer Relationship Specialty Start Date End Date Elsewhere, Pcp PCP - General Internal Medicine 08/24/19 documented as of this encounter
--- OUTSIDE RECORDS SUMMARY | 2022-01-07 09:17 | XMS_ITS | Encounter Summary ---
:1940 Author Organization [facility] Address [address] [place] [address] Care Team Providers Name Role Phone Elsewhere, Pcp Primary Care Provider Unavailable Encounter Details Date Type Department Care Team Description 11/09/2013 Historical Ophthalmology [facility] Heather ck, Celia Hathaway, O.D. [address] [place], [place] [phone] (Wo rk) Social History Tobacco Use Types [...] you attend uatsdin or Patient refused 2021 restoration services? Do [...] astigmatism, presbyopia). CDM Reports - EYEGEN Id: [id number] Status: Fnl documented in this encounter Plan of Treatment Not on filedocumented as of this encounter Visit Diagnoses Not on filedocumented in this encounter Additional Health Concerns Assessment Noted Time PHQ-9 Depression Total Score: 1 10/05/2013 1:43 PM CDT documented as of this encounter Care Teams Bar Machine Operator Multiple Spindle Relationship Specialty Start Date End Date Elsewhere, Pcp PCP - General Internal Medicine 08/24/19 documented as of this encounter
--- OUTSIDE RECORDS SUMMARY | 2022-01-07 09:17 | XMS_ITS | Encounter Summary ---
:1940 Author Organization [facility] Address [address] [place] [address] Care Team Providers Name Role Phone Unavailable [...] attend jehovah's witness or Patient refused 2021 buddhism services? Do you belong to any clubs [...]
--- OUTSIDE RECORDS SUMMARY | 2022-01-07 09:17 | XMS_ITS | Encounter Summary ---
:1940 Author Organization [facility] Address [address] [place] [address] Care Team Providers Name Role Phone Unavailable [...] you attend synagogue or Patient refused 2021 alevism services? Do [...]
--- OUTSIDE RECORDS SUMMARY | 2022-01-07 09:17 | XMS_ITS | Encounter Summary ---
:1940 Author Organization [facility] Address [address] [place] [address] Care Team Providers Name Role Phone Elsewhere, Pcp Primary Care Provider Unavailable Encounter Details Date Type Department Care Team Description 09/26/2012 Historical Ophthalmology [facility] Torsten Lloyd ORobert [address] [place], [place] [phone] (Wo rk) Social History [...] or relatives? How often do you attend anabaptist or Patient refused 2021 anglican services? 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 Denies flashes, new floaters, and diplopia. Denies ocular pain. IMPRESSION / REPORT / PLAN #1 Cataract, both eyes, not visually significant. Plan: monitor periodically, spectacle prescription (Refraction 1) given. DIAGNOSIS #1 Cataract, both eyes, not visually significant. CDM Reports - EYEGEN Id: [id number] Status: Fnl documented in this encounter Plan of Treatment Not on filedocumented as of this encounter Visit Diagnoses Not on filedocumented in this encounter Additional Health Concerns Assessment Noted Time PHQ-9 Depression Total Score: 8 10/06/2011 9:02 AM CDT documented as of this encounter Care Teams Rougher Merchant Mill Relationship Specialty Start Date End Date Elsewhere, Pcp PCP - General Internal Medicine 08/24/19 documented as of this encounter
--- OUTSIDE RECORDS SUMMARY | 2022-01-07 09:17 | XMS_ITS | Encounter Summary ---
:1940 Author Organization [facility] Address [address] [place] [address] Care Team Providers Name Role Phone Eduardo Muse D.O. Primary Care Provider Reason for Visit Reason Comments Eye Exam Appointment Request (Routine) - Closed Specialty Diagnoses / Procedures Referred By Contact Refer red To Contact Ophthalmology Referral ID Status Reason Start Date Expiration Date Visits Requ ested Visits Authorized [id number] Closed 05/09/2018 05/09/2019 1 1 Encounter Details Date Type Department Care Team Description 09/12/2018 Comprehensive Visit Department of Tabitha Lloyd Nuclear Ophthalmology in Torsten Ponce O.D. Cataract Bilateral [place], [place] [address] [place] [address] (Primary Dx) [address] [place] [phone] Social History Tobacco Use Types Packs/Day Years [...] you attend sikhism or Patient refused 2021 rastafari services? Do [...] documented as of this encounter Care Teams Material Control Analyst Relationship Specialty Start Date End Date Eduardo Muse D.O. PCP - General Family Medicine 09/04/17 08/23/19 [address] [place] [address] documented as of this encounter
--- OUTSIDE RECORDS SUMMARY | 2022-01-07 09:17 | XMS_ITS | Encounter Summary ---
:1940 Author Organization [facility] Address [address] [place] [address] Care Team Providers Name Role Phone Elsewhere, Pcp Primary Care Provider Unavailable Reason for Referral Outpatient (Routine) - Authorized Specialty Diagnoses / Procedures Referred By Contact Refer red To Contact Diagnoses Diarrhea Persistent Unexplained Bo Marie M.D. 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 [address] [place] [address] Referral ID Status Reason Start Date Expiration Date Visits Requ ested Visits Authorized [id number] Closed 06/11/2021 06/11/2022 1 1 Encounter Details Date Type Department Care Team Description 07/08/2021 Comprehensive Visit Division of [place], Diarrhea Persistent Unexplained (Primary Dx); Gastroenterology in [place], Enteroco litis Due To Clostridium Difficile Not Specified As Recurrent; [place], [place] M.DAnant Malnutrition Moderate Protein-Calorie (H CC) [address] [place] [phone] Social History Tobacco Use Types Packs/Day Years [...] you attend latter-day or Patient refused 2021 jew services? Do [...] significant finding. She then we wintered in [place] and saw PA there who diagnosed irritable [...] and its performa nce characteristics determined by [facility] in a manner consistent with CLIA requirements. This test has not been cleared or approved by the U.[place]. Rula d and Drug Administration. Specimen Anatomical Collection Method Collection Time Receive d Time (Source) Location / / Volume Laterality Blood (Blood, 07/08/2021 10:57 07/08/2021 3:28 Venous) AM CDT PM CDT Bo Marie M.D. LAB BLOOD NON ADD-ON Performing Organization Address [facility] Phon e Number [facility] [address] [place] [address] [place] [address] Laboratory Medicine and Pathology [address] [place] [address] Dr. FORBES Vitamin E Level (07/08/2021 10:57 AM CDT) athologist Signature A-Tocopherol, 15.1 5.5 - 17.0 07/09/2021 [facility] Vitamin E mg/L 11:42 AM CDT Comment: ----ADDITIONAL INFORMATION---- This test was developed and its performa nce characteristics determined by [facility] in a manner consistent with CLIA requirements. This test has not been cleared or approved by the U.S. Rula d and Drug Administration. Specimen Anatomical Collection Method Collection Time Receive d Time (Source) Location / / Volume Laterality Blood (Blood, 07/08/2021 10:57 07/08/2021 3:27 Venous) AM CDT PM CDT Bo Marie M.D. LAB BLOOD NON ADD-ON Performing Organization Address [facility] Phon e Number [address] ANDREI Sánchez[address] [place] [address] Laboratory Medicine and Pathology [address] [place] [address] Dr. FORBES Vitamin B12 Assay (07/08/2021 10:57 AM CDT) athologist Signature Vitamin B12 [phone] 914 07/08/2021 DTL Assay, S ng/L 2:23 [...] M.D. LAB BLOOD ADD-ON Performing Organization Address City/[facility] Phon e Number [facility] - [address] [place], [place] [address] [employer] [facility] [employer] [place] [address] [facility] [address] [facility] Vitamin A Level (07/08/2021 10:57 AM CDT) athologist Signature Vitamin A 39.5 32.5 - 78.0 07/10/2021 9:12 SDSC mcg/dL AM CDT Comment: ----ADDITIONAL INFORMATION---- This test was developed and its performa nce characteristics determined by [facility] in a manner consistent with CLIA requirements. This test has not been cleared or approved by the U.S. Rula d and Drug Administration. Specimen Anatomical Collection Method Collection Time Receive d Time (Source) Location / / Volume Laterality Blood (Blood, 07/08/2021 10:57 07/08/2021 3:27 Venous) AM CDT PM CDT Bo Marie M.D. LAB BLOOD NON ADD-ON Performing Organization Address City/[facility] Phon e Number [facility] [address] [place] [address] [facility] [place] [address] Laboratory Medicine and Pathology [address] [place] Copper (07/08/2021 10:57 AM CDT) athologist Signature Copper, S 1.40 0.75 - 1.45 07/09/2021 9:53 SDSC mcg/mL AM CDT Comment: ----ADDITIONAL INFORMATION---- This test was developed and its performa nce characteristics determined by [facility] in a manner consistent with CLIA requirements. This test has not been cleared or approved by the U.S. Rula d and Drug Administration. Specimen Anatomical Collection Method Collection Time Receive d Time (Source) Location / / Volume Laterality Blood (Blood, 07/08/2021 10:57 07/08/2021 3:28 Venous) AM CDT PM CDT Bo Marie M.D. LAB BLOOD NON ADD-ON Performing Organization Address [facility] Phon e Number [address] [place] [address] [address] [facility] [facility] [place] [address] Laboratory Medicine and Pathology [address] [place] [address] Dr. FORBES Selenium (07/08/2021 10:57 AM CDT) athologist Signature Selenium, S 118 70 - 150 07/09/2021 SDS ng/mL 9:53 AM CDT Comment: ----ADDITIONAL INFORMATION---- This test was developed and its performa nce characteristics determined by [facility] in a manner consistent with CLIA requirements. This test has not been cleared or approved by the U.S. Rula d and Drug Administration. Specimen Anatomical Collection Method Collection Time Receive d Time (Source) Location / / Volume Laterality Blood (Blood, 07/08/2021 10:57 07/08/2021 3:28 Venous) AM CDT PM CDT Bo Marie M.D. LAB BLOOD NON ADD-ON Performing Organization Address City/[facility] Phon e Number [address] [place] [address] [address] [facility] [place] [address] Laboratory Medicine and Pathology [address] [place] [address] Dr. FORBES Prothrombin Time (PT) (07/08/2021 10:57 [...] Address City/State/ZIP Code Phon e Number [facility] - [address] [place], [place] [address] [place] [address] [facility] 200 [facility] Folate (07/08/2021 10:57 AM CDT) athologist Signature Folate, S >20.0 >=4.0 mcg/L 07/08/2021 2:20 DTL PM CDT Specimen Anatomical Collection Method Collection Time Receive d Time (Source) Location / / Volume Laterality Blood (Blood, 07/08/2021 10:57 07/08/2021 Venous) AM CDT 12:38 PM CDT Bo Marie M.D. LAB BLOOD ADD-ON Performing Organization Address City/State/ZIP Code Phon e Number [facility] - [address] [place], [place] [address] [place] [address] Ferritin (07/08/2021 10:57 AM CDT) athologist Signature Ferritin, S 103 11 - 307 07/08/2021 DTL mcg/L 2:15 PM CDT Specimen Anatomical Collection Method Collection Time Receive d Time (Source) Location / / Volume Laterality Blood (Blood, 07/08/2021 10:57 07/08/2021 Venous) AM CDT 12:38 PM CDT Bo Marie M.D. LAB BLOOD ADD-ON Performing Organization Address City/State/ZIP Code Phon e Number [facility] - [address] [place], [place] [address] [place] [address] 25-Hydroxyvitamin D2 and D3 (07/08/2021 10:57 AM CDT) athologist Signature 25-Hydroxy D2 <4.0 ng/mL 07/09/2021 SDSC 10:54 PM CDT 25-Hydroxy D3 46 ng/mL 07/09/2021 SDSC 10:54 PM CDT 25-Hydroxy D 46 ng/mL 07/09/2021 [facility] Total 10:54 PM CDT Comment: ----REFERENCE VALUE---- 25-HYDROXY D TOTAL (D2+D3) Optimum level s in the healthy population are 20-50, patients with bone disease may benefit from higher levels within this r ihsan. ----ADDITIONAL INFORMATION---- This test was developed and its performa nce characteristics determined by [facility] in a manner consistent with CLIA requirements. This test has not been cleared or approved by the U.S. Rula d and Drug Administration. Specimen Anatomical Collection Method Collection Time Receive d Time (Source) Location / / Volume Laterality Blood (Blood, 07/08/2021 10:57 07/09/2021 7:54 Venous) AM CDT AM CDT oB Marie M.D. LAB BLOOD ADD-ON Performing Organization Address City/State/ZIP Code Phon e Number [facility] [address] [place] [address] [facility] [place] [address] Laboratory Medicine and Pathology [address] [place] documented in this encounter Visit Diagnoses Diagnosis Diarrhea Persistent Unexplained - Primar y Enterocolitis Due To Clostridium Diffici le Not Specified As Recurrent Malnutrition Moderate Protein-Calorie (H CC) documented in this encounter Additional Health Concerns Assessment Noted Time PHQ-9 Depression Total Score: 1 10/05/2013 1:43 PM CDT documented as of this encounter Care Teams Colliery Clerk Relationship Specialty Start Date End Date Elsewhere, Pcp PCP - General Internal Medicine 08/24/19 documented as of this encounter
--- OUTSIDE RECORDS SUMMARY | 2022-01-07 09:17 | XMS_ITS | Encounter Summary ---
:1940 Author Organization [facility] Address [address] [place] [address] Care Team Providers Name Role Phone Elsewhere, Pcp Primary Care Provider Unavailable Encounter Details Date Type Department Care Team Description 09/04/2015 Historical Ophthalmology RST OPH Tobin Bartlett O.D. [address] [place], [place] [address] (Wo rk) Social History [...] you attend pentecostal or Patient refused 2021 temple services? Do [...] visually significant. CDM Reports - EYEGEN Id: [id number] Status: Fnl documented in this encounter Plan of Treatment Not on filedocumented as of this encounter Visit Diagnoses Not on filedocumented in this encounter Additional Health Concerns Assessment Noted Time PHQ-9 Depression Total Score: 1 10/05/2013 1:43 PM CDT documented as of this encounter Care Teams Children'S Book Author Relationship Specialty Start Date End Date Elsewhere, Pcp PCP - General Internal Medicine 08/24/19 documented as of this encounter
--- OUTSIDE RECORDS SUMMARY | 2022-01-07 09:17 | XMS_ITS | Encounter Summary ---
:1940 Author Organization [facility] Address [address] [place] [address] Care Team Providers Name Role Phone Unavailable [...] you attend shinto or Patient refused 2021 lutheran services? Do [...]
--- OUTSIDE RECORDS SUMMARY | 2022-01-07 09:17 | XMS_ITS | Encounter Summary ---
:1940 Author Organization [facility] Address [address] [place] [address] Care Team Providers Name Role Phone Unavailable [...] you attend jewish or Patient refused 2021 church services? Do [...]
--- OUTSIDE RECORDS SUMMARY | 2022-01-07 09:17 | XMS_ITS | Encounter Summary ---
:1940 Author Organization [facility] Address [address] [place] [address] Care Team Providers Name Role Phone Amrik Calix Primary Care Provider Unavailable Encounter Details Date Type Department Care Team Description 05/24/2017 Abstract [facility] Leeanna Roy [facility] [address] [place] [phone] Social History Tobacco Use Types Packs/Day [...] you attend holiness or Patient refused 2021 protestant services? Do [...] documented as of this encounter Care Teams Dye Machine Operator Relationship Specialty Start Date End Date Amrik Calix B.M.BAnantS. PCP - General Family Medicine 09/10/14 09/03/17 documented as of this encounter
--- OUTSIDE RECORDS SUMMARY | 2022-01-07 09:17 | XMS_ITS | Encounter Summary ---
:1940 Author Organization [facility] Address [address] [place] [address] Care Team Providers Name Role Phone Elsewhere, Pcp Primary Care Provider Unavailable Reason for Visit Reason Comments Follow-up HTN/Blood pressure Encounter Details Date Type Department Care Team Description 08/24/2019 Clinical Communication Department of Britney Hernandez ow-aman Family Medicine, Garcia Wise RVish (HTN/Blood [facility] [address] [facility] pressure) jose Washburn [facility] [phone] [address] [facility] [phone] [place], [place] (Work) [phone] Social History Tobacco Use Types Packs/Day Years [...] patient has moved their primary care to [facility]. She was contacted to be able to confirm this. She stated that she had to come to [facility] for a back surgery as has since [facility]with [facility] all [facility]. She was asked if she wanted us removed as her primary care provider and she stated that yes we should be removed as her primary care provider. PLAN Disposition/Recommendation: Will send information to the appropriate contact to have [facility] removed as primary care provider. [...] documented as of this encounter Care Teams Sheltered Workshop Worker Relationship Specialty Start Date End Date Elsewhere, Pcp PCP - General Internal Medicine 08/24/19 documented as of this encounter
--- OUTSIDE RECORDS SUMMARY | 2022-01-07 09:17 | XMS_ITS | Encounter Summary ---
:1940 Author Organization [facility] Address [address] [place] [address] Care Team Providers Name Role Phone Elsewhere, Pcp Primary Care Provider Unavailable Encounter Details Date Type Department Care Team Description 07/24/2009 Historical Ophthalmology RST OPH Torsten Lloyd ORobert [address] [place], [place] [phone] (Wo rk) Social History [...] or relatives? How often do you attend sabianist or Patient refused 2021 catholic services? Do you belong to any clubs or Patient refused 07/05/2021 organizations such as sabianist groups, unions, fraternal or athletic groups, or [...] pigment epithelium CDM Reports - EYEGEN Id: [id number] Status: Fnl documented in this encounter Plan of Treatment Not on filedocumented as of this encounter Visit Diagnoses Not on filedocumented in this encounter Care Teams Automotive Artist Relationship Specialty Start Date End Date Elsewhere, Pcp PCP - General Internal Medicine 08/24/19 documented as of this encounter
--- OUTSIDE RECORDS SUMMARY | 2022-01-07 09:17 | XMS_ITS | Encounter Summary ---
:1940 Author Organization [facility] Address [address] [place] [address] Care Team Providers Name Role Phone Unavailable [...] you attend zoroastrianism or Patient refused 2021 zoroastrianism services? Do [...]
--- OUTSIDE RECORDS SUMMARY | 2022-01-07 09:17 | XMS_ITS | Encounter Summary ---
:1940 Author Organization [facility] Address [address] [place] [address] Care Team Providers Name Role Phone Elsewhere, Pcp Primary Care Provider Unavailable Encounter Details Date Type Department Care Team Description 07/08/2021 Hospital Encounter Department of [facility] Laboratory Medicine S, MAnantDAnant Protein-Calorie (HCC) and Pathology, [address] [place], [place] [id number] [place] [phone] [place] [address] (Work) [place], [place] [phone] [address] (Fax) [phone] Social History Tobacco Use Types Packs/Day Years [...] you attend adventism or Patient refused 2021 alevism services? Do [...] and its performa nce characteristics determined by [facility] in a manner consistent with CLIA requirements. This test has not been cleared or approved by the U.S. Rula d and Drug Administration. Specimen Anatomical Collection Method Collection Time Receive d Time (Source) Location / / Volume Laterality Blood (Blood, 07/08/2021 10:57 07/08/2021 3:28 Venous) AM CDT PM CDT Bo Marie M.D. LAB BLOOD NON ADD-ON Performing Organization Address City/[facility] Phon e Number [facility] [address] [place] [address] SUPPORT CENTER [facility] [place] [address] Laboratory Medicine and Pathology [address] [place] [address] Dr. FORBES Vitamin E Level (07/08/2021 10:57 AM CDT) athologist Signature A-Tocopherol, 15.1 5.5 - 17.0 07/09/2021 [facility] Vitamin E mg/L 11:42 AM CDT Comment: ----ADDITIONAL INFORMATION---- This test was developed and its performa nce characteristics determined by [facility] in a manner consistent with CLIA requirements. This test has not been cleared or approved by the U.S. Rula d and Drug Administration. Specimen Anatomical Collection Method Collection Time Receive d Time (Source) Location / / Volume Laterality Blood (Blood, 07/08/2021 10:57 07/08/2021 3:27 Venous) AM CDT PM CDT Bo Marie M.D. LAB BLOOD NON ADD-ON Performing Organization Address City/[facility] Phon e Number [facility] [address] [place]án[place] [address] SUPPORT CENTER [facility] [place] [address] Laboratory Medicine and Pathology [address] FORBES Vitamin B12 Assay (07/08/2021 10:57 AM CDT) athologist Signature Vitamin B12 794 180 - 914 07/08/2021 [facility] Assay, S ng/L 2:23 PM CDT Comment: [...] M.D. LAB BLOOD ADD-ON Performing Organization Address City/[facility] Code Phon e Number [facility] - [address] [place], [place] [address] [place] [address] Laboratories-[facility] [address] Vitamin A Level (07/08/2021 10:57 AM CDT) athologist Signature Vitamin A 39.5 32.5 - 78.0 07/10/2021 9:12 [facility] mcg/dL AM CDT Comment: ----ADDITIONAL INFORMATION---- This test was developed and its performa nce characteristics determined by [facility] in a manner consistent with CLIA requirements. This test has not been cleared or approved by the U.S. Rula d and Drug Administration. Specimen Anatomical Collection Method Collection Time Receive d Time (Source) Location / / Volume Laterality Blood (Blood, 07/08/2021 10:57 07/08/2021 3:27 Venous) AM CDT PM CDT Bo Marie M.D. LAB BLOOD NON ADD-ON Performing Organization Address City/[facility]/ZIP [facility] Phon e Number [facility] [address] [place], [place] [address] [facility] [place] [address] Laboratory Medicine and Pathology [address] FORBES Copper (07/08/2021 10:57 AM CDT) P athologist Signature Copper, S 1.40 0.75 - 1.45 07/09/2021 9:53 [facility] mcg/mL AM CDT Comment: ----ADDITIONAL INFORMATION---- This test was developed and its performa nce characteristics determined by [facility] in a manner consistent with CLIA requirements. This test has not been cleared or approved by the U.S. Rula d and Drug Administration. Specimen Anatomical Collection Method Collection Time Receive d Time (Source) Location / / Volume Laterality Blood (Blood, 07/08/2021 10:57 07/08/2021 3:28 Venous) AM CDT PM CDT Bo Marie M.D. LAB BLOOD NON ADD-ON Performing Organization Address City/[facility] Phon e Number [facility] [address] [place] [address] SUPPORT [facility] [place] [address] Laboratory Medicine and Pathology [address] [place] [address] Dr. FORBES Selenium (07/08/2021 10:57 AM CDT) P athologist Signature Selenium, S 118 70 - 150 07/09/2021 [facility] ng/mL 9:53 AM CDT Comment: ----ADDITIONAL INFORMATION---- This test was developed and its performa nce characteristics determined by [facility] in a manner consistent with CLIA requirements. This test has not been cleared or approved by the U.S. Rula d and Drug Administration. Specimen Anatomical Collection Method Collection Time Receive d Time (Source) Location / / Volume Laterality Blood (Blood, 07/08/2021 10:57 07/08/2021 3:28 Venous) AM CDT PM CDT Bo Marie M.D. LAB BLOOD NON ADD-ON Performing Organization Address City/[facility] Phon e Number [facility] [address] [place], [place] [address] SUPPORT CENTER [facility] [place] [address] Laboratory Medicine and Pathology [address] [place] [address] Dr. FORBES Prothrombin Time (PT) (07/08/2021 10:57 [...] M.D. LAB BLOOD ADD-ON Performing Organization Address City/[facility] Phon e Number [facility] - [address] [place] [address] [facility] [address] Folate (07/08/2021 10:57 AM CDT) athologist Signature Folate, S >20.0 >=4.0 mcg/L 07/08/2021 2:20 DTL PM CDT Specimen Anatomical Collection Method Collection Time Receive d Time (Source) Location / / Volume Laterality Blood (Blood, 07/08/2021 10:57 07/08/2021 Venous) AM CDT 12:38 PM CDT Bo Marie M.D. LAB BLOOD ADD-ON Performing Organization Address City/[facility] Phon e Number [facility] - 200 [place], [place] [address] [facility] [place] [address] Ferritin (07/08/2021 10:57 AM CDT) P athologist Signature Ferritin, S 103 11 - 307 07/08/2021 DTL mcg/L 2:15 PM CDT Specimen Anatomical Collection Method Collection Time Receive d Time (Source) Location / / Volume Laterality Blood (Blood, 07/08/2021 10:57 07/08/2021 Venous) AM CDT 12:38 PM CDT Bo Marie M.D. LAB BLOOD ADD-ON Performing Organization Address City/[facility]/ZIP Code Phon e Number [facility] - [address] [place], [place] [address] [facility] [place] [address] Laboratories-[facility] [address] 25-Hydroxyvitamin D2 and D3 (07/08/2021 10:57 [...] and its performa nce characteristics determined by [facility] in a manner consistent with CLIA requirements. This test has not been cleared or approved by the U.S. Rula d and Drug Administration. Specimen Anatomical Collection Method Collection Time Receive d Time (Source) Location / / Volume Laterality Blood (Blood, 07/08/2021 10:57 07/09/2021 7:54 Venous) AM CDT AM CDT Bo Marie M.D. LAB BLOOD ADD-ON Performing Organization Address City/[facility]/ZIP Code Phon e Number [facility] [address] [place], [place] [address] SUPPORT CENTER [facility] [place] [address] Laboratory Medicine and Pathology [address] FORBES documented in this encounter Visit Diagnoses Diagnosis Malnutrition Moderate Protein-Calorie (H CC) documented in this encounter Additional Health Concerns Assessment Noted Time PHQ-9 Depression Total Score: 1 10/05/2013 1:43 PM CDT documented as of this encounter Care Teams Parcel Carrier Relationship Specialty Start Date End Date Elsewhere, Pcp PCP - General Internal Medicine 08/24/19 documented as of this encounter
--- OUTSIDE RECORDS SUMMARY | 2022-01-07 09:17 | XMS_ITS | Encounter Summary ---
:1940 Author Organization [facility] Address [address] [place] [address] Care Team Providers Name Role Phone Elsewhere, Pcp Primary Care Provider Unavailable Encounter Details Date Type Department Care Team Description 06/17/2021 Clinical Communication Division of [facility] in S, M.D. [place], [place] [address] [facility] [address] [place] [phone] Social History Tobacco Use Types Packs/Day Years [...] you attend rastafari or Patient refused 2021 yarsanism services? Do [...] documented as of this encounter Care Teams Requisition Approver Relationship Specialty Start Date End Date Elsewhere, Pcp PCP - General Internal Medicine 08/24/19 documented as of this encounter
--- OUTSIDE RECORDS SUMMARY | 2022-01-07 09:17 | XMS_ITS | Encounter Summary ---
:1940 Author Organization [facility] Address [address] [place] [address] Care Team Providers Name Role Phone Amrik Calix B.M.B.S. Primary Care Provider Unavailable Reason for Visit Reason Comments Med Refill Encounter Details Date Type Department Care Team Description 08/28/2017 Refill Department of Family Medicine, Stacy Calix, B.M.B.S. Med Refill [place], [place] [address] [place] [address] Social History Tobacco Use Types Packs/Day Years [...] or relatives? How often do you attend latter day or Patient refused 2021 islam services? Do you belong to any clubs or Patient refused 07/05/2021 organizations such as latter day groups, unions, fraternal or athletic groups, or [...] documented as of this encounter Care Teams Encoding Clerk Relationship Specialty Start Date End Date Amrik Calix B.M.B.S. PCP - General Family Medicine 09/10/14 09/03/17 documented as of this encounter
--- OUTSIDE RECORDS SUMMARY | 2022-01-07 09:17 | XMS_ITS | Encounter Summary ---
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 Barbara Vincent [facility] Hepatology Mag C.N.PAnant [address] [place] [address] Referral ID Status Reason Start Date Expiration Date Visits Requ ested Visits Authorized [id number] Closed 06/11/2021 06/11/2022 1 1 Encounter Details Date Type Department Care Team Description 06/11/2021 [facility] Barbara Vincent Enterocolitis Due To AND CLINICS Mag, C.N.PAnant Clostridium Difficile 1999 [facility] [address] Not Specified As [place], [place] Recurrent (Primary [id number] Dx) [phone] Social History Tobacco Use Types Packs/Day Years [...] you attend confucianist or Patient refused 2021 protestant services? Do you belong to any clubs or Patient refused 07/05/2021 organizations such as confucianist groups, unions, fraCastlewood Surgical or athletic groups, or school groups? How [...] documented as of this encounter Care Teams Insurance Professional Relationship Specialty Start Date End Date Elsewhere, Pcp PCP - General Internal Medicine 08/24/19 documented as of this encounter
--- OUTSIDE RECORDS SUMMARY | 2022-01-07 09:17 | XMS_ITS | Encounter Summary ---
:1940 Author Organization [facility] Address [address] [place] [address] Care Team Providers Name Role Phone Amrik [...] you attend uatsdin or Patient refused 2021 yarsani services? Do [...] documented as of this encounter Care Teams Airline Hostess Relationship Specialty Start Date End Date Amrik Calix B.M.BAnantS. PCP - General Family Medicine 09/10/14 09/03/17 documented as of this encounter
--- OUTSIDE RECORDS SUMMARY | 2022-01-07 09:17 | XMS_ITS | Encounter Summary ---
:1940 Author Organization [facility] Address [address] [place] [address] Care Team Providers Name Role Phone Unavailable [...] you attend yarsanism or Patient refused 2021 sabianist services? Do [...]
--- OUTSIDE RECORDS SUMMARY | 2022-01-07 09:17 | XMS_ITS | Encounter Summary ---
:1940 Author Organization [facility] Address [address] [place] [address] Care Team Providers Name Role Phone Elsewhere, Pcp Primary Care Provider Unavailable Encounter Details Date Type Department Care Team Description 04/30/2020 Orders Only RST PCP [facility] Lemuel Mosley Jr., M.D. [phone] (Wo rk) Social History Tobacco Use Types [...] or relatives? How often do you attend bahai or Patient refused 2021 judaism services? Do you belong to any clubs or Patient refused 07/05/2021 organizations such as bahai groups, unions, fraternal or athletic groups, or [...] documented as of this encounter Care Teams Sample Grader Relationship Specialty Start Date End Date Elsewhere, Pcp PCP - General Internal Medicine 08/24/19 documented as of this encounter
--- OUTSIDE RECORDS SUMMARY | 2022-01-07 09:17 | XMS_ITS | Encounter Summary ---
:1940 Author Organization [facility] Address [address] [place] [address] Care Team Providers Name Role Phone Elsewhere, Pcp Primary Care Provider Unavailable Encounter Details Date Type Department Care Team Description 10/09/2016 Historical Ophthalmology RST [facility] Cris Gonzalez O.D. [address] [place], [place] [address] (Wo rk) Social History Tobacco Use Types [...] you attend sabianist or Patient refused 2021 buddhism services? Do [...] dry eyes CDM Reports - EYEGEN Id: [id number] Status: Fnl documented in this encounter Plan of Treatment Not on filedocumented as of this encounter Visit Diagnoses Not on filedocumented in this encounter Additional Health Concerns Assessment Noted Time PHQ-9 Depression Total Score: 1 10/05/2013 1:43 PM CDT documented as of this encounter Care Teams Solar Photovoltaic Electrician Relationship Specialty Start Date End Date Elsewhere, Pcp PCP - General Internal Medicine 08/24/19 documented as of this encounter
--- OUTSIDE RECORDS SUMMARY | 2022-01-07 09:17 | XMS_ITS | Encounter Summary ---
:1940 Author Organization [facility] Address [address] [place] [address] Care Team Providers Name Role Phone Elsewhere, Pcp Primary Care Provider Unavailable Encounter Details Date Type Department Care Team Description 05/01/2020 Orders Only [facility] - Donald powell Elsewhere, Pcp [address] , [facility] [address] [place] [address] Social History Tobacco Use [...] you attend rastafarian or Patient refused 2021 confucianist services? Do [...] documented as of this encounter Care Teams Web Press Operator Apprentice Relationship Specialty Start Date End Date Elsewhere, Pcp PCP - General Internal Medicine 08/24/19 documented as of this encounter
--- OUTSIDE RECORDS SUMMARY | 2022-01-07 09:17 | XMS_ITS | Encounter Summary ---
:1940 Author Organization [facility] Address [address] [place] [address] Care Team Providers Name Role Phone Elsewhere, Pcp Primary Care Provider Unavailable Encounter Details Date Type Department Care Team Description 07/08/2021 Orders Only Division of Coretta Peck Encounter F or Gastroenterology in P, CCRP Preprocedural [place], [place] [address] [facility] [address] [place], [place] [phone] (COVID-19) (Primary [phone] Dx) (Work) Social History Tobacco Use Types [...] you attend religion or Patient refused 2021 nondenominational services? Do [...] or slept in a jail (including now)? Education Answer Date Recorded What [...] as of this encounter Care Teams Public Health Professor Relationship Specialty Start Date End Date Elsewhere, Pcp PCP - General Internal Medicine 08/24/19 documented as of this encounter
--- OUTSIDE RECORDS SUMMARY | 2022-01-07 09:17 | XMS_ITS | Encounter Summary ---
:1940 Author Organization [facility] Address [address] [place] [address] Care Team Providers Name Role Phone Amrik [...] you attend hinduism or Patient refused 2021 judaism services? Do [...] documented as of this encounter Care Teams Summer Nanny Relationship Specialty Start Date End Date Amrik Calix B.M.BAnantS. PCP - General Family Medicine 09/10/14 09/03/17 documented as of this encounter
--- OUTSIDE RECORDS SUMMARY | 2022-01-07 09:18 | XMS_ITS | Encounter Summary ---
:1940 Author Organization [facility] Address [address] [place] [address] Care Team Providers Name Role Phone Elsewhere, Pcp Primary Care Provider Unavailable Encounter Details Date Type Department Care Team Description 12/21/2005 Historical Ophthalmology RST [facility] Alison Costello M.D. [address] [place] [address] (Wo rk) Social History Tobacco Use Types [...] you attend moravian or Patient refused 2021 methodist services? Do you belong to any clubs or Patient refused 07/05/2021 organizations such as moravian groups, unions, fraternal or athletic groups, or [...] eye syndrome CD Reports - EYEGEN Id: [id number] Status: Fnl documented in this encounter Plan of Treatment Not on filedocumented as of this encounter Visit Diagnoses Not on filedocumented in this encounter Care Teams Sock And Stocking Ironer Relationship Specialty Start Date End Date Elsewhere, Pcp PCP - General Internal Medicine 08/24/19 documented as of this encounter
--- OUTSIDE RECORDS SUMMARY | 2022-01-07 09:18 | XMS_ITS | Encounter Summary ---
:1940 Author Organization [facility] Address [address] [place] [address] Care Team Providers Name Role Phone Elsewhere, [...] you attend nondenominational or Patient refused 2021 muslim services? Do [...] pigment epithelium CDM Reports - EYEGEN Id: [id number] Status: Fnl documented in this encounter Plan of Treatment Not on filedocumented as of this encounter Visit Diagnoses Not on filedocumented in this encounter Care Teams Computer Graphics Illustrator Relationship Specialty Start Date End Date Elsewhere, Pcp PCP - General Internal Medicine 08/24/19 documented as of this encounter
--- OUTSIDE RECORDS SUMMARY | 2022-01-07 09:18 | XMS_ITS | Encounter Summary ---
:1940 Author Organization [facility] Address [address] [place] [address] Care Team Providers Name Role Phone Elsewhere, Pcp Primary Care Provider Unavailable Encounter Details Date Type Department Care Team Description 12/13/2002 Historical Ophthalmology RST O[facility] Hammad Lo M.D. [address] [place], [place] [address] (Wo rk) Social History Tobacco [...] you attend denominational or Patient refused 2021 spiritism services? Do [...] with RAYRAY CDM Reports - EYEGEN Id: [id number] Status: Fnl documented in this encounter Plan of Treatment Not on filedocumented as of this encounter Visit Diagnoses Not on filedocumented in this encounter Care Teams Railroad Commissioner Relationship Specialty Start Date End Date Elsewhere, Pcp PCP - General Internal Medicine 08/24/19 documented as of this encounter
--- OUTSIDE RECORDS SUMMARY | 2022-01-07 09:18 | XMS_ITS | Encounter Summary ---
:1940 Author Organization [facility] Address [address] [place] [address] Care Team Providers Name Role Phone Elsewhere, Pcp Primary Care Provider Unavailable Encounter Details Date Type Department Care Team Description 01/19/2007 Historical Ophthalmology RST OPH Tobin Bartlett O.D. [address] [place], [place] [address] (Wo rk) Social History [...] you attend evangelical or Patient refused 2021 baptist services? Do you belong to any clubs [...] gland dysfunction both eyes. CDM Reports - EYEGEN Id: [id number] Status: Fnl documented in this encounter Plan of Treatment Not on filedocumented as of this encounter Visit Diagnoses Not on filedocumented in this encounter Care Teams Supervisory Lifeguard Relationship Specialty Start Date End Date Elsewhere, Pcp PCP - General Internal Medicine 08/24/19 documented as of this encounter
--- OUTSIDE RECORDS SUMMARY | 2022-01-07 09:18 | XMS_ITS | Encounter Summary ---
:1940 Author Organization [facility] Address [address] [place] [address] Care Team Providers Name Role Phone Unavailable [...] you attend catholic or Patient refused 2021 lutheran services? Do [...]
--- OUTSIDE RECORDS SUMMARY | 2022-01-07 09:18 | XMS_ITS | Encounter Summary ---
:1940 Author Organization [facility] Address [address] [place] [address] Care Team Providers Name Role Phone Unavailable [...] you attend congregation or Patient refused 2021 gnosticist services? Do [...]
--- NOTE | 2022-01-07 10:47 | ED.NURSE ---
1000 R arm placed in sling. pt dc'd, with handwritten instructions per dr. anguiano due to expanse not working.
== END 2022-01-07 10:50 | disposition home or self-care (01) ==
PROVIDERS: Emergency Provider Family Medicine; PCP Nurse Practitioner Family
DX: S43.411A Sprain of right coracohumeral (ligament), initial encounter (principal); M19.011 Primary osteoarthritis, right shoulder; I10 Essential (primary) hypertension; E78.5 Hyperlipidemia, unspecified; E03.9 Hypothyroidism, unspecified; Z79.82 Long term (current) use of aspirin; Z79.899 Other long term (current) drug therapy; Z88.8 Allergy status to other drugs, medicaments and biological substances; X58.XXXA Exposure to other specified factors, initial encounter
CPT/HCPCS: 73030; 99283

== ENCOUNTER 2022-06-23 10:51 | Outpatient (CLI) | payer MEDICARE, SELFPAY ==
[2022-06-23 13:30] LABS: Albumin* 4.3 g/dL (3.3-5.0); Chloride* 102 mmol/L (96-114)
[2022-06-23 13:31] LABS: Potassium* 3.9 mmol/L (3.6-5.1); Sodium* 140 mmol/L (135-149)
[2022-06-23 13:33] LABS: Cholesterol* 140 mg/dL (90-199)
[2022-06-23 13:34] LABS: Alanine Aminotransferase* 37 U/L (4-35); Alkaline Phosphatase* 42 U/L (40-150); Aspartate Amino Transferase* 43 U/L (12-35); Bilirubin Total* 1.1 mg/dL (0.1-1.5); Blood Urea Nitrogen* 12 mg/dL (7-30); Calcium* 9.9 mg/dL (8.4-10.6); Carbon Dioxide* 30 mmol/L (20-32); Creatinine* 0.7 mg/dL (0.5-1.5); Estimated Glomerular Filt Rate 87 ml/min; Glucose* 100 mg/dL (60-115); Total Protein* 8.2 g/dL (6.0-8.3); Triglycerides* 117 mg/dL (40-149)
[2022-06-23 13:35] LABS: HDL Cholesterol* 53 mg/dL (>=50); LDL Cholesterol Calculated 64 mg/dL (<100)
== END 2022-06-23 10:52 | disposition home or self-care (01) ==
PROVIDERS: PCP Nurse Practitioner Family; Visit Provider Nurse Practitioner Family
DX: Z00.00 Encounter for general adult medical examination without abnormal findings (principal); E78.5 Hyperlipidemia, unspecified; I10 Essential (primary) hypertension; E87.6 Hypokalemia; E03.9 Hypothyroidism, unspecified; Z51.81 Encounter for therapeutic drug level monitoring
CPT/HCPCS: 80053; 80061; 84443

== ENCOUNTER 2022-07-01 09:36 | Outpatient (CLI) | payer MEDICARE, SELFPAY ==
--- NOTE | 2022-07-01 10:15 | CRLHL7_ITS ---
For Patients: As a result of the Century Cures Act, medical imaging exams and procedure reports are released immediately into your electronic medical record. You may view this report before your referring provider. If you have questions, please contact your health care provider. INDICATION: Neck pain. TECHNIQUE: Multiplanar multisequence noncontrast MR images acquired through the cervical spine. COMPARISON: Cervical spine radiographs 06/22/2022. FINDINGS: Mild leftward cervical curvature. The cervical lordosis is maintained. No acute fracture. 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 There is retrodental pannus formation. No concerning T1 hypointense marrow replacing lesions. The cervical cord is normal in signal intensity. Incidental mild prominence of the central canal in the lower cervical and upper thoracic cord. C2-3: Shallow posterior disc bulge. Dxea-kx-aiwrrbjt right and advanced left facet arthropathy. No spinal canal or neural foraminal narrowing. C3-4: Grade 1 anterolisthesis. Moderately advanced disc height loss. Bilateral facet ankylosis. No spinal canal narrowing. Mild bilateral neural foraminal narrowing. C4-5: Grade 1 anterolisthesis. Moderate disc height loss. Mild endplate edema. Right eccentric disc osteophyte complex indents the cord. Right greater left uncinate spurring. Advanced bilateral facet arthropathy. Thickening ligamentum flavum. Minimal spinal canal narrowing. Moderate right and mild left neural foraminal narrowing. C5-6: Advanced disc degeneration and disc height loss. Shallow posterior disc osteophyte complex. Left greater than right uncinate spurring. Moderate bilateral facet arthropathy. Minimal spinal canal narrowing. Moderate left and tapw-ia-xflaidae right neural foraminal narrowing. C6-7: Advanced disc height loss. Mild vertebral body edema. Shallow posterior disc osteophyte complex. Right greater left uncinate spurring. Moderate bilateral facet arthropathy. Mild spinal canal narrowing. Moderate right and gqky-xg-ycmjqknp left neural foraminal narrowing. C7-T1: Grade 1 anterolisthesis. Advanced bilateral facet arthropathy. Thickening ligamentum flavum. Mild spinal canal narrowing. Mild bilateral neural foraminal narrowing. T1-2: Grade 1 anterolisthesis. Shallow posterior disc bulge indents the cord. Advanced bilateral facet arthropathy. No spinal canal or neural foraminal narrowing. IMPRESSION: 1. Advanced multilevel cervical spondylosis without spinal canal stenosis. 2. 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 3. Moderate neural foraminal narrowing on the right at C4-5, left C5-6, and right C6-7. Dictated by Cullen Dwyer MD @ 07/01/2022 5:49:09 PM (Electronically Signed)
== END 2022-07-01 09:37 | disposition home or self-care (01) ==
LOC: MRI 09:37
PROVIDERS: PCP Nurse Practitioner Family; Visit Provider Family Medicine
DX: M54.2 Cervicalgia (principal); M47.812 Spondylosis without myelopathy or radiculopathy, cervical region; M50.221 Other cervical disc displacement at C4-C5 level; M50.222 Other cervical disc displacement at C5-C6 level; M50.223 Other cervical disc displacement at C6-C7 level
CPT/HCPCS: 72141

== ENCOUNTER 2022-07-29 14:45 | Outpatient (RCR) | payer MEDICARE, SELFPAY ==
--- NOTE | 2022-07-10 16:51 | PT.OPEX ---
PT [place] Outpatient Eval PT [facility] Outpatient Eval Start: 07/09/22 15:23 Freq: Status: Active Protocol: Document 07/09/22 15:24 REJI (Rec: 07/09/22 17:39 REJI Laptop) E-signed By Radha Natarajan, PT Physical Therapy Outpatient Evaluation Insurance Information Insurance Name Medicare B,[facility] Medical Diagnosis CERVICALGIA M54.2 LEFT TROCHANTERIC BURSITIS M70 [address] FERRER/DR. MCFADDEN Subjective Subjective PATIENT REPORTS RECENT EXACERBATION IN HER NECK AND UPPER BACK AFTER QUILTING FOR PERIODS OF TIME. SHE STATES,I CAN ONLY QUILT FOR A COUPLE OF HOURS, AT MOST, BEFORE I JUST CAN'T DO ANY MORE. SHE CONTINUES TO SAY, MY HIP WAS WHAT I ORIGINALLY WANTED ADDRESSED BUT IT'S MY NECK, THAT'S GIVING ME THE MOST PROBLEMS. 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 Preferred Name RADHA Objective Other/Pertinent Objective SPINAL ALIGNMENT/POSTURE CERVICAL ROM Flexion: WFL Extension: WFL Right Rotation: 70 Left Rotation: 30 Right side bend: 20 Left Side bend: 10 SHOULDER AROM :WFL NECK MMT: LIMITED BY PAIN SHOULDER MMT: WFL SPECIAL TEST Spurlings Test: (-) Cervical distraction test: (-) Neural Tension Test(Median/ Ulnar/Radial): (-) Chelsey Test: (-) Vertebral Artery Test: (-) SharpPursher Test (transverse ligament): (-) Alar Lig Test: (-) Shoulder impingement HawkinsKennedy Test: (-) JOINT MOBILITY/PALPATION : C2- 6 HYPOMOBILITY R>L TX: SUBOCCIPTIAL RELEASE X 5MIN CERVICAL SIDE GLIDE R->L, L->R CERVICAL PA FACET MOBILIZATION PRONE AND SUPINE PROM STRETCH R/L UPPER TRAP, LEV SCAP, SCM, SCALENE SHOULDER [place] BKWD SCAP SQUEZE SEATED PIRIFORMIS STRETCH Assessment Assessment/Impression PATIENT IS AN 82 YO PATIENT OF BOTH DR. FERRER AND DR. MCFADDEN REFERRED TO PHYSICAL THERAPY FOR HER CERVICALGIA (BOGDAN) AND LEFT HIP BURSITIS (NABIL) . PMHX INCLUDES BUT NOT LIMITED TO CARDIAC MURMUR, PSF FROM ~1989 AND RECENTLY 2018 FROM LOWER THORACIC TO UPPER LUMBAR (NOT CLEAR ON SPECIFICS LOOKING AT SCAR). HYPOTHYROIDISM, HLD, R S'PAIN, NUMBNESS AND TINGLING OF FEET , GERD, HTN, RLS, H/O SPINAL STENOSIS, H/O COVID, DDD. PATIENT REPORTS A RECENT EXACERBATION OF HER CERVICAL DDD AND PAIN AFTER QUILTING AND THEN HAVING TO ADJUST HER SLEEPING POSITION WELL DIFFICULTY PERFORMING UE TASKS D/T PAIN. SHE HAS LIMITED ROM NOTING PAIN WITH LEFT ROTATION, LEFT SB BUT NO SIGNIFICANT DIFFERENCE WITH EXT OR FLEX. TODAY, SHE ASKED THAT WE FOCUS ON HER CERVICAL REGION AND WAIT TO WORK ON THE HIP IT IS NOT GIVING MUCH TROUBLE CURRENTLY. HER MRI OF HER CERVICAL REGION FROM REVEALED ADVANCED SPONDYLOSIS, ADVANCED DEGENERATION AT C1-C2, MODERATE NARROWING AT C4-C7. SHE DOES NOT C/O RADICULOPATHY BUT REPORTS HAVING EXPERIENCED SYMPTOMS ALONG THE C5-6. SHE IS APPROPRIATE FOR SKILLED PHYSICAL THERAPY TO ADDRESS HER SYMPTOM MGMT, CERVICAL ROM, AND POSTURAL STRENGTHENING FOR HER CERVICALAGIA AND THEN ADDRESS HER HIP BURSITIS AT A LATER DATE. PATIENT VERBALIZED UNDERSTANDING TO ALL SKILLED INSTRUCTION AND AGREEABLE TO POC AND FREQ. Primary Functional Limitations REACHING PROLONGED SITTING/STDG DRIVING SLEEPING Plan of Care Rehabilitation Potential Good Physical Therapy Goals 1. PATIENT WILL DEMONSTRATE NORMAL CERVICAL ROM IN 4-6 WEEKS 2. PATIENT WILL REPORT DECREASE IN PAIN RATING FROM 6 /10 TO <3/10 IN 4-6 WEEKS 3. PATIENT WILL TOLERATE AMB FOR 30 MIN EITHER ON THE TM OR OUTSIDE WITH PAIN <3/10 IN 4 -6 WEEKS 4. PATIENT WILL BE INDEPENDENT WITH HER HEP IN 4-6 WEEKS. Coordination/Communication With Referral Source Treatment Plan/Direct Interventions Heat,Ice/Cold/Vasopneumatic, Joint Mobilization,Manual Therapy,Neuromuscular Re-ed, Therapeutic Activities, Therapeutic Exercises Frequency/Duration 1W6 Patient Will Be Discharged From Therapy Completion of LTG(s), Independently Progressing Discharge Plan Comments DISCHARGE TO SELF WHEN GOALS MET Evaluation Billing Untimed Code Treatment Minutes 30 PT Eval No Charge No Complexity High Certification Information Initial Certification Date 07/09/22 Ending Certification Date 10/02/22 Provider Signature Shows Agreement With POC & Medical Necessity Physician Signature & Date Requested Please Sign/Date Here Physician Comment/Change : Physician NPI Number #
== END 2022-10-05 13:31 | disposition home or self-care (01) ==
PROVIDERS: PCP Nurse Practitioner Family; Referring Provider Orthopaedic Surgery; Visit Provider Family Medicine
DX: M70.62 Trochanteric bursitis, left hip (principal); M54.2 Cervicalgia; Z51.89 Encounter for other specified aftercare
CPT/HCPCS: 97110; 97140; 97163

== ENCOUNTER 2022-10-02 10:24 | Outpatient (CLI) | payer MEDICARE, SELFPAY | END 2022-10-02 10:25 | disposition home or self-care (01) | LOC: KYNREF 10:24 | PROVIDERS: PCP Nurse Practitioner Family; Visit Provider Nurse Practitioner Family | DX: L03.90 Cellulitis, unspecified (principal) | CPT/HCPCS: 87070; 87186 ==

== ENCOUNTER 2022-10-12 09:58 | Outpatient (CLI) | payer MEDICARE, SELFPAY ==
--- NOTE | 2022-10-12 10:15 | CRLHL7_ITS ---
For Patients: As a result of the Century Cures Act, medical imaging exams and procedure reports are released immediately into your electronic medical record. You may view this report before your referring provider. If you have questions, please contact your health care provider. BILATERAL SCREENING MAMMOGRAM WITH COMPUTER-AIDED DETECTION AND TOMOSYNTHESIS TECHNIQUE: CC and MLO views were obtained. These mammographic images have been obtained using full-field digital technique. These mammographic images were interpreted with the benefit of computer-aided detection. Breast Tomosynthesis was used in this interpretation. COMPARISON FILM: 10/27/21, 11/10/19, 11/08/18. FINDINGS: The breasts are heterogeneously dense, which may obscure small masses IMPRESSION: There is no radiographic evidence for malignancy. ASSESSMENT: BI-RADS Category 1: Negative RECOMMENDATION: Routine screening mammogram in 1 year. A lay language report of this examination will be provided to the patient. Andre Galeas M.D. Diagnostic Radiologist [email or web address] BAILEY/morales / be/Dictated by: Andre Galeas MD @ 10/12/2022 12:47:00 PM (Electronically Signed)
== END 2022-10-12 09:59 | disposition home or self-care (01) ==
LOC: MAMMO 09:59
PROVIDERS: PCP Nurse Practitioner Family; Visit Provider Nurse Practitioner Family
DX: Z12.31 Encounter for screening mammogram for malignant neoplasm of breast (principal); R92.2 Inconclusive mammogram
CPT/HCPCS: 77063; 77067

== ENCOUNTER 2022-11-05 12:59 | Outpatient (CLI) | payer MEDICARE, SELFPAY | END 2022-11-05 13:00 | disposition home or self-care (01) | PROVIDERS: PCP Nurse Practitioner Family; Visit Provider Nurse Practitioner Family | DX: R53.83 Other fatigue (principal); R74.8 Abnormal levels of other serum enzymes | CPT/HCPCS: 80076 ==

== ENCOUNTER 2022-11-12 09:48 | Outpatient (CLI) | payer MEDICARE, SELFPAY | END 2022-11-12 09:49 | disposition home or self-care (01) | PROVIDERS: PCP Nurse Practitioner Family; Visit Provider Nurse Practitioner Family | DX: R53.83 Other fatigue (principal); E87.6 Hypokalemia; E03.9 Hypothyroidism, unspecified; R74.8 Abnormal levels of other serum enzymes; I10 Essential (primary) hypertension | CPT/HCPCS: 80053; 84443; 85025 ==

== ENCOUNTER 2023-07-01 10:18 | Outpatient (CLI) | payer MEDICARE, SELFPAY ==
--- OUTSIDE RECORDS SUMMARY | 2023-07-01 10:22 | XMS_ITS | Clinical Summary ---
Author Name Unknown Organization [facility] er Address [address] [place] [address] Care Team Providers Care Hand Gluer And Slicer Name Role Phone None, Pcp Primary Care Provider Unavailabl e Allergies Active Allergy Reactions Criticality Noted Date Comments Lisinopril Cough 10/11/2006 Other reaction(s): Cough Other reaction(s): Cough Metoprolol Other (see comments),Unknown 10/28/2011 Insomnia Other reaction(s): Sleep Disturbances Olmesartan Dizziness,Other (see comments) 11/30/2006 Other reaction(s): Dizziness Other reaction(s): Dizziness Other reaction(s): Other (see comments) Other reaction(s): Dizziness Medications Medication Sig Dispensed Refills Start Date End Date Status acetaminophen (TYLENOL) 500 MG tablet Take 2 tablets (1,000 mg total) by mouth 0 Active Calcium Carb-Cholecalcifero l 600-10 MG-MCG tablet Take 1 tablet by mouth 0 Active cephalexin (KEFLEX) 500 MG capsule Take 1 capsule (500 mg total) by mouth 4 (four) times a day 0 10/02/2022 Active doxycycline (VIBRAMYCIN) 100 MG capsule Take 1 capsule (100 mg total) by mouth 1 (one) time each day 0 10/05/2022 Active gabapentin (NEURONTIN) 100 MG capsule Take 1 capsule (100 mg total) by mouth every night 0 07/30/2022 Active hydroCHLOROthiazide (HYDRODIURIL) 25 MG tablet Take 1 tablet (25 mg total) by mouth 1 (one) time each day 0 08/26/2022 Active Iodine Tincture tincture Clean sutures daily until discontinued 0 02/28/2022 Active levothyroxine (SYNTHROID) 137 MCG tablet Take 1 tablet (137 mcg total) by mouth 1 (one) time each day 0 08/26/2022 Active Social History Tobacco Use Types Packs/Day Years Used Date Smoking Tobacco: Never Assessed Sex and Gender Information Value Date Recorded Sex Assigned at Not on file Gender Identity Not on file Sexual Orientation Not on file Plan of Treatment Health Maintenance Due Date Last Done Comments Bone Density Scan 1940 Fall Risk Performed 1958 Medicare Annual Wellness Visit (AWV) 1958 Pneumococcal Vaccine: 65+ Years (1 of 1 - PCV) 2005 Zoster Vaccines (2 of 3) 11/19/2008 09/24/2008 Mammogram 10/08/2017 10/08/2016 Influenza Vaccine (Season Ended) 2023 11/27/2021, 12/14/2016, 01/07/2016, Additional history exists DTaP,Tdap,and Td Vaccines (4 - Td or Tdap) 06/23/2032 06/23/2022, 02/28/2022, 10/06/2011, Additional history exists COVID-19 Vaccine Completed 02/20/2023, , 12/29/2020, Additional history exists HPV Vaccines Aged Out No longer eligi ble based on patient's age to complete this topic Care Teams Hand Gluer And Slicer Relationship Specialty Start Date End Date None, Pcp [address] [facility] [place] [address] PCP - General Child Care 10/15/22
--- OUTSIDE RECORDS SUMMARY | 2023-07-01 10:23 | XMS_ITS | Clinical Summary ---
Author Name Unknown Organization [facility] [place], [place] [address] Care Team Providers Care Gaming Dealer Name Role Phone Paula Carrillo Primary Care Provider [phone] Allergies Active Allergy Reactions Criticality Noted Date Comments Olmesartan Dizziness 11/30/2006 Lisinopril Cough 10/11/2006 Metoprolol Sleep Disturbances 06/28/2017 Medications Medication Sig Dispensed Refills Start Date End Date Status Fish Oil-DHA-EPA 1,200-144-216 mg cap Take 2 capsules by mouth 2 times daily. 0 06/28/2017 Active multivitamins-minera ls-lutein (MULTIVITAMIN 50 PLUS) tab tablet Take 1 tablet by mouth once daily. 0 06/28/2017 Active b complex vitamins (VITAMIN B COMPLEX) capsule Take 1 capsule by mouth once daily. 0 07/12/2017 Active aspirin (ECOTRIN LOW STRENGTH) 81 mg enteric coated tablet Take 81 mg by mouth once daily with a meal. 0 07/12/2017 Active ascorbic acid, vitamin C, (VITAMIN C) 500 mg tablet Take 1 tablet by mouth once daily. 0 07/12/2017 Active vitamin e 400 unit capsule Take 1 capsule by mouth once daily. 0 07/12/2017 Active calcium carbonate-vitamin D3, 600 mg-400 unit, (CALCIUM WITH VITAMIN D) 600 mg(1,500mg) -400 unit tablet Take 1 tablet by mouth 2 times daily with meals. Active acetaminophen (TYLENOL EXTRA STRGTH) 500 mg tablet Take 1,000 mg by mouth every 6 hours if needed. Max acetaminophen dose: 4000mg in 24 hrs. Active medical supply, miscellaneous (GRADUATED COMPRESSION STOCKINGS)Indication s:Thrombophlebitis of superficial veins of left lower extremity For personal use. Length: calf Strength: 20-30 mmHg 2 Packet 10/01/2017 Active losartan (COZAAR) 50 mg tabletIndications:HT N (hypertension) Take 1.5 Tablets (75 mg) by mouth once daily. 135 Tablet 3 06/06/2021 Active Klor-Con M20 20 mEq Extended-Release tabletIndications:Hy pertension, unspecified type Take 1 Tablet (20 mEq) by mouth once daily with a meal. 90 tablet. 3 06/06/2021 Active simvastatin (ZOCOR) 20 mg tabletIndications:Mi xed hyperlipidemia Take 1 Tablet (20 mg) by mouth at bedtime. 90 tablet. 3 06/06/2021 Active rOPINIRole (REQUIP) 1 mg tabletIndications:RL S (restless legs syndrome) Take 1 mg every 6 hours or up to 4 times daily. 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 90 Tablet 3 06/06/2021 Active hydroCHLOROthiazide (HCTZ) 25 mg tabletIndications:Hy pertension, unspecified type Take 1 Tablet (25 mg) by mouth once daily. 90 tablet. 3 06/06/2021 Active omeprazole (PRILOSEC) 20 mg Delayed-Release capsuleIndications:G ERD without esophagitis Take 1 Capsule (20 mg) by mouth once daily before a meal. 90 Capsule 3 06/06/2021 Active traMADoL (ULTRAM) 50 mg tabletIndications:Sp inal stenosis of thoracolumbar region,S/P lumbar spinal fusion Take 1 Tablet (50 mg) by mouth 3 times daily. 270 Tablet 1 06/06/2021 Active Sodium,Potassium,&Ma g Sulfates (Suprep Bowel Prep Kit) 17.5-3.13-1.6 gramIndications:Canal [place] n cancer screening Take as per the instructions included in the kit. 1 Kit 06/06/2021 Active Active Problems Problem Noted Date Diagnosed Date C. difficile diarrhea 06/10/2021 Medical cannabis use 09/28/2020 Dysuria 09/24/2020 Osteoarthritis of spine with radiculopathy, cerv ical region 11/02/2018 Mitral valve prolapse 11/01/2017 Restless leg syndrome 11/01/2017 S/P lumbar spinal fusion 08/04/2017 Herpes zoster without complication 08/04/2017 Postoperative delirium 07/21/2017 Degenerative scoliosis 07/18/2017 Spinal stenosis T10-L5 07/18/2017 Symptomatic menopausal or female climacteric sta sneha 08/29/2007 Overview: She takes premarin 0.3 mg ( 1/2 tablets)- hot flashes. Hyperlipidemia Hypothyroidism Essential hypertension Toxic metabolic encephalopathy Resolved Problems Problem Noted Date Diagnosed Date Resolved Date Acute non-recurrent maxillary sinusitis 09/24/2020 06/06/2021 Immunizations Name Administration Dates Next Due COVID-19 vaccine ([employer] [place] 30mcg/0.3mL) PF, MDV 06/27/2020,06/06/2020 Influenza, High-dose Inactivated 017,01/07/2016,12/13/2015,2014,12/18/2013 Influenza, IIV3 (Age 6-35 mos) 01/08/2012 Influenza, IIV3 (Age >=3 years) 01/14/2011 Pneumococcal Poly,23-Valent (Pneumovax) 12/24/2005 Pneumococcal conj 13-Valent (Prevnar 13) 11/06/2014 Td (Age >=7 Years) 03/08/1999 Td, Preservative Free (age > = 7 Years) 09/24/2008 Tdap 10/06/2011 Zoster (Shingrix-RZV, recombinant) 03/27/2019, Zoster (Zostavax-ZVL, live) 09/24/2008 Family History Medical History Relation Name Comments Heart Disease Brother 1 Wing Heart Disease Brother 2 [place] Lung cancer Father Heart attack Mother Cancer-breast No Family History Relation Name Status Comments Brother 1 Wing Brother 2 [place] Father of lung ca ncer Mother Alzheimers Social History Tobacco Use Types Packs/Day Years Used Date Smoking Tobacco: Never Smokeless Tobacco: Never Comments:never Alcohol Use Standard Drinks/Week Comments Yes 0 (1 standard drink = 0.6 oz pur e alcohol) rarely PHQ-2 Answer Date Recorded PHQ-2 TOTAL SCORE 0 06/06/2021 Social Connections Answer Date Recorded Frequency of Communication with Friends and Fami ly Not on file 03/05/2021 Financial Resource Strain Answer Date R ecorded Difficulty of Paying Living Expenses Not on file 03/05/2021 Difficulty of Paying Living Expenses Not on file 03/05/2021 Sex and Gender Information Value Date Recorded Sex Assigned at Not on file Gender Identity Not on file Sexual Orientation Not on file Obstetrics History Para Term AB IAB SAB Ectopic Multiple Livin g Live Births 3 3 3 Date Outcome GA Total Labor Labor/2nd/3rd Weight Sex Delivery Anes PTL Simin A1 A5 Name Cl in Para Para Para Last Filed Vital Signs Vital Sign Reading Time Taken Comments Blood Pressure 122/60 06/06/2021 8:11 AM CDT Pulse 72 06/06/2021 8:11 AM CDT Temperature 36.4 ??C (97.6 ??F) 11/02/2020 1 0:18 AM CDT Respiratory Rate 16 11/02/2020 10:1 8 AM CDT Oxygen Saturation 96% 11/02/2020 10: 18 AM CDT Inhaled Oxygen Concentration - - Weight 75.3 kg (165 lb 14.4 oz) 06/06/2021 8:11 AM CDT Height 177.8 cm (5' 10) 06/06/2021 8:11 AM CDT Body Mass Index 23.8 06/06/2021 8:11 AM CDT Plan of Treatment Health Maintenance Due Date Last Done Comments Tetanus booster 10/05/2021 10/06/2011, 09/06, 03/08/1999 BMI (ht and wt on same day) for age 18+ 06/06/2022 06/06/2021, 11/07/2019, 10/31/2018, Additional history exists Medicare Wellness for age 65+ 06/07/2022, 11/07/2019, 10/31/2018, Additional history exists Depression screening for age 12+ 06/09/2022 06/09/2021, 06/09/2021, 06/07/2021, Additional history exists COVID-19 vaccine series ( season) 2022 12/29/2020, 06/27/2020, 06/06/2020 Influenza for age 65+ 11/07/2023 12/14/2016 , 01/07/2016, 12/13/2015, Additional history exists Tdap Completed 10/06/2011 Pneumococcal series for age 65+ Completed 5, 12/24/2005 DEXA/DXA scan for age 65+ Completed 11/01/2018 Zoster (shingles) series for age 50+ Completed 03/27/2019, 01/03/2019, 09/24/2008 Medical Devices Implanted Type Area Health And Safety Coordinator Device Identifier Shelf Expiration Date Model / Serial / Lot [id number] 1-4mm 60cc Medtronic Fine Canclls Freeze Dried Implanted:Qty: 1 on 07/19/2017 by Tobin Vo MD at Explanted:at (Quantity not on file) N/A: Spine Medtronic Spine/Ortho 03/18/2022 [id number]# / [id number] / Screw Lmbr Post 6.5x50mm Solera 5.5/6 Va Cocr - [id number] Implanted:Qty: 4 on 07/19/2017 by Tobin Vo MD at N/A: Spine Medtronic Spine/Ortho [id number] # / / Raul Lmbr 100x5.5mm Solera 5.5/6 Cvd Titnm - [id number] Implanted:Qty: 1 on 07/19/2017 by Tobin Vo MD at N/A: Spine Medtronic Spine/Ortho [id number]# / / Raul Lmbr 110x5.5mm Solera 5.5/6 Cvd Titnm - [id number] Implanted:Qty: 1 on 07/19/2017 by Tobin Vo MD at N/A: Spine Medtronic Spine/Ortho [id number]# / / Hook Lmbr Post Md Carbajal Legacy Extended Body - [id number] Implanted:Qty: 2 on 07/19/2017 by Tobin Vo MD at N/A: Spine Medtronic Spine/Ortho [id number]# / / Set Screw Lmbr Legacy 5.5 Titnm Breakoff - [id number] Implanted:Qty: 2 on 07/19/2017 by Tobin Vo MD at N/A: Spine Medtronic Spine/Ortho [id number]# / / Interbody 20mm X 8mm X 60mm 6deg Implanted:Qty: 1 on 07/19/2017 by Tobin Vo MD at N/A: Spine 02/25/2023 [id number] / / [id number] Description:INTERBODY 20MM X 8MM X 60MM 6DEG Interbody 20mm X 12mm X 55mm 6deg Implanted:Qty: 1 on 07/19/2017 by Tobin Vo MD at N/A: Spine 05/21/2025 [id number] / / [id number] Description:INTERBODY 20MM X 12MM X 55MM 6DEG Interbody 20mm X 12mm X 50mm 6deg Implanted:Qty: 1 on 07/19/2017 by Tobin Vo MD at N/A: Spine 03/19/2023 [id number] / / [id number] Description:INTERBODY 20MM X 12MM X 50MM 6DEG Screw 45x5.5 Implanted:Qty: 2 on 07/19/2017 by Tobin Vo MD at N/A: Spine 10/28/2023 [id number] / / [id number] Description:SCREW 45X5.5 Screw 45x5.5 Implanted:Qty: 1 on 07/19/2017 by Tobin Vo MD at N/A: Spine 01/13/2024 [id number] / / [id number] one 1-4mm 30cc Medtronic Chips Canclls Freeze Dried Implanted:Qty: 1 on 07/19/2017 by Tobin Vo MD at Explanted:at (Quantity not on file) N/A: Spine Medtronic Spine/Ortho 04/01/2022 [id number]# / [id number] / Screw 40x5.5 Implanted:Qty: 1 on 07/19/2017 by Tobin Vo MD at N/A: Spine 01/08/2025 [id number] / / [id number] Description:SCREW 40X5.5 Bone Matrix Lg Infuse Bmp - [id number] Implanted:Qty: 1 on 07/19/2017 by Tobin Vo MD at N/A: Spine Medtronic Spine/Ortho 11/06/2018 [id number]# / / [id number] Bone Matrix 5cc Mastergraft Paste Dbm - [id number] Implanted:Qty: 1 on 07/19/2017 by Tobin Vo MD at N/A: Spine Medtronic Spine/Ortho 02/05/2022 [id number]# / / [id number] Plate Lmbr Sm 2-Hole Olif25 Lat - [id number] Implanted:Qty: 1 on 07/19/2017 by Tobin Vo MD at N/A: Spine Medtronic Spine/Ortho 05/11/2025 [id number]# / / [id number] Plate Lmbr Sm 2-Hole Olif25 Lat - [id number] Implanted:Qty: 1 on 07/19/2017 by Tobin Vo MD at N/A: Spine Medtronic Spine/Ortho 10/25/2023 [id number]# / / [id number] Set Screw Lmbr Ant 5.5mm Solera Break Off - [id number] Implanted:Qty: 6 on 07/19/2017 by Tobin Vo MD at N/A: Spine Medtronic Spine/Ortho [id number]# / / Screw Lmbr Post 4x50mm Solera 5.5/6 Va Cocr - [id number] Implanted:Qty: 1 on 07/19/2017 by Tobin Vo MD at N/A: Spine Medtronic Spine/Ortho [id number] # / / Screw Lmbr Post 5.5x50mm Solera 5.5/6 Va Cocr - [id number] Implanted:Qty: 1 on 07/19/2017 by Tobin Vo MD at N/A: Spine Medtronic Spine/Ortho [id number] # / / Procedures Procedure Name Priority Date/Time Associated Diagnosis Comments XR DXA BONE DENSITY 2 SITES AXIAL Routine 11/01/2018 1:14 PM CDT Other osteoporosis without current pathological fracture Vitamin D deficiency from Last 3 Months or Most Recently Relevant to Health Maintenance Results * XR DXA BONE DENSITY 2 SITES AXIAL (11/01/2018 1:14 PM CDT) Anatomical Region Laterality Modality Spine, HIPS, HIPL, HIPR Bone Den sitometry Narrative 11/04/2018 2:25 PM CDT Please see scanned document for results of this study. Paula FERNANDEZ DEXA from Last 3 Months or Most Recently Relevant to Health Maintenance Additional Health Concerns Infection Onset Date Last Indicated CLOSTRIDIUM DIFFICILE 11/20/2020 11/20/2020 Advance Directives Documents on File Type Date Recorded Patient Car Deliverer Expl anation Healthcare Directive 06/28/2017 4:21 PM HE ALTH CARE POWER OF AUTO RESEARCH ENGINEER, 11/06/2003 * Full Code (Latest Code Status on File) Date Activated Date Inactivated Comments 07/19/2017 5:26 AM 07/26/2017 1:20 PM Care Teams Gaming Dealer Relationship Specialty Start Date End Date Paula Carrillo PA PCP - General Physician Edge Dyer 09/10/20
== END 2023-07-01 10:19 | disposition home or self-care (01) ==
PROVIDERS: PCP Nurse Practitioner Family; Visit Provider Nurse Practitioner Family
DX: E03.9 Hypothyroidism, unspecified (principal); E78.2 Mixed hyperlipidemia; I10 Essential (primary) hypertension
CPT/HCPCS: 80053; 80061; 84443; 85025

== ENCOUNTER 2023-07-02 10:00 | Outpatient (CLI) | payer MEDICARE, SELFPAY ==
--- OUTSIDE RECORDS SUMMARY | 2023-07-22 11:49 | XMS_ITS | Clinical Summary ---
Author Name Unknown Organization [facility] Address [address] [place] [address] Care Team Providers Care Software Implementation Project Manager Name Role Phone None, Pcp Primary Care [...] 2 tablets (1,000 mg total) by mouth Active Calcium Carb-Cholecalcifero l 600-10 MG-MCG tablet Take 1 tablet by mouth Active cephalexin (KEFLEX) 500 MG capsule Take 1 capsule (500 mg total) by mouth 4 (four) times a day 10/02/2022 Active doxycycline (VIBRAMYCIN) 100 MG capsule Take 1 capsule (100 mg total) by mouth 1 (one) time each day 10/05/2022 Active gabapentin (NEURONTIN) 100 MG capsule Take 1 capsule (100 mg total) by mouth every night 07/30/2022 Active hydroCHLOROthiazide (HYDRODIURIL) 25 MG tablet Take 1 tablet (25 mg total) by mouth 1 (one) time each day 08/26/2022 Active Iodine Tincture tincture Clean sutures daily until discontinued 02/28/2022 Active levothyroxine (SYNTHROID) 137 MCG tablet Take 1 tablet (137 mcg total) by mouth 1 (one) time each day 08/26/2022 Active Social History Tobacco Use Types [...] on patient's age to complete this topic Procedures Procedure Name Priority Date/Time Associated Diagnosis Comments MAMMO BREAST SCREENING TOMOSYNTHESIS BILATERAL Routine 10/08/2016 10:24 AM CDT from Last 3 Months or Most Recently Relevant to Health Maintenance Care Teams Software Implementation Project Manager Relationship Specialty Start Date End Date None, Pcp [address] [facility] [place] [address] PCP - General Thoracic Medicine Physician 10/15/22
--- OUTSIDE RECORDS SUMMARY | 2023-07-22 11:50 | XMS_ITS | Continuity of Care Document ---
Author Name Unknown Organization [facility] Address [address] [address] [place] [address] Phone Care Team Providers Care Radio Station Operator Name Role Phone James WHITE, Magaly Unavailable Unavailable Allergies, Adverse Reactions, Alerts Substance Reaction Status Criticality No Known Allergies Active No Inform ation Medications Medication Instructions Dosage Effective Dates (start - stop) Status Comments Klor-Con 20 mEq oral packet take 1 packet by oral route 4 times every day dissolved in 4-6 ounces of cold water or juice 20 MEQ - Active levothyroxine 137 mcg tablet take 1 tablet by oral route every day 137 MCG - Active hydrochlorothiazide 25 mg tablet take 1 tablet by oral route every day 25 MG - Active losartan 50 mg tablet take 1.5 tablet by oral route every day - Active losartan 25 mg tablet take 0.5 tablet by oral route every day 12.5 MG - Active ropinirole 1 mg tablet take 1-4 tablet by oral route every day - Active tramadol 50 mg tablet take 1-3 tablet by oral route every day - Active Tylenol Extra Strength 500 mg tablet take 3 tablet by oral route every day - Active Ecotrin Low Strength 81 mg tablet,enteric coated take 1 tablet by oral route every day 81 MG - Active simvastatin 20 mg tablet take 1 tablet b y oral route every day in the evening 20 MG - Active omeprazole 20 mg capsule,delayed release take 1 capsule by oral route every day 30 minutes to 1 hour before a meal 20 MG - Active B COMPLEX (unknown strength) take as directed Not Available - Active Calcium 500 With D 500 mg-10 mcg (400 unit) tablet take as directed - Active Fish Oil 1,200 mg (144 mg-216 mg) capsule take 2 tablets twice daily - Active Multivitamin (unknown strength) take as directed Not Available - Active VITAMIN C (unknown strength) take as directed Not Available - Active VITAMIN C (unknown strength) take as directed Not Available - Active Procedures Procedure Date Routine Serum Collection Offic/outpt E&m [facility] Advance Directives Directive Yes / No Effective Date File Name No Information Encounters Encounter Description Practice Location Reason(s) For Visit Diagnoses Date Provider Providers Copied on Encounter [facility], [address] [address], [place], [place], [id number], tel:[phone] [facility] No Information James WHITE [address], [place], [id number], [place]. tel:[phone] [facility], [address] [address], [place], [place], [id number], [place] tel:[phone] [facility] Chronic diarrhea James WHITE [address], [place], [id number], [place]. tel:[phone] Offic/outpt E&m [facility], [address] [address], [place], [place], [address], [place] tel:[phone] [facility] GI Symptoms or Concerns (chief complaint)G I Symptoms or Concerns (chief complaint) Recurrent Clostridium difficile diarrheaLLQ abdominal pain James Mongeg. [address], [place], [id number], [place]. tel:[phone] Referring Provider: Paula BIGGS, [address] [place] [address], [address]. tel:[phone] [facility], [address] [address], [place], [place], [id number], [place] tel:[phone] [facility] No Information Sameer Trivedi. [address] [facility], [place], [place], [id number], [place]. tel:[phone] Family History Family Member Type Diagnosis Age At Onset Brother Problem (finding) Sister Problem (finding) Son Problem (finding) Alive and well Brother Problem (finding) Cancer, unknown Father Problem (finding) malignant neoplasm of l salena Sister Problem (finding) Alive and well Father Problem (finding) Mother Problem (finding) Immunizations Vaccine Date Status Comments SARS-COV-2 (COVID-19) vaccin e, mRNA, spike protein, LNP, preservative free, 30 mcg/0.3mL dose administered Note: [facility] bi-direct ional interface ; Source: Other Registry influenza, seasonal vaccine, quadrivalent, adjuvanted, .5mL dose, preservative free administered Note: [facility] bi-di rectional interface ; Source: Other Registry SARS-COV-2 (COVID-19) vaccin e, mRNA, spike protein, LNP, preservative free, 30 mcg/0.3mL dose administered Note: [facility] bi-direct ional interface ; Source: Other Registry SARS-COV-2 (COVID-19) vaccin e, mRNA, spike protein, LNP, preservative free, 30 mcg/0.3mL dose administered Note: [facility] bi-direct ional interface ; Source: Other Registry influenza, seasonal vaccine, quadrivalent, adjuvanted, .5mL dose, preservative free administered Note: [facility] bi-di rectional interface ; Source: Other Registry influenza, high dose seasona l, preservative-free administered Note: [facility] bi-direct ional interface ; Source: Other Registry influenza, high dose seasona l, preservative-free administered Note: [facility] bi-direct ional interface ; Source: Other Registry influenza, high dose seasona l, preservative-free administered Note: [facility] bi-direct ional interface ; Source: Other Registry influenza, high dose seasona l, preservative-free administered Note: [facility] bi-direct ional interface ; Source: Other Registry influenza, high dose seasona l, preservative-free administered Note: [facility] bi-direct ional interface ; Source: Other Registry influenza, high dose seasona l, preservative-free administered Note: [facility] bi-direct ional interface ; Source: Other Registry Prevnar 13 administered Note: [facility] bi-d irectional interface ; Source: Other Registry influenza virus vaccine, unspecified formulation administered Note: [facility] bi-di rectional interface ; Source: Other Registry influenza, high dose seasona l, preservative-free administered Note: [facility] bi-direct ional interface ; Source: Other Registry Influenza, seasonal, injecta ble, preservative free administered Note: [facility] bi-direct ional interface ; Source: Other Registry tetanus toxoid, reduced diphtheria toxoid, and acellular pertussis vaccine, adsorbed administered Note: [facility] b i-directional interface ; Source: Other Registry Influenza, seasonal, injectable administe red Note: [facility] bi- directional interface ; Source: Other Registry tetanus and diphtheria toxoi ds, adsorbed, preservative free, for adult use (5 Lf of tetanus toxoid and 2 Lf of diphtheria toxoid) administered Note: [facility] bi-direct ional interface ; Source: Other Registry zoster vaccine, live administered Note: [facility] bi-directional interface ; Source: Other Registry Pneumovax 23 administered Note: [facility] bi-d irectional interface ; Source: Other Registry Payers Payer name Insurance type Covered green party ID Authoriza tion(s) [facility] AAR Medic are Complete CI [id number] Social History Type Description Quantity Date Captured Comments Alcohol Use Details Unknown Caffeine Use Details Unknown Tobacco Use Status No Information Smoking Status No Information Sex Female Chief Complaint And Reason For Visit No Information Reason For Referral Reason For Referral No Information Plan Of Treatment Date Type Action Status Referral Ordered: CT Abdomen And Pelvis WITH Contrast Appointment date/timeframe: 06/27/2021 ordered History Of Present Illness Encounter Date Complaint History Of Prese nt Illness GI Symptoms or Concerns The marc ent is an 80-year-old woman who has been sent to GI Clinic for consultation by DIAN Arevalo due to concerns about recurrent C. diff colitis, diarrhea. The patient's past medical history includes anxiety, arthritis, thyroid disorder, and back surgery. I did not have any of her prior records during her visit with me. I had requested her records from her PCP and [place] clinic which I received later in the day and were reviewed. Note has been updated to reflect those details. The patient reported using amoxicillin for some dental work last year around November 2020. Subsequently, she had developed diarrhea with up to 4, liquid, nonbloody bowel movements. Prior to that, she used to struggle with constipation issues requiring laxatives and prunes intake. The patient reports that her PCP had given her vancomycin treatment at that time. However, she is not sure if any workup was performed. She reported feeling better for a week after treatment, however, then had recurrence of diarrhea. She received a total of 3 courses of treatment around that time per patient. Per PCP's note, she was given Vancomycin initially (no records received about lab work) and then it was repeated due to ongoing diarrhea issues. PCP's note mentions persistent symptoms but does not mention third course of Vancomycin. The patient reports that she went to [place] and started having diarrhea while she was there. She visited an urgent care. Prior to visiting the Urgent Care, she had contacted her local PCP here who had refilled her antibiotic treatment per patient. She was seen in Urgent Care around end of February 2021. She was given 30 days Dicyclomine. The patient reports that after completing treatment, she felt better again for few days and eventually ended up having recurrence of her symptoms and she was given 60 days of Dicyclomine on 05/12/21. After returning from [place], she had recurrence of her symptoms. PCP did labs that showed positive C diff PCR, positive C diff GDH antigen but negative c diff toxin. The patient reports that she started taking vancomycin again yesterday. She did not have any bowel movement yesterday or today. Denies any nausea or vomiting. No fever, however, reports chills and sweating. She has lost about 25 pounds body weight since her symptom onset last year. She also reports intermittent left lower quadrant and left lateral abdominal pain described as pressure, achy pain, which becomes intense at times up to 8 or 10. The patient reports that her last colonoscopy was 15-18 years ago.Denies smoking. Quit alcohol many years ago. The patient's grandmother had colon cancer. The patient's father had lung cancer, he was a smoker. Documented ROS, past medical, surgical, social, and family histories were reviewed. GI Symptoms or Concerns Functional Status Date Functional Assessmen t No Information Instructions Date Instruction Additional Infor chano Check CBC, BMP.Obtai n CT abdomen and pelvis with contrast.PCP office note and [place] clinic notes received, reviewed and patient updated.Schedule colonoscopy with random colon biopsiesDr. Del Cid to arrange FMT as appropriate. Continue oral vancomycin 125 mg 4 times daily for now. Related to Recurrent Clostridium difficile diarrhea Assessments Type Assessment Date No Information Patient Care Teams Name Effective Dates (start - stop) Status Members No Information
--- OUTSIDE RECORDS SUMMARY | 2023-07-22 11:50 | XMS_ITS | Clinical Summary ---
Author Name Unknown Organization [facility] Address [place], [place] [address] Care Team Providers Care Contact Center Director Name Role Phone Paula Carrillo Primary Care Provider [phone] Allergies Active Allergy Reactions Criticality Noted Date [...] g Sulfates (Suprep Bowel Prep Kit) 17.5-3.13-1.6 gramIndications:[place] n cancer screening Take as per the [...] Name Administration Dates Next Due COVID-19 vaccine ([employer] 30mcg/0.3mL) PF, MDV 06/27/2020,06/06/2020 Influenza, High-dose Inactivated [...] 01/03/2019, 09/24/2008 Medical Devices Implanted Type Area Metal Washing Machine Operator Device Identifier Shelf Expiration Date Model / Serial / Lot [id number] one 1-4mm 60cc Medtronic Fine Canclls Freeze Dried Implanted:Qty: 1 on 07/19/2017 by Tobin Vo MD at Explanted:at (Quantity not on file) N/A: Spine Medtronic Spine/Ortho 03/18/2022 [id number]# / [id number] / Screw Lmbr Post 6.5x50mm Solera 5.5/6 Va Cocr - [id number] Implanted:Qty: 4 on 07/19/2017 by Tobin Vo MD at N/A: Spine Medtronic Spine/Ortho [id number] # / / Raul Lmbr 100x5.5mm Solera 5.5/6 Cvd Titnm - [id number] Implanted:Qty: 1 on 07/19/2017 by Tobin Vo MD at N/A: Spine Medtronic Spine/Ortho [id number]# / / Raul Lmbr 110x5.5mm Solera 5.5/6 Cvd Titnm - [id number] Implanted:Qty: 1 on 07/19/2017 by Tobin Vo MD at N/A: Spine Medtronic Spine/Ortho [id number]# / / Hook Lmbr Post Md Carbajal Legacy Extended Body - [id number] Implanted:Qty: 2 on 07/19/2017 by Tobin Vo MD at N/A: Spine Medtronic Spine/Ortho [id number]# / / Set Screw Lmbr Legacy 5.5 Titnm Breakoff - [id number] Implanted:Qty: 2 on 07/19/2017 by Tobin Vo MD at N/A: Spine Medtronic Spine/Ortho [id number]# / / Interbody 20mm X 8mm X 60mm 6deg Implanted:Qty: 1 on 07/19/2017 by Tobin Vo MD at N/A: Spine 02/25/2023 [id number] / / [id number] Description:INTERBODY 20MM X 8MM X 60MM 6DEG Interbody 20mm X 12mm X 55mm 6deg Implanted:Qty: 1 on 07/19/2017 by Tobin Vo MD at N/A: Spine 05/21/2025 [id number] / / [id number] Description:INTERBODY 20MM X 12MM X 55MM 6DEG Interbody 20mm X 12mm X 50mm 6deg Implanted:Qty: 1 on 07/19/2017 by Tobin Vo MD at N/A: Spine 03/19/2023 [id number] / / [id number] Description:INTERBODY 20MM X 12MM X 50MM 6DEG Screw 45x5.5 Implanted:Qty: 2 on 07/19/2017 by Tobin Vo MD at N/A: Spine 10/28/2023 [id number] / / [id number] Description:SCREW 45X5.5 Screw 45x5.5 Implanted:Qty: 1 on 07/19/2017 by Tobin Vo MD at N/A: Spine 01/13/2024 [id number] / / [id number] 1-4mm 30cc Medtronic Chips Canclls Freeze Dried Implanted:Qty: 1 on 07/19/2017 by Tobin Vo MD at Explanted:at (Quantity not on file) N/A: Spine Medtronic Spine/Ortho 04/01/2022 [id number]# / [id number] / Screw 40x5.5 Implanted:Qty: 1 on 07/19/2017 by Tobin Vo MD at N/A: Spine 01/08/2025 [id number] / / [id number] Description:SCREW 40X5.5 Bone Matrix Lg Infuse Bmp - [id number] Implanted:Qty: 1 on 07/19/2017 by Tobin Vo MD at N/A: Spine Medtronic Spine/Ortho 11/06/2018 [id number]# / / [id number] Bone Matrix 5cc Mastergraft Paste Dbm - [id number] Implanted:Qty: 1 on 07/19/2017 by Tobin Vo MD at N/A: Spine Medtronic Spine/Ortho 02/05/2022 [id number]# / / [id number] Plate Lmbr Sm 2-Hole Olif25 Lat - [id number] Implanted:Qty: 1 on 07/19/2017 by Tobin Vo MD at N/A: Spine Medtronic Spine/Ortho 05/11/2025 [id number]# / / [id number] Plate Lmbr Sm 2-Hole Olif25 Lat - [id number] Implanted:Qty: 1 on 07/19/2017 by Tobin Vo MD at N/A: Spine Medtronic Spine/Ortho 10/25/2023 [id number]# / / [id number] Set Screw Lmbr Ant 5.5mm Solera Break Off - [id number] Implanted:Qty: 6 on 07/19/2017 by Tobin Vo MD at N/A: Spine Medtronic Spine/Ortho [id number]# / / Screw Lmbr Post 4x50mm Solera 5.5/6 Va Cocr - [id number] Implanted:Qty: 1 on 07/19/2017 by Tobin Vo MD at N/A: Spine Medtronic Spine/Ortho [id number] # / / Screw Lmbr Post 5.5x50mm Solera 5.5/6 Va Cocr - [id number] Implanted:Qty: 1 on 07/19/2017 by Tobin Vo MD at N/A: Spine Medtronic Spine/Ortho [id number] # / / Procedures Procedure Name Priority [...] Documents on File Type Date Recorded 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
== END 2023-07-02 10:01 | disposition home or self-care (01) ==
LOC: NFLDREF 07-22 11:47
PROVIDERS: PCP Nurse Practitioner Family; Referring Provider Nurse Practitioner Family; Visit Provider Nurse Practitioner Family
DX: R10.9 Unspecified abdominal pain (principal)
CPT/HCPCS: 81001; 87086

== ENCOUNTER 2023-07-09 09:32 | Outpatient (CLI) | payer MEDICARE, SELFPAY ==
--- OUTSIDE RECORDS SUMMARY | 2023-07-09 09:35 | XMS_ITS | Clinical Summary ---
Author Name Unknown Organization [facility] er Address [address] [place] [address] Care Team Providers Care Extension Service Specialist Name Role Phone None, Pcp Primary Care [...] age to complete this topic Care Teams Extension Service Specialist Relationship Specialty Start Date End Date None, Pcp [address] [facility] [place] [address] PCP - General Transport Medic 10/15/22
--- OUTSIDE RECORDS SUMMARY | 2023-07-09 09:36 | XMS_ITS | Clinical Summary ---
Author Name Unknown Organization [facility] Address [place], [place] [address] Care Team Providers Care Berry Planter Name Role Phone Paula Carrillo Primary Care Provider [phone] Allergies Active Allergy Reactions Criticality Noted Date [...] g Sulfates (Suprep Bowel Prep Kit) 17.5-3.13-1.6 gramIndications:[place] n cancer screening Take as per the [...] Name Administration Dates Next Due COVID-19 vaccine (fabrik [employer] 30mcg/0.3mL) PF, MDV 06/27/2020,06/06/2020 Influenza, High-dose Inactivated [...] 01/03/2019, 09/24/2008 Medical Devices Implanted Type Area Mill Supervisor Device Identifier Shelf Expiration Date Model / Serial / Lot [id number] one 1-4mm 60cc Medtronic Fine Canclls Freeze Dried Implanted:Qty: 1 on 07/19/2017 by Tobin Vo MD at [facility] Explanted:at [facility] (Quantity not on file) N/A: Spine Medtronic Spine/Ortho 03/18/2022 [id number]# / [id number] / Screw Lmbr Post 6.5x50mm Solera 5.5/6 Va Cocr - [id number] Implanted:Qty: 4 on 07/19/2017 by Tobin Vo MD at [facility] N/A: Spine Medtronic Spine/Ortho [id number] # / / Raul Lmbr 100x5.5mm Solera 5.5/6 Cvd Titnm - [id number] Implanted:Qty: 1 on 07/19/2017 by Tobin Vo MD at [facility] N/A: Spine Medtronic Spine/Ortho [id number]# / / Raul Lmbr 110x5.5mm Solera 5.5/6 Cvd Titnm - [id number] Implanted:Qty: 1 on 07/19/2017 by Tobin Vo MD at [facility] N/A: Spine Medtronic Spine/Ortho [id number]# / / Hook Lmbr Post Md Carbajal Legacy Extended Body - [id number] Implanted:Qty: 2 on 07/19/2017 by Tobin Vo MD at [facility] N/A: Spine Medtronic Spine/Ortho [id number]# / / Set Screw Lmbr Legacy 5.5 Titnm Breakoff - [id number] Implanted:Qty: 2 on 07/19/2017 by Tobin Vo MD at [facility] N/A: Spine Medtronic Spine/Ortho [id number]# / / Interbody 20mm X 8mm X 60mm 6deg Implanted:Qty: 1 on 07/19/2017 by Tobin Vo MD at [facility] N/A: Spine 02/25/2023 [id number] / / [id number] Description:INTERBODY 20MM X 8MM X 60MM 6DEG Interbody 20mm X 12mm X 55mm 6deg Implanted:Qty: 1 on 07/19/2017 by Tobin Vo MD at [facility] N/A: Spine 05/21/2025 [id number] / / [id number] Description:INTERBODY 20MM X 12MM X 55MM 6DEG Interbody 20mm X 12mm X 50mm 6deg Implanted:Qty: 1 on 07/19/2017 by Tobin Vo MD at [facility] N/A: Spine 03/19/2023 [id number] / / [id number] Description:INTERBODY 20MM X 12MM X 50MM 6DEG Screw 45x5.5 Implanted:Qty: 2 on 07/19/2017 by Tobin Vo MD at [facility] N/A: Spine 10/28/2023 [id number] / / [id number] Description:SCREW 45X5.5 Screw 45x5.5 Implanted:Qty: 1 on 07/19/2017 by Tobin Vo MD at [facility] N/A: Spine 01/13/2024 [id number] / / [id number] one 1-4mm 30cc Medtronic Chips Canclls Freeze Dried Implanted:Qty: 1 on 07/19/2017 by Tobin Vo MD at [facility] Explanted:at [facility] (Quantity not on file) N/A: Spine Medtronic Spine/Ortho 04/01/2022 [id number]# / [id number] / Screw 40x5.5 Implanted:Qty: 1 on 07/19/2017 by Tobin Vo MD at [facility] N/A: Spine 01/08/2025 [id number] / / [id number] Description:SCREW 40X5.5 Bone Matrix Lg Infuse Bmp - [id number] Implanted:Qty: 1 on 07/19/2017 by Tobin Vo MD at [facility] N/A: Spine Medtronic Spine/Ortho 11/06/2018 [id number]# / / [id number] Bone Matrix 5cc Mastergraft Paste Dbm - [id number] Implanted:Qty: 1 on 07/19/2017 by Tobin Vo MD at [facility] N/A: Spine Medtronic Spine/Ortho 02/05/2022 [id number]# / / [id number] Plate Lmbr Sm 2-Hole Olif25 Lat - [id number] Implanted:Qty: 1 on 07/19/2017 by Tobin Vo MD at [facility] N/A: Spine Medtronic Spine/Ortho 05/11/2025 [id number]# / / [id number] Plate Lmbr Sm 2-Hole Olif25 Lat - [id number] Implanted:Qty: 1 on 07/19/2017 by Tobin Vo MD at [facility] N/A: Spine Medtronic Spine/Ortho 10/25/2023 [id number]# / / [id number] Set Screw Lmbr Ant 5.5mm Solera Break Off - [id number] Implanted:Qty: 6 on 07/19/2017 by Tobin Vo MD at [facility] N/A: Spine Medtronic Spine/Ortho [id number]# / / Screw Lmbr Post 4x50mm Solera 5.5/6 Va Cocr - [id number] Implanted:Qty: 1 on 07/19/2017 by Tobin Vo MD at [facility] N/A: Spine Medtronic Spine/Ortho [id number] # / / Screw Lmbr Post 5.5x50mm Solera 5.5/6 Va Cocr - [id number] Implanted:Qty: 1 on 07/19/2017 by Tobin Vo MD at [facility] N/A: Spine Medtronic Spine/Ortho [id number] # / / Procedures Procedure Name Priority [...] Documents on File Type Date Recorded Patient Pump Tester Expl anation Healthcare Directive 06/28/2017 4:21 PM HE ALTH CARE POWER OF [place], 11/06/2003 * Full Code (Latest Code Status on File) Date Activated Date Inactivated Comments 07/19/2017 5:26 AM 07/26/2017 1:20 PM Care Teams Berry Planter Relationship Specialty Start Date End Date Paula Carrillo PA PCP - General Physician Farm Implement Engine Mechanic 09/10/20
--- NOTE | 2023-07-09 10:00 | CT_ITS ---
Patient: ALYSON GREGORY Facility:?[facility] Patient ID:?[id number] Site Patient ID:?[id number] Site :?[id number] Study:?CT-Abdomen/Pelvis W/O-07/09/2023 10:26:29 AM Ordering Physician:MATTHEW Final Report: Indication: ABDOMEN PAIN, CONSTIPATION FOR MONTHS Technique: Noncontrast CT abdomen and pelvis Please note that all CT scans at this facility use dose modulation, iterative reconstruction, and/or weight-based dosing when appropriate to reduce radiation dose to as low as reasonably achievable. Comparison: None Findings: 3.4 millimeter anterior left lung base. No pleural effusion. The liver is elongated measuring 21.9 cm in craniocaudad dimension. No intrahepatic mass on this noncontrast enhanced study. Spleen is nonenlarged. Normal adrenal glands. Pancreas is within normal limits. Gallbladder is incompletely distended. Faint layering densities may be present within the gallbladder. No biliary obstruction. The bladder is normal. Postop changes appendectomy and hysterectomy. No dilated bowel loops. Increased stool within the colon. Small bowel loops are unremarkable. Vascular calcifications without aneurysm. Upper limits of normal inguinal lymph nodes measuring up to 1 cm. Postop changes lumbar spine fusion. Severe degenerative disc disease above the fusion hardware. Chronic changes to the right posterior iliac bone. Impression: Constipation. No bowel obstruction or inflammatory change. Hepatomegaly. Upper limits of normal bilateral inguinal lymph nodes, likely of no significance. Possible mild cholelithiasis. Please note that all CT scans at this facility use dose modulation, iterative reconstruction, and/or weight-based dosing when appropriate to reduce radiation dose to as low as reasonably achievable. Dictated by Andre Galeas MD @ 07/09/2023 12:40:43 PM Signed by:?Andre Galeas MD @07/09/2023 12:40:43 PM (Electronic Signature)
== END 2023-07-09 09:33 | disposition home or self-care (01) ==
LOC: CT 09:33
PROVIDERS: PCP Nurse Practitioner Family; Visit Provider Nurse Practitioner Family
DX: R10.9 Unspecified abdominal pain (principal); K59.00 Constipation, unspecified; R16.0 Hepatomegaly, not elsewhere classified; K80.20 Calculus of gallbladder without cholecystitis without obstruction
CPT/HCPCS: 74176

== ENCOUNTER 2023-10-15 08:40 | Outpatient (CLI) | payer MEDICARE, SELFPAY ==
--- OUTSIDE RECORDS SUMMARY | 2023-10-15 08:43 | XMS_ITS | Clinical Summary ---
Author Organization [facility] er Address [address] [place] [address] Care Team Providers Care Business Office Director Name Role Phone None, Pcp Primary Care [...] of 3) 11/19/2008 09/24/2008 Mammogram 10/08/2017 10/08/2016 COVID-19 Vaccine (6 - 2022- season) 2023 02/20/2023, 11/27/2021, 12/29/2020, Additional history exists Influenza Vaccine (#1) 2023 , 12/14/2016, 01/07/2016, Additional history exists DTaP,Tdap,and Td Vaccines (4 - Td or Tdap) 06/23/2032 06/23/2022, 02/28/2022, 10/06/2011, Additional history exists HPV Vaccines Aged Out No longer eligi ble based on patient's age to complete this topic Procedures Procedure Name Priority Date/Time Associated Diagnosis Comments MAMMOGRAM BREAST SCREENING TOMOSYNTHESIS BILATERAL Routine 10/08/2016 10:24 AM CDT from Last 3 Months or Most Recently Relevant to Health Maintenance Care Teams Business Office Director Relationship Specialty Start Date End Date None, Pcp [address] [place] [address] PCP - General News Specialist 10/15/22
--- OUTSIDE RECORDS SUMMARY | 2023-10-15 08:44 | XMS_ITS | Clinical Summary ---
Author Organization [facility] Address [place], [place] [address] Care Team Providers Care Electronic Warfare Technician Name Role Phone Paula Carrillo Primary Care Provider +1- [phone] Allergies Active Allergy Reactions Criticality Noted Date [...] g Sulfates (Suprep Bowel Prep Kit) 17.5-3.13-1.6 gramIndications:[place] n cancer screening Take as per the [...] Name Administration Dates Next Due COVID-19 vaccine (MobPanel 30mcg/0.3mL) PF, MDV 06/27/2020,06/06/2020 Influenza, High-dose Inactivated [...] Outcome GA Total Labor Labor/2nd/3rd Weight Sex Type Anes PTL Simin A1 A5 Name Clin Para Para Para Last Filed Vital Signs [...] 06/06/2021 8:11 AM CDT Plan of Treatment Upcoming Encounters Date Type Department Care Team (Late st Contact Info) Description 10/15/2023 9:00 AM CDT Ancillary Procedure [facility] [address] [place] [address] Health Maintenance Due Date Last Done Comments [...] 09/24/2008 Medical Devices Implanted Type Area Mill Operator Helper Device Identifier Shelf Expiration Date Model / Serial / Lot [id number] one 1-4mm 60cc Medtronic Fine Canclls Freeze Dried Implanted:Qty: 1 on 07/19/2017 by Tobin Vo MD at [facility] Explanted:at [facility] (Quantity not on file) N/A: Spine Medtronic Spine/Ortho 03/18/2022 [id number]# / [id number] / Screw Lmbr Post 6.5x50mm Solera 5.5/6 Va Cocr - [id number] Implanted:Qty: 4 on 07/19/2017 by Tobin Vo MD at [facility] N/A: Spine Medtronic Spine/Ortho [id number] # / / Raul Lmbr 100x5.5mm Solera 5.5/6 Cvd Titnm - [id number] Implanted:Qty: 1 on 07/19/2017 by Tobin Vo MD at [facility] N/A: Spine Medtronic Spine/Ortho [id number]# / / Raul Lmbr 110x5.5mm Solera 5.5/6 Cvd Titnm - [id number] Implanted:Qty: 1 on 07/19/2017 by Tobin Vo MD at [facility] N/A: Spine Medtronic Spine/Ortho [id number]# / / Hook Lmbr Post Md Horizon Legacy Extended Body - [id number] Implanted:Qty: 2 on 07/19/2017 by Tobin Vo MD at [facility] N/A: Spine Medtronic Spine/Ortho [id number]# / / Set Screw Lmbr Legacy 5.5 Titnm Breakoff - [id number] Implanted:Qty: 2 on 07/19/2017 by Tobin Vo MD at [facility] N/A: Spine Medtronic Spine/Ortho [id number]# / / Interbody 20mm X 8mm X 60mm 6deg Implanted:Qty: 1 on 07/19/2017 by Tobin Vo MD at [facility] N/A: Spine 02/25/2023 [id number] / / [id number] Description:INTERBODY 20MM X 8MM X 60MM 6DEG Interbody 20mm X 12mm X 55mm 6deg Implanted:Qty: 1 on 07/19/2017 by Tobin Vo MD at [facility] N/A: Spine 05/21/2025 [id number] / / [id number] Description:INTERBODY 20MM X 12MM X 55MM 6DEG Interbody 20mm X 12mm X 50mm 6deg Implanted:Qty: 1 on 07/19/2017 by Tobin Vo MD at [facility] N/A: Spine 03/19/2023 [id number] / / [id number] Description:INTERBODY 20MM X 12MM X 50MM 6DEG Screw 45x5.5 Implanted:Qty: 2 on 07/19/2017 by Tobin Vo MD at [facility] N/A: Spine 10/28/2023 [id number] / / [id number] Description:SCREW 45X5.5 Screw 45x5.5 Implanted:Qty: 1 on 07/19/2017 by Tobin Vo MD at [facility] N/A: Spine 01/13/2024 [id number] / / [id number] one 1-4mm 30cc Medtronic Chips Canclls Freeze Dried Implanted:Qty: 1 on 07/19/2017 by Tobin Vo MD at [facility] Explanted:at [facility] (Quantity not on file) N/A: Spine Medtronic Spine/Ortho 04/01/2022 [id number]# / [id number] / Screw 40x5.5 Implanted:Qty: 1 on 07/19/2017 by Tobin Vo MD at [facility] N/A: Spine 01/08/2025 [id number] / / [id number] Description:SCREW 40X5.5 Bone Matrix Lg Infuse Bmp - [id number] Implanted:Qty: 1 on 07/19/2017 by Tobin Vo MD at [facility] N/A: Spine Medtronic Spine/Ortho 11/06/2018 [id number]# / / [id number] Bone Matrix 5cc Mastergraft Paste Dbm - [id number] Implanted:Qty: 1 on 07/19/2017 by Tobin Vo MD at [facility] N/A: Spine Medtronic Spine/Ortho 02/05/2022 [id number]# / / [id number] Plate Lmbr Sm 2-Hole Olif25 Lat - [id number] Implanted:Qty: 1 on 07/19/2017 by Tobin Vo MD at [facility] N/A: Spine Medtronic Spine/Ortho 05/11/2025 [id number]# / / [id number] Plate Lmbr Sm 2-Hole Olif25 Lat - [id number] Implanted:Qty: 1 on 07/19/2017 by Tobin Vo MD at [facility] N/A: Spine Medtronic Spine/Ortho 10/25/2023 [id number]# / / [id number] Set Screw Lmbr Ant 5.5mm Solera Break Off - [id number] Implanted:Qty: 6 on 07/19/2017 by Tobin Vo MD at [facility] N/A: Spine Medtronic Spine/Ortho [id number]# / / Screw Lmbr Post 4x50mm Solera 5.5/6 Va Cocr - [id number] Implanted:Qty: 1 on 07/19/2017 by Tobin Vo MD at [facility] N/A: Spine Medtronic Spine/Ortho [id number] # / / Screw Lmbr Post 5.5x50mm Solera 5.5/6 Va Cocr - [id number] Implanted:Qty: 1 on 07/19/2017 by Tobin Vo MD at [facility] N/A: Spine Medtronic Spine/Ortho [id number] # / / Procedures Procedure Name Priority [...] Documents on File Type Date Recorded Patient Rn Care Transition Expl anation Healthcare Directive 06/28/2017 4:21 PM HE ALTH CARE POWER OF JEWELRY MAKING INSTRUCTOR, 11/06/2003 * Full Code (Latest Code Status on File) Date Activated Date Inactivated Comments 07/19/2017 5:26 AM 07/26/2017 1:20 PM Care Teams Electronic Warfare Technician Relationship Specialty Start Date End Date Paula Carrillo PA PCP - General Physician Refinery Operator Reforming Unit 09/10/20
--- NOTE | 2023-10-15 10:15 | CRLHL7_ITS ---
For Patients: As a result of the Century Cures Act, medical imaging exams and procedure reports are released immediately into your electronic medical record. You may view this report before your referring provider. If you have questions, please contact your health care provider. BILATERAL SCREENING MAMMOGRAM WITH COMPUTER-AIDED DETECTION AND TOMOSYNTHESIS TECHNIQUE: CC and MLO views were obtained. These mammographic images have been obtained using full-field digital technique. These mammographic images were interpreted with the benefit of computer-aided detection. Breast Tomosynthesis was used in this interpretation. COMPARISON FILM: 10/12/22, 10/07/21, 10/10/19. FINDINGS: The breasts are heterogeneously dense, which may obscure small masses IMPRESSION: There is no radiographic evidence for malignancy. ASSESSMENT: BI-RADS Category 2: Benign RECOMMENDATION: Routine screening mammogram in 1 year. A lay language report of this examination will be provided to the patient. Andre Galeas M.D. Diagnostic Radiologist [email or web address] BAILEY/morales / bM/Dictated by: Andre Galeas MD @ 10/15/2023 11:45:00 AM (Electronically Signed)
--- NOTE | 2023-10-15 11:00 | CRLHL7_ITS ---
For Patients: As a result of the Century Cures Act, medical imaging exams and procedure reports are released immediately into your electronic medical record. You may view this report before your referring provider. If you have questions, please contact your health care provider. Indication: Right lower quadrant pain Technique: Noncontrast CT abdomen and pelvis Please note that all CT scans at this facility use dose modulation, iterative reconstruction, and/or weight-based dosing when appropriate to reduce radiation dose to as low as reasonably achievable. Comparison: 07/09/2023 Findings: Mild scarring in the lung bases. Hepatomegaly again noted. Gallbladder appears normal. Normal spleen and adrenal glands. Normal kidneys and ureters. Pancreas unremarkable. Postop changes lumbar spine. Bladder normal. No pelvic mass. Postop changes of hysterectomy and appendectomy. No bowel obstruction or free air. No free fluid or abscess. Increased stool within the right colon. Impression: Excess stool in right colon particularly in the cecum consistent with constipation. No mechanical bowel obstruction or inflammation. Chronic hepatomegaly. Multilevel postop changes to the lumbar spine with severe degenerative disc disease above the fusion. Please note that all CT scans at this facility use dose modulation, iterative reconstruction, and/or weight-based dosing when appropriate to reduce radiation dose to as low as reasonably achievable. Dictated by Andre Galeas MD @ 10/15/2023 12:21:47 PM (Electronically Signed)
== END 2023-10-15 08:41 | disposition home or self-care (01) ==
PROVIDERS: PCP Nurse Practitioner Family; Visit Provider Nurse Practitioner Family
DX: R10.31 Right lower quadrant pain (principal); R16.0 Hepatomegaly, not elsewhere classified; M51.36 Other intervertebral disc degeneration, lumbar region; K59.00 Constipation, unspecified; Z12.31 Encounter for screening mammogram for malignant neoplasm of breast; R92.2 Inconclusive mammogram
CPT/HCPCS: 74176; 77063; 77067; 93306

== ENCOUNTER 2023-11-12 08:58 | Outpatient (CLI) | payer MEDICARE, SELFPAY ==
--- OUTSIDE RECORDS SUMMARY | 2023-11-12 09:01 | XMS_ITS | Clinical Summary ---
Author Organization [facility] er Address [address] [place] [address] Care Team Providers Care Director Of Customer Acquisition Name Role Phone None, Pcp Primary Care [...] history exists Influenza Vaccine (#1) 2023 , 12/21/2018, 12/10/2017, Additional history exists DTaP,Tdap,and Td Vaccines (4 [...] Recently Relevant to Health Maintenance Care Teams Director Of Customer Acquisition Relationship Specialty Start Date End Date None, Pcp [address] [place] [address] PCP - General Rehabilitation Caseworker 10/15/22
--- OUTSIDE RECORDS SUMMARY | 2023-11-12 09:02 | XMS_ITS | Clinical Summary ---
Author Organization [facility] Address [place], [place] [address] Care Team Providers Care Applications Sales Representative Name Role Phone Paula Carrillo Primary Care Provider +1- [phone] Allergies Active Allergy Reactions Criticality Noted Date [...] g Sulfates (Suprep Bowel Prep Kit) 17.5-3.13-1.6 gramIndications:[place] n cancer screening Take as per the [...] Date Acute non-recurrent maxillary sinusitis 09/24/2020 06/06/2021 Encounters Date Type Department Care Team Description 10/15/2023 9:00 AM CDT Ancillary Procedure [facility] & [address] [address] from Last 3 Months Immunizations Name Administration Dates Next Due COVID-19 vaccine (The Skimm 30mcg/0.3mL) PF, MDV 06/27/2020,06/06/2020 Influenza, High-dose Inactivated [...] Health Maintenance Due Date Last Done Comments RSV vaccine for adults or (1 - 1-dose 60+ series) 2000 Tetanus booster 10/05/2021 10/06/2011, 09/06, 03/08/1999 BMI (ht and wt on same day) for age 18+ 06/06/2022 06/06/2021, 11/07/2019, 10/31/2018, Additional history exists Medicare Wellness for age 65+ 06/07/2022, 11/07/2019, 10/31/2018, Additional history exists Depression screening for age 12+ 06/09/2022 06/09/2021, 06/09/2021, 06/07/2021, Additional history exists COVID-19 vaccine series ( season) 2023 12/29/2020, 06/27/2020, 06/06/2020 Influenza for age 65+ 11/07/2023 12/14/2016 , 01/07/2016, 12/13/2015, Additional history exists Tdap Completed 10/06/2011 Pneumococcal series for age 65+ Completed 5, 12/24/2005 DEXA/DXA scan for age 65+ Completed 11/01/2018 Zoster (shingles) series for age 50+ Completed 03/27/2019, 01/03/2019, 09/24/2008 Medical Devices Implanted Type Area Executive Pilot Device Identifier Shelf Expiration Date Model / Serial / Lot [id number] one 1-4mm 60cc Medtronic Fine Canclls Freeze Dried Implanted:Qty: 1 on 07/19/2017 by Tobin Vo MD at [facility] Explanted:at [facility] (Quantity not on file) N/A: Spine Medtronic Spine/Ortho 03/18/2022 [id number]# / [id number] / Screw Lmbr Post 6.5x50mm Solera 5.5/6 Va Cocr - [id number] Implanted:Qty: 4 on 07/19/2017 by Tobin Vo MD at [facility] N/A: Spine Medtronic Spine/Ortho [id number] # / / Raul Lmbr 100x5.5mm Solera 5.5/6 Cvd Titnm - [id number] Implanted:Qty: 1 on 07/19/2017 by Tobin Vo MD at [facility] N/A: Spine Medtronic Spine/Ortho [id number]# / / Raul Lmbr 110x5.5mm Solera 5.5/6 Cvd Titnm - [id number] Implanted:Qty: 1 on 07/19/2017 by Tobin Vo MD at [facility] N/A: Spine Medtronic Spine/Ortho [id number]# / / Hook Lmbr Post Md Horizon Legacy Extended Body - [id number] Implanted:Qty: 2 on 07/19/2017 by Tobin Vo MD at [facility] N/A: Spine Medtronic Spine/Ortho [id number]# / / Set Screw Lmbr Legacy 5.5 Titnm Breakoff - [id number] Implanted:Qty: 2 on 07/19/2017 by Tobin Vo MD at [facility] N/A: Spine Medtronic Spine/Ortho [id number]# / / Interbody 20mm X 8mm X 60mm 6deg Implanted:Qty: 1 on 07/19/2017 by Tobin Vo MD at [facility] N/A: Spine 02/25/2023 [id number] / / [id number] Description:INTERBODY 20MM X 8MM X 60MM 6DEG Interbody 20mm X 12mm X 55mm 6deg Implanted:Qty: 1 on 07/19/2017 by Tobin Vo MD at [facility] N/A: Spine 05/21/2025 [id number] / / [id number] Description:INTERBODY 20MM X 12MM X 55MM 6DEG Interbody 20mm X 12mm X 50mm 6deg Implanted:Qty: 1 on 07/19/2017 by Tobin Vo MD at [facility] N/A: Spine 03/19/2023 [id number] / / [id number] Description:INTERBODY 20MM X 12MM X 50MM 6DEG Screw 45x5.5 Implanted:Qty: 2 on 07/19/2017 by Tobin Vo MD at [facility] N/A: Spine 10/28/2023 [id number] / / [id number] Description:SCREW 45X5.5 Screw 45x5.5 Implanted:Qty: 1 on 07/19/2017 by Tobin Vo MD at [facility] N/A: Spine 01/13/2024 [id number] / / [id number] one 1-4mm 30cc Medtronic Chips Canclls Freeze Dried Implanted:Qty: 1 on 07/19/2017 by Tobin Vo MD at [facility] Explanted:at [facility] (Quantity not on file) N/A: Spine Medtronic Spine/Ortho 04/01/2022 [id number]# / [id number] / Screw 40x5.5 Implanted:Qty: 1 on 07/19/2017 by Tobin Vo MD at [facility] N/A: Spine 01/08/2025 [id number] / / [id number] Description:SCREW 40X5.5 Bone Matrix Lg Infuse Bmp - [id number] Implanted:Qty: 1 on 07/19/2017 by Tobin oV MD at [facility] N/A: Spine Medtronic Spine/Ortho 11/06/2018 [id number]# / / [id number] Bone Matrix 5cc Mastergraft Paste Dbm - [id number] Implanted:Qty: 1 on 07/19/2017 by Tobin Vo MD at [facility] N/A: Spine Medtronic Spine/Ortho 02/05/2022 [id number]# / / [id number] Plate Lmbr Sm 2-Hole Olif25 Lat - [id number] Implanted:Qty: 1 on 07/19/2017 by Tobin Vo MD at [facility] N/A: Spine Medtronic Spine/Ortho 05/11/2025 [id number]# / / [id number] Plate Lmbr Sm 2-Hole Olif25 Lat - [id number] Implanted:Qty: 1 on 07/19/2017 by Tobin Vo MD at [facility] N/A: Spine Medtronic Spine/Ortho 10/25/2023 [id number]# / / [id number] Set Screw Lmbr Ant 5.5mm Solera Break Off - [id number] Implanted:Qty: 6 on 07/19/2017 by Tobin Vo MD at [facility] N/A: Spine Medtronic Spine/Ortho [id number]# / / Screw Lmbr Post 4x50mm Solera 5.5/6 Va Cocr - [id number] Implanted:Qty: 1 on 07/19/2017 by Tobin Vo MD at [facility] N/A: Spine Medtronic Spine/Ortho [id number] # / / Screw Lmbr Post 5.5x50mm Solera 5.5/6 Va Cocr - [id number] Implanted:Qty: 1 on 07/19/2017 by Tobin Vo MD at [facility] N/A: Spine Medtronic Spine/Ortho [id number] # / / Procedures Procedure Name Priority Date/Time Associated Diagnosis Comments ECHO TRANSTHORACIC COMPLETE Routine 10/15/2023 9:10 AM CDT Other forms of dyspnea XR DXA BONE DENSITY 2 SITES AXIAL Routine 11/01/2018 1:14 PM CDT Other osteoporosis without current pathological fracture Vitamin D deficiency from Last 3 Months or Most Recently Relevant to Health Maintenance Results * ECHO TRANSTHORACIC COMPLETE (10/15/2023 9:10 AM CDT) AORTIC VALVE MEAN PG 4 mmHg EJECTION FRACTION 59 % PEAK TR VELOCITY 2.4 m/s LVEDD 4.5 cm EJECTION FRACTION 60 - 65% Anatomical Region Laterality Modality Ultrasound 10/15/2023 9:10 AM CDT Narrative 10/15/2023 9:44 AM CDT ECHOCARDIOGRAM RADHA MCMULLEN ? Accession#: ?? [id number] : ?1940 83 years Study Date: ?? 10/15/2023 9:10:50 AM Gender: F ?BP: ? 164/83 mmHg Height: 178.00 cm ?BSA: ?2.00 m? ? ? Weight: 82.00 kg ? Tech: ? MHR ? Referring MD: CARMELO VINCENT Site: ? [facility] Reading Location: MOBILE OP Patient Location: Procedure: 2D, Color Doppler and Spectral Doppler. Indication for study: dyspnea Cardiac Rhythm: Regular.Study quality: Fair. Final Impressions: 1. Normal LV size, mildly increased wall thickness, normal global systolic function with an estimated EF of 60 - 65%. 2. Right ventricular cavity size is normal, global systolic RV function is normal. Chamber Sizes and Function Normal left ventricular size, mildly increased wall thickness, normal global systolic function with an estimated EF of 60 - 65%. Left atrial size is normal. Right ventricular cavity size is normal, global systolic RV function is normal. The right atrium is mildly enlarged. Right atrial volume index is 15 ml/m? ? ?. Right atrial area is 13 cm? ? ?. The pulmonary artery is of normal size and origin. The sinus of Valsalva is normal sized. The ascending aorta is normal sized. Valves, RV Pressures and Diastolic Function The aortic valve is trileaflet, no stenosis and no regurgitation. The mitral valve is normal in structure, trace mitral regurgitation. Spectral Doppler shows Grade 1 pattern of LV diastolic filling. The tricuspid valve is normal in structure. Tricuspid regurgitation is mild regurgitation. The tricuspid regurgitant velocity is 2.4 m/s, the estimated right ventricular systolic pressure is 22 mmHg plus right atrial pressure. The pulmonic valve is normal. No pulmonary regurgitation. Masses, Effusion, Shunts There is no pericardial effusion. The inferior vena cava is dilated, respiratory size variation greater than 50%. Interatrial septum is not well visualized. MEASUREMENTS AND CALCULATIONS 2-D Measurements and LV Function: LVID (d) ?4.5 cm LV FS% (2D) ?? 30 % LVID (s) ?3.2 cm LVOT diameter 2.0 cm IVS (d) ? 1.3 cm HR ?60 bpm LVPW (d) ?1.0 cm LA Vol index ??28 ml/m2 Ao Sinus ?3.4 cm RA Vol index ??15 ml/m2 Ao ST junct 2.8 cm RA area ? 13 cm? ? ? Asc Ao ?3.5 cm RV Max 4C (d) 2.5 cm LA ?3.8 cm Diastology: Mitral ?Tissue Doppler E Peak 0.8 m/s ??e', Septum ? 0.04 m/s A Peak 1.1 m/s ??e', Lateral ?0.05 m/s E/A ?0.7 ?E/e' Average ?? 16.88 DT ? 321 msec Aortic Valve: Vmax ? 1.2 m/s ??SUSHANT (V) ?? 2.80 cm? ? ? VTI ?0.32 m ?? SUSHANT (I) ?? 2.55 cm? ? ? LVOT V max 1.0 m/s ??Max PG ?6 mmHg LVOT VTI ?? 0.25 m ?? Mean PG ?? 4 mmHg SV ? 83 ml ?Dim Index 0.77 SV index ?? 41 ml/m? ? ? CO ?5.0 l/min ?CI ?2.5 l/min/m? ? ? Mitral Valve: MVA ?2.4 cm? ? ? MV P 1/2 93 msec Tricuspid Valve and estimated PA pressures: TR Vmax 2.4 m/s TAPSE 2.1 cm TR maxG 22 mmHg . This study was interpreted by an [facility] accredited facility. CC: [facility] ([facility]) [facility]. ??Final ?? Procedure Note Andre Gonzáles MD - 10/15/2023 ECHOCARDIOGRAM RADHA MCMULLEN : 1940 83 years Study Date: 10/15/2023 9:10:50 AM Gender: F BP: 164/83 mmHg Height: 178.00 cm BSA: 2.00 m? ? ? Weight: 82.00 kg Tech: R Referring MD: CARMELO VINCENT Site: [facility] Reading Location: MOBILE OP Patient Location: Procedure: 2D, Color Doppler and Spectral Doppler. Indication for study: dyspnea Cardiac Rhythm: Regular.Study quality: Fair. Final Impressions: 1. Normal LV size, mildly increased wall thickness, normal globalsystolic function with an estimated EF of 60 - 65%. 2. Right ventricular cavity size is normal, global systolic RV functionis normal. Chamber Sizes and Function Normal left ventricular size, mildly increased wall thickness, normalglobal systolic function with an estimated EF of 60 - 65%. Left atrialsize is normal. Right ventricular cavity size is normal, global systolicRV function is normal. The right atrium is mildly enlarged. Right atrialvolume index is 15 ml/m? ? ?. Right atrial area is 13 cm? ? ?. The pulmonaryartery is of normal size and origin. The sinus of Valsalva is normalsized. The ascending aorta is normal sized. Valves, RV Pressures and Diastolic Function The aortic valve is trileaflet, no stenosis and no regurgitation. Themitral valve is normal in structure, trace mitral regurgitation. SpectralDoppler shows Grade 1 pattern of LV diastolic filling. The tricuspid valveis normal in structure. Tricuspid regurgitation is mild regurgitation. Thetricuspid regurgitant velocity is 2.4 m/s, the estimated right ventricularsystolic pressure is 22 mmHg plus right atrial pressure. The pulmonicvalve is normal. No pulmonary regurgitation. Masses, Effusion, Shunts There is no pericardial effusion. The inferior vena cava is dilated,respiratory size variation greater than 50%. Interatrial septum is notwell visualized. MEASUREMENTS AND CALCULATIONS 2-D Measurements and LV Function: LVID (d) 4.5 cm LV FS% (2D) 30 % LVID (s) 3.2 cm LVOT diameter 2.0 cm IVS (d) 1.3 cm HR 60 bpm LVPW (d) 1.0 cm LA Vol index 28 ml/m2 Ao Sinus 3.4 cm RA Vol index 15 ml/m2 Ao ST junct 2.8 cm RA area 13 cm? ? ? Asc Ao 3.5 cm RV Max 4C (d) 2.5 cm LA 3.8 cm Diastology: Mitral Tissue Doppler E Peak 0.8 m/s e', Septum 0.04 m/s A Peak 1.1 m/s e', Lateral 0.05 m/s E/A 0.7 E/e' Average 16.88 DT 321 msec Aortic Valve: Vmax 1.2 m/s SUSHANT (V) 2.80 cm? ? ? VTI 0.32 m SUSHANT (I) 2.55 cm? ? ? LVOT V max 1.0 m/s Max PG 6 mmHg LVOT VTI 0.25 m Mean PG 4 mmHg SV 83 ml Dim Index 0.77 SV index 41 ml/m? ? ? CO 5.0 l/min CI 2.5 l/min/m? ? ? Mitral Valve: MVA 2.4 cm? ? ? MV P 1/2 93 msec Tricuspid Valve and estimated PA pressures: TR Vmax 2.4 m/s TAPSE 2.1 cm TR maxG 22 mmHg . This study was interpreted by an [facility] accredited facility. CC: [facility] (med records) [facility]. Final Carmelo Vincent DUTY OFFICER ECHO ORD * XR DXA BONE DENSITY 2 SITES [...] Documents on File Type Date Recorded Patient Therapeutic Massage Technician Expl anation Healthcare Directive 06/28/2017 4:21 PM HE ALTH CARE POWER OF REFUND SPECIALIST, 11/06/2003 * Full Code (Latest Code Status on File) Date Activated Date Inactivated Comments 07/19/2017 5:26 AM 07/26/2017 1:20 PM Care Teams Applications Sales Representative Relationship Specialty Start Date End Date Paula Carrillo PA PCP - General Physician Communications Engineering Technician 09/10/20
--- NOTE | 2023-11-12 11:03 | W.ANESCHARGE ---
Anesthesia Charges Start Date/Time Anesthesia Start Date: 11/12/23 Anesthesia Start Time: 10:34 Stop Date/Time Anesthesia Stop Date: 11/12/23 Anesthesia Stop Time: 11:25 Summary Extremes of Age - Over 70 or under 1: MDA
--- NOTE | 2023-11-12 11:28 | W.ANESCHARGE ---
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
== END 2023-11-12 08:59 | disposition home or self-care (01) ==
LOC: OP CLINIC 08:59
PROVIDERS: PCP Nurse Practitioner Family; Visit Provider Surgery
DX: K59.00 Constipation, unspecified (principal); D12.5 Benign neoplasm of sigmoid colon; K64.8 Other hemorrhoids; K57.30 Diverticulosis of large intestine without perforation or abscess without bleeding
CPT/HCPCS: 00811; 45380; 45385; 88305; 99100; J2704

== ENCOUNTER 2023-11-18 12:50 | Outpatient (CLI) | payer MEDICARE, SELFPAY ==
--- OUTSIDE RECORDS SUMMARY | 2023-11-18 12:53 | XMS_ITS | Clinical Summary ---
Author Organization [facility] Address [place], [place] [address] Care Team Providers Care V Belt Builder Name Role Phone Paula Carrillo Primary Care Provider [phone]- [phone] Allergies Active Allergy Reactions Criticality Noted Date [...] g Sulfates (Suprep Bowel Prep Kit) 17.5-3.13-1.6 gramIndications:[place] n cancer screening Take as per the [...] menopausal or female climacteric sta sneha 08/29/2007 Overview (07/12/2017): She takes premarin 0.3 mg ( 1/2 tablets)- hot flashes. Hyperlipidemia Hypothyroidism Essential hypertension Toxic metabolic encephalopathy Resolved Problems Problem Noted Date Diagnosed Date Resolved Date Acute non-recurrent maxillary sinusitis 09/24/2020 06/06/2021 Encounters Date Type Department Care Team Description 10/15/2023 9:00 AM CDT Ancillary Procedure [facility] [address] [place] [address] from Last 3 Months Immunizations Name Administration Dates Next Due COVID-19 vaccine (Syapse 30mcg/0.3mL) PF, MDV 06/27/2020,06/06/2020 Influenza, High-dose Inactivated [...] 01/03/2019, 09/24/2008 Medical Devices Implanted Type Area Commercial Real Estate Associate Device Identifier Shelf Expiration Date Model / Serial / Lot [id number] one 1-4mm 60cc Medtronic Fine Canclls Freeze Dried Implanted:Qty: 1 on 07/19/2017 by Tobin Vo MD at [facility] Explanted:at [facility] (Quantity not on file) N/A: Spine Medtronic Spine/Ortho 03/18/2022 [id number]# / [id number] / Screw Lmbr Post 6.5x50mm Solera 5.5/6 Va Cocr - [id number] Implanted:Qty: 4 on 07/19/2017 by Tobin Vo MD at [facility] N/A: Spine Medtronic Spine/Ortho [id number] # / / Raul Lmbr 100x5.5mm Solera 5.5/6 Cvd Titnm - [id number] Implanted:Qty: 1 on 07/19/2017 by Tobin Vo MD at [facility] N/A: Spine Medtronic Spine/Ortho [id number]# / / Raul Lmbr 110x5.5mm Solera 5.5/6 Cvd Titnm - [id number] Implanted:Qty: 1 on 07/19/2017 by Tobin Vo MD at [facility] N/A: Spine Medtronic Spine/Ortho [id number]# / / Hook Lmbr Post Md Horizon Legacy Extended Body - [id number] Implanted:Qty: 2 on 07/19/2017 by Tobin Vo MD at [facility] N/A: Spine Medtronic Spine/Ortho [id number]# / / Set Screw Lmbr Legacy 5.5 Titnm Breakoff - [id number] Implanted:Qty: 2 on 07/19/2017 by Tobin Vo MD at [facility] N/A: Spine Medtronic Spine/Ortho [id number]# / / Interbody 20mm X 8mm X 60mm 6deg Implanted:Qty: 1 on 07/19/2017 by Tobin Vo MD at [facility] N/A: Spine 02/25/2023 [id number] / / [id number] Description:INTERBODY 20MM X 8MM X 60MM 6DEG Interbody 20mm X 12mm X 55mm 6deg Implanted:Qty: 1 on 07/19/2017 by Tobin Vo MD at [facility] N/A: Spine 05/21/2025 [id number] / / [id number] Description:INTERBODY 20MM X 12MM X 55MM 6DEG Interbody 20mm X 12mm X 50mm 6deg Implanted:Qty: 1 on 07/19/2017 by Tobin Vo MD at [facility] N/A: Spine 03/19/2023 [id number] / / [id number] Description:INTERBODY 20MM X 12MM X 50MM 6DEG Screw 45x5.5 Implanted:Qty: 2 on 07/19/2017 by Tobin Vo MD at [facility] N/A: Spine 10/28/2023 [id number] / / [id number] Description:SCREW 45X5.5 Screw 45x5.5 Implanted:Qty: 1 on 07/19/2017 by Tobin Vo MD at [facility] N/A: Spine 01/13/2024 [id number] / / [id number] one 1-4mm 30cc Medtronic Chips Canclls Freeze Dried Implanted:Qty: 1 on 07/19/2017 by Tobin Vo MD at [facility] Explanted:at [facility] (Quantity not on file) N/A: Spine Medtronic Spine/Ortho 04/01/2022 [id number]# / [id number] / Screw 40x5.5 Implanted:Qty: 1 on 07/19/2017 by Tobin Vo MD at [facility] N/A: Spine 01/08/2025 [id number] / / [id number] Description:SCREW 40X5.5 Bone Matrix Lg Infuse Bmp - [id number] Implanted:Qty: 1 on 07/19/2017 by Tobin Vo MD at [facility] N/A: Spine Medtronic Spine/Ortho 11/06/2018 [id number]# / / [id number] Bone Matrix 5cc Mastergraft Paste Dbm - [id number] Implanted:Qty: 1 on 07/19/2017 by Tobin Vo MD at [facility] N/A: Spine Medtronic Spine/Ortho 02/05/2022 [id number]# / / [id number] Plate Lmbr Sm 2-Hole Olif25 Lat - [id number] Implanted:Qty: 1 on 07/19/2017 by Tobin Vo MD at [facility] N/A: Spine Medtronic Spine/Ortho 05/11/2025 [id number]# / / [id number] Plate Lmbr Sm 2-Hole Olif25 Lat - [id number] Implanted:Qty: 1 on 07/19/2017 by Tobin Vo MD at [facility] N/A: Spine Medtronic Spine/Ortho 10/25/2023 [id number]# / / [id number] Set Screw Lmbr Ant 5.5mm Solera Break Off - [id number] Implanted:Qty: 6 on 07/19/2017 by Tobin Vo MD at [facility] N/A: Spine Medtronic Spine/Ortho [id number]# / / Screw Lmbr Post 4x50mm Solera 5.5/6 Va Cocr - [id number] Implanted:Qty: 1 on 07/19/2017 by Tobin Vo MD at [facility] N/A: Spine Medtronic Spine/Ortho [id number] # / / Screw Lmbr Post 5.5x50mm Solera 5.5/6 Va Cocr - [id number] Implanted:Qty: 1 on 07/19/2017 by Tobin Vo MD at [facility] N/A: Spine Medtronic Spine/Ortho [id number] # / / Procedures Procedure Name Priority [...] CDT ECHOCARDIOGRAM RADHA MCMULLEN ? Accession#: ?? [id number] : ?1940 83 years Study Date: ?? 10/15/2023 9:10:50 AM Gender: F ?BP: ? 164/83 mmHg Height: 178.00 cm ?BSA: ?2.00 m? ? ? Weight: 82.00 kg ? Tech: ? MHR ? Referring MD: CARMELO VINCENT Site: ? [facility] Reading Location: MOBILE OP [...] This study was interpreted by an [facility] accredited facility. CC: [facility] (formerly [facility]) [facility]. ??Final ?? Procedure Note Andre Gonzáles MD - 10/15/2023 ECHOCARDIOGRAM RADHA MCMULLEN : 1940 83 years Study Date: 10/15/2023 9:10:50 AM Gender: F BP: 164/83 mmHg Height: 178.00 cm BSA: 2.00 m? ? ? Weight: 82.00 kg Tech: R Referring MD: CARMELO VINCENT Site: [facility] Reading Location: MOBILE OP [...] interpreted by an [facility] accredited facility. CC: [facility] (med records) [facility]. Final Carmelo Vincent HUMAN FACTORS ERGONOMIST ECHO ORD * XR DXA BONE DENSITY [...] Documents on File Type Date Recorded Patient Focused Factory Manager Expl anation Healthcare Directive 06/28/2017 4:21 PM HE ALTH CARE POWER OF GROUND SUPPORT EQUIPMENT MECHANIC, 11/06/2003 * Full Code (Latest Code Status on File) Date Activated Date Inactivated Comments 07/19/2017 5:26 AM 07/26/2017 1:20 PM Care Teams V Belt Builder Relationship Specialty Start Date End Date Paula Carrillo PA PCP - General Physician Landscape Drafter 09/10/20
--- OUTSIDE RECORDS SUMMARY | 2023-11-18 12:53 | XMS_ITS | Clinical Summary ---
Author Organization [facility] er Address [address] [place] [address] Care Team Providers Care Mold Shaker Name Role Phone None, Pcp Primary Care [...] age to complete this topic Care Teams Mold Shaker Relationship Specialty Start Date End Date None, Pcp [address] [place] [address] PCP - General Canal Boat Operator 10/15/22
--- NOTE | 2023-11-18 13:30 | CRLHL7_ITS ---
For Patients: As a result of the Century Cures Act, medical imaging exams and procedure reports are released immediately into your electronic medical record. You may view this report before your referring provider. If you have questions, please contact your health care provider. DXA BONE MINERAL DENSITY STUDY Reason for exam: Osteopenia. Current height (in): 70. Weight (lb): 175. Menopause age: 43. Ethnicity: White. 1. Have you had a previous hip or vertebral fracture? No. 2. Have you had any fractures during your adult life which did not result from significant trauma (e.g., auto accident)? No. 3. Did either of your parents have a hip fracture? No. 4. Do you smoke? No. 5. Have you ever taken Glucocorticoids? No. 6. Do you have rheumatoid arthritis? No. 7. Do you have secondary osteoporosis? No. 8. Do you drink 3 or more alcoholic drinks per day? No. 9. Are you being treated for osteoporosis? No. 10. Have you ever taken any of the following medications: Actonel, Evista, Fosamax, Miacalcin, Reclast, Boniva, Forteo, HRT (i.e. estrogen/hormone therapy), Protelos, Prolia, Vitamin D, Calcium, other ??? please specify. ANSWER: Yes, HRT (i.e. estrogen/hormone therapy), vitamin D and calcium. 11. Do you have any of the following medical conditions: Anorexia or bulimia, asthma or emphysema, end stage renal disease, hyperparathyroidism, any seizure disorders, cancer, inflammatory bowel diseases, hysterectomy, other ??? please specify. ANSWER: Yes, hyperparathyroidism and hysterectomy. 12. What was your maximum height (inches)? 71. 13. Do you perform weight bearing exercise regularly? No. 14. Do you regularly consume dairy products? Yes. 15. Do you drink caffeinated beverages? Yes. 16. At what age did your period start? 13. 17. Are you premenopausal? No. 18. How many full term pregnancies have you had? 3. 19. Have you ever missed your period for more than 6 months in a row (not including or menopause)? No. TECHNIQUE: Bone mineral density study was performed using the [facility]. FINDINGS: The results of the study expressed as bone mineral density (BMD) are as follows: Neck Left: BMD: 0.783 g/cm2. T-score: -0.6. Z-score: 1.9. Right: BMD: 0.801 g/cm2. T-score: -0.4. Z-score: 2.0. Total Left: BMD: 0.904 g/cm2. T-score: -0.3. Z-score: 1.9. Right: BMD: 0.955 g/cm2. T-score: 0.1. Z-score: 2.4. Radius Left 33%: BMD: 0.695 g/cm2. T-score: 0.0. Z-score: 3.6. IMPRESSION: Normal bone density. *Comparison exams done prior to 08/2019 were performed on different unit, [employer] COMPARISON: Compared with scan of 10/15/2021, the bone mineral density has decreased by 2.0 percent at the hip. Andre Galeas M.D. Diagnostic Radiologist [email or web address] SP/Dictated by: Andre Galeas MD @ 11/19/2023 11:08:00 AM (Electronically Signed)
== END 2023-11-18 12:51 | disposition home or self-care (01) ==
LOC: RAD 12:51
PROVIDERS: PCP Nurse Practitioner Family; Visit Provider Nurse Practitioner Family
DX: M85.80 Other specified disorders of bone density and structure, unspecified site (principal)
CPT/HCPCS: 77080

== ENCOUNTER 2024-01-31 12:29 | Outpatient (CLI) | payer MEDICARE, SELFPAY ==
--- OUTSIDE RECORDS SUMMARY | 2024-01-31 12:31 | XMS_ITS | Clinical Summary ---
Author Organization [facility] er Address [address] [place] [address] Care Team Providers Care Refining Engineer Name Role Phone None, Pcp Primary Care Provider Unavailabl e Allergies Active Allergy Reactions Criticality Noted Date Comments Lisinopril Cough 10/11/2006 Other reaction(s): Cough Other reaction(s): Cough Metoprolol Other (see comments),Unknown 10/28/2011 Insomnia Other reaction(s): Sleep Disturbances Olmesartan Dizziness,Other (see comments) 11/30/2006 Other reaction(s): Dizziness Other reaction(s): Dizziness Other reaction(s): Other (see comments) Other reaction(s): Dizziness Medications acetaminophen (TYLENOL) 500 MG tablet Take 2 tablets (1,000 mg total) by mouth Active Calcium Carb-Cholecalci ferol 600-10 MG-MCG tablet Take 1 tablet by mouth Active cephalexin (KEFLEX) 500 MG capsule Take 1 capsule (500 mg total) by mouth 4 (four) times a day 3 Active doxycycline (VIBRAMYCIN) 100 MG capsule Take 1 capsule (100 mg total) by mouth 1 (one) time each day 3 Active gabapentin (NEURONTIN) 100 MG capsule Take 1 capsule (100 mg total) by mouth every night 3 Active hydroCHLOROthia zide (HYDRODIURIL) 25 MG tablet Take 1 tablet (25 mg total) by mouth 1 (one) time each day 3 Active Iodine Tincture tincture Clean sutures daily until discontinued 2 Active levothyroxine (SYNTHROID) 137 MCG tablet Take 1 tablet (137 mcg total) by mouth 1 (one) time each day 3 Active Social History Tobacco Use Types Packs/Day Years Used Date Smoking Tobacco: Never Assessed Comments Unknown Sex and Gender Information Value Date Recorded Sex Assigned at Not on file Legal Sex Female 11:02 AM CDT Gender Identity Not on file Sexual Orientation Not on file Plan of Treatment Health Maintenance Due Date Last Done Comments Bone Density Scan 1940 Fall Risk Performed 1958 Medicare Annual Wellness Visit (AWV) 1958 Pneumococcal Vaccine: 65+ Years (1 of 1 - PCV) 2005 Zoster Vaccines (2 of 3) 11/19/2008 09/24/2008 Mammogram 10/08/2017 10/08/2016 DTaP,Tdap,and Td Vaccines (4 - Td or Tdap) 06/23/2032 06/23/2022, 02/28/2022, 10/06/2011, Additional history exists COVID-19 Vaccine Completed 11/19/2023, , 11/27/2021, Additional history exists Influenza Vaccine Completed 11/19/2023, , 12/21/2018, Additional history exists HPV Vaccines Aged Out No longer eligi ble based on patient's age to complete this topic Insurance [employer] MEDICARE ADVANTAGE Care Teams Refining Engineer Relationship Specialty Start Date End Date None, Pcp [address] [facility] [place] [address] PCP - General Wood Heel Flap Rubber 10/15/22
--- OUTSIDE RECORDS SUMMARY | 2024-01-31 12:32 | XMS_ITS | Clinical Summary ---
Author Organization [employer] [facility] Address [place], [place] [address] Care Team Providers Care Manager Health Name Role Phone Barbara Vincent NP Primary Care Provider +1- [phone] Allergies Active Allergy Reactions Criticality Noted Date [...] g Sulfates (Suprep Bowel Prep Kit) 17.5-3.13-1.6 gramIndications:[place] n cancer screening Take as per the [...] Encounters Date Type Department Care Team Description 12/21/[address] [facility] [address] [place] [address] Barbara Vincent, ELECTRICAL LINE SPLICER 1 scan: (1-Ord) ZIO REPORT from Last 3 Months Immunizations Name Administration Dates Next Due COVID-19 vaccine (Seaters 30mcg/0.3mL) PF, MDV 06/27/2020,06/06/2020 Influenza, High-dose Inactivated [...] 72 06/06/2021 8:11 AM CDT Temperature 36.4 C (97.6 F) 11/02/2020 10:18 AM CDT Respiratory Rate 16 11/02/2020 10:1 [...] vaccine for adults or (1 - 1-dose 75+ series) 07/02/2015 Tetanus booster 10/05/2021 10/06/2011, 09/06, 03/08/1999 BMI [...] 01/03/2019, 09/24/2008 Medical Devices Implanted Type Area Kit Planner Device Identifier Shelf Expiration Date Model / Serial / Lot [id number] one 1-4mm 60cc Medtronic Fine Canclls Freeze Dried Implanted:Qty: 1 on 07/19/2017 by Tobin Vo MD at [facility] Explanted:at [facility] (Quantity not on file) N/A: Spine Medtronic Spine/Ortho 03/18/2022 [id number]# / [id number] / Screw Lmbr Post 6.5x50mm Solera 5.5/6 Va Cocr - [id number] Implanted:Qty: 4 on 07/19/2017 by Tobin Vo MD at [facility] N/A: Spine Medtronic Spine/Ortho [id number] # / / Raul Lmbr 100x5.5mm Solera 5.5/6 Cvd Titnm - [id number] Implanted:Qty: 1 on 07/19/2017 by Tobin Vo MD at [facility] N/A: Spine Medtronic Spine/Ortho [id number]# / / Raul Lmbr 110x5.5mm Solera 5.5/6 Cvd Titnm - [id number] Implanted:Qty: 1 on 07/19/2017 by Tobin Vo MD at [facility] N/A: Spine Medtronic Spine/Ortho [id number]# / / Hook Lmbr Post Horizon Legacy Extended Body - [id number] Implanted:Qty: 2 on 07/19/2017 by Tobin Vo MD at [facility] N/A: Spine Medtronic Spine/Ortho [id number]# / / Set Screw Lmbr Legacy 5.5 Titnm Breakoff - [id number] Implanted:Qty: 2 on 07/19/2017 by Tobin Vo MD at [facility] N/A: Spine Medtronic Spine/Ortho [id number]# / / Interbody 20mm X 8mm X 60mm 6deg Implanted:Qty: 1 on 07/19/2017 by Tobin Vo MD at [facility] N/A: Spine 02/25/2023 [id number] / / [id number] Description:INTERBODY 20MM X 8MM X 60MM 6DEG Interbody 20mm X 12mm X 55mm 6deg Implanted:Qty: 1 on 07/19/2017 by Tobin Vo MD at [facility] N/A: Spine 05/21/2025 [id number] / / [id number] Description:INTERBODY 20MM X 12MM X 55MM 6DEG Interbody 20mm X 12mm X 50mm 6deg Implanted:Qty: 1 on 07/19/2017 by Tobin Vo MD at [facility] N/A: Spine 03/19/2023 [id number] / / [id number] Description:INTERBODY 20MM X 12MM X 50MM 6DEG Screw 45x5.5 Implanted:Qty: 2 on 07/19/2017 by Tobin Vo MD at [facility] N/A: Spine 10/28/2023 [id number] / / [id number] Description:SCREW 45X5.5 Screw 45x5.5 Implanted:Qty: 1 on 07/19/2017 by Tobin Vo MD at [facility] N/A: Spine 01/13/2024 [id number] / / [id number] one 1-4mm 30cc Medtronic Chips Canclls Freeze Dried Implanted:Qty: 1 on 07/19/2017 by Tobin Vo MD at [facility] Explanted:at [facility] (Quantity not on file) N/A: Spine Medtronic Spine/Ortho 04/01/2022 [id number]# / [id number] / Screw 40x5.5 Implanted:Qty: 1 on 07/19/2017 by Tobin Vo MD at [facility] N/A: Spine 01/08/2025 [id number] / / [id number] Description:SCREW 40X5.5 Bone Matrix Lg Infuse Bmp - [id number] Implanted:Qty: 1 on 07/19/2017 by Tobin Vo MD at [facility] N/A: Spine Medtronic Spine/Ortho 11/06/2018 [id number]# / / [id number] Bone Matrix 5cc Mastergraft Paste Dbm - [id number] Implanted:Qty: 1 on 07/19/2017 by Tobin Vo MD at [facility] N/A: Spine Medtronic Spine/Ortho 02/05/2022 [id number]# / / [id number] Plate Lmbr Sm 2-Hole Olif25 Lat - [id number] Implanted:Qty: 1 on 07/19/2017 by Tobin Vo MD at [facility] N/A: Spine Medtronic Spine/Ortho 05/11/2025 [id number]# / / [id number] Plate Lmbr Sm 2-Hole Olif25 Lat - [id number] Implanted:Qty: 1 on 07/19/2017 by Tobin Vo MD at [facility] N/A: Spine Medtronic Spine/Ortho 10/25/2023 [id number]# / / [id number] Set Screw Lmbr Ant 5.5mm Solera Break Off - [id number] Implanted:Qty: 6 on 07/19/2017 by Tobin Vo MD at [facility] N/A: Spine Medtronic Spine/Ortho [id number]# / / Screw Lmbr Post 4x50mm Solera 5.5/6 Va Cocr - [id number] Implanted:Qty: 1 on 07/19/2017 by Tobin Vo MD at [facility] N/A: Spine Medtronic Spine/Ortho [id number] # / / Screw Lmbr Post 5.5x50mm Solera 5.5/6 Va Cocr - [id number] Implanted:Qty: 1 on 07/19/2017 by Tobin Vo MD at [facility] N/A: Spine Medtronic Spine/Ortho [id number] # / / Procedures Procedure Name Priority Date/Time Associated Diagnosis Comments EXTENDED HOLTER Routine 01/10/2024 Severe sinus bradycardia XR DXA BONE DENSITY 2 SITES AXIAL Routine 11/01/2018 1:14 PM CDT Other osteoporosis without current pathological fracture Vitamin D deficiency from Last 3 Months or Most Recently Relevant to Health Maintenance Results * EXTENDED HOLTER (01/10/2024) Barbara Vincent NP CARDIAC SERVICES O [address] * XR DXA BONE DENSITY 2 SITES [...] Documents on File Type Date Recorded Patient Hospice Admitting Clerk Expl anation Healthcare Directive 06/28/2017 4:21 PM HE ALTH CARE POWER OF CORRECTIONAL MEDICINE PHYSICIAN, 11/06/2003 * Full Code (Latest Code Status on File) Date Activated Date Inactivated Comments 07/19/2017 5:26 AM 07/26/2017 1:20 PM Care Teams Manager Health Relationship Specialty Start Date End Date Barbara Vincent NP [address] [place] [id number] PCP - General Emergency Medicine 10/15/23
--- NOTE | 2024-01-31 13:00 | CRLHL7_ITS ---
For Patients: As a result of the Century Cures Act, medical imaging exams and procedure reports are released immediately into your electronic medical record. You may view this report before your referring provider. If you have questions, please contact your health care provider. CLINICAL HISTORY: Abnormal serum enzymes FINDINGS: Nodular contour to liver this can be seen with cirrhosis. There is a normal appearance of the hepatic IVC and proximal abdominal aorta. There is no evidence of ascites. The gallbladder is of normal size and there is no evidence of intraluminal stones or sludge. The gallbladder wall measures 1 mm in thickness. The common bile duct is of normal size and measures 6 mm in diameter at the level of the rona hepatis. The pancreas appears normal. Right kidney is unremarkable. IMPRESSION: Nodular contour to liver this can be seen with cirrhosis. Hepatomegaly. Study is otherwise unremarkable. Dictated by Trina Whitley MD @ 02/01/2024 9:12:16 AM (Electronically Signed)
== END 2024-01-31 12:30 | disposition home or self-care (01) ==
LOC: US 12:29
PROVIDERS: PCP Nurse Practitioner Family; Visit Provider Nurse Practitioner Family
DX: R74.8 Abnormal levels of other serum enzymes (principal); R16.0 Hepatomegaly, not elsewhere classified
CPT/HCPCS: 76705

== ENCOUNTER 2024-04-25 10:06 | Outpatient (CLI) | payer MEDICARE, BC, SELFPAY | END 2024-04-25 10:07 | disposition home or self-care (01) | PROVIDERS: PCP Nurse Practitioner Family; Visit Provider Nurse Practitioner Family | DX: M19.90 Unspecified osteoarthritis, unspecified site (principal); M25.50 Pain in unspecified joint | CPT/HCPCS: 84550; 85651; 86038; 86039; 86140; 86200; 86431 ==

== ENCOUNTER 2024-07-14 13:27 | Outpatient (CLI) | payer MEDICARE, BC, SELFPAY | END 2024-07-14 13:28 | disposition home or self-care (01) | PROVIDERS: PCP Nurse Practitioner Family; Visit Provider Nurse Practitioner Family | DX: E87.6 Hypokalemia (principal); I10 Essential (primary) hypertension; E78.5 Hyperlipidemia, unspecified; E03.9 Hypothyroidism, unspecified; R20.2 Paresthesia of skin; G25.81 Restless legs syndrome; R74.8 Abnormal levels of other serum enzymes | CPT/HCPCS: 82607; 82728; 82746; 83540; 83550; 84439; 84443; 85025 ==

== ENCOUNTER 2024-07-27 09:45 | Outpatient (CLI) | payer MEDICARE, BC, SELFPAY | END 2024-07-27 09:46 | disposition home or self-care (01) | LOC: KYNREF 09:46 | PROVIDERS: PCP Nurse Practitioner Family; Visit Provider Nurse Practitioner Family | DX: R07.89 Other chest pain (principal) | CPT/HCPCS: 84484 ==

== ENCOUNTER 2024-10-12 06:10 | Outpatient (CLI) | payer MEDICARE, BC, SELFPAY | END 2024-10-12 06:11 | disposition home or self-care (01) | PROVIDERS: PCP Nurse Practitioner Family; Visit Provider Nurse Practitioner Family | DX: E03.9 Hypothyroidism, unspecified (principal); E78.5 Hyperlipidemia, unspecified; I10 Essential (primary) hypertension | CPT/HCPCS: 80053; 80061; 84443 ==

== ENCOUNTER 2024-11-20 10:04 | Outpatient (CLI) | payer MEDICARE, BC, SELFPAY ==
--- NOTE | 2024-11-20 10:15 | CRLHL7_ITS ---
For Patients: As a result of the Century Cures Act, medical imaging exams and procedure reports are released immediately into your electronic medical record. You may view this report before your referring provider. If you have questions, please contact your health care provider. INDICATION: BILATERAL SCREENING MAMMOGRAM, ASYMPTOMATIC 84 Y/O FEMALE COMPARISON: 10/15/2023, 10/12/2022, 10/07/2021 TECHNIQUE: Digital mammogram in CC and MLO projections including computer-aided detection (CAD) and tomosynthesis. BREAST COMPOSITION: The breasts are heterogeneously dense, which may obscure small masses. FINDINGS: No suspicious findings. ASSESSMENT: BI-RADS 2 Benign RECOMMENDATION: Annual screening mammogram. A lay language report of this examination will be provided to the patient. Dictated by: Andre Galeas MD @ 11/20/2024 12:03:12 (Electronically Signed)
== END 2024-11-20 10:05 | disposition home or self-care (01) ==
LOC: MAMMO 10:05
PROVIDERS: PCP Nurse Practitioner Family; Visit Provider Nurse Practitioner Family
DX: Z12.31 Encounter for screening mammogram for malignant neoplasm of breast (principal); R92.333 Mammographic heterogeneous density, bilateral breasts
CPT/HCPCS: 77063; 77067

== ENCOUNTER 2025-01-03 08:30 | Outpatient (RCR) | payer MEDICARE, BC, SELFPAY ==
--- NOTE | 2024-11-23 08:57 | PT.OPEX ---
[facility] PT [facility] Out[facility] Eval Start: 11/22/24 12:57 Freq: Status: Active Protocol: Document 11/23/24 07:20 HLA (Rec: 11/23/24 08:49 HLA [id number]) E-signed By Becka Naqvi, PT, DPT Physical Therapy Outpatient Evaluation Insurance Information Recert Due Date 02/20/25 Insurance Name Medicare B,[employer] Medical Diagnosis R shldr OA Treating Diagnosis pain, stiffness and weakness R shldr due to OA Imaging Report spurs, cyst R shldr, decreased joing space glenohumeral Information joint, OA Referring MD Larios Subjective Preferred Name Radha Subjective Pt reports pain R shldr with lifting her arm to the side and rotating outward feels weak. It is improving, but still weak for activities such as painting. Mild difficulty sleeping. Pain Comments R shldr abduction and ER, discomfort with palpations supraspinatus insertion and teres minor/infraspinatus palpation Current Work Status Retired Precautions Treatment C4 disk herniation per pt, chronic Precautions/ Contraindications Weight Bearing Full Weight Bearing Status Therapy Limitations/ Not Limited Systems Review Objective Range of Motion AROM R shldr flex 0-160, abd 0-160, ER 0-50, IR 0-70, T7 L shldr AROM full neck limited rotation 0-50 B, sidebend 0-20 elbow/wrist/hands WNL Strength R shldr flex 5-/5, abd 4/5, ER 4-/5, IR 5-/5, add 5/5, biceps 5-/5, triceps 5/5 L shldr 5/5 elbow/wrist/hand 5/5 B Swelling no edema noted Palpation pain palpation R supraspinatus insertion, R teres minor Balance & Gait gt stable uses cane balance screen mild deficits, stable with cane Posture fwd head, rounded shldrs, elevated and abducted scapulas Sensation/Reflexes intact to light touch Other/Pertinent empty can weakness R Objective full can negative for pain, weakness R Yergason's negative R Hawkin's-James -negative R apprehension negative R Functional Test QuickDASH 13.6% Performed & Score Assessment Assessment/ Radha is a 84-year-old female with hx of DDD, spinal Impression stenosis, 2 back fusions/rodding/cages, cardiac murmur, hypothyroidism, GERD and OA referred to PT by Dr. Larios due to R shldr OA with decreased joint space, spurs and subchondral cysts. Pt at baseline lives in [place], [facility], drives. She has been having pain R shldr at acromion, radiating into middle deltoid, increases lifting to the side and reaching behind her back. Less pain now since seeing Dr. Larios but does persist. She is right-handed. Pt presents with weakness R shldr abd and ER, scap weakness overall. Elevated and abducted scap and fwd head. She was instructed today in posture principles, scap strengthening and mobility, ER with band, abd isometrics. We discussed pacing, overuse R arm. Pt's goal is to regain strength R arm for home activities such as cleaning, leisure activities such as painting. PT weekly is planned to achieve goals. Primary Functional impaired ADLs, weakness R shldr, pain R shldr Limitations Plan of Care Rehabilitation Good Potential Rehabilitation Access Code: [email or web address] Comments URL: [email or web address] Date: 11/23/2024 Prepared by: Becka Naqvi Exercises - Seated Shoulder Shrugs - 2-3 x daily - 7 x weekly - 1 sets - 10 reps - Seated Shoulder Circles - 2-3 x daily - 7 x weekly - 1 sets - 10 reps - Seated Scapular Retraction - 2-3 x daily - 7 x weekly - 1 sets - 10 reps - Standing Shoulder Bilateral ER and Scapular Retraction with Resistance - 1-2 x daily - 7 x weekly - 1 sets - 10 reps - 5 hold - Isometric Shoulder Abduction at Wall (Mirrored) - 1- 2 x daily - 7 x weekly - 1 sets - 10 reps - 5 hold - Seated Cervical Rotation AROM - 1 x daily - 7 x weekly - 1 sets - 10 reps - Seated Passive Cervical Retraction - 1 x daily - 7 x weekly - 1 sets - 10 reps - 3-5 hold Physical Therapy Within 6-8 weeks Goals 1. Pt will have full AROM R shldr painfree for ADLs, leisure activities 2. 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 3. Pt will be ind in home ex program for posture, scap stability and shldr strengthening to return to full function R arm. Coordination/ Referral Source Communication With Treatment Plan/ Dry Needling,Electrical Stimulation,Gait Training,Heat, Direct Interventions Ice/Cold/Vasopneumatic,Iontophoresis,Joint Mobilization ,Manual Therapy,Neuromuscular Re-ed,Orthotics/Braces, Self-Care/Home Management,Therapeutic Activities, Therapeutic Exercises Patient Will Be Completion of LTG(s),Skills Plateau,Independent w/HEP, Discharged From Independently Progressing Therapy Evaluation Billing Untimed Code 25 Treatment Minutes PT Eval No Charge No Complexity Low Certification Information Initial 11/23/24 Certification Date Ending Certification 02/20/25 Date Provider Signature Yes Required Provider Signature POC & Medical Necessity Shows Agreement With Physician NPI Number Write NPI# Here Physician Comment/ : Change Physician Signature Please Sign/Date Here & Date Requested
== END 2025-01-03 09:43 | disposition home or self-care (01) ==
PROVIDERS: PCP Nurse Practitioner Family; Visit Provider Orthopaedic Surgery
DX: M19.011 Primary osteoarthritis, right shoulder (principal); Z51.89 Encounter for other specified aftercare
CPT/HCPCS: 97110; 97140; 97161